=== PATIENT | male | born 1960 | race Caucasian/White ===

== ENCOUNTER 2017-06-04 11:07 | Emergency (ER) | payer MEDICARE, SELFPAY ==
[2017-06-04 11:08] VITALS: BP 139/86; PULSE 62; RESP 18; TEMP 36.6; O2SAT 98; BMI 37.2
--- NOTE | 2017-06-04 11:26 | RAD_ITS ---
STUDY: X-RAY - SACRUM/COCCYX REASON FOR EXAM: Male, 56 years old. Fall with back pain TECHNIQUE: 3 view(s) of the sacrum and coccyx were obtained. COMPARISON: None. FINDINGS: Normal bilateral sacroiliac joints. Normal visualized sacral ala and fused sacral bodies. Normal sacrococcygeal junction with a normal angulation. Normal coccygeal segments. The presacral soft tissue structures are unremarkable. RAD/Sacrum-Coccyx min 2 Views IMPRESSION: Normal x-rays of the sacrum and coccyx. Electronically Signed: Esvin Barton DO at 11:56 EDT Tel , Service support ,
--- NOTE | 2017-06-04 12:27 | ED.DCSUM_ITS ---
- ER Visit Summary Date of Service: 06/04/17 Chief Complaint: Fall History of Present Illness: The patient is a [address] Vega. Reports that he fell onto his buttocks 1 week ago. He continues to have sharp, throbbing pain over his tailbone. States pain is 10 out of 10 at worst and 6 out of 10 currently. Is worsened by sitting relieved by tramadol. Denies any radiation to his legs. No numbness or weakness in his legs. No loss of conscious or other injuries. Physical Examination: Vitals: Stable. Afebrile. Neck: No vertebral tenderness. Full ROM without difficulty. Cleared by NEXUS criteria. Back: No vertebral tenderness. Mild tenderness palpation over the sacrum and the coccyx. General: A&O x 3. NAD. Cardiovascular exam: Regular rate and rhythm, no murmur, rub or gallop. Respiratory exam: Chest nontender. No crepitus. Clear to auscultation bilaterally. No wheezes or stridor. Abdominal exam: Soft, nontender, nondistended, normal bowel sounds. No pain in RUQ or LUQ specifically. No peritoneal signs. Extremity: Atraumatic. No pain with range of motion. Test Results: X-ray of the sacrum and coccyx is normal. Emergency Department Course and Treatment: Patient is resting comfortably. Treatment Plan: Patient be discharged and instructed to use a donut pillow. Continue his Ultram. Follow-up Dr. Vega in 1 week if not improving. Disposition: To home in improved and stable condition. Impression: 1. Coccygeal contusion. This note was generated with [employer] dictation software. It may contain incorrect words, spelling, and punctuation that were not noted in review of the chart prior to signing ED Disposition - Plan for ED Patient: Disposition: Home or Assisted Living Chief Complaint: Fall Instructions: ED Contusion Sacrum Coccyx Referrals: Chi Vega DO [Primary Care Provider] - 1 Week if not improving
== END 2017-06-04 12:48 | disposition home or self-care (01) ==
PROVIDERS: Emergency Provider Emergency Medicine; Family Provider Family Medicine; PCP Family Medicine
DX: S30.0XXA Contusion of lower back and pelvis, initial encounter (principal); W19.XXXA Unspecified fall, initial encounter; Y93.9 Activity, unspecified; Y92.9 Unspecified place or not applicable; J44.9 Chronic obstructive pulmonary disease, unspecified; I10 Essential (primary) hypertension; M79.7 Fibromyalgia; Z90.49 Acquired absence of other specified parts of digestive tract; Z87.891 Personal history of nicotine dependence; Z79.82 Long term (current) use of aspirin; Z79.899 Other long term (current) drug therapy
CPT/HCPCS: 72220; 99282

== ENCOUNTER → 2017-06-29 13:09 | Outpatient (CLI) | payer MEDICARE, SELFPAY ==
[2017-06-29 15:44] LABS: Absolute Lymphocyte Count 1.44 X10^3/ul (0.83-4.51); Absolute Neutrophil Count 3.3 X10^3/uL (2.0-7.7); Basophil# 0.01 X10^3/uL; Basophil% 0.2 % (0-1); Eosinophils% 3.7 % (0-5); Hematocrit 42.8 % (40-54); Hemoglobin 13.9 g/dl (13.0-16.5); Lymphocyte # 1.44 X10^3/ul (4.0); Lymphocyte % 26.9 % (19-41); Mean Corp Hgb Conc 32.5 g/gl (32-36); Mean Corpuscular Hgb 28.4 pg (27.0-32.0); Mean Corpuscular Volume 87.3 fL (80-94); Mean Platelet Vol. 12.7 fl (6.2-12.0); Monocyte# 0.39 X10^3/uL; Monocyte% 7.3 % (0-10); Neutrophil # 3.31 X10^3/uL (2.7-7.7); Neutrophil % 61.7 % (47-70); Platelet Count 209 K/mm3 (150-450); RBC Distribution Width SD 48.2 fl (35.1-43.9); White Blood Count 5.4 K/mm3 (4.4-11.0)
[2017-06-29 15:59] LABS: AST(SGOT) 15 U/L (15-37); Alanine Aminotransfer ALT/SGPT 27 U/L (16-61); Albumin, Serum 3.5 g/dL (3.2-5.0); Alkaline Phosphatase 107 U/L (45-117); Anion Gap 6 (5-15); BUN 8 mg/dL (7-18); BUN/Creat Ratio 8.3 RATIO (10-20); Calcium,Total 8.5 mg/dL (8.5-10.1); Chloride 110 mmol/L (98-107); Cholesterol 187 mg/dL (200); Creatinine, Serum 0.97 mg/dL (0.70-1.30); EST Glomerular Filtration Rate 85 mL/min (>60); Est Glom Filt Rate - Afr Amer 103 mL/min (>60); Globulin 3.4 g/dL (2.2-4.2); Glucose 84 mg/dL (74-106); High Density Lipoprotein 33 mg/dL; Potassium 4.4 mmol/L (3.5-5.1); Protein, Total 6.9 g/dL (6.4-8.2); Sodium Level 140 mmol/L (136-145); Triglycerides 102 mg/dL; Very Low Density Lipoprotein 20 mg/dL (5-40)
[2017-06-29 16:31] LABS: POSITIVE COUNT NO; POSITIVE DIFFERENTIAL NO; POSITIVE MORPHOLOGY NO
== END ==
PROVIDERS: Family Provider Family Medicine; PCP Family Medicine; Visit Provider Family Medicine
DX: I10 Essential (primary) hypertension (principal)
CPT/HCPCS: 36415; 80053; 80061; 85025

== ENCOUNTER → 2017-09-17 12:28 | Outpatient (CLI) | payer MEDICARE, SELFPAY ==
--- NOTE | 2017-09-17 13:30 | CT_ITS ---
STUDY: LOW DOSE CT LUNG CANCER SCREENING REASON FOR EXAM: Male, 56 years old. History of smoking, 2.5 packs per day, 45 years. Screening. RADIATION DOSAGE (If Supplied By Facility): CTDIvol = ( 3.04 ) mGy, DLP = ( 94.05 ) mGycm TECHNIQUE: No contrast was administered. Low dose technique was utilized. 1.25 mm axial source images with a slice interval of 1.25-mm were reconstructed in lung windows. Nodule measured using lung windows on PACS and/or independent workstation with automated measurement of minimum and maximum diameter. Nodule measurement reported as average diameter rounded to the nearest whole number. Growth is defined as an increase ins size of greater than 1.5 mm. COMPARISON: CT chest 06/08/2015, 05/31/2014, 05/17/2014. NODULES: Chest overview: No acute upper abdominal process is evident in limited evaluation. Body wall soft tissues and osseous structures exhibit no acute process. Only minimal thoracic spondylosis. No apparent mediastinal or hilar mass or lymphadenopathy. Normal esophagus. No cardiomegaly. There is epicardial lipomatosis. There are no visible coronary calcifications. Nondilated aorta and central pulmonary arteries. Lungs: In the apices, there are features of paraseptal emphysema, more prominent on the right, with a greater degree of peripheral bleb formation on the right. There are a few scattered small pulmonary nodules in both the right and the left lung. On the left, the largest pulmonary nodule is solid, oval, smoothly circumscribed, measuring 3.8 mm. On the right, the largest pulmonary nodule is solid, sharply circumscribed, oval, measuring approximately 4.9 mm. There are otherwise no suspicious pulmonary lesions. There are no endobronchial airway lesions. CT/Low Dose CT Lung Screening IMPRESSION: Based on the ACR lung RADS criteria, pulmonary nodules less than 6 mm, solid, without spiculation or other suspicious features. Category 2 (benign appearance, less than 1% chance of malignancy). Follow-up low dose screening chest CT is recommended in one year. Emphysema. IMPORTANT NOTES FOR USE: ACR Lung-RADS Version 1.0 Assessment Categories Release Date: July 11, 2013 Category: Coded 0-4 bases on nodule(s) with highest degree of suspicion. Negative screen is defined as categories 1 and 2; a positive screen is defined as categories 3 and 4. Category 3 and 4A nodules that are unchanged on interval CT should be coded as category 2, and individuals returned to screening in 12 months. Category 4X: Category 3 or 4 nodules with additional imaging findings that increase the suspicion of lung cancer, such as spiculation, GGN that doubles in size in 1 year, enlarged lymph notes, etc. Category Modifiers: S (significant finding unrelated to lung cancer) and C (prior history of treated lung cancer) may be added to the 0-4 Lung-RADS Electronically Signed: Talib Hernandez, at 15:12 EDT Tel , Service support ,
== END ==
PROVIDERS: Family Provider Family Medicine; PCP Family Medicine; Visit Provider Internal Medicine
DX: Z12.2 Encounter for screening for malignant neoplasm of respiratory organs (principal); Z87.891 Personal history of nicotine dependence
CPT/HCPCS: G0297

== ENCOUNTER 2017-10-11 16:46 | Emergency (ER) | payer MEDICARE, SELFPAY ==
[2017-10-11 16:48] VITALS: BP 123/93; PULSE 56; RESP 18; TEMP 36.2; O2SAT 99; BMI 34.9
--- NOTE | 2017-10-11 17:38 | ED.VISSUMM ---
- ER Visit Summary Date of Service: 10/11/17 Chief Complaint: Back pain History of Present Illness: The patient is a 57 M presenting with back pain radiating to both legs. He states this has been ongoing for the past 2-3 days. He has a history of chronic back pain. He does not recall anything that exacerbated his pain. He has no bowel or bladder incontinence. No numbness or weakness. He is able to ambulate with pain. He takes Lyrica at home for pain. Denies other complaints. Physical Examination: Vitals are stable. Patient is afebrile. Alert no acute distress. HEENT exam is unremarkable. Neck is supple. Lungs are clear and equal bilaterally. Heart is regular rate and rhythm. Abdomen is soft nontender nondistended. Back: Bilateral paraspinal lumbar muscle tenderness, no midline tenderness. Straight leg raise positive at 30? bilaterally. Extremities are unremarkable. Skin is warm and dry. No focal neurologic deficit. Normal strength and sensation Remainder of exam is unremarkable. Emergency Department Course and Treatment: Patient is given morphine, Zofran with improvement. Patient is given a prescription for Naprosyn and Flexeril. He is advised to follow-up with his primary care physician. Advised return to ED if worsening complaints. Disposition: Discharge home Impression: Acute on chronic back pain This note was generated with [employer] dictation software. It may contain incorrect words, spelling, and punctuation that were not noted in review of the chart prior to signing ED Disposition - Plan for ED Patient: Chief Complaint: Lower Extremity Injury Referrals: Chi Vega DO [Primary Care Provider] -
[2017-10-11] MEDS: Ondansetron 8 MG Tablet PO (18:00)
[2017-10-11] MEDS: morphine 10 MG/ML Syringe SC (18:00)
--- NOTE | 2017-10-11 18:21 | ED.DEP ---
ED Disposition - Plan for ED Patient: Chief Complaint: Lower Extremity Injury Instructions: ED Sprain Strain Lumbar Prescriptions: Naproxen [Naprosyn] 500 mg PO BID PRN #20 tablet Cyclobenzaprine [Flexeril] 10 mg PO TID PRN #20 tablet PRN Reason: Muscle Spasm Referrals: Chi Vega DO [Primary Care Provider] -
[2017-10-11 18:42] VITALS: BP 128/80; PULSE 57; RESP 16; O2SAT 97
== END 2017-10-11 18:45 | disposition home or self-care (01) ==
LOC: ED 18:36
PROVIDERS: Emergency Provider Emergency Medicine; Family Provider Family Medicine; PCP Family Medicine
DX: M54.9 Dorsalgia, unspecified (principal); G89.29 Other chronic pain
CPT/HCPCS: 96372; 99283

== ENCOUNTER 2017-10-13 12:31 | Emergency (ER) | payer MEDICARE, SELFPAY ==
[2017-10-13 12:32] VITALS: BP 149/90; PULSE 73; RESP 16; TEMP 36.2; O2SAT 98; BMI 34.9
--- NOTE | 2017-10-13 13:20 | ED.VISSUMM ---
- ER Visit Summary Date of Service: 10/13/17 Chief Complaint: [Back pain] History of Present Illness: The patient is a 57 M [ presents the emergency department complaint of back pain that started about a week ago. Patient states that he has a history of chronic back pain issues and he will have flareups 2 or 3 times per year. Patient denies any injury to his back. States the pains in his low back and kind of radiates to the front of the thighs at times. Pain is worse with certain movements especially with walking. Patient had a hard time sleeping at night secondary to pain. Patient denies urinary symptoms. He denies change in bowel or bladder function. Patient denies saddle anesthesia. Patient was seen in the emergency department 2 nights ago and had a shot of morphine and he states he felt better for about a day and a half but then the pain became worse last evening. Patient states this is the same pain he has been getting for years off and on.] Physical Examination: [HEENT-PERRLA, EOMI. Cranial nerves II through XII grossly intact. TMs clear. Mucous membranes moist. No adenopathy. Cardiovascular-regular rate and rhythm without murmur or ectopy Lungs-clear to auscultation, chest wall stable without crepitus or subcu emphysema Abdomen-normoactive bowel sounds, soft, nontender, no rebound or rigidity, no peritoneal signs. Back exam-patient has some diffuse tenderness over lumbar paraspinal musculature and lumbar spine. There is no erythema or warmth noted. There is no crepitus noted. Patient has negative straight leg raises. Deep tendon reflexes are plus 1 out of 4 bilaterally at the patella and Achilles. Patient has normal L5 extension bilaterally and normal sensation to light touch. Extremities-intact ?4, normal range of motion, normal pulses, atraumatic] Test Results: [None indicated] Emergency Department Course and Treatment: [Patient was medicated with morphine, Zofran, and Norflex] Treatment Plan: [I did perform an oars report on the patient and he always gets his Lyrica from the primary care physician as well as his tramadol. I will write patient a prescription for 12 Percocet tablets for severe pain and advised to follow-up with primary care physician within next 3-5 days.] Disposition: [Discharged home in stable condition.] patient advised to return if increasing pain, fever, weakness in extremities, loss of bowel or bladder function, or condition should worsen in any way. Impression: [Acute exacerbation of chronic back pain.] This note was generated with [employer] dictation software. It may contain incorrect words, spelling, and punctuation that were not noted in review of the chart prior to signing ED Disposition - Plan for ED Patient: Chief Complaint: Back Referrals: Chi Vega DO [Primary Care Provider] -
--- NOTE | 2017-10-13 13:24 | ED.DEP ---
ED Disposition - Plan for ED Patient: Chief Complaint: Back Instructions: ED Neck Back Pain General Prescriptions: Oxycodone HCl/Acetaminophen [Percocet 5/325] 1 tab PO Q6H PRN PRN 3 Days #12 tab PRN Reason: Pain Referrals: Chi Vega DO [Primary Care Provider] - 3-5 Days
[2017-10-13] MEDS: Morphine 4 MG/ML Syringe IM (13:36)
[2017-10-13] MEDS: Ondansetron 4 MG/2 ML Vial IM (13:36)
[2017-10-13] MEDS: Orphenadrine 60 MG/2 ML Ampul IM (13:36)
== END 2017-10-13 13:53 | disposition home or self-care (01) ==
LOC: ED 13:23
PROVIDERS: Emergency Provider Emergency Medicine; Family Provider Family Medicine; PCP Family Medicine
DX: M54.5 Low back pain (principal); G89.29 Other chronic pain; I10 Essential (primary) hypertension; M19.90 Unspecified osteoarthritis, unspecified site; M79.7 Fibromyalgia; Z90.49 Acquired absence of other specified parts of digestive tract; Z79.899 Other long term (current) drug therapy; Z87.891 Personal history of nicotine dependence
CPT/HCPCS: 96372; 99282; J2405

== ENCOUNTER → 2017-10-28 15:31 | Outpatient (CLI) | payer MEDICARE, SELFPAY | PROVIDERS: Family Provider Family Medicine; PCP Family Medicine; Visit Provider Family Medicine | DX: M51.36 Other intervertebral disc degeneration, lumbar region (principal); M54.5 Low back pain; G89.29 Other chronic pain; M47.22 Other spondylosis with radiculopathy, cervical region | CPT/HCPCS: 72148 ==

== ENCOUNTER 2018-01-31 11:03 | Emergency (ER) | payer MEDICARE, SELFPAY ==
[2018-01-31 11:05] VITALS: BP 142/84; PULSE 78; RESP 17; TEMP 36.3; O2SAT 97; BMI 35.6
--- NOTE | 2018-01-31 11:39 | ED.DCSUM_ITS ---
- ER Visit Summary Date of Service: 01/31/18 Chief Complaint: [] Left buttock fullness for a few days History of Present Illness: The patient is a 57 M [] last few days she has had a sense of fullness to the left buttock area he has had fullness there before leg abscess he presents for evaluation, he has no history of MRSA no history of systemic signs or symptoms his bowel bladder habits been normal no fevers no trauma, he is never had an I&D of the area whatever the process is usually resolves spontaneously Physical Examination: [] His blood pressure is 160/80 he is resting comforting the bed General, no distress resting comfortably HEENT is generally unremarkable The neck is supple no adenopathy Cardiovascular, regular rate and rhythm Lungs, clear bilateral Abdomen, soft nontender To the left buttock there is a 1 cm area of fullness that is indurated there is no fluctuance or crepitance there is no lymphangitic streaking the rest of the physical exam and skin exam are unremarkable Extremities, no clubbing cyanosis or edema Neurologic, awake alert answering questions appropriately moving all 4 extremities Test Results: [] Emergency Department Course and Treatment: [] explained he appears to have a pilonidal cyst could be early explained we could I&D the cyst he indicates the past has been treated with medications, he will be started on Bactrim Naprosyn he has a family physician he can follow-up with in addition he was given the referral to Dr. Azevedo on-call he will return for change in symptoms otherwise follow-up as an outpatient with his providers Treatment Plan: [] Disposition: [] Home stable Impression: [] Left buttock pilonidal cyst This note was generated with [employer] dictation software. It may contain incorrect words, spelling, and punctuation that were not noted in review of the chart prior to signing ED Disposition - Plan for ED Patient: Chief Complaint: Abscess Referrals: Chi Vega DO [Primary Care Provider] -
--- NOTE | 2018-01-31 11:39 | ED.DEP ---
ED Disposition - Plan for ED Patient: Chief Complaint: Abscess Instructions: ED Cyst Pilonidal Infec Abx Only Prescriptions: Naproxen [Naprosyn] 500 mg PO BID PRN #20 tab Smz/Tmp Ds [Bactrim Ds] 1 tab PO BID #14 tab Referrals: Chi Vega DO [Primary Care Provider] - Naresh Azevedo MD [STAFF PHYSICIAN] -
[2018-01-31 11:50] VITALS: BP 141/67; PULSE 71; RESP 16; O2SAT 96
== END 2018-01-31 11:51 | disposition home or self-care (01) ==
LOC: ED 11:25
PROVIDERS: Emergency Provider Emergency Medicine; Family Provider Family Medicine; PCP Family Medicine
DX: L05.91 Pilonidal cyst without abscess (principal)
CPT/HCPCS: 99282

== ENCOUNTER → 2018-02-09 10:46 | Outpatient (CLI) | payer MEDICARE, SELFPAY ==
[2018-02-09 10:36] VITALS: BMI 35.6
--- NOTE | 2018-02-09 10:48 | RAD_ITS ---
HISTORY: PBack PainRAD Spine COMPARISON: 04/17/2016 FINDINGS: Lumbar spine with lateral flexion-extension views for total 4 views. With comparison to previous, no significant change. Lumbar vertebra show normal height and alignment. No fracture or suspicious bony lesion. With flexion and extension, no abnormal motion or spondylolisthesis. L2-3 through L4-5 mild disc space narrowing. The posterior elements appear intact. The SI joints are preserved. Surgical clips within the gallbladder fossa. RAD/L/S Spine Min 4 Views IMPRESSION: 1. Stable findings. Mild degenerative changes. 2. No spondylolisthesis or instability. at 0440 Reported and signed by: Eddie Muñoz MD Electronically Signed: Eddie Muñoz, at 4:38 EST Tel , Service support ,
--- OUTSIDE RECORDS SUMMARY | 2018-03-24 02:30 | XMS RPT_ITS ---
:1960 Author Organization OHIP Support Name Relationship Address Phone D Unavailable Unavailable Unavailable MARITZA, DEV Unavailable [address] [place] [address] D Unavailable Unavailable Unavailable MARITZA, DEV Unavailable [address] [place] [address] D Unavailable Unavailable Unavailable MARITZA, DEV Unavailable [address] [place] [address] D Unavailable Unavailable Unavailable MARITZA, DEV Unavailable [address] [place] [address] D Unavailable Unavailable Unavailable MARITZA, DEV Unavailable [address] [place] [address] D Unavailable Unavailable Unavailable MARITZA, DEV Unavailable [address] [place] [address] ELDER SALASA Unavailable Unavailable + MARITZA, AMANDA Unavailable Unavailable + D Unavailable Unavailable Unavailable MARITZA, DEV Unavailable [address] [place] [address] D Unavailable Unavailable Unavailable MARITZA, DEV Unavailable [address] [place] [address] D Unavailable Unavailable Unavailable MARITZA, DEV Unavailable [address] [place] [address] D Unavailable Unavailable Unavailable MARITZA, DEV Unavailable [address] [place] [address] D Unavailable Unavailable Unavailable MARITZA, DEV Unavailable [address] [place] [address] D Unavailable Unavailable Unavailable MARITZA, DEV Unavailable [address] [place] [address] D Unavailable Unavailable Unavailable DEV SALAS Unavailable [address] [place] [address] Care Team Providers Name Role Phone Ervin Eisenberg Attending Unavailable Silvia, Chi Primary Care Unavailable Silvia, Chi Primary Care Unavailable Ervin Eisenberg Attending Unavailable Rene, Lian Attending Unavailable Rene, Lian Referring Unavailable Silvia, Chi Primary Care Unavailable Silvia, Chi Attending Unavailable Silvia, Chi Primary Care Unavailable Brian, Francis Attending Unavailable Brian, Francis Referring Unavailable Silvia, Chi Primary Care Unavailable Silvia, Chi Primary Care Unavailable Shayy Hollingsworth Attending Unavailable [place]via, Chi Primary Care Unavailable Arianne Galeas Attending Unavailable [place]via, Chi Attending Unavailable Silvia, Chi Referring Unavailable Silvia, Chi Primary Care Unavailable Silvia, Chi Primary Care Unavailable Mikie Casey Attending Unavailable Rene, Lian Attending Unavailable Silvia, Chi Referring Unavailable Rene, Lian Attending Unavailable Rene, Lian Referring Unavailable Silvia, Chi Primary Care Unavailable Rene, Lian Attending Unavailable Rene, Lian Referring Unavailable Silvia, Chi Primary Care Unavailable Silvia, Chi Attending Unavailable Silvia, Chi Referring Unavailable Silvia, Chi Primary Care Unavailable Javon, Dr. Levy Admitting Unavailable Javon, Dr. Levy Attending Unavailable Silvia, Dr. Chi De La Torre Referring Unavailable Palomino, Dr. Goldman Primary Care Unavailable PROBLEMS PROBLEMS DATE TYPE CONDITION / CODE ATTENDING STATUS SOURCE 02/09/2018 Unknown M54.5 - Low back Lian Rene Active [place] [facility] / Community M54.5(ICD-10) Hospital Repository 09/17/2017 Unknown Z12.2 - Encounter Francis Torres Active [place] for screening for Community malignant neoplasm Hospital of respiratory Repository organs / Z12.2(ICD-10) 06/29/2017 Unknown I10 - Essential SilviaChi ponce Active [place] (primary) Community hypertension / Hospital I10(ICD-10) Repository PROCEDURES PROCEDURES No Procedure Records FoundRESULTS RESULTS SPINE CERVICAL Observed: 02/26/2018 Status: F Source: [place] [facility]OUTINE) 12[facility] PM [facility] Imaging Services [address] [place] [address] Spine Cervical (Routine) MR#: [id number] Acct: [id number] Name: NAKUL CURTIS Rep #: [id number] : 1960 M 57 From: Josh Richter MD PCP: Chi Vega DO Status: REG CLI Study: Spine Cervical (Routine) Date of Exam: 02/26/18 Exam# [id number] Ordering Dr: Lian Rene MD STUDY: MRI CERVICAL SPINE WITHOUT CONTRAST REASON FOR EXAM: Male, 57 years old. Fibromyalgia TECHNIQUE: Standardized fat and water weighted pulse sequences were obtained in the sagittal and axial planes. COMPARISON: None FINDINGS: There is no tonsillar ectopia. There is a normal cervicomedullary junction. The cervical spinal cord is of normal morphology and signal intensity with no myelomalacia, contusion or myelopathy. There is loss of the normal lordotic curvature of the cervical spine. There are no acute fractures or dislocations. Significant disc space narrowing C5-C6 and C6-C7. C2-3: Normal endplates. Normal disc height, signal and morphology. Normal central canal and intervertebral neural foramina. C3-4: Normal endplates. Normal disc height, signal and morphology. Normal central canal and intervertebral neural foramina. C4-5: Normal endplates. Normal disc height, signal and morphology. Normal central canal and intervertebral neural foramina. C5-6: Disc space narrowing with a spondylotic bar abutting on the anterior surface of the cord. The intervertebral foramina are patent. C6-7: Disc space narrowing. An 8.4 x 4.0 mm right paracentral disc protrusion impinging on the right anterior funiculus of the cord. Uncinate spurs minimally narrowing the intervertebral foramina. C7-T1: Normal endplates. Normal disc height, signal and morphology. Normal central canal and intervertebral neural foramina. . 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 An 8.4 x 4.0 mm right paracentral disc protrusion at C6-C7. The protruding disc impinges on the right anterior funiculus of the cord at this level Electronically Signed: Josh Richter MD at 0:32 EST Tel , Service support , CC: Lian Rene MD; Chi Vega DO Block Saw Operator: Signed INITAL EVALUATION (1) Observed: 02/23/2018 Status: F Source: [facility] - PT 5:02 PM [facility] [place] [place] REPOSITORY [facility] Physical Therapy [facility]. [address] [place] [address] Fax REHABILITATION SERVICES INITIAL EVALUATION MR#: [id number] Acct: [id number] Name: NAKUL CURTIS Rep #: [id number] : 1960 57 From: Luke Ferrell PT, Cert. MDT, OCS Referring Dr.: Lian Rene MD Status: REG RCR Insurance: [facility] *IN NETWORK SELF PAY INSURANCE Patient's Visit Information NAKUL CURTIS is a 57 year old M referred to Physical Therapy by Lian Rene with a diagnosis of BACK PAIN. Date of Evaluation: 02/16/18 Physical Therapist: Luke Ferrell PT, - Visit Plan Frequency: 2x /Week Duration: 8 weeks Plan: AQUATIC PT LUMBAR ROM,DLS ,FLEXABLITY - Subjective Findings: This 57 y/o male presents to physical therapy with Back pain. Patient has had back pain my years along with weakness ,pain and parathesia. Symptoms located symmtrical lumbar. Patient has had MRI. Patient seen DR uttu PT. Patient symptoms walking,sitting,standing,lifting. Symptoms better with heat. Patient has parathesia/tingling in feet.Symptoms affect sleeping. Coughing/sneezing postive, Bowel/blader good. Patient has had injection in past. Patient pain affects QOL and function . - Pain Bilateral Back Pain Intensity (Out of 10): 7 Pain Intensity Range: 10 Bilateral Lower Extremity Pain Intensity (Out of 10): 7 Pain Intensity Range: 7, 10 - Objective POSTURE: mild foward posture. GAIT: mild foward posture with cane antalgic gait. NEURO: c/o parathesia/tingling in feet,reflexes L3-4,L4-5,L5-S1 1/3,light touch intact. MMT: quad/hams 4-/5,hip flexion 3+/5,ankle 4/5. LUMBAR ROM: flexion mod/severe loss,extension mod/severe loss,side glides mod loss. FLEXABLITY: hams mod loss,piriformis mod loss. SYMMTRICAL: align. PALAPTION: tender L-S - Special Tests L/S Slump test left side: Negative L/S Slump test right side: Negative L/S Left Straight Leg Raise: Negative L/S Right Straight Leg Raise: Negative - Goals Goal 1:: Independant with AQUATIC PT program Goal Time Frame: 6-8 Weeks Goal 2:: Indpendant with posture for ADL'S Goal Time Frame: 6-8 Weeks Goal 3:: Patient decrease lumbar pain by 50 % or greatweer to imrove function Goal Time Frame: 6-8 Weeks Goal 4:: Patient to improve lumbar ROM for function of recovery. Goal Time Frame: 6-8 Weeks Goal 5:: Patient to improve ADLS' and walking with less pain to improve function. Goal Time Frame: 6-8 Weeks Goal 6:: Patient improve KITA back score by 5 points Goal Time Frame: 6-8 Weeks - Rehabilitation Potential Physical Therapy Diagnosis: This patient has symmtrical lumbar pain with radicular symptoms with weakness ,poor lumbar ROM with pain,decrease strength,function impairs function and ADL'S Rehabilitation Potential: Good - Anticipated Interventions Patient/Client Instruction: Educate patient on: Condition, Plan of Care For the Purpose of:: To decrease pain, To increase ROM, To improve muscle performance and motor function, To improve ability to perform ADL's, To increase tolerance to activity/condition/position, To improve ability of physical actions for home/community/work/leisure, To improve health of tissue, To decrease soft tissue restriction, To increase flexibility/ROM, To improve ability to perform tasks related to life management Therapeutic Exercise to Include: Strength training, Postural training, Flexibilty training, In an aquatic setting, Dynamic Lumbar Stabilization For the Purpose of:: To decrease pain, To increase ROM, To improve muscle performance and motor function, To increase tolerance to activity/condition/position, To improve ability of physical actions for home/community/work/leisure, To improve health of tissue, To decrease soft tissue restriction, To increase flexibility/ROM, To reduce risk of recurrence, To improve ability to perform tasks related to life management Thank you for the opportunity to evaluate your patient. For Medicare and Medicare HMO plans, please review the plan of care and approve it. It will need to be FAXED BACK to us at [phone] for Medicare purposes. For Medicare only, by signing this I certify the plan of care. Please let me know if there are questions or concerns regarding this plan of care. Physician Signature: Date: <Electronically signed by Luke Ferrell PT, Cert. T, OCS> 02/23/18 1702 CC: Lian Rene MD; Chi Vega DO JLA Signed ORTHOPEDIC VISIT Observed: 02/20/2018 Status: F Source: [facility] REPORT 9:52 AM [facility] [place] [place] REPOSITORY [facility] Medicine [address] [place], [place] [id number] OFFICE VISIT Date of Service: 02/09/18 MR#: [id number] Acct: [id number] Name: CURTISNAKUL Deb Rep #: [id number] : 1960 Provider: Lian Rene MD Age/Sex: 57/M Location: [facility] [place] [place] Status: Signed Intake Vital Signs02/09/18 Body Mass Index (BMI) 35.6 Intake Visit Reasons: LOW BACK PAIN Is patient in pain?: Yes Pain scale (1-10): 6 Allergies codeine Allergy (Verified 01/31/18 11:04) Itching nuclear med contrast Allergy (Uncoded 01/31/18 11:04) Unknown Medications Albuterol Sulfate [Ventolin Hfa] 2 puff IH Q4H PRN PRN 06/06/16 [History Confirmed 10/11/17] Amlodipine [Norvasc] 5 mg PO DAILY 06/06/16 [History Confirmed 10/11/17] Omeprazole [Prilosec] 40 mg PO DAILY 06/06/16 [History Confirmed 10/11/17] Fluticasone/Vilanterol [Breo Ellipta Inhaler] 1 - 2 ea NASAL DAILY 06/04/17 [History Confirmed 10/11/17] Ipratropium Herlong 0.06% [ATROVENT NASAL SPRAY (g)] 1 - 2 spray NASAL PRN PRN 06/04/17 [History Confirmed 10/11/17] Pregabalin [Lyrica] 150 mg PO BID 06/04/17 [History Confirmed 10/11/17] Tamsulosin HCl [Flomax] 0.4 mg PO DAILY 06/04/17 [History Confirmed 10/11/17] Triamcinolone 0.1% Cream [Kenalog] 1 applic TOPICAL BID PRN 06/04/17 [History Confirmed 10/11/17] Umeclidinium Brm/Vilanterol Tr [Anoro Ellipta 62.5-25 Mcg INH] 1 puff IH DAILY 06/04/17 [History Confirmed 10/11/17] Amitriptyline HCl 25 mg PO QHS 10/11/17 [History Confirmed 10/11/17] Cyclobenzaprine [Flexeril] 10 mg PO TID PRN #20 tab 10/11/17 [Rx] Diclofenac Potassium 50 mg PO TID 10/11/17 [History Confirmed 10/11/17] Finasteride [Proscar] 5 mg PO DAILY 10/11/17 [History Confirmed 10/11/17] Meclizine HCl [Antivert] 25 mg PO DAILY 10/11/17 [History Confirmed 10/11/17] Naltrexone HCl 12.5 mg PO DAILY 10/11/17 [History Confirmed 10/11/17] Naproxen [Naprosyn] 500 mg PO BID PRN #20 tab 10/11/17 [Rx] Oxycodone HCl/Acetaminophen [Percocet 5/325] 1 tab PO Q6H PRN PRN 3 Days #12 tab 10/13/17 [Rx] Naproxen [Naprosyn] 500 mg PO BID PRN #20 tab 01/31/18 [Rx] Smz/Tmp Ds [Bactrim Ds] 1 tab PO BID #14 tab 01/31/18 [Rx] PFSH Surgical History h/o gallbladder removal (Acute) h/o hernia surgery (Acute) Social History Smoking Status: Current every day smoker HPI LOW BACK PAIN: Details: NAKUL CURTIS is a 57 year old RHD M here today referred by Dr Vega for low back pain. Patient notes that he has had back pain for many years with it worsening over the last year. He has tingling and numbness into his bilateral feet. Patient notes that he struggles to walk long distances. Patient uses a cane to ambulate for the past year. He complains of bilateral leg weakness for the past 3-4 years. He denies an inciting event. He denies difficulty with hand dexterity. Patient has increased pain with increased activities. It is improved with heat. Patient has completed physical therapy most recently a few years ago. He states aqua therapy helped. He states he has seen a neurologist int he past, who states that he did not have multiple sclerosis. He states that he has chronic pain. Patient has had epidural injections by Dr Alejandro in [place] but he is unsure of the level. He takes tramadol as needed and lyrica. He has fibromyalgia and takes lyrica. He has a history of dupetryn's contracture. He has GERD and HTN. He is unemployed. He denies nicotine use. He uses marijuana. ROS Const Reports system reviewed and no additional complaints, except as docu Eyes Reports system reviewed and no additional complaints, except as docu ENT Reports system reviewed and no additional complaints, except as docu Card Reports system reviewed and no additional complaints, except as docu Resp Reports system reviewed and no additional complaints, except as docu GI Reports system reviewed and no additional complaints, except as docu Reports system reviewed and no additional complaints, except as docu Musc Reports back pain, Reports numbness, Reports tingling, Reports muscle weakness Skin/Breast Reports system reviewed and no additional complaints, except as docu Neuro Yes system reviewed and no additional complaints, except as docu, Yes numbness, Yes tingling Psych Reports system reviewed and no additional complaints, except as docu Endo Reports system reviewed and no additional complaints, except as docu Ortho Exam Spine Neuro: Yes Clonus (none bilaterally), Braxton's (negative bilaterally), Babinski (equivocal bilaterally) and Straight Leg Raise (negative bilaterally) General: alert, oriented x3 Skin: Yes dysraphism (none) Capillary Refill <2sec: Yes Palpable Pulses: 1+ bilateral dp and pt pulses Gait: antalgic, other (able to heel and toe stand) Sensory Exam: no sensory deficits noted DTR's: Rt Triceps: 3+, Lt Triceps: 3+, Rt Biceps: 3+, Lt Biceps: 3+, Rt Brachioradialis: 3+, Lt Brachioradialis: 3+, Rt Patellar: 3+, Lt Patellar: 3+, Rt Ankle: 3+, Lt Ankle: 3+ Plantar Reflexes: Equivocal: bilateral Coordination: Romberg test normal SPINE TESTING CERVICAL THORACIC LUMBAR Musculoskeletal Cervical Spine: cervical muscular tenderness, pain with cervical ROM Thoracic/Lumbar Spine: straight leg raise negative bilaterally, pain with thoraco-lumbar ROM, paraspinal tenderness, thoraco-lumbar ROM limited (worse with lumbar extension than flexion), lumbar spinal tenderness Strength 0=absent - 5=normal Deltoid R (C5): 4, Deltoid L (C5): 4, R Bicep (C5-6): 4, L Bicep (C5-6): 4, R Wrist Extensor (C6): 4, L Wrist Extensor (C6): 4, R Tricep (C7): 4, L Tricep (C7): 4, R Finger Flexors (C8): 4, L Finger Flexors (C8): 4, R First Dorsal Interossei (C8): 4, L First Dorsal Interossei (C8): 4, R Hip Flexor (L1-3): 4, L Hip Flexor (L1-3): 4, R Quadriceps (L2-4): 4, L Quadriceps (L2-4): 4, R Anterior Tibialis (L4-5): 4, L Anterior Tibialis (L4- 5): 4, R EHL (L5): 4, L EHL (L5): 4, R Hamstrings (L5-S1): 4, L Hamstrings (L5-S1): 4, GS (S1): 4, L GS (S1): 4, R Peroneals (S1): 4, L Peroneals (S1): 4 Details: Assessment AND Plan Problems 1. Chronic bilateral low back pain without sciatica M54.5; G89.29 2. Paresthesia of foot, bilateral R20.2 3. Fibromyalgia M79.7 Plan Imaging: XR lumbar spine 02/09/2018 reveals diffuse spondylosis MRI lumbar spine 10/28/2017 reveals diffuse spondylosis wth right L4-5 foraminal stenosis I/R/P: 1. back pain 2. bilateral feet paresthesias 3. fibromyalgia Mr. Curtis presents with diffuse neck and back pain. He has complains of weakness. It is unclear if his global weakness is secondary to true weakness or pain inhibited. He does have hyperreflexia. Recommend an MRI cervical spine to rule out spinal cord compression. Recommend dedicated spine physical therapy. Follow up after MRI or sooner if issues arise. Plan of care discussed. All questions answered. He is in understanding. Orders Orders: Coding Level of Care Code Off vis,new,level 4 Diagnoses Chronic bilateral low back pain without sciatica M54.5; G89.29 Back pain location: low back pain Chronicity: chronic Back pain laterality: bilateral Sciatica presence: without sciatica Paresthesia of foot, bilateral R20.2 Fibromyalgia M79.7 02/20/18 0952 <Electronically signed by Lian Rene MD> Date Lian Rene MD Cosigner Signature: Date (if applicable) CC: Chi Vega DO ABDOMEN LIMITED Observed: 02/20/2018 Status: F Source: [facility] 9:02 AM [facility] [place] [place] REPOSITORY [facility] Imaging Services [address] [place] [address] Abdomen Limited MR#: [id number] Acct: [id number] Name: NAKUL CURTIS Rep #: [id number] : 1960 M 57 From: Adryan Navarro MD PCP: Chi Vega DO Status: REG CLI Study: Abdomen Limited Date of Exam: 02/20/18 Exam# [id number] Ordering Dr: Chi Vega DO STUDY: ABDOMINAL ULTRASOUND - RIGHT UPPER QUADRANT REASON FOR VISIT: Male, 57 years old. Fatty liver disease TECHNIQUE: Ultrasound evaluation of the right upper quadrant was performed with real-time and static de la cruz-scale imaging. TECHNICAL QUALITY: Limited. COMPARISON: None. FINDINGS: Liver: The liver measures 17.5 cm. There is increased, coarsened echogenicity of the liver. The bile ducts are within normal limits. There is hepatic color flow. The direction of portal flow is hepatopetal. There is no demonstrated mass lesion. Gallbladder: The gallbladder is not visualized. Common Bile Duct (C.B.D.): The common bile duct measures 4.9 mm. Pancreas: There is normal echogenicity of the pancreas. There is no demonstrated pancreatic mass or cyst. Right Kidney: Normal size of the right kidney. The right kidney measures 11.3 cm. Normal renal cortex. The right cortex measures 1.3 cm. Simple cyst of the right kidney measures 1.7 cm. There is no right hydronephrosis. US/Abdomen Limited IMPRESSION: 1. No hepatic masses. 2. Increased echo pattern of the liver is compatible with history provided of fatty liver disease. Electronically Signed: Adryan Navarro MD at 20:30 EST , Service support , CC: Chi Vega DO Block Saw Operator: Signed L/S SPINE MIN 4 Observed: 02/09/2018 Status: F Source: [facility] VIEWS 10:48 AM [facility] [place] [place] REPOSITORY [facility] Imaging Services [facility] [place] [address] [place] [address] L/S Spine Min 4 Views MR#: [id number] Acct: [id number] Name: NAKUL CURTIS Rep #: [id number] : 1960 M 57 From: Eddie Muñoz MD PCP: Chi Vega DO Status: REG CLI Study: L/S Spine Min 4 Views Date of Exam: 02/09/18 Exam# [id number] Ordering Dr: Lian Rene MD HISTORY: PBack PainRAD Spine COMPARISON: 04/17/2016 FINDINGS: Lumbar spine with lateral flexion-extension views for total 4 views. With comparison to previous, no significant change. Lumbar vertebra show normal height and alignment. No fracture or suspicious bony lesion. With flexion and extension, no abnormal motion or spondylolisthesis. L2-3 through L4-5 mild disc space narrowing. The posterior elements appear intact. The SI joints are preserved. Surgical clips within the gallbladder fossa. RAD/L/S Spine Min 4 Views IMPRESSION: 1. Stable findings. Mild degenerative changes. 2. No spondylolisthesis or instability. at 0440 Reported and signed by: Eddie Muñoz MD Electronically Signed: Eddie Muñoz, at 4:38 EST Tel , Service support , CC: Lian Rene MD; Chi Vega DO Block Saw Operator: Signed EMERGENCY DEPARTMENT Observed: 01/31/2018 Status: F Source: [facility] SUMMARY 3:44 PM [facility] [place] [place] REPOSITORY [facility] Medical Records Department [address] [place] [address] Emergency Department Summary 01/31/18 1136 MR#: [id number] Acct: [id number] Name: NAKUL CURTIS Rep #: [id number] : 1960 57 From: Mikie Casey MD PCP: Chi Vega DO Status: DEP ER - ER Visit Summary Date of Service: 01/31/18 Chief Complaint: [] Left buttock fullness for a few days History of Present Illness: The patient is a 57 M [] last few days she has had a sense of fullness to the left buttock area he has had fullness there before leg abscess he presents for evaluation, he has no history of MRSA no history of systemic signs or symptoms his bowel bladder habits been normal no fevers no trauma, he is never had an I AND D of the area whatever the process is usually resolves spontaneously Physical Examination: [] His blood pressure is 160/80 he is resting comforting the bed General, no distress resting comfortably HEENT is generally unremarkable The neck is supple no adenopathy Cardiovascular, regular rate and rhythm Lungs, clear bilateral Abdomen, soft nontender To the left buttock there is a 1 cm area of fullness that is indurated there is no fluctuance or crepitance there is no lymphangitic streaking the rest of the physical exam and skin exam are unremarkable Extremities, no clubbing cyanosis or edema Neurologic, awake alert answering questions appropriately moving all 4 extremities Test Results: [] Emergency Department Course and Treatment: [] explained he appears to have a pilonidal cyst could be early explained we could I AND D the cyst he indicates the past has been treated with medications, he will be started on Bactrim Naprosyn he has a family physician he can follow-up with in addition he was given the referral to Dr. Azevedo on-call he will return for change in symptoms otherwise follow-up as an outpatient with his providers Treatment Plan: [] Disposition: [] Home stable Impression: [] Left buttock pilonidal cyst This note was generated with [employer] dictation software. It may contain incorrect words, spelling, and punctuation that were not noted in review of the chart prior to signing ED Disposition - Plan for ED Patient: Chief Complaint: Abscess Referrals: Chi Vega, [Primary Care Provider] - What to do if you have Problems For any increased pain, shortness of breath, bleeding, nausea or vomiting, chest pain, or any unexpected problems, contact your Primary Care Provider. Call [facility] ([phone]) or report to the closest Emergency Room. Call 911 if necessary. 01/31/18 154 <Electronically signed by Mikie Casey MD> Date Mikie Casey MD Cosigner Signature (If Indicated): Date CC: Chi Vega DO DISCHARGE INSTRUCTION Observed: 01/31/2018 Status: F Source: [place] 11:43 AM [facility] [place] [place] REPOSITORY [facility] Medical Records Department [address] [place] [address] Discharge Instruction 01/31/18 1139 MR#: [id number] Acct: [id number] Name: NAKUL CURTIS Rep #: [id number] : 1960 57 From: Mikie Casey MD PCP: Chi Vega DO Status: REG ER ED Disposition - Plan for ED Patient: Chief Complaint: Abscess Instructions: ED Cyst Pilonidal Infec Abx Only Prescriptions: Naproxen [Naprosyn] 500 mg PO BID PRN #20 tab Smz/Tmp Ds [Bactrim Ds] 1 tab PO BID #14 tab Referrals: Chi Vega DO [Primary Care Provider] - Naresh Azevedo MD [STAFF PHYSICIAN] - What to do if you have Problems For any increased pain, shortness of breath, bleeding, nausea or vomiting, chest pain, or any unexpected problems, contact your Primary Care Provider. Call [facility] ([phone]) or report to the closest Emergency Room. Call 911 if necessary. 01/31/18 1143 <Electronically signed by Mikie Casey MD> Date Mikie Casey MD Cosigner Signature (If Indicated): Date CC: Chi Vega DO FOLLOW UP (RHEUMATOLOGY) Observed: 01/06/2018 Status: UNK Source: [facility] 2:44 PM [facility] RE[facility] No report was sent SPINE LUMBAR Observed: 10/28/2017 Status: F Source: [facility] (ROUTINE) 3:44 PM [facility] Imaging Services [address] [place] [address] Spine Lumbar (Routine) MR#: [id number] Acct: [id number] Name: NAKUL CURTIS Rep #: [id number] : 1960 M 57 From: Tracy Valentin MD PCP: Chi Vega DO Status: REG CLI Study: Spine Lumbar (Routine) Date of Exam: 10/28/17 Exam# [id number] Ordering Dr: Chi Vega DO STUDY: MRI LUMBAR SPINE WITHOUT CONTRAST REASON FOR EXAM: Male, 57 years old. Low back pain. TECHNIQUE: Standardized fat and water weighted pulse sequences were obtained in the sagittal and axial planes. COMPARISON: None FINDINGS: T12-L1: Normal endplates. Normal disc height, hydration and morphology. Normal bilateral facet joints. Normal central canal and bilateral lateral recesses. Normal bilateral intervertebral neural foramina. Normal lumbar lordosis. There is no substantial scoliosis. Normal conus medullaris that terminates at the T12-L1 level. L1-2: Normal endplates. Normal disc height, hydration and morphology. Normal bilateral facet joints. Normal central canal and bilateral lateral recesses. Normal bilateral intervertebral neural foramina. L2-3: Normal endplates. Moderate disc space narrowing. There is a mild, noncompressive spondylotic bar. Normal bilateral facet joints. Normal central canal and bilateral lateral recesses. Mild marginal spurring without foraminal encroachment. L3-4: Normal endplates. Moderate disc space narrowing. There is a mild, noncompressive spondylotic bar. There is a small superimposed right paracentral disc protrusion. This appears noncompressive. Normal bilateral facet joints. Normal central canal and bilateral lateral recesses. Mild marginal spurring without foraminal encroachment L4-5: Normal endplates. Disc dehydration and moderate disc space narrowing. There is a mild, noncompressive spondylotic bar. Normal bilateral facet joints. Normal central canal and bilateral lateral recesses. There is moderate right foraminal stenosis due to spurring and mild facet hypertrophy. L5-S1: There is a transitional L5 vertebral body. Hypoplastic disc space. No disc protrusion, canal or foraminal stenosis. Normal visualized sacral ala. Normal visualized paraspinous soft tissue structures. MRI/Spine Lumbar (Routine) IMPRESSION: 1. Transitional L5 vertebral body. 2. L3-4 disc protrusion appears noncompressive. 3. L4-5 foraminal stenosis. 4. Mild degenerative changes, detailed above. Electronically Signed: Tracy Valentin MD at 23:39 EDT Tel , Service support , CC: Chi Vega DO Block Saw Operator: Signed DISCHARGE INSTRUCTION Observed: 10/13/2017 Status: F Source: [place] 1:28 PM [facility] [place] [place] REPOSITORY [facility] Medical Records Department [address] [place] [address] Discharge Instruction 10/13/17 1324 MR#: [id number] Acct: [id number] Name: NAKUL CURTIS Rep #: [id number] : 1960 57 From: Arianne Galeas DO PCP: Chi Vega DO Status: REG ER ED Disposition - Plan for ED Patient: Chief Complaint: Back Instructions: ED Neck Back Pain General Prescriptions: Oxycodone HCl/Acetaminophen [Percocet 5/325] 1 tab PO Q6H PRN PRN 3 Days #12 tab PRN Reason: Pain Referrals: Chi Vega DO [Primary Care Provider] - 3-5 Days What to do if you have Problems For any increased pain, shortness of breath, bleeding, nausea or vomiting, chest pain, or any unexpected problems, contact your Primary Care Provider. Call [facility] ([phone]) or report to the closest Emergency Room. Call 911 if necessary. 10/13/17 1328 <Electronically signed by Arianne Galeas DO> Date Arianne Galeas DO Cosigner Signature (If Indicated): Date CC: Chi Vega DO EMERGENCY DEPARTMENT Observed: 10/13/2017 Status: F Source: [place] SUMMARY 1:24 PM [facility] [place] [place] REPOSITORY [facility] Medical Records Department [address] [place] [address] Emergency Department Summary 10/13/17 1320 MR#: [id number] Acct: [id number] Name: NAKUL CURTIS Rep #: [id number] : 1960 57 From: Arianne Galeas DO PCP: Chi Vega DO Status: REG ER - ER Visit Summary Date of Service: 10/13/17 Chief Complaint: [Back pain] History of Present Illness: The patient is a 57 M [ presents the emergency department complaint of back pain that started about a week ago. Patient states that he has a history of chronic back pain issues and he will have flareups 2 or 3 times per year. Patient denies any injury to his back. States the pains in his low back and kind of radiates to the front of the thighs at times. Pain is worse with certain movements especially with walking. Patient had a hard time sleeping at night secondary to pain. Patient denies urinary symptoms. He denies change in bowel or bladder function. Patient denies saddle anesthesia. Patient was seen in the emergency department 2 nights ago and had a shot of morphine and he states he felt better for about a day and a half but then the pain became worse last evening. Patient states this is the same pain he has been getting for years off and on.] Physical Examination: [HEENT-PERRLA, EOMI. Cranial nerves II through XII grossly intact. TMs clear. Mucous membranes moist. No adenopathy. Cardiovascular-regular rate and rhythm without murmur or ectopy Lungs-clear to auscultation, chest wall stable without crepitus or subcu emphysema Abdomen-normoactive bowel sounds, soft, nontender, no rebound or rigidity, no peritoneal signs. Back exam-patient has some diffuse tenderness over lumbar paraspinal musculature and lumbar spine. There is no erythema or warmth noted. There is no crepitus noted. Patient has negative straight leg raises. Deep tendon reflexes are plus 1 out of 4 bilaterally at the patella and Achilles. Patient has normal L5 extension bilaterally and normal sensation to light touch. Extremities-intact 4, normal range of motion, normal pulses, atraumatic] Test Results: [None indicated] Emergency Department Course and Treatment: [Patient was medicated with morphine, Zofran, and Norflex] Treatment Plan: [I did perform an oars report on the patient and he always gets his Lyrica from the primary care physician as well as his tramadol. I will write patient a prescription for 12 Percocet tablets for severe pain and advised to follow-up with primary care physician within next 3-5 days.] Disposition: [Discharged home in stable condition.] patient advised to return if increasing pain, fever, weakness in extremities, loss of bowel or bladder function, or condition should worsen in any way. Impression: [Acute exacerbation of chronic back pain.] This note was generated with [employer] dictation software. It may contain incorrect words, spelling, and punctuation that were not noted in review of the chart prior to signing ED Disposition - Plan for ED Patient: Chief Complaint: Back Referrals: Chi Vega DO [Primary Care Provider] - What to do if you have Problems For any increased pain, shortness of breath, bleeding, nausea or vomiting, chest pain, or any unexpected problems, contact your Primary Care Provider. Call [facility] ([phone]) or report to the closest Emergency Room. Call 911 if necessary. 10/13/17 1324 <Electronically signed by Arianne Galeas DO> Date Arianne Galeas DO Cosigner Signature (If Indicated): Date CC: Chi Vega DO DISCHARGE INSTRUCTION Observed: 10/11/2017 Status: F Source: [place] 6:22 PM [facility] [place] [place] REPOSITORY [facility] Medical Records Department [address] [place] [address] Discharge Instruction 10/11/17 182 MR#: [id number] Acct: [id number] Name: NAKUL CURTIS Deb Rep #: [id number] : 1960 57 From: Shayy Hollingsworth MD PCP: Chi Vega DO Status: PRE ER ED Disposition - Plan for ED Patient: Chief Complaint: Lower Extremity Injury Instructions: ED Sprain Strain Lumbar Prescriptions: Naproxen [Naprosyn] 500 mg PO BID PRN #20 tablet Cyclobenzaprine [Flexeril] 10 mg PO TID PRN #20 tablet PRN Reason: Muscle Spasm Referrals: Chi Vega DO [Primary Care Provider] - What to do if you have Problems For any increased pain, shortness of breath, bleeding, nausea or vomiting, chest pain, or any unexpected problems, contact your Primary Care Provider. Call [facility] ([phone]) or report to the closest Emergency Room. Call 911 if necessary. 10/11/171821 <Electronically signed by Shayy Hollingsworth MD> Date Shayy Hollingsworth MD Cosigner Signature (If Indicated): Date CC: Chi Vega DO EMERGENCY DEPARTMENT Observed: 10/11/2017 Status: F Source: [place] SUMMARY 6:21 PM [facility] [place] [place] REPOSITORY [facility] Medical Records Department [address] [place] [address] Emergency Department Summary 10/11/17 1738 MR#: [id number] Acct: [id number] Name: MITZINAKUL Deb Rep #: [id number] : 1960 57 From: Shayy Hollingsworth MD PCP: Chi Vega DO Status: PRE ER - ER Visit Summary Date of Service: 10/11/17 Chief Complaint: Back pain History of Present Illness: The patient is a 57 M presenting with back pain radiating to both legs. He states this has been ongoing for the past 2-3 days. He has a history of chronic back pain. He does not recall anything that exacerbated his pain. He has no bowel or bladder incontinence. No numbness or weakness. He is able to ambulate with pain. He takes Lyrica at home for pain. Denies other complaints. Physical Examination: Vitals are stable. Patient is afebrile. Alert no acute distress. HEENT exam is unremarkable. Neck is supple. Lungs are clear and equal bilaterally. Heart is regular rate and rhythm. Abdomen is soft nontender nondistended. Back: Bilateral paraspinal lumbar muscle tenderness, no midline tenderness. Straight leg raise positive at 30 bilaterally. Extremities are unremarkable. Skin is warm and dry. No focal neurologic deficit. Normal strength and sensation Remainder of exam is unremarkable. Emergency Department Course and Treatment: Patient is given morphine, Zofran with improvement. Patient is given a prescription for Naprosyn and Flexeril. He is advised to follow-up with his primary care physician. Advised return to ED if worsening complaints. Disposition: Discharge home Impression: Acute on chronic back pain This note was generated with [employer] dictation software. It may contain incorrect words, spelling, and punctuation that were not noted in review of the chart prior to signing ED Disposition - Plan for ED Patient: Chief Complaint: Lower Extremity Injury Referrals: Chi Vega, DO [Primary Care Provider] - What to do if you have Problems For any increased pain, shortness of breath, bleeding, nausea or vomiting, chest pain, or any unexpected problems, contact your Primary Care Provider. Call [facility] ([phone]) or report to the closest Emergency Room. Call 911 if necessary. 10/11/17 3161 <Electronically signed by Shayy Hollingsworth MD> Date Shayy Hollingsworth MD Cosigner Signature (If Indicated): Date CC: Chi Vega DO LOW DOSE CT LUNG Observed: 09/17/2017 Status: F Source: [facility] SCREENING 1:30 PM [facility] [place] [place] REPOSITORY [facility] Imaging Services [address] [place] [address] Lung Screening MR#: [id number] Acct: [id number] Name: NAKUL CURTIS Rep #: [id number] : 1960 M 56 From: Talib Hernandez MD PCP: Chi Vega DO Status: REG CLI Study: Low Dose CT Lung Screening Date of Exam: 09/17/17 Exam# [id number] Ordering Dr: Francis Torres MD STUDY: LOW DOSE CT LUNG CANCER SCREENING REASON FOR EXAM: Male, 56 years old. History of smoking, 2.5 packs per day, 45 years. Screening. RADIATION DOSAGE (If Supplied By Facility): CTDIvol = ( 3.04 ) mGy, DLP = ( 94.05 ) mGycm TECHNIQUE: No contrast was administered. Low dose technique was utilized. 1.25 mm axial source images with a slice interval of 1.25- mm were reconstructed in lung windows. Nodule measured using lung windows on PACS and/or independent workstation with automated measurement of minimum and maximum diameter. Nodule measurement reported as average diameter rounded to the nearest whole number. Growth is defined as an increase ins size of greater than 1.5 mm. COMPARISON: CT chest 06/08/2015, 05/31/2014, 05/17/2014. NODULES: Chest overview: No acute upper abdominal process is evident in limited evaluation. Body wall soft tissues and osseous structures exhibit no acute process. Only minimal thoracic spondylosis. No apparent mediastinal or hilar mass or lymphadenopathy. Normal esophagus. No cardiomegaly. There is epicardial lipomatosis. There are no visible coronary calcifications. Nondilated aorta and central pulmonary arteries. Lungs: In the apices, there are features of paraseptal emphysema, more prominent on the right, with a greater degree of peripheral bleb formation on the right. There are a few scattered small pulmonary nodules in both the right and the left lung. On the left, the largest pulmonary nodule is solid, oval, smoothly circumscribed, measuring 3.8 mm. On the right, the largest pulmonary nodule is solid, sharply circumscribed, oval, measuring approximately 4.9 mm. There are otherwise no suspicious pulmonary lesions. There are no endobronchial airway lesions. CT/Low Dose CT Lung Screening IMPRESSION: Based on the ACR lung RADS criteria, pulmonary nodules less than 6 mm, solid, without spiculation or other suspicious features. Category 2 (benign appearance, less than 1% chance of malignancy). Follow- up low dose screening chest CT is recommended in one year. Emphysema. IMPORTANT NOTES FOR USE: ACR Lung-RADS Version 1.0 Assessment Categories Release Date: July 11, 2013 Category: Coded 0-4 bases on nodule(s) with highest degree of suspicion. Negative screen is defined as categories 1 and 2; a positive screen is defined as categories 3 and 4. Category 3 and 4A nodules that are unchanged on interval CT should be coded as category 2, and individuals returned to screening in 12 months. Category 4X: Category 3 or 4 nodules with additional imaging findings that increase the suspicion of lung cancer, such as spiculation, GGN that doubles in size in 1 year, enlarged lymph notes, etc. Category Modifiers: S (significant finding unrelated to lung cancer) and C (prior history of treated lung cancer) may be added to the 0-4 Lung-RADS Electronically Signed: Talib Mary, at 15:12 EDT Tel , Service support , CC: Francis Torres MD; Chi Vega DO Block Saw Operator: Signed FOLLOW UP (RHEUMATOLOGY) Observed: 09/09/2017 Status: UNK Source: [place] 3:39 PM [facility] REPOSITORY No report was sent COMPREHENSIVE METABOLIC Collected: 06/29/2017 Status: F Source: [facility] [place] 1:11 PM [facility] [place] [place] REPOSITORY TYPE CODE TESTS RESULT OUT OF RANGE REFERENCE UNITS LAB L501.0100 74-106 mg/dL Normal GLU 84 Result Comment: Please note revised GLUCOSE reference range effective 2017. LAB L501.1000 7-18 mg/dL Normal BUN 8 LAB L501.1100 0.70-1.30 mg/dL Normal CREAT,SERUM 0.97 Result Comment: The validity of the calculated GFR AND GFRAA in patients over 70 years has not been determined. Clinical correlation is essential. LAB L501.1110 >60 mL/min Normal EST GFR 85 Result Comment: Non- GFR Calc LAB L501.1115 >60 mL/min Normal EST GFR - AA 103 Result Comment: GFR Calc LAB L501.1300 10-20 RATIO Low BUN/CRE 8.3 LAB L501.1500 6.4-8.2 g/dL Normal T PROT 6.9 LAB L501.1800 3.2-5.0 g/dL Normal ALB 3.5 LAB L501.1950 2.2-4.2 g/dL Normal GLOB 3.4 LAB L501.2000 0.9-2.4 RATIO Normal A/G 1.0 LAB L501.2200 8.5-10.1 mg/dL Normal CA 8.5 LAB L501.4100 15-37 U/L Normal AST 15 LAB L501.4305 45-117 U/L Normal ALK P 107 LAB L501.4405 16-61 U/L Normal ALT 27 LAB L501.4600 0.20-1.00 mg/dL Normal T BILI 0.50 LAB L501.5300 136-145 mmol/L Normal NA 140 LAB L501.5600 3.5-5.1 mmol/L Normal K 4.4 LAB L501.5900 98-107 mmol/L High CL 110 LAB L501.6100 21.0-32.0 mmol/L Normal CO2 24.0 LAB L501.6200 5-15 Normal GAP 6 Performed By: #### L500.4050, L500.4100 #### [facility] [facility] [place], [address] LIPID PROFILE Collected: 06/29/2017 Status: F Source: [place] 1:11 PM [facility] [place] [place] REPOSITORY TYPE CODE TESTS RESULT OUT OF RANGE REFERENCE UNITS LAB L501.4900 200 mg/dL Normal CHOL 187 Result Comment: <200 mg/dL Desirable 200-240 mg/dL Borderline >240 mg/dL High Risk LAB L501.5000 mg/dL Normal TRIG 102 Result Comment: The drugs N-Acetylcysteine and Metamizole may falsely depress this assay. Serum Triglycerides Reference Interval Normal <150 mg/dL Borderline high 150 - 199 mg/dL High 200 - 499 mg/dL Very High > or = 500 mg/dL LAB L501.6400 mg/dL Low HDL 33 Result Comment: The drugs N-Acetylcysteine and Metamizole may falsely depress this assay. Reference Range HDL <40 mg/dL Low HDL Cholesterol HDL >or= 60 mg/dL High HDL Cholesterol LAB L501.6500 0-130 mg/dL High LDL 134 LAB L501.6600 5-40 mg/dL Normal VLDL 20 Performed By: #### L500.4050, L500.4100 #### [facility] [place], [address] CBC W/DIFF, AUTOMATED Collected: 06/29/2017 Status: F Source: [place] 1:11 PM [facility] [place] [place] REPOSITORY TYPE CODE TESTS RESULT OUT OF RANGE REFERENCE UNITS LAB L100.1000 4.4-11.0 K/mm3 Normal WBC 5.4 LAB L100.1200 4.6-6.2 M/mm3 Normal RBC 4.90 LAB L100.1300 13.0-16.5 g/dl Normal HGB 13.9 LAB L100.1400 40-54 % Normal HCT 42.8 LAB L100.1500 80-94 fL Normal MCV 87.3 LAB L100.1600 27.0-32.0 pg Normal MCH 28.4 LAB L100.1700 32-36 g/gl Normal MCHC 32.5 LAB L100.1810 11.6-14.6 % High RDW CV 15.0 LAB L100.1820 35.1-43.9 fl High RDW SD 48.2 LAB L100.1900 150-450 K/mm3 Normal PLT 209 LAB L100.2000 6.2-12.0 fl High MPV 12.7 LAB L100.2100 47-70 % Normal NEUT% 61.7 LAB L100.2200 19-41 % Normal LY% 26.9 LAB L100.2300 0-10 % Normal MONO% 7.3 LAB L100.2400 0-5 % Normal EO% 3.7 LAB L100.2500 0-1 % Normal BASO% 0.2 LAB L100.2550 0.0-0.9 % Normal IM GRAN % 0.200 Result Comment: IG% - Immature Granulocytes (promyelocytes, myelocytes and metamyelocytes) > 1% indicates that a LEFT SHIFT is Present. LAB L100.2620 2.0-7.7 X10 3/uL Normal Absolute Neut 3.3 LAB L100.2720 0.83-4.51 X10 3/ul Normal Absolute Lymph 1.44 Performed By: #### L100.0100 #### [facility] [address] [place], [address] EMERGENCY DEPARTMENT Observed: 06/04/2017 Status: F Source: [place] SUMMARY 5:05 PM [facility] [place] [place] REPOSITORY [facility] Medical Records Department [address] [place] [address] Emergency Department Summary 06/04/17 1226 MR#: [id number] Acct: [id number] Name: NAKUL CURTIS Rep #: [id number] : 1960 56 From: Ervin Eisenberg MD PCP: Chi Vega DO Status: DEP ER - ER Visit Summary Date of Service: 06/04/17 Chief Complaint: Fall History of Present Illness: The patient is a [address] Vega. Reports that he fell onto his buttocks 1 week ago. He continues to have sharp, throbbing pain over his tailbone. States pain is 10 out of 10 at worst and 6 out of 10 currently. Is worsened by sitting relieved by tramadol. Denies any radiation to his legs. No numbness or weakness in his legs. No loss of conscious or other injuries. Physical Examination: Vitals: Stable. Afebrile. Neck: No vertebral tenderness. Full ROM without difficulty. Cleared by NEXUS criteria. Back: No vertebral tenderness. Mild tenderness palpation over the sacrum and the coccyx. General: A AND O x 3. NAD. Cardiovascular exam: Regular rate and rhythm, no murmur, rub or gallop. Respiratory exam: Chest nontender. No crepitus. Clear to auscultation bilaterally. No wheezes or stridor. Abdominal exam: Soft, nontender, nondistended, normal bowel sounds. No pain in RUQ or LUQ specifically. No peritoneal signs. Extremity: Atraumatic. No pain with range of motion. Test Results: X-ray of the sacrum and coccyx is normal. Emergency Department Course and Treatment: Patient is resting comfortably. Treatment Plan: Patient be discharged and instructed to use a donut pillow. Continue his Ultram. Follow-up Dr. Vega in 1 week if not improving. Disposition: To home in improved and stable condition. Impression: 1. Coccygeal contusion. This note was generated with [employer] dictation software. It may contain incorrect words, spelling, and punctuation that were not noted in review of the chart prior to signing ED Disposition - Plan for ED Patient: Disposition: Home or Assisted Living Chief Complaint: Fall Instructions: ED Contusion Sacrum Coccyx Referrals: Chi Vega DO [Primary Care Provider] - 1 Week if not improving What to do if you have Problems For any increased pain, shortness of breath, bleeding, nausea or vomiting, chest pain, or any unexpected problems, contact your Primary Care Provider. Call [facility] ([phone]) or report to the closest Emergency Room. Call 911 if necessary. 06/04/17 170 <Electronically signed by Ervin Eisenberg MD> Date Ervin Eisenberg MD Cosigner Signature (If Indicated): Date CC: Chi Vega DO SACRUM-COCCYX MIN 2 VIEWS Observed: 06/04/2017 Status: F Source: [place] 11:27 AM [facility] [place] [place] REPOSITORY [facility] Imaging Services [address] [place] [address] Sacrum-Coccyx min 2 Views MR#: [id number] Acct: [id number] Name: NAKUL CURTIS Rep #: [id number] : 1960 M 56 From: Esvin Barton DO PCP: Chi Vega DO Status: PRE ER Study: Sacrum-Coccyx min 2 Views Date of Exam: 06/04/17 Exam# [id number] Ordering Dr: Ervin Eisenberg MD STUDY: X-RAY - SACRUM/COCCYX REASON FOR EXAM: Male, 56 years old. Fall with back pain TECHNIQUE: 3 view(s) of the sacrum and coccyx were obtained. COMPARISON: None. FINDINGS: Normal bilateral sacroiliac joints. Normal visualized sacral ala and fused sacral bodies. Normal sacrococcygeal junction with a normal angulation. Normal coccygeal segments. The presacral soft tissue structures are unremarkable. RAD/Sacrum-Coccyx min 2 Views IMPRESSION: Normal x-rays of the sacrum and coccyx. Electronically Signed: Esvin Barton DO at 11:56 EDT Tel , Service support , CC: Chi Vega DO; Ervin Eisenberg MD Block Saw Operator: Signed EMERGENCY DEPARTMENT Observed: 03/12/2017 Status: F Source: [place] SUMMARY 1:26 AM [facility] [place] [place] REPOSITORY [facility] Medical Records Department [address] [place] [address] Emergency Department Summary 03/11/17 1859 MR#: [id number] Acct: [id number] Name: NAKUL CURTIS Rep #: [id number] : 1960 56 From: Ervin Eisenberg MD PCP: Chi Vega DO Status: DEP ER - ER Visit Summary Date of Service: 03/11/17 Chief Complaint: Fall History of Present Illness: The patient is a [address] Vega. He reports that today he slipped on the ice and fell. Reports that he has pain everywhere. States that the worst of this is at his tailbone what is 9 out of 10 severity. No blow to the head or loss of consciousness. Physical Examination: Vitals: Stable. Afebrile. Neck: No vertebral tenderness. Full ROM without difficulty. Cleared by NEXUS criteria. Back: Mild tenderness palpation that is diffuse over his entire back. No point tenderness. No soft tissue swelling, abrasion, or ecchymosis. General: A AND O x 3. NAD. Cardiovascular exam: Regular rate and rhythm, no murmur, rub or gallop. Respiratory exam: Chest nontender. No crepitus. Clear to auscultation bilaterally. No wheezes or stridor. Abdominal exam: Soft, nontender, nondistended, normal bowel sounds. No pain in RUQ or LUQ specifically. No peritoneal signs. Extremity: Atraumatic. No pain with range of motion. Emergency Department Course and Treatment: Had a aurora discussion with the patient that with a fall from standing position and no evidence of a broken bone that opiates are not warranted. He was given a dose of Tylenol and ibuprofen. Treatment Plan: He will be discharged with instructions to use Tylenol and ibuprofen in addition to his chronic Ultram. Follow-up with Dr. Vega in 1 week if not improving. Disposition: To home in improved and stable condition. Impression: 1. Fall. 2. Acute on chronic back pain. This note was generated with [employer] dictation software. It may contain incorrect words, spelling, and punctuation that were not noted in review of the chart prior to signing ED Disposition - Plan for ED Patient: Disposition: Home or Assisted Living Chief Complaint: Fall Instructions: ED Mechanical Fall Referrals: Chi Vega, [Primary Care Provider] - 1 Week if not improving What to do if you have Problems For any increased pain, shortness of breath, bleeding, nausea or vomiting, chest pain, or any unexpected problems, contact your Primary Care Provider. Call [facility] ([phone]) or report to the closest Emergency Room. Call 911 if necessary. 03/12/17 0126 <Electronically signed by Ervin Eisenberg MD> Date Ervin Eisenberg MD Cosigner Signature (If Indicated): Date CC: Chi Vega DO ALLERGIES ALLERGIES DATE TYPE / CODE NAME / CODE REACTION SEVERITY SOURCE 01/31/2018 Drug codeine/Y51330 Itching Unknown [place] Allergy/[id number](S 1550(RXNORM) [facility] NOMED CT) Hospital Repository 01/31/2018 Miscellaneous nuclear med Unknown Unknown [place] Allergy/351831863(S contrast [facility] NOMED CT) Hospital Repository ENCOUNTERS ENCOUNTERS ADMIT/DISCHARGE ACCOUNT ADMITTING ENCOUNTER LOCATION SOURCE NUMBER CLASS 03/02/[id number] [facility] ing:PT Repository 02/26/[id number] [facility] ing:MRI Repository 02/20/[id number] [facility] ing:US Repository 02/09/2018 [id number] [facility] ing:HPRAD Repository 02/09/2018/02/10/20 [id number] Ambulatory BMSBuilding:B [place] [facility] Repository 01/31/2018/02/01/20 [id number] Emergency [address] ing:ED Repository 01/06/[id number] Javon [address] Repository 10/28/[id number] [facility] ing:MRI Repository 10/13/2017/10/14/19 [id number] Emergency [address] Hospital ing:ED Repository 10/11/2017/10/12/19 [id number] Emergency [address] Hospital ing:ED Repository 09/17/2017 [id number] Ambulatory [facility] Hospital ing:CT Repository 06/29/2017 [id number] Ambulatory [facility] Hospital ing:BFHLAB Repository 06/04/2017/06/05/19 [id number] Emergency [address] Hospital ing:ED Repository 03/11/2017/03/11/20 [id number] Emergency [address] Hospital ing:ED Repository PAYERS PAYERS ENCOUNTER GUARANTOR PAYER SUBSCRIBER SOURCE 03/02/2018 NAKUL D Primary NAKUL D [place] [id number] FOREST Insurance:[facility] SMITHDOB: [place] [address] [id number] [address]Dxu: Number: Repository [id number] (HP) Date:1391-40-03WN [address] [address]PD: 03/02/2018 Secondary NOT GIVENUNK [place] Insurance:SELF PAY [facility] Number: Effective Repository Date:2018-02-15 02/26/2018 NAKUL D Primary NAKUL D [place] [id number] FOREST Insurance:[facility] SMITHDOB: Community [address] [facility] [id number] [place] [address]Jtj: Number: Repository [id number] (HP) Date:4767-87-21BE [address] [address]KX: 02/26/2018 Secondary NOT GIVENUNK [place] Insurance:SELF PAY [facility] Number: Effective Repository Date:2018-02-18 02/20/2018 NAKUL D Primary NAKUL D [place] [id number] FOREST Insurance:[facility] MITZIDOB: Community [address] [facility] [id number] [place] [address]Qxn: Number: Repository [id number] (HP) Date:1233-82-79NH [address] [address]RJ: 02/20/2018 Secondary NOT GIVENUNK [place] Insurance:SELF PAY [facility] Number: Effective Repository Date:2018-02-17 02/09/2018 NAKUL D Primary NAKUL D [place] [id number] FOREST Insurance:[facility] SMITHDOB: Community [address] [facility] [id number] [place] [address]Dbs: Number: Repository [id number] (HP) Date:[id number] [address]ME: 02/09/2018 Secondary NOT GIVENUNK [place] Insurance:SELF PAY [facility] Number: Effective Repository Date:2018-02-09 02/09/2018 NAKUL D Primary NAKUL [id number] [facility] Insurance:[facility] SMITHDOB: Community [address] [facility] [id number] [address]Yka: Number: Repository [id number] (HP) Date:7003-10-41XY [address] [address]JZ: 02/09/2018 Secondary NOT GIVENUNK [place] Insurance:SELF PAY [facility] Number: Effective Repository Date:2018-02-09 01/31/2018 NAKUL D Primary NAKUL [id number] [facility] [address] [facility] [id number] [address]Eok: Number: Repository [id number] (HP) Date:7972-87-79ZW[address] [address]VH: 01/31/2018 Secondary NOT GIVENUNK [place] Insurance:SELF PAY [facility] Number: Effective Repository Date:2018-01-31 01/06/2018 NAKUL MITZIDOB: Primary NAKUL MITZIDOB: [place] [id number] Insurance:[place] [id number] [facility] Repository [place], [place] [id number]: Number: [id number]: [id number] (HP) Date:Plan Name:Health () 01/06/2018 Secondary NAKUL MITZIDOB: University Insurance:[place] [id number] [facility] Repository [facility] [id number]: Number: [id number] (HP) Date:Plan Name:Health 10/28/2017 NAKUL D Primary NAKUL D [place] [id number] [place] Insurance:[facility] MITZIDOB: [place] [address] [facility] [id number] [facility] Hospital [address]Swj: Number: Repository [id number] (HP) Date:6617-67-57NL [address] [address]VE: 10/28/2017 Secondary NOT GIVENUNK [place] Insurance:SELF PAY [facility] Number: Effective Repository Date:2017-10-21 10/13/2017 NAKUL D Primary NAKUL D [place] [id number] FOR[place] Insurance:[facility] MITZIDOB: [place] [address] [facility] [id number] General Hospital [address]Yxc: Number: Repository [id number] (HP) Date:2790-51-29GN [address] [address]JV: 10/13/2017 Secondary NOT GIVENUNK [place] Insurance:SELF PAY [facility] Number: Effective Repository Date:2017-10-13 10/11/2017 NAKUL D Primary NAKUL D [place] [id number] [place] Insurance:[facility] MITZIDOB: [place] [facility] [id number] [facility] [place] [address]Sro: Number: Repository [id number] (HP) Date:7391-50-77IA [address] [address]RP: 10/11/2017 Secondary NOT GIVENUNK [place] Insurance:SELF PAY [facility] Number: Effective Repository Date:2017-10-11 09/17/2017 Nakul D Primary NAKUL D [place] [id number] [place] Insurance:[facility] MITZIDOB: Community [address], [place] [facility] [id number] [place] [address]Ria: Number: Repository [id number] (HP) Date:2649-86-58VI [address] [address]FU: 09/17/2017 Secondary NOT GIVENUNK [place] Insurance:SELF PAY [facility] Number: Effective Repository Date:2017-08-31 06/29/2017 Nakul D Primary NAKUL D [place] [id number] [place] Insurance:[facility] SMITHDOB: Community [address] [facility] [id number] [place] [address]Ahs: Number: Repository [phone] [id number] (HP) Date:0236-17-30IV [address] [address]LD: 06/29/2017 Secondary NOT GIVENUNK [place] Insurance:SELF PAY [facility] Number: Effective Repository Date:2017-06-29 06/04/2017 Nakul D Primary NAKUL D [place] [id number] [place] Insurance:[facility] SMITHDOB: Community [address], [place] [facility] [id number] [place] [address]Mhr: Number: Repository [phone] [id number] (HP) Date:0667-09-69MP [address] [address]OC: 06/04/2017 Secondary NOT GIVENUNK [place] Insurance:SELF PAY [facility] Number: Effective Repository Date:2017-06-04 03/11/2017 Nakul D Primary NAKUL D [place] [id number] [place] Insurance:[facility] SMITHDOB: Community [address], [place] [facility] [id number] General Hospital [address]Wsw: Number: Repository [phone] [id number] (HP) Date:0787-36-34OZ [address] [address]UA: 03/11/2017 Secondary NOT GIVENUNK [place] Insurance:SELF PAY [facility] Number: Effective Repository Date:2017-03-11
== END ==
PROVIDERS: Family Provider Family Medicine; PCP Family Medicine; Referring Provider Orthopaedic Surgery; Visit Provider Orthopaedic Surgery
DX: M54.5 Low back pain (principal)
CPT/HCPCS: 72110

== ENCOUNTER → 2018-02-20 08:50 | Outpatient (CLI) | payer MEDICARE, SELFPAY ==
[2018-02-09 10:36] VITALS: BMI 35.6
--- NOTE | 2018-02-20 09:02 | US_ITS ---
STUDY: ABDOMINAL ULTRASOUND - RIGHT UPPER QUADRANT REASON FOR VISIT: Male, 57 years old. Fatty liver disease TECHNIQUE: Ultrasound evaluation of the right upper quadrant was performed with real-time and static de la cruz-scale imaging. TECHNICAL QUALITY: Limited. COMPARISON: None. FINDINGS: Liver: The liver measures 17.5 cm. There is increased, coarsened echogenicity of the liver. The bile ducts are within normal limits. There is hepatic color flow. The direction of portal flow is hepatopetal. There is no demonstrated mass lesion. Gallbladder: The gallbladder is not visualized. Common Bile Duct (C.B.D.): The common bile duct measures 4.9 mm. Pancreas: There is normal echogenicity of the pancreas. There is no demonstrated pancreatic mass or cyst. Right Kidney: Normal size of the right kidney. The right kidney measures 11.3 cm. Normal renal cortex. The right cortex measures 1.3 cm. Simple cyst of the right kidney measures 1.7 cm. There is no right hydronephrosis. US/Abdomen Limited IMPRESSION: 1. No hepatic masses. 2. Increased echo pattern of the liver is compatible with history provided of fatty liver disease. Electronically Signed: Adryan Navarro MD at 20:30 EST , Service support ,
== END ==
PROVIDERS: Family Provider Family Medicine; PCP Family Medicine; Referring Provider Family Medicine; Visit Provider Family Medicine
DX: K75.81 Nonalcoholic steatohepatitis (NASH) (principal)
CPT/HCPCS: 76705

== ENCOUNTER → 2018-02-26 12:26 | Outpatient (CLI) | payer MEDICARE, SELFPAY ==
[2018-02-09 10:36] VITALS: BMI 35.6
--- NOTE | 2018-02-26 12:29 | MRI_ITS ---
STUDY: MRI CERVICAL SPINE WITHOUT CONTRAST REASON FOR EXAM: Male, 57 years old. Fibromyalgia TECHNIQUE: Standardized fat and water weighted pulse sequences were obtained in the sagittal and axial planes. COMPARISON: None FINDINGS: There is no tonsillar ectopia. There is a normal cervicomedullary junction. The cervical spinal cord is of normal morphology and signal intensity with no myelomalacia, contusion or myelopathy. There is loss of the normal lordotic curvature of the cervical spine. There are no acute fractures or dislocations. Significant disc space narrowing C5-C6 and C6-C7. C2-3: Normal endplates. Normal disc height, signal and morphology. Normal central canal and intervertebral neural foramina. C3-4: Normal endplates. Normal disc height, signal and morphology. Normal central canal and intervertebral neural foramina. C4-5: Normal endplates. Normal disc height, signal and morphology. Normal central canal and intervertebral neural foramina. C5-6: Disc space narrowing with a spondylotic bar abutting on the anterior surface of the cord. The intervertebral foramina are patent. C6-7: Disc space narrowing. An 8.4 x 4.0 mm right paracentral disc protrusion impinging on the right anterior funiculus of the cord. Uncinate spurs minimally narrowing the intervertebral foramina. C7-T1: Normal endplates. Normal disc height, signal and morphology. Normal central canal and intervertebral neural foramina. . 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 An 8.4 x 4.0 mm right paracentral disc protrusion at C6-C7. The protruding disc impinges on the right anterior funiculus of the cord at this level Electronically Signed: Josh Richter MD at 0:32 EST Tel , Service support ,
--- OUTSIDE RECORDS SUMMARY | 2018-04-14 07:04 | XMS RPT_ITS ---
:1960 Author Organization OHIP Support Name Relationship Address Phone D Unavailable Unavailable Unavailable MARITZA, DEV Unavailable [address] [place] [address] D Unavailable Unavailable Unavailable MARITZA, DEV Unavailable [address] [place] [address] D Unavailable Unavailable Unavailable MARITZA, DEV Unavailable [address] [place] [address] D Unavailable Unavailable Unavailable MARITZA, DEV Unavailable [address] [place] [address] D Unavailable Unavailable Unavailable MARITZA, DEV Unavailable [address] [place] [address] D Unavailable Unavailable Unavailable MARITZA, DEV Unavailable [address] [place] [address] D Unavailable Unavailable Unavailable MARITZA, DEV Unavailable [address] [place] [address] D Unavailable Unavailable Unavailable MARITZA, DEV Unavailable [address] [place] [address] MARITZA, AMANDA Unavailable Unavailable + MARITZA, AMANDA Unavailable Unavailable + D Unavailable Unavailable Unavailable MARITZA, DEV Unavailable [address] [place] [address] D Unavailable Unavailable Unavailable MARITZA, DEV Unavailable [address] [place] [address] D Unavailable Unavailable Unavailable MARITZA, DEV Unavailable [address] [place] [address] D Unavailable Unavailable Unavailable MARITZA, DEV Unavailable [address] [place] [address] D Unavailable Unavailable Unavailable MARITZA DEV Unavailable [address] [place] [address] D Unavailable Unavailable Unavailable MARITZA, DEV Unavailable [address] [place] [address] Care Team Providers Name Role Phone Lian Rene Attending Unavailable ReneHennaLian Referring Unavailable [place], Chi Primary Care Unavailable Silvia, Chi Primary Care Unavailable Naresh Hensley Attending Unavailable Naresh Azevedo Attending Unavailable [place], Chi Referring Unavailable [place]via, Chi Primary Care Unavailable Ervin Eisenberg Attending Unavailable SilviaChi Attending Unavailable [place], Chi Primary Care Unavailable BrianFrancis Attending Unavailable Brian, Francis Referring Unavailable [place], Chi Primary Care Unavailable [place]via, Chi Primary Care Unavailable Shayy Hollingsworth Attending Unavailable [place], Chi Primary Care Unavailable Arianne Galeas Attending Unavailable SilviaChi Attending Unavailable [place], Chi Referring Unavailable Silvia, Chi Primary Care Unavailable [place], Chi Primary Care Unavailable Mikie Casey Attending Unavailable Rene, Lian Attending Unavailable [place], Chi Referring Unavailable ReneLian Attending Unavailable Rene, Lian Referring Unavailable [place], Chi Primary Care Unavailable Rene, Lian Attending Unavailable Rene, Lian Referring Unavailable [place], Chi Primary Care Unavailable SilviaChi ponce Attending Unavailable [place], Chi Referring Unavailable [place], Chi Primary Care Unavailable Dr. Cam Alejandro Admitting Unavailable Dr. Cam Alejandro Attending Unavailable Dr. Chi Vega Referring Unavailable Dr. Susi Palomino Primary Care Unavailable PROBLEMS PROBLEMS DATE TYPE CONDITION / CODE ATTENDING STATUS SOURCE 04/01/2018 Unknown M54.9 - Dorsalgia, Lian Rene Active [place] unspecified / Community M54.9(ICD-10) Hospital Repository 02/09/2018 Unknown M54.5 - Low back Henna ReneLian Active [place] pain / Community M54.5(ICD-10) Hospital Repository 09/17/2017 Unknown Z12.2 - Encounter RbianFrancis carpio Active [place] for screening for Community malignant neoplasm [facility] of respiratory Repository organs / Z12.2(ICD-10) 06/29/2017 Unknown I10 - Essential Chi Vega Active [place] (primary) [facility] hypertension / Hospital I10(ICD-10) Repository PROCEDURES PROCEDURES No Procedure Records FoundRESULTS RESULTS EMERGENCY DEPARTMENT Observed: 03/30/2018 Status: F Source: [place] SUMMARY 4:09 PM [facility] HOSPITAL REPOSITORY [facility] Medical Records Department [address] [place] [address] Emergency Department Summary 03/30/18 1250 MR#: [id number] Acct: [id number] Name: NAKUL CURTIS Rep #: [id number] : 1960 57 From: Naresh Hensley MD PCP: Chi Vega DO Status: DEP ER - ER Visit Summary Date of Service: 03/30/18 Chief Complaint: Back pain History of Present Illness: The patient is a 57 M who has chronic back pain. He presents with increasing bilateral lower back pain and also pain in his left upper quadrant abdomen. The pain in his abdomen is new. He says it feels like a spasm and can point to where it hurts. No other GI symptoms. No symptoms. No new neurologic symptoms. No trauma or inciting factors. Worse with movement. He is taking tramadol at home with minimal relief. His symptoms were also worse after physical therapy earlier today. Denies chest pain or shortness of breath. Physical Examination: Afebrile and vital signs unremarkable. Alert and oriented. No acute distress. Heart regular. Lungs clear. Left upper quadrant tender to palpation in abdomen is slightly distended. No guarding or rebound. Back shows paraspinal tenderness bilaterally. Straight leg raise negative. Strength and sensation normal. Good pulses. Test Results: Patient declined any testing, see below. Emergency Department Course and Treatment: Patient thought this was myofascial pain, possibly muscle spasm. This is the most likely cause, but I advised that I cannot rule out heart disease, lung disease, vascular disease, GI, or disease without testing. Patient declined any testing. He would like to try medication first. He was treated with subcutaneous Dilaudid and IM Norflex. His symptoms improved greatly. He received additional p.o. pain medication before discharge. I advised that I cannot prescribe controlled substances for him. He can follow-up with his doctor to change his pain regimen. He received a course of Flexeril. Return for any new or worsening issues. Patient understands that other causes of left upper quadrant pain have not been ruled out. Treatment Plan: As above Disposition: Discharge Impression: 1. Left upper quadrant pain 2. Bilateral lumbar back pain This note was generated with [employer] dictation software. It may contain incorrect words, [...] problems, contact your Primary Care Provider. Call [facility] ([phone]) or report to the closest Emergency Room. Call 911 if necessary. 03/30/18 1609 <Electronically signed by Narseh Hensley MD> Date Naresh Hensley MD Cosigner Signature (If Indicated): Date CC: Chi Vega DO DISCHARGE INSTRUCTION Observed: 03/30/2018 Status: F Source: [place] 4:09 PM [facility] REPOSITORY [facility] Medical Records Department [address] [place] [address] Discharge Instruction 03/30/18 1253 MR#: [id number] Acct: [id number] Name: NAKUL CURTIS Rep #: [id number] : 1960 57 From: Naresh Hensley MD PCP: Chi Vega DO Status: DEP ER ED Disposition - Plan for ED Patient: Chief Complaint: Back Instructions: ED Spasm Back No Trauma Prescriptions: Cyclobenzaprine [Flexeril] 10 mg PO TID PRN #20 tab PRN Reason: Muscle Spasm Referrals: Chi Vega DO [Primary Care Provider] - What to do if you have Problems For any increased pain, shortness of breath, bleeding, nausea or vomiting, chest pain, or any unexpected problems, contact your Primary Care Provider. Call [facility] ([phone]) or report to the closest Emergency Room. Call 911 if necessary. 03/30/18 1609 <Electronically signed by Naresh Hensley MD> Date Naresh Hensley MD Cosigner Signature (If Indicated): Date CC: Chi Veag DO RE-EVALUATION - PT (1) Observed: 03/19/2018 Status: F Source: [place] 4:26 PM [facility] REPOSITORY [facility] Physical Therapy [facility] [address] [place] [address] [address] [place] [address] / REEVALUATION / MEDICARE RECERTIFICATION PHYSICAL THERAPY MR#: [id number] Acct: [id number] Name: NAKUL CURTIS Rep #: [id number] : 1960 57 From: Luke Ferrell PT, Cert. MDT, OCS Referring Dr.: Lian Rene MD Status: REG RCR Insurance: [facility] *IN NETWORK SELF PAY INSURANCE Lian Rene MD, It has been my pleasure to treat NAKUL CURTIS over the last 9 visits for BACK PAIN. Please see the progress note below for an update on the physical therapy plan of care! Subjective: Doing some better.. Patient reports while doing ex's in pool feeling good. But pain get worse with walking. Location of pain lumbar and legs Objective/Function: POSTURE: MILD FOWARD POSTURE TRUNK. GAIT:AMBULATED WITH CANE ANTALGIC GAIT SLOW CONSUELO. MMT: QUADS/HAMS 4-/5,HIP FLEXION 4-/5,ANKLE 4/5. LUMBAR ROM: FLEXION MOD LOSS,EXTENSION MOD/SEVERE LOSS SIDE GLIDES MOD LOSS. FLEXABLITY:HAMS MOD TIGHT Plan Plan: Cont with POC interventions with Aquatic PT for lumbar ,ROM ,DLS,LE FLEXABILITY/STRENGTH Goals Goal 1:: Independant with AQUATIC PT program Goal Time Frame: 6-8 Weeks Goal Progress: Progressing Goal 2:: Indpendant with posture for ADL'S Goal Time Frame: 6-8 Weeks Goal Progress: Progressing Goal 3:: Patient decrease lumbar pain by 50 % or greatweer to imrove function Goal Time Frame: 6-8 Weeks Goal Progress: Progressing Goal 4:: Patient to improve lumbar ROM for function of recovery. Goal Time Frame: 6-8 Weeks Goal Progress: Progressing Goal 5:: Patient to improve ADLS' and walking with less pain to improve function. Goal Time Frame: 6-8 Weeks Goal Progress: Progressing Goal 6:: Patient improve KITA back score by 5 points Goal Time Frame: 6-8 Weeks Goal Progress: Progressing Anticipated Interventions Patient/Client Instruction: Educate patient on: [...] to perform tasks related to life management Please do not hesitate to contact me at [phone] by phone or if you have questions or concerns regarding this new plan of care! Sincerely, Luke Ferrell, PT, Cert MDT, OCS <Electronically signed by Luke Ferrell PT, Cert. SUZI, OCS> 03/19/18 2032 CC: Lian Rene MD; Chi Vega DO JLA Signed For Medicare only, by signing this I certify the plan of care. Physicians Signature Date SPINE CERVICAL Observed: 02/26/2018 Status: F Source: [place] (ROUTINE) 12:29 PM [facility] REPOSITORY [facility] Imaging Services [address] [place] [address] Spine Cervical (Routine) MR#: [id number] Acct: [id number] Name: NAKUL CURTIS Rep #: [id number] : 1960 M 57 From: Josh Richter MD PCP: Chi Vega DO Status: REG CLI Study: Spine Cervical (Routine) Date of Exam: 02/26/18 Exam# [id number] Ordering Dr: Lian Rene MD STUDY: MRI [...] CC: Lian Rene MD; Chi Vega DO Plant Floor Automation Manager: Signed INITAL EVALUATION (1) Observed: 02/23/2018 Status: F Source: [place] - PT 5:02 PM [facility] REPOSITORY [facility] Physical Therapy [facility] [address] [place] [address]. [address] [place] [address] Fax REHABILITATION SERVICES INITIAL EVALUATION MR#: [id number] Acct: [id number] Name: NAKUL CURTIS Rep #: [id number] : 1960 57 From: Luke Ferrell PT, Cert. MDT, OCS Referring Dr.: Lian Rene MD Status: REG RCR Insurance: [facility] *IN NETWORK SELF PAY INSURANCE Patient's [...] Patient has had MRI. Patient seen DR recommended PT. Patient symptoms walking,sitting,standing,lifting. Symptoms better with [...] to be FAXED BACK to us at [phone] for Medicare purposes. For Medicare only, by signing this I certify the plan of care. Please let me know if there are questions or concerns regarding this plan of care. Physician Signature: Date: <Electronically signed by Luke Ferrell PT, Cert. SUZI, OCS> 02/23/18 6599 CC: Lian Rene MD; Chi Vega DO CYNTHIA Signed ORTHOPEDIC VISIT Observed: 02/20/2018 Status: F Source: [place] REPORT 9:52 AM [facility] REPOSITORY [facility] Medicine [address] [place] [address] OFFICE VISIT Date of Service: 02/09/18 MR#: [id number] Acct: [id number] Name: NAKUL CURTIS Rep #: [id number] : 1960 Provider: Lian Rene MD Age/Sex: 57/M Location: [facility] Status: Signed Intake Vital Signs02/09/18 Body Mass [...] NASAL DAILY 06/04/17 [History Confirmed 10/11/17] Ipratropium [place] 0.06% [ATROVENT NASAL SPRAY (g)] 1 - [...] had epidural injections by Dr Alejandro in [place] but he is unsure of the level. [...] ABDOMEN LIMITED Observed: 02/20/2018 Status: F Source: [place] 9:02 AM [facility] Imaging Services [address] [place] [address] Abdomen Limited MR#: [id number] Acct: [id number] Name: NAKUL CURTIS Rep #: [id number] : 1960 M 57 From: Adryan Navarro MD PCP: Chi Vega DO Status: REG CLI Study: Abdomen Limited Date of Exam: 02/20/18 Exam# [id number] Ordering Dr: Chi Vega DO STUDY: ABDOMINAL [...] Service support , CC: Chi Vega DO Plant Floor Automation Manager: Signed L/S SPINE MIN 4 Observed: 02/09/2018 Status: F Source: [place] VIEWS 10:48 AM [facility] HOSPITAL REPOSITORY [facility] Imaging Services [address] [place] [address] L/S Spine Min 4 Views MR#: [id number] Acct: [id number] Name: NAKUL CURTIS Rep #: [id number] : 1960 M 57 From: Eddie Muñoz MD PCP: Chi Vega DO Status: REG CLI Study: L/S Spine Min 4 Views Date of Exam: 02/09/18 Exam# [id number] Ordering Dr: Lian Rene MD HISTORY: PBack [...] CC: Lian Rene MD; Chi Vega DO Plant Floor Automation Manager: Signed EMERGENCY DEPARTMENT Observed: 01/31/2018 Status: F Source: [place] SUMMARY 3:44 PM [facility] HOSPITAL REPOSITORY [facility] Medical Records Department [address] [place] [address] Emergency Department Summary 01/31/18 1136 MR#: [id number] Acct: [id number] Name: NAKUL CURTIS Rep #: [id number] : 1960 57 From: Mikie Casey MD [...] pilonidal cyst This note was generated with [employer] dictation software. It may contain incorrect words, spelling, and punctuation that were not noted in review of the chart prior to signing ED Disposition - Plan for ED Patient: Chief Complaint: Abscess Referrals: Chi Vega DO [Primary Care Provider] - What to do if you have Problems For any increased pain, shortness of breath, bleeding, nausea or vomiting, chest pain, or any unexpected problems, contact your Primary Care Provider. Call [facility] ([phone]) or report to the closest Emergency Room. Call 911 if necessary. 01/31/18 0285 <Electronically signed by Mikie Casey MD> Date Mikie Casey MD Cosigner Signature (If Indicated): Date CC: Chi Vega DO DISCHARGE INSTRUCTION Observed: 01/31/2018 Status: F Source: [place] 11:43 AM [facility] REPOSITORY [facility] Medical Records Department [address] [place] [address] Discharge Instruction 01/31/18 1139 MR#: [id number] Acct: [id number] Name: NAKUL CURTIS Rep #: [id number] : 1960 57 From: Mikie Casey MD [...] your Primary Care Provider. Call [facility] ([phone]) or report to the closest Emergency Room. Call 911 if necessary. 01/31/18 1143 <Electronically signed by Mikie Casey MD> Date Mikie Casey MD Cosigner Signature (If Indicated): Date _ CC: Chi Vega DO FOLLOW UP (RHEUMATOLOGY) Observed: 01/06/2018 Status: UNK Source: [place] 2:44 PM HOSPITALS REPOSITORY No report was sent SPINE LUMBAR Observed: 10/28/2017 Status: F Source: [place] (ROUTINE) 3:44 PM [facility] HOSPITAL REPOSITORY [facility] Imaging Services [address] [place] [address] Spine Lumbar (Routine) MR#: [id number] Acct: [id number] Name: NAKUL CURTIS Rep #: [id number] : 1960 M 57 From: Tracy Valentin MD PCP: Chi Vega DO Status: REG CLI Study: Spine Lumbar (Routine) Date of Exam: 10/28/17 Exam# [id number] Ordering Dr: Chi Vega DO STUDY: MRI [...] Service support , CC: Chi Vega DO Plant Floor Automation Manager: Signed DISCHARGE INSTRUCTION Observed: 10/13/2017 Status: F Source: [place] 1:28 PM [facility] REPOSITORY [facility] Medical Records Department [address] [place] [address] Discharge Instruction 10/13/17 1324 MR#: [id number] Acct: [id number] Name: CURTISNAKUL Deb Rep #: [id number] : 1960 57 From: Arianne Galeas DO [...] problems, contact your Primary Care Provider. Call [employer] [facility] ([phone]) or report to the closest Emergency Room. Call 911 if necessary. 10/13/17 1328 <Electronically signed by Arianne Galeas DO> Date Arianne Galeas DO Cosigner Signature (If Indicated): Date CC: Chi Vega DO EMERGENCY DEPARTMENT Observed: 10/13/2017 Status: F Source: [place] SUMMARY 1:24 PM [facility] REPOSITORY [facility] Medical Records Department [address] [place] [address] Emergency Department Summary 10/13/17 1320 MR#: [id number] Acct: [id number] Name: NAKUL CURTIS Rep #: [id number] : 1960 57 From: Arianne Galeas DO [...] back pain.] This note was generated with [employer] dictation software. It may contain incorrect words, spelling, and punctuation that were not noted in review of the chart prior to signing ED Disposition - Plan for ED Patient: Chief Complaint: Back Referrals: Chi Vega, [Primary Care Provider] - What to do if you have Problems For any increased pain, shortness of breath, bleeding, nausea or vomiting, chest pain, or any unexpected problems, contact your Primary Care Provider. Call [facility] ([phone]) or report to the closest Emergency Room. Call 911 if necessary. 10/13/17 1324 <Electronically signed by Arianne Galeas DO> Date Arianne Galeas DO Cosigner Signature (If Indicated): Date CC: Chi Vega DO DISCHARGE INSTRUCTION Observed: 10/11/2017 Status: F Source: [place] 6:22 PM [facility] REPOSITORY [facility] Medical Records Department [address] [place] [address] Discharge Instruction 10/11/17 1821 MR#: [id number] Acct: [id number] Name: NAKUL CURTIS Rep #: [id number] : 1960 57 From: Shayy oHllingsworth MD PCP: Chi Vega DO Status: PRE [...] your Primary Care Provider. Call [facility] ([phone]) or report to the closest Emergency Room. Call 911 if necessary. 10/11/171821 <Electronically signed by Shayy Hollingsworth MD> Date Shayy Hollingsworth MD Cosigner Signature (If Indicated): Date CC: Chi Vega DO EMERGENCY DEPARTMENT Observed: 10/11/2017 Status: F Source: [place] SUMMARY 6:21 PM [facility] REPOSITORY [facility] Medical Records Department [address] [place] [address] Emergency Department Summary 10/11/17 1738 MR#: [id number] Acct: [id number] Name: NAKUL CURTIS Rep #: [id number] : 1960 57 From: Shayy Hollingsworth MD [...] back pain This note was generated with [employer] dictation software. It may contain incorrect words, spelling, and punctuation that were not noted in review of the chart prior to signing ED Disposition - Plan for ED Patient: Chief Complaint: Lower Extremity Injury Referrals: Chi Vega DO [Primary Care Provider] - What to do if you have Problems For any increased pain, shortness of breath, bleeding, nausea or vomiting, chest pain, or any unexpected problems, contact your Primary Care Provider. Call [employer] [facility] ([phone]) or report to the closest Emergency Room. Call 911 if necessary. 10/11/17 2068 <Electronically signed by Shayy Hollingsworth MD> Date Shayy Francisigntracie Signature (If Indicated): Date CC: Chi Vega DO LOW DOSE CT LUNG Observed: 09/17/2017 Status: F Source: [place] SCREENING 1:30 PM [facility] REPOSITORY [facility] Imaging Services [address] [place] [address] Lung Screening MR#: [id number] Acct: [id number] Name: NAKUL CURTIS Rep #: [id number] : 1960 M 56 From: Talib Hernandez MD PCP: Chi Vega DO Status: REG CLI Study: Low Dose CT Lung Screening Date of Exam: 09/17/17 Exam# [id number] Ordering Dr: Francis Torres MD STUDY: LOW [...] to the 0-4 Lung-RADS Electronically Signed: Talib Hernandez, at 15:12 EDT Tel , Service support , CC: Francis Torres MD; Chi Vega DO Plant Floor Automation Manager: Signed FOLLOW UP (RHEUMATOLOGY) Observed: 09/09/2017 Status: UNK Source: [facility] 3:39 PM HOSPITALS REPOSITORY No report was sent COMPREHENSIVE METABOLIC Collected: 06/29/2017 Status: F Source: [place] 1:11 PM [facility] HOSPITAL REPOSITORY TYPE CODE TESTS RESULT OUT OF [...] 6 Performed By: #### L500.4050, L500.4100 #### [facility] [address] [place], [address] LIPID PROFILE Collected: 06/29/2017 Status: F Source: [place] 1:11 PM [facility] REPOSITORY TYPE CODE TESTS RESULT OUT OF [...] 20 Performed By: #### L500.4050, L500.4100 #### [facility] [address] [place], [address] CBC W/DIFF, AUTOMATED Collected: 06/29/2017 Status: F Source: [place] 1:11 PM [facility] REPOSITORY TYPE CODE TESTS RESULT OUT OF [...] Lymph 1.44 Performed By: #### L100.0100 #### [facility] [address] [facility] [place], [address] EMERGENCY DEPARTMENT Observed: 06/04/2017 Status: F Source: [place] SUMMARY 5:05 PM [facility] REPOSITORY [facility] Medical Records Department [address] [place] [address] Emergency Department Summary 06/04/17 1226 MR#: [id number] Acct: [id number] Name: NAKUL CURTIS Rep #: [id number] : 1960 56 From: Ervin Eisenberg MD [...] Coccygeal contusion. This note was generated with [employer] dictation software. It may contain incorrect words, spelling, and punctuation that were not noted in review of the chart prior to signing ED Disposition - Plan for ED Patient: Disposition: Home or Assisted Living Chief Complaint: Fall Instructions: ED Contusion Sacrum Coccyx Referrals: Chi Vega, [Primary Care Provider] - 1 Week if not improving What to do if you have Problems For any increased pain, shortness of breath, bleeding, nausea or vomiting, chest pain, or any unexpected problems, contact your Primary Care Provider. Call [facility] ([phone]) or report to the closest Emergency Room. Call 911 if necessary. 06/04/17 1705 <Electronically signed by Ervin Eisenberg MD> Date Ervin Eisenberg MD Cosigner Signature (If Indicated): Date CC: Chi Vega DO SACRUM-COCCYX MIN 2 VIEWS Observed: 06/04/2017 Status: F Source: [place] 11:27 AM [facility] REPOSITORY [facility] Imaging Services [address] [place] [address] Sacrum-Coccyx min 2 Views MR#: [id number] Acct: [id number] Name: NAKUL CURTIS Rep #: [id number] : 1960 M 56 From: Esvin Barton DO PCP: Chi Vega DO Status: PRE ER Study: Sacrum-Coccyx min 2 Views Date of Exam: 06/04/17 Exam# [id number] Ordering Dr: Ervin Eisenberg MD STUDY: X-RAY [...] CC: Chi Vega DO; Ervin Eisenberg MD Plant Floor Automation Manager: Signed ALLERGIES ALLERGIES DATE TYPE / CODE NAME / CODE REACTION SEVERITY SOURCE 04/01/2018 Drug codeine/Z10470 Itching Unknown [place] Allergy/450901886(S 1550(RXNORM) [facility] NOMED CT) Hospital Repository 04/01/2018 Miscellaneous nuclear med Unknown Unknown [place] Allergy/[id number](S contrast [facility] NOMED CT) Hospital Repository ENCOUNTERS ENCOUNTERS ADMIT/DISCHARGE ACCOUNT ADMITTING ENCOUNTER LOCATION SOURCE NUMBER CLASS 04/01/2018/04/01/19 [id number] Ambulatory BMSBuilding:B [place] [facility] MS.W[facility] Repository 04/01/2018 [id number] [place] [facility] ing:PT Repository 03/30/2018/03/30/19 [id number] Emergency [place] [facility] ing:ED Repository 02/26/2018 [id number] [facility] 02/20/2018 [id number] [facility] Rep[facility] 02/09/2018 [id number] [facility] Repository 02/09/2018/02/10/20 [id number] Ambulatory BMSBuilding:B [place] [facility] Repository 01/31/2018/02/01/20 [id number] Emergency [place] 18 [facility] ing:ED Repository 01/06/[id number] Javon [address] Repository 10/28/2017 [id number] [facility] Repository 10/13/2017/10/14/19 [id number] Emergency [place] 18 [facility] ing:ED Repository 10/11/2017/10/12/19 [id number] Emergency [place] 18 [facility] ing:ED Repository 09/17/2017 [id number] Ambulatory [facility] ing:CT Repository 06/29/2017 [id number] Ambulatory [facility] ing:BFHLAB Repository 06/04/2017/06/05/19 [id number] Emergency [place] 18 [facility] ing:ED Repository PAYERS PAYERS ENCOUNTER GUARANTOR PAYER SUBSCRIBER SOURCE 04/01/2018 NAKUL D Primary NAKUL D [place] [id number] [facility] Insurance:[facility] SMITHDOB: Community [place] [address], [place]IN [facility] [id number] [address]Gai: Number: Repository [id number] (HP) Date:[id number] [address]SR: 04/01/2018 Secondary NOT GIVENUNK [place] Insurance:SELF PAY [facility] Number: Effective Repository Date:2018-03-30 04/01/2018 NAKUL D Primary NAKUL D [place] [id number] FOREST Insurance:[facility] SMITHDOB: Community [address] [address], [place]IN [facility] [id number] [facility] [place] [address]Psv: Number: Repository [id number] (HP) Date:7271-81-74ND [address] [address]NM: 04/01/2018 Secondary NOT GIVENUNK [place] Insurance:SELF PAY [facility] Number: Effective Repository Date:2018-02-15 03/30/2018 NAKUL D Primary NAKUL D [place] [id number] FOREST Insurance:[facility] MITZIDOB: Community [address], *IN [facility] [id number] Hospital [place] [address]Zay: Number: Repository [id number] (HP) Date:3110-01-32TA [address] [address]TM: 03/30/2018 Secondary NOT GIVENUNK [place] Insurance:SELF PAY [facility] Number: Effective Repository Date:2018-03-30 02/26/2018 NAKUL D Primary NAKUL D [place] [id number] FOREST Insurance:[facility] MITZIDOB: Community [address] [address], *IN [facility] [id number] Hospital [place] [address]Rrx: Number: Repository [id number] (HP) Date:5545-47-34PM [address] [address]OA: 02/26/2018 Secondary NOT GIVENUNK [place] Insurance:SELF PAY [facility] Number: Effective Repository Date:2018-02-18 02/20/2018 NAKUL D Primary NAKUL D [place] [id number] FOREST Insurance:[facility] SMITHDOB: Community [address] [address], *IN [facility] [id number] [place] [address]Tts: Number: Repository [id number] (HP) Date:6541-13-93DZ [address] [address]RZ: 02/20/2018 Secondary NOT GIVENUNK [place] Insurance:SELF PAY [facility] Number: Effective Repository Date:2018-02-17 02/09/2018 NAKUL D Primary NAKUL Deb [id number] FOREST Insurance:[facility] SMITHDOB: Community [address] [address], *IN [facility] [id number] [place] [address]Kpj: Number: Repository [id number] (HP) Date:4126-92-71KF [address] [address]AM: 02/09/2018 Secondary NOT GIVENUNK [place] Insurance:SELF PAY [facility] Number: Effective Repository Date:2018-02-09 02/09/2018 NAKUL D Primary NAKUL D [place] [id number] FOREST [facility] [address], *IN [facility] [id number] [place] [address]Bww: Number: Repository [id number] (HP) Date:3025-01-54MM [address] [address]RY: 02/09/2018 Secondary NOT GIVENUNK [place] Insurance:SELF PAY [facility] Number: Effective Repository Date:2018-02-09 01/31/2018 NAKUL D Primary NAKUL D [place] [id number] FOREST [facility] [address], *IN [facility] [id number] [place] [address]Usv: Number: Repository [id number] (HP) Date:5686-96-06ZR [address] [address]TC: 01/31/2018 Secondary NOT GIVENUNK [place] Insurance:SELF PAY [facility] Number: Effective Repository Date:2018-01-31 01/06/2018 NAKUL IRISB: Primary NAKUL SIMMONSB: [place] [id number] Insurance:[place] [id number] [place] [address] [facility] FOREST Repository [place], [place] [id number]: Number: [id number]: [id number] (HP) Date:Plan Name:Health () 01/06/2018 Secondary NAKUL MITZIDOB: [place] Insurance:[place] [id number] Hospit[facility] Repository [facility] [id number]: Number: [id number] (HP) Date:Plan Name:Health 10/28/2017 NAKUL D Primary NAKUL D [place] [id number] FOREST Insurance:[facility] [address], *IN [facility] [id number] [facility] [address]Fos: Number: Repository [id number] (HP) Date:7184-65-10QP [address] [address]JC: 10/28/2017 Secondary NOT GIVENUNK [place] Insurance:SELF PAY [facility] Number: Effective Repository Date:2017-10-21 10/13/2017 NAKUL D Primary NAKUL D [place] [id number] FOREST Insurance:[facility] [address], *[place] [address]07-22[facility] [address]Jup: Number: Repository [id number] (HP) Date:4710-46-21ES [address] [address]QY: 10/13/2017 Secondary NOT GIVENUNK [place] Insurance:SELF PAY [facility] Number: Effective Repository Date:2017-10-13 10/11/2017 NAKUL D Primary NAKUL D [place] [id number] [place] Insurance:[facility] SMITHDOB: Community [address], *[place] [address]07-22[facility] [address]Cfv: Number: Repository [id number] (HP) Date:6450-96-62JE [address] [address]VZ: 10/11/2017 Secondary NOT GIVENUNK [place] Insurance:SELF PAY [facility] Number: Effective Repository Date:2017-10-11 09/17/2017 Nakul D Primary NAKUL D [place] [id number] [place] Insurance:[facility] SMITHDOB: Community [address], *IN [facility] [id number] [place] [address]Ycp: Number: Repository [id number] (HP) Date:2298-65-41VF [address] [address]VD: 09/17/2017 Secondary NOT GIVENUNK [place] Insurance:SELF PAY [facility] Number: Effective Repository Date:2017-08-31 06/29/2017 Nakul D Primary NAKUL D [place] [id number] [place] Insurance:[facility] SMITHDOB: Community [address], *IN [facility] [id number] McKin[facility] Care Services [address]Wwh: Number: Repository [phone] [id number] (HP) Date:1503-33-05AX [address] [address]IG: 06/29/2017 Secondary NOT GIVENUNK [place] Insurance:SELF PAY [facility] Number: Effective Repository Date:2017-06-29 06/04/2017 Nakul D Primary NAKUL D [place] [id number] [place] Insurance:[facility] SMITHDOB: Community [address], *IN [facility] [id number] [facility] [address]Bbk: Number: Repository [phone] [id number] (HP) Date:3181-26-55IX [address] [address]XF: 06/04/2017 Secondary NOT GIVENUNK [place] Insurance:SELF PAY [facility] Number: Effective Repository Date:2017-06-04
== END ==
PROVIDERS: Family Provider Family Medicine; PCP Family Medicine; Referring Provider Orthopaedic Surgery; Visit Provider Orthopaedic Surgery
DX: M48.02 Spinal stenosis, cervical region (principal)
CPT/HCPCS: 72141

== ENCOUNTER 2018-03-30 10:32 | Emergency (ER) | payer MEDICARE, SELFPAY ==
[2018-02-09 10:36] VITALS: BMI 35.6
[2018-03-30 10:33] VITALS: BP 145/83; PULSE 62; RESP 20; TEMP 36.6; O2SAT 98; BMI 36.3
[2018-03-30] MEDS: Orphenadrine 60 MG/2 ML Ampul IM (11:16)
[2018-03-30] MEDS: HYDROmorphone 1 MG/ML Syringe SC (11:16)
--- NOTE | 2018-03-30 11:56 | ED.RN ---
PT REPORTS IMPROVEMENT OF PAIN, 6/10.
--- NOTE | 2018-03-30 12:53 | ED.DCSUM_ITS ---
- ER Visit Summary Date of Service: 03/30/18 Chief Complaint: Back pain History of Present Illness: The patient is a 57 M who has chronic back pain. He presents with increasing bilateral lower back pain and also pain in his left upper quadrant abdomen. The pain in his abdomen is new. He says it feels like a spasm and can point to where it hurts. No other GI symptoms. No symptoms. No new neurologic symptoms. No trauma or inciting factors. Worse with movement. He is taking tramadol at home with minimal relief. His symptoms were also worse after physical therapy earlier today. Denies chest pain or shortness of breath. Physical Examination: Afebrile and vital signs unremarkable. Alert and oriented. No acute distress. Heart regular. Lungs clear. Left upper quadrant tender to palpation in abdomen is slightly distended. No guarding or rebound. Back shows paraspinal tenderness bilaterally. Straight leg raise negative. Strength and sensation normal. Good pulses. Test Results: Patient declined any testing, see below. Emergency Department Course and Treatment: Patient thought this was myofascial pain, possibly muscle spasm. This is the most likely cause, but I advised that I cannot rule out heart disease, lung disease, vascular disease, GI, or disease without testing. Patient declined any testing. He would like to try medication first. He was treated with subcutaneous Dilaudid and IM Norflex. His symptoms improved greatly. He received additional p.o. pain medication before discharge. I advised that I cannot prescribe controlled substances for him. He can follow-up with his doctor to change his pain regimen. He received a course of Flexeril. Return for any new or worsening issues. Patient understands that other causes of left upper quadrant pain have not been ruled out. Treatment Plan: As above Disposition: Discharge Impression: 1. Left upper quadrant pain 2. Bilateral lumbar back pain This note was generated with [employer] dictation software. It may contain incorrect words, spelling, and punctuation that were not noted in review of the chart prior to signing ED Disposition - Plan for ED Patient: Chief Complaint: Back Referrals: Chi Vega DO [Primary Care Provider] -
--- NOTE | 2018-03-30 12:53 | ED.DEP ---
ED Disposition - Plan for ED Patient: Chief Complaint: Back Instructions: ED Spasm Back No Trauma Prescriptions: Cyclobenzaprine [Flexeril] 10 mg PO TID PRN #20 tab PRN Reason: Muscle Spasm Referrals: Chi Vega DO [Primary Care Provider] -
[2018-03-30] MEDS: HYDROcodone Bitartrate/Apap 5/325 Tablet PO (13:16)
[2018-03-30 13:17] VITALS: BP 127/88; PULSE 64; RESP 17; O2SAT 96
== END 2018-03-30 13:18 | disposition home or self-care (01) ==
PROVIDERS: Emergency Provider Emergency Medicine; Family Provider Family Medicine; PCP Family Medicine
DX: R10.12 Left upper quadrant pain (principal); M54.5 Low back pain; G89.29 Other chronic pain; R19.7 Diarrhea, unspecified; R20.2 Paresthesia of skin; J44.9 Chronic obstructive pulmonary disease, unspecified; K21.9 Gastro-esophageal reflux disease without esophagitis; I10 Essential (primary) hypertension; N40.0 Benign prostatic hyperplasia without lower urinary tract symptoms; Z90.49 Acquired absence of other specified parts of digestive tract; Z79.899 Other long term (current) drug therapy; Z72.0 Tobacco use
CPT/HCPCS: 96372; 97113; 99284

== ENCOUNTER 2018-04-15 09:30 | Outpatient (RCR) | payer MEDICARE, SELFPAY ==
[2018-02-09 10:36] VITALS: BMI 35.6
--- NOTE | 2018-02-16 14:28 | HP.PTEVAL_ITS ---
Patient's Visit Information NAKUL CARTAGENA is a 57 year old M referred to Physical Therapy by Lian Rene with a diagnosis of BACK PAIN. Date of Evaluation: 02/16/18 Physical Therapist: Luke Ferrell PT, - Visit Plan Frequency: 2x /Week Duration: 8 weeks Plan: AQUATIC PT LUMBAR ROM,DLS ,FLEXABLITY - Subjective Findings: This 57 y/o male presents to physical therapy with Back pain. Patient has had back pain my years along with weakness ,pain and parathesia. Symptoms located symmtrical lumbar. Patient has had MRI. Patient seen DR tutu PT. Patient symptoms walking,sitting,standing,lifting. Symptoms better with heat. Patient has parathesia/tingling in feet.Symptoms affect sleeping. Coughing/sneezing postive, Bowel/blader good. Patient has had injection in past. Patient pain affects QOL and function . - Pain Bilateral Back Pain Intensity (Out of 10): 7 Pain Intensity Range: 10 Bilateral Lower Extremity Pain Intensity (Out of 10): 7 Pain Intensity Range: 7, 10 - Objective POSTURE: mild foward posture. GAIT: mild foward posture with cane antalgic gait. NEURO: c/o parathesia/tingling in feet,reflexes L3-4,L4-5,L5-S1 1/3,light touch intact. MMT: quad/hams 4-/5,hip flexion 3+/5,ankle 4/5. LUMBAR ROM: flexion mod/severe loss,extension mod/severe loss,side glides mod loss. FLEXABLITY: hams mod loss,piriformis mod loss. SYMMTRICAL: align. PALAPTION: tender L-S - Special Tests L/S Slump test left side: Negative L/S Slump test right side: Negative L/S Left Straight Leg Raise: Negative L/S Right Straight Leg Raise: Negative - Goals Goal 1:: Independant with AQUATIC PT program Goal Time Frame: 6-8 Weeks Goal 2:: Indpendant with posture for ADL'S Goal Time Frame: 6-8 Weeks Goal 3:: Patient decrease lumbar pain by 50 % or greatweer to imrove function Goal Time Frame: 6-8 Weeks Goal 4:: Patient to improve lumbar ROM for function of recovery. Goal Time Frame: 6-8 Weeks Goal 5:: Patient to improve ADLS' and walking with less pain to improve function. Goal Time Frame: 6-8 Weeks Goal 6:: Patient improve KITA back score by 5 points Goal Time Frame: 6-8 Weeks - Rehabilitation Potential Physical Therapy Diagnosis: This patient has symmtrical lumbar pain with rad icular symptoms with weakness ,poor lumbar ROM with pain,decrease strength,function impairs function and ADL'S Rehabilitation Potential: Good - Anticipated Interventions Patient/Client Instruction: Educate patient on: Condition, Plan of Care For the Purpose of:: To decrease pain, To increase ROM, To improve muscle performance and motor function, To improve ability to perform ADL's, To increase tolerance to activity/condition/position, To improve ability of physical actions for home/community/work/leisure, To improve health of tissue, To decrease soft tissue restriction, To increase flexibility/ROM, To improve ability to perform tasks related to life management Therapeutic Exercise to Include: Strength training, Postural training, Flexibilty training, In an aquatic setting, Dynamic Lumbar Stabilization For the Purpose of:: To decrease pain, To increase ROM, To improve muscle performance and motor function, To increase tolerance to activity/condition/position, To improve ability of physical actions for home/community/work/leisure, To improve health of tissue, To decrease soft tissue restriction, To increase flexibility/ROM, To reduce risk of recurrence, To improve ability to perform tasks related to life management Thank you for the opportunity to evaluate your patient. For Medicare and Medicare HMO plans, please review the plan of care and approve it. It will need to be FAXED BACK to us at [phone] for Medicare purposes. For Medicare only, by signing this I certify the plan of care. Please let me know if there are questions or concerns regarding this plan of care. Physician Sig nature: Date:
--- NOTE | 2018-03-19 14:01 | HP.PTREVAL ---
Lian Rene MD, It has been my pleasure to treat NAKUL CARTAGENA over the last 9 visits for BACK PAIN. Please see the progress note below for an update on the physical therapy plan of care! Subjective: Doing some better.. Patient reports while doing ex's in pool feeling good. But pain get worse with walking. Location of pain lumbar and legs Objective/Function: POSTURE: MILD FOWARD POSTURE TRUNK. GAIT:AMBULATED WITH CANE ANTALGIC GAIT SLOW CONSUELO. MMT: QUADS/HAMS 4-/5,HIP FLEXION 4-/5,ANKLE 4/5. LUMBAR ROM: FLEXION MOD LOSS,EXTENSION MOD/SEVERE LOSS SIDE GLIDES MOD LOSS. FLEXABLITY:HAMS MOD TIGHT Plan Plan: Cont with POC interventions with Aquatic PT for lumbar ,ROM ,DLS,LE FLEXABILITY/STRENGTH Goals Goal 1:: Independant with AQUATIC PT program Goal Time Frame: 6-8 Weeks Goal Progress: Progressing Goal 2:: Indpendant with posture for ADL'S Goal Time Frame: 6-8 Weeks Goal Progress: Progressing Goal 3:: Patient decrease lumbar pain by 50 % or greatweer to imrove function Goal Time Frame: 6-8 Weeks Goal Progress: Progressing Goal 4:: Patient to improve lumbar ROM for function of recovery. Goal Time Frame: 6-8 Weeks Goal Progress: Progressing Goal 5:: Patient to improve ADLS' and walking with less pain to improve function. Goal Time Frame: 6-8 Weeks Goal Progress: Progressing Goal 6:: Patient improve KITA back score by 5 points Goal Time Frame: 6-8 Weeks Goal Progress: Progressing Anticipated Interventions Patient/Client Instruction: Educate patient on: Condition, Plan of Care For the Purpose of:: To decrease pain, To increase ROM, To improve muscle performance and motor function, To improve ability to perform ADL's, To increase tolerance to activity/condition/position, To improve ability of physical actions for home/community/work/leisure, To improve health of tissue, To decrease soft tissue restriction, To increase flexibility/ROM, To improve ability to perform tasks related to life management Therapeutic Exercise to Include: Strength training, Postural training, Flexibilty training, In an aquatic setting, Dynamic Lumbar Stabilization For the Purpose of:: To decrease pain, To increase ROM, To improve muscle performance and motor function, To increase tolerance to activity/condition/position, To improve ability of physical actions for home/community/work/leisure, To improve health of tissue, To decrease soft tissue restriction, To increase flexibility/ROM, To reduce risk of recurrence, To improve ability to perform tasks related to life management Please do not hesitate to contact me at [phone] by phone or if you have questions or concerns regarding this new plan of care! Sincerely, Luke Ferrell, PT, Cert MDT, OCS
--- NOTE | 2018-04-15 10:01 | HP.PTDCSUM ---
HP - PT D/C Summary It has been my pleasure to treat NAKUL CARTAGENA under orders from Lian Rene MD, for the diagnosis of BACK PAIN for a total of 15 visit(s). Discharge Date: 04/15/18 Please see the following information for a summary of their discharge status. - Subjective Subjective: Feeling better overall ..less pain ,getting stronger. Improving ADLS' - Pain Bilateral Back Pain Intensity (Out of 10): 2 Bilateral Lower Extremity Pain Intensity (Out of 10): 2 - Overall Improvement % Improvement: 25 - Objective Objective/Function: POSTURE: mild foward posture. GAIT: ambulates with cane mild foward posture reciprocal pattern. MMT: 4-/5 grossly. LUMBAR ROM: flexion mod loss pain,extension md/severe loss ,side glides mod loss. FLEXABLITY: hams mod tight - Goals Goal 1:: Independant with AQUATIC PT program Goal Progress: Goal Met Goal 2:: Indpendant with posture for ADL'S Goal Progress: Goal Met Goal 3:: Patient decrease lumbar pain by 50 % or greater to imrove function Goal Progress: Goal Met Goal 4:: Patient to improve lumbar ROM for function of recovery. Goal Progress: Progressing Goal 5:: Patient to improve ADLS' and walking with less pain to improve function. Goal Progress: Progressing Goal 6:: Patient improve KITA back score by 5 points Goal Progress: Progressing - Plan Plan: D/C - D/C Information If there are questions or concerns regarding this patient's physical therapy, please feel free to call me at [phone]. Thank you for the referral of this patient. Sincerely, Luke Ferrell, PT, Cert MDT, OCS
== END 2018-04-15 14:45 | disposition home or self-care (01) ==
LOC: PT 09:30
PROVIDERS: Family Provider Family Medicine; PCP Family Medicine; Referring Provider Orthopaedic Surgery; Visit Provider Orthopaedic Surgery
DX: M54.9 Dorsalgia, unspecified (principal)
CPT/HCPCS: 97113; 97162; 97530

== ENCOUNTER 2018-04-22 18:13 | Emergency (ER) | payer MEDICARE, SELFPAY ==
[2018-04-09 09:52] VITALS: BMI 36.3
[2018-04-22 18:13] VITALS: BP 140/68; PULSE 68; RESP 16; TEMP 36.5; O2SAT 96; BMI 34.9
--- NOTE | 2018-04-22 20:29 | CT_ITS ---
STUDY: CT BRAIN WITHOUT CONTRAST REASON FOR EXAM: Male, 57 years old. Near loss of consciousness and nausea after falling and hitting his head. RADIATION DOSAGE (If Supplied By Facility): CTDIvol = ( 44.99 ) mGy, DLP = ( 779.24 ) mGycm TECHNIQUE: Transaxial CT imaging of the brain was performed without administration of intravenous contrast material. Individualized dose optimization techniques were used for this CT. COMPARISON: Prior head CT exam of September 14, 2013 FINDINGS: Normal soft tissue structures. Normal calvarium. Normal size ventricles and extra-axial spaces for the patient's age. There are areas of decreased attenuation within the white matter tracts of the supratentorial brain, consistent with microvascular disease changes. Normal basal ganglia and thalami. Normal brainstem. Normal cerebellum. There is no intracranial hemorrhage. There are no findings of an acute ischemic infarction. Mucosal thickening and occlusion of the inferior recess of the left frontal sinus. Mucosal thickening in multiple bilateral ethmoid sinuses, right greater than left. Mild to moderate areas of mucosal thickening in the sphenoid sinuses. Moderate mucosal thickening of the left maxillary sinus. Probable retention cyst at the base of the left maxillary sinus. CT/Brain/Head without Contrast IMPRESSION: No acute intracranial findings. Negative for hemorrhage, hematoma or other evidence of intracranial injury. Mild involutional changes stable from prior exam. Incidental sinus findings as stated above. Electronically Signed: Diamond Cowan MD at 21:31 EST , Service support ,
--- NOTE | 2018-04-22 20:29 | CT_ITS ---
STUDY: CT CERVICAL SPINE WITHOUT CONTRAST REASON FOR EXAM: Male, 57 years old. Near loss of consciousness and nausea after falling and hitting his head. RADIATION DOSAGE (If Supplied By Facility): CTDIvol = ( 29.84 ) mGy, DLP = ( 721.14 ) mGycm TECHNIQUE: High resolution transaxial imaging was performed without contrast material. Sagittal and coronal images were reconstructed. Individualized dose optimization techniques were used for this CT. COMPARISON: None FINDINGS: Normal craniovertebral junction. Normal C1, C2 and odontoid alignment. Degenerative arthrosis of the atlantoaxial articulation. Negative for odontoid fracture. Reversal of usual cervical lordosis with otherwise normal alignment. Normal vertebral bodies and posterior osseous elements. C2-3: Mild degenerative disc and joint changes without central stenosis. Uncovertebral arthrosis with mild bilateral foraminal narrowing. C3-4: Mild degenerative disc narrowing. Moderate uncovertebral arthrosis. Facet arthrosis on the left. Negative for central stenosis. Severe foraminal narrowing on the left. Moderate foraminal narrowing on the right. C4-5: Mild disc narrowing. Uncovertebral arthrosis. Bilateral facet arthrosis. Negative for central stenosis. Bilateral mild foraminal narrowing. C5-6: Advanced disc narrowing with anterior spondylitic endplate changes and uncovertebral arthrosis. Posterior disc osteophyte without central stenosis. Bilateral mild to moderate foraminal narrowing. C6-7: Degenerative disc narrowing uncovertebral arthrosis. Posterior disc osteophyte with mild spinal stenosis and bilateral mild foraminal narrowing. C7-T1: Degenerative disc narrowing uncovertebral arthrosis and mild facet arthrosis. Negative for central stenosis. Bilateral mild foraminal narrowing. Emphysematous upper lobe changes. Atherosclerotic vascular calcifications. Mild bilateral carotid calcifications. CT/Spine Cervical without Contras IMPRESSION: Reversal of the usual cervical lordosis with otherwise normal alignment. Negative for acute fracture of the cervical spine. Degenerative disc and joint changes as stated above. Electronically Signed: Diamond Cowan MD at 21:27 EST , Service support ,
--- NOTE | 2018-04-22 20:31 | ED.DCSUM_ITS ---
- ER Visit Summary Date of Service: 04/22/18 Chief Complaint: Head injury History of Present Illness: The patient is a 57 M presenting after head injury. Patient states that an Internet router fell off the wall and hit him in the head. This occurred a few hours prior to arrival. He complains of persistent headache. He has had nausea with no vomiting. He had no loss of consciousness. He is not on anticoagulants. He denies other injuries. Physical Examination: Vitals are stable. Patient is afebrile. Alert no acute distress. HEENT exam is unremarkable. Neck is mild diffuse tenderness with no step-off Lungs are clear and equal bilaterally. Heart is regular rate and rhythm. Abdomen is soft nontender nondistended. Extremities are unremarkable. Skin is warm and dry. No focal neurologic deficit. Remainder of exam is unremarkable. Emergency Department Course and Treatment: CT head and neck show no acute process. On reevaluation, patient is resting comfortably. He is advised head injury instructions. Advised to follow-up with his primary care physician. Advised return to ED if worsening complaints. Disposition: Discharge home Impression: Closed head injury This note was generated with [employer] dictation software. It may contain incorrect words, spelling, and punctuation that were not noted in review of the chart prior to signing ED Disposition - Plan for ED Patient: Instructions: ED Concussion Referrals: Chi Vega DO [Primary Care Provider] -
--- NOTE | 2018-04-22 23:05 | ED.DEP ---
ED Disposition - Plan for ED Patient: Instructions: ED Concussion Referrals: Chi Vega DO [Primary Care Provider] -
[2018-04-22 23:15] VITALS: RESP 16
== END 2018-04-22 23:16 | disposition home or self-care (01) ==
LOC: ED 21:14
PROVIDERS: Emergency Provider Emergency Medicine; Family Provider Family Medicine; PCP Family Medicine
DX: S09.90XA Unspecified injury of head, initial encounter (principal); R11.0 Nausea; M54.2 Cervicalgia; W22.8XXA Striking against or struck by other objects, initial encounter; Y93.9 Activity, unspecified; Y92.9 Unspecified place or not applicable; I10 Essential (primary) hypertension; Z79.899 Other long term (current) drug therapy
CPT/HCPCS: 70450; 72125; 99282

== ENCOUNTER → 2018-06-08 08:59 | Outpatient (CLI) | payer MEDICARE, SELFPAY ==
[2018-02-09 10:36] VITALS: BMI 35.6
[2018-06-08 10:20] LABS: Absolute Lymphocyte Count 1.54 X10^3/ul (0.83-4.51); Absolute Neutrophil Count 4.5 X10^3/uL (2.0-7.7); Basophil# 0.01 X10^3/uL; Basophil% 0.1 % (0-1); Eosinophil# 0.21 X10^3/uL; Eosinophils% 3.1 % (0-5); Hematocrit 45.1 % (40-54); Hemoglobin 14.4 g/dl (13.0-16.5); Lymphocyte # 1.54 X10^3/ul (4.0); Lymphocyte % 22.7 % (19-41); Mean Corp Hgb Conc 31.9 g/gl (32-36); Mean Corpuscular Hgb 28.4 pg (27.0-32.0); Mean Platelet Vol. 12.6 fl (6.2-12.0); Monocyte# 0.56 X10^3/uL; Monocyte% 8.2 % (0-10); Neutrophil # 4.45 X10^3/uL (2.7-7.7); Neutrophil % 65.6 % (47-70); Platelet Count 211 K/mm3 (150-450); RBC Distribution Width CV 15.6 % (11.6-14.6); RBC Distribution Width SD 50.4 fl (35.1-43.9); Red Blood Count 5.07 M/mm3 (4.6-6.2); White Blood Count 6.8 K/mm3 (4.4-11.0)
[2018-06-08 10:23] LABS: POSITIVE COUNT NO; POSITIVE DIFFERENTIAL NO; POSITIVE MORPHOLOGY NO
[2018-06-08 10:47] LABS: ALB/GLOB Ratio 0.9 RATIO (0.9-2.4); AST(SGOT) 19 U/L (15-37); Alanine Aminotransfer ALT/SGPT 30 U/L (16-61); Albumin, Serum 3.5 g/dL (3.2-5.0); Alkaline Phosphatase 105 U/L (45-117); Anion Gap 7 (5-15); BUN 10 mg/dL (7-18); BUN/Creat Ratio 9.1 RATIO (10-20); Calcium,Total 8.4 mg/dL (8.5-10.1); Chloride 109 mmol/L (98-107); Cholesterol 164 mg/dL (200); EST Glomerular Filtration Rate 73 mL/min (>60); Est Glom Filt Rate - Afr Amer 88 mL/min (>60); Globulin 3.9 g/dL (2.2-4.2); Glucose 99 mg/dL (74-106); High Density Lipoprotein 31 mg/dL; PSA,Total - Annual Screen 0.53 ng/mL (0.00-4.00); Potassium 4.2 mmol/L (3.5-5.1); Protein, Total 7.4 g/dL (6.4-8.2); Sodium Level 141 mmol/L (136-145); Triglycerides 100 mg/dL; Very Low Density Lipoprotein 20 mg/dL (5-40)
== END ==
PROVIDERS: Family Provider Family Medicine; PCP Family Medicine; Referring Provider Family Medicine; Visit Provider Family Medicine
DX: K75.81 Nonalcoholic steatohepatitis (NASH) (principal); I10 Essential (primary) hypertension; Z12.5 Encounter for screening for malignant neoplasm of prostate
CPT/HCPCS: 36415; 80053; 80061; 84153; 85025; G0103

== ENCOUNTER 2018-09-06 15:27 | Emergency (ER) | payer MEDICARE, SELFPAY ==
[2018-09-06 15:29] VITALS: BP 131/77; PULSE 70; RESP 20; TEMP 35.9; O2SAT 95; BMI 38.0
--- NOTE | 2018-09-06 16:16 | ED.VISSUMM ---
- ER Visit Summary Date of Service: 09/06/18 Chief Complaint: Low back pain, leg pain History of Present Illness: The patient is a 57 M with history of chronic low back pain presents to the emergency department for an exacerbation. He states his symptoms got worse over the past 3 days. He does not recall any trauma. He disturbs a burning pain from his low back into both buttocks. He had no problems urinating. He denies any difficulty controlling his bowels. He denies any weakness. He states that he is on gabapentin, and will follow with his primary care but cannot get in today. He was remotely in pain management but has not been in some time. He is never had surgery on his back. He denies abdominal pain. Physical Examination: Afebrile, vitals unremarkable. Well-appearing patient has a normal neurologic examination. no acute distress. Head is normocephalic, atraumatic. Pupil's equal round reactive, extraocular muscles intact. Neck supple. Heart regular rate and rhythm. Lungs clear, chest nontender. Abdomen soft, nontender, nondistended. No pulsatile mass. Patient has paraspinal tenderness in the lumbar area, but no bony tenderness. Straight leg raise is negative bilaterally. 2+ symmetric lower extremity pulses. 2+ reflexes. No clonus. No weakness of dorsiflexion, plantar flexion, or extensor hallucis longus bilaterally. Test Results: [] Emergency Department Course and Treatment: His reflexes are 2+. His pulses are 2+. His abdomen is benign. I do feel that The patient is safe for outpatient therapy. Did review his automated report. This is unremarkable. I will give him a short course of tramadol as he has had this with improvement. He will also be given antispasmodics. He will be discharged home. Treatment Plan: [] Disposition: Discharge Impression: 1. Lumbar strain with radiculopathy This note was generated with [employer] dictation software. It may contain incorrect words, spelling, and punctuation that were not noted in review of the chart prior to signing ED Disposition - Plan for ED Patient: Instructions: BACK PAIN w/ SCIATICA Prescriptions: cycloBENZAPRine HCl [Flexeril] 10 mg PO TID PRN #20 tab PRN Reason: Muscle Spasm Prescription Printed traMADol [Ultram] 50 mg PO Q4H PRN PRN 3 Days #10 tab PRN Reason: Pain Prescription Printed Referrals: Chi Vega DO [Primary Care Provider] -
[2018-09-06] MEDS: Ketorolac 60 MG/2 ML Vial IM (16:49)
[2018-09-06] MEDS: HYDROmorphone 0.5 MG/0.5 ML SYRINGE IM (16:50)
[2018-09-06 17:11] VITALS: BP 128/85; PULSE 60; RESP 16; O2SAT 95
== END 2018-09-06 17:16 | disposition home or self-care (01) ==
LOC: ED 16:27
PROVIDERS: Emergency Provider Emergency Medicine; Family Provider Family Medicine; PCP Family Medicine
DX: S39.012A Strain of muscle, fascia and tendon of lower back, initial encounter (principal); M54.16 Radiculopathy, lumbar region; X58.XXXA Exposure to other specified factors, initial encounter; Y93.9 Activity, unspecified; Y92.9 Unspecified place or not applicable; Z72.0 Tobacco use
CPT/HCPCS: 96372; 99282

== ENCOUNTER 2018-11-03 16:18 | Emergency (ER) | payer MEDICARE, SELFPAY ==
[2018-11-03 16:20] VITALS: BP 146/85; PULSE 66; RESP 17; TEMP 36.3; O2SAT 97; BMI 38.5
--- NOTE | 2018-11-03 16:47 | ED.VISSUMM ---
- ER Visit Summary Date of Service: 11/03/18 Chief Complaint: Acute on chronic low back pain History of Present Illness: The patient is a 58 M history of osteoarthritis, degenerative disc disease and fibromyalgia. Is never had back surgery. He states the last 4 days he had lower back pain. No radiation. No fever. No trauma. On no blood thinners. No bowel or bladder incontinence. No weakness or numbness. Worse with movement. He has had similar pain like this before. He denies any fever. Physical Examination: White male. Plan back discomfort. Vital signs stable afebrile. HEENT exam without dentition. Moist his membranes. Neck nontender. Lungs clear to auscultation. Heart regular rhythm. Abdomen soft and nontender. Normal bowel sounds no peritoneal signs. Remedies moves all 4. Neurovascular intact. 5 out of 5 oil heater installer strength. Dorsi plantarflexion intact. No cauda equina. No saddle anesthesia. Normal medial and lateral thigh sensation. Normal lower leg sensation. Negative straight leg raise bilaterally. Back exam he has reproducible tenderness over his lumbar spine and paralumbar soft tissues. Test Results: None Emergency Department Course and Treatment: Patient has tramadol at home. Given 2 Vicodin here and discharged home with his ride. Treatment Plan: Motrin and tramadol for his pain. He already has a tramadol at home. Hot shower warm bath. Follow-up if not improving return if any leg weakness, numbness or incontinence. Disposition: Discharge Impression: Acute on chronic low back pain history of arthritis and DJD This note was generated with [employer] dictation software. It may contain incorrect words, spelling, and punctuation that were not noted in review of the chart prior to signing ED Disposition - Plan for ED Patient: Referrals: Chi Vega DO [Primary Care Provider] -
--- NOTE | 2018-11-03 16:50 | ED.DEP ---
ED Disposition - Plan for ED Patient: Disposition: Home or Assisted Living Instructions: BACK PAIN (Acute or Chronic) Referrals: Chi Vega DO [Primary Care Provider] - 1 Week if not improving Additional Instructions: Motrin for pain and inflammation. Your home prescription of tramadol for pain. Ice and heat to your back. Follow-up if not improving return if you develop any bowel or bladder incontinence, leg weakness or fever.
[2018-11-03] MEDS: HYDROcodone Bitartrate/Apap 5/325 Tablet PO (16:51)
== END 2018-11-03 17:28 | disposition home or self-care (01) ==
PROVIDERS: Emergency Provider Emergency Medicine; Family Provider Family Medicine; PCP Family Medicine
DX: M54.5 Low back pain (principal); G89.29 Other chronic pain; M79.7 Fibromyalgia; M19.90 Unspecified osteoarthritis, unspecified site; Z79.899 Other long term (current) drug therapy; Z87.891 Personal history of nicotine dependence
CPT/HCPCS: 99283

== ENCOUNTER 2018-12-07 10:47 | Emergency (ER) | payer MEDICARE, SELFPAY ==
[2018-12-07 10:48] VITALS: BP 155/86; PULSE 60; RESP 18; TEMP 36.6; O2SAT 98; BMI 38.0
--- NOTE | 2018-12-07 10:57 | EKG12_ITS ---
Test Reason : COUGH Blood Pressure : / mmHG Vent. Rate : 057 BPM Atrial Rate : 057 BPM P-R Int : 182 ms QRS Dur : 080 ms QT Int : 432 ms P-R-T Axes : 052 027 051 degrees QTc Int : 420 ms Sinus bradycardia with marked sinus arrhythmia Low voltage QRS Borderline ECG Confirmed by BRIDGETT LEDBETTER ([id number]), associate entertainment editor ASHWINI KOHLER ([id number]) on 12/14/2018 1:27:45 PM Referred By: GENEVA Confirmed By:BRIDGETT LEDBETTER
[2018-12-07 11:09] VITALS: PULSE 66; RESP 20
[2018-12-07] MEDS: Ipratropium/Albuterol Sulfate 3 ML AMPUL.NEB INHALATION (11:09)
[2018-12-07] MEDS: Albuterol 2.5 MG/3 ML VIAL.NEB. INHALATION (11:09)
[2018-12-07 11:29] LABS: Absolute Lymphocyte Count 1.49 X10^3/uL (0.83-4.51); Absolute Neutrophil Count 4.3 X10^3/uL (2.0-7.7); Basophil# 0.02 X10^3/uL; Basophil% 0.3 % (0-1); Eosinophil# 0.22 X10^3/uL; Eosinophils% 3.3 % (0-5); Hemoglobin 13.7 g/dL (13.0-16.5); Lymphocyte # 1.49 X10^3/ul (4.0); Lymphocyte % 22.4 % (19-41); Mean Corp Hgb Conc 31.9 g/dL (32-36); Mean Corpuscular Hgb 27.7 pg (27.0-32.0); Mean Corpuscular Volume 86.9 fL (80-94); Mean Platelet Vol. 11.8 fl (6.2-12.0); Monocyte# 0.56 X10^3/uL; Monocyte% 8.4 % (0-10); NRBC Flagged by Analyzer 0 % (0-5); Neutrophil # 4.34 X10^3/uL (2.7-7.7); Neutrophil % 65.3 % (47-70); Platelet Count 187 K/mm3 (150-450); RBC Distribution Width CV 15.3 % (11.6-14.6); RBC Distribution Width SD 48.3 fl (35.1-43.9); Red Blood Count 4.95 M/mm3 (4.6-6.2); White Blood Count 6.7 K/mm3 (4.4-11.0)
--- NOTE | 2018-12-07 11:30 | RAD_ITS ---
STUDY: X-RAY CHEST REASON FOR EXAM: Male, 58 years old. Dizziness and cough. History of chronic interstitial lung disease. TECHNIQUE: PA and lateral views of the chest. COMPARISON: Comparison is made with prior study dated April 13, 2016. FINDINGS: EKG electrodes are seen. Stable mild degree of increased markings at the lung bases suggestive of scarring. There is no demonstrated pleural abnormality. Normal size heart. Normal mediastinum and brock. Normal visualized pulmonary arteries. Normal visualized aortic arch and descending thoracic aorta. There are diffuse degenerative changes of the visualized thoracic spine. Normal visualized ribs, clavicles, and shoulders. There is no demonstrated abnormality of the visualized soft tissue structures of the upper abdomen. RAD/Chest PA and Lateral IMPRESSION: Stable examination. No acute abnormality is seen. Electronically Signed: Kun Ramirez, at 11:49 EDT , Service support ,
[2018-12-07] MEDS: predniSONE 20 MG Tablet 60 MG PO (11:42)
[2018-12-07] MEDS: 0.9% Normal Saline 1,000 ML 1000 ML IV (11:44)
[2018-12-07 11:45] LABS: ALB/GLOB Ratio 0.9 RATIO (0.9-2.4); AST(SGOT) 14 U/L (15-37); Alanine Aminotransfer ALT/SGPT 26 U/L (16-61); Albumin, Serum 3.3 g/dL (3.2-5.0); Alkaline Phosphatase 97 U/L (45-117); Anion Gap 9 (5-15); BUN 11 mg/dL (7-18); BUN/Creat Ratio 10.3 RATIO (10-20); Calcium,Total 8.5 mg/dL (8.5-10.1); Chloride 108 mmol/L (98-107); Creatinine, Serum 1.07 mg/dL (0.70-1.30); EST Glomerular Filtration Rate 75 mL/min (>60); Est Glom Filt Rate - Afr Amer 91 mL/min (>60); Estimated Creatinine Clearance 71.92 ml/min; Globulin 3.6 g/dL (2.2-4.2); Glucose 108 mg/dL (74-106); Potassium 4.2 mmol/L (3.5-5.1); Protein, Total 6.9 g/dL (6.4-8.2); Sodium Level 142 mmol/L (136-145)
--- NOTE | 2018-12-07 12:01 | ED.DCSUM_ITS ---
History of Present Illness Chief Complaint: Cough Informant: Patient Onset: Days Context: Gradual Onset Timing: Intermittent Current Severity: Moderate Maximum Severity: Moderate Narrative: The patient presents to the emergency department with cough and dizziness. Patient has a history of COPD but is not on home oxygen. He states that he recently had to use bug bombs to get rid of bedbugs in his house. He states he was exposed to the chemicals and then for the past 3 days, has had worsening cough. He states today, he is felt mildly lightheaded. He denies any chest pain. He denies any change in speech, trouble swallowing, or change in gait. Just felt like he could not catch his breath today. Prior similar symptoms: No Recent Illness/Hospitalization: No Past Medical History - Allergies and Home Meds Allergies/Adverse Reactions: Allergies codeine Allergy (Verified 12/07/18 10:51) Itching nuclear med contrast Allergy (Uncoded 12/07/18 10:51) Unknown bp decreased Primary Care Physician: Chi Vega DO [Primary Care Provider] - Prior records reviewed: Yes Past Medical History: - Surgical History: herniorrhaphy Smoking Status: Former smoker - Family History Maternal Family History: Reports: No pertinent history Paternal Family History: Reports: No pertinent history Review of Systems General: Denies: Chills, Fever, Sweats Eyes: Denies: Visual changes - bilaterally, Diplopia ENT: Denies: Rhinorrhea, Sore throat Cardiovascular: Denies: Chest pain, Palpitations Respiratory: Reports: Dyspnea, Cough. Denies: Dyspnea on exertion Gastrointestinal: Denies: Abdominal pain, Nausea, Vomiting, Diarrhea, Melena, Hematochezia Genitourinary: Denies: Dysuria, Hematuria, Frequency Musculoskeletal: Denies: Back pain, Extremity Pain Skin: Denies: Rash, Wounds Neurological: Denies: Headache, Weakness, Numbness Psych: Denies: Depression Endocrine: Denies: Polyuria Physical Exam Vital Signs/Narrative: Vital Signs Temp Pulse Resp BP Pulse Ox 12/07/18 11:09 66 20 H 12/07/18 10:48 97.9 F 60 18 155/86 H 98 Inital Vital Signs reviewed: Yes General: Well nourished, Well developed, No Acute Distress Head: Normocephalic, Atraumatic Eyes: Perrl, EOMI ENT: Moist mucous membranes, No rhinorrhea Neck: Supple, Nontender Cardiovascular: Regular rate, Regular rhythm, No murmurs Respiratory: No distress, Chest nontender, Wheezing Abdomen: Soft, Nontender, Nondistended, Normal bowel sounds Back: Nontender, Normal Inspection Extremities: Nontender, No edema Skin: Normal color, No rash Neurological: Alert, Oriented x3, Cranial nerves II-XII grossly intact, Normal Strength, Normal Sensation Psychological: Normal affect, Normal Mood Diagnostic/Tx/Re-eval Chest X-Ray - ED: 2 View, Read by ED Physician, Normal, Heart, Lungs, Mediastinum Clinical Impression(s) from Imaging Studies Chest X-Ray 12/07/18 11:30 IMPRESSION: Stable examination. No acute abnormality is seen. Electronically Signed: Kun Ashley, at 11:49 EDT , Service support , Abnormal Lab Results 12/07/18 12/07/18 11:13 11:13 WBC 6.7 RBC 4.95 Hgb 13.7 Hct 43.0 MCV 86.9 MCH 27.7 MCHC 31.9 L RDW Std Deviation 48.3 H RDW Coeff of Jose 15.3 H Plt Count 187 MPV 11.8 Immature Gran % (Auto) 0.300 Neut % (Auto) 65.3 Lymph % (Auto) 22.4 [place] % (Auto) 8.4 Eos % (Auto) 3.3 Baso % (Auto) 0.3 Absolute Neuts (auto) 4.3 Absolute Lymphs (auto) 1.49 Nucleated RBC % 0 Sodium 142 Potassium 4.2 Chloride 108 H Carbon Dioxide 25.0 Anion Gap 9 BUN 11 Creatinine 1.07 Estim Creat Clear Calc 71.92 Est GFR (MDRD) Af Amer 91 Est GFR (MDRD) Non-Af 75 BUN/Creatinine Ratio 10.3 Glucose 108 H Calcium 8.5 Total Bilirubin 0.40 AST 14 L ALT 26 Alkaline Phosphatase 97 Total Protein 6.9 Albumin 3.3 Globulin 3.6 Albumin/Globulin Ratio 0.9 - Rhythm Strip Rhythm Strip: Sinus Rhythm Rate: 55 Ectopy: None - EKG Initial EKG Interpretation: No Acute Injury Pattern, Sinus Bradycardia Prior: Unchanged - Medical Decision Making My suspicion is that this is likely chemical mediated bronchitis. The patient did have some wheezing. He was given nebulized breathing treatments and steroids. His x-ray was unremarkable. Labs were unremarkable. On reevaluation, he is feeling improved. At this point, I do feel that he is safe for outpatient therapy. I am going to keep him on prednisone. I do not see clear indication for antibiotics. He is comfortable with this plan of care. Impression 1. Chemical induced bronchitis ED Disposition - Plan for ED Patient: Disposition: Home or Assisted Living Instructions: BRONCHITIS, No Antibiotic (Adult) Prescriptions: Prednisone [Deltasone] 60 mg PO DAILY #15 tab Prescription Printed Referrals: Chi Vega DO [Primary Care Provider] -
[2018-12-07 12:14] VITALS: BP 119/78; PULSE 68; RESP 16; O2SAT 95
== END 2018-12-07 12:15 | disposition home or self-care (01) ==
LOC: ED 11:02
PROVIDERS: Emergency Provider Emergency Medicine; Family Provider Family Medicine; PCP Family Medicine
DX: T59.891A Toxic effect of other specified gases, fumes and vapors, accidental (unintentional), initial encounter (principal); J68.0 Bronchitis and pneumonitis due to chemicals, gases, fumes and vapors; Y92.9 Unspecified place or not applicable; J44.9 Chronic obstructive pulmonary disease, unspecified; Z87.891 Personal history of nicotine dependence
CPT/HCPCS: 71046; 80053; 85025; 93005; 94640; 99285; J7030; A4216

== ENCOUNTER 2018-12-24 14:38 | Emergency (ER) | payer MEDICARE, SELFPAY ==
[2018-12-24 14:39] VITALS: BP 142/74; PULSE 67; RESP 17; TEMP 36.6; O2SAT 96; BMI 38.2
--- NOTE | 2018-12-24 15:04 | EKG12_ITS ---
Test Reason : SOB/CHEST DISCOMFORT Blood Pressure : / mmHG Vent. Rate : 067 BPM Atrial Rate : 067 BPM P-R Int : 174 ms QRS Dur : 082 ms QT Int : 420 ms P-R-T Axes : 052 032 047 degrees QTc Int : 443 ms Normal sinus rhythm Normal ECG Confirmed by AKIKO MILLS, HU ([id number]), staff editor ASHWINI KOHLER ([id number]) on 12/29/2018 9:44:23 A M Referred By: BETI/CHING Confirmed By:PRASANTH WHARTON MD
--- NOTE | 2018-12-24 15:10 | ED.DCSUM_ITS ---
History of Present Illness Chief Complaint: Chest Pain Informant: Patient Onset: Weeks - 3 Context: Gradual Onset Timing: Continuous Narrative: Patient is a 58-year-old male with history of COPD, obstructive sleep apnea, hypertension and fibromyalgia presenting with worsening shortness of breath. Patient states is been persistent for the past 3 weeks. He was seen in the ER about 3 weeks ago after he had shortness of breath associated with breathing in fumes from a bug bomb. At that time patient had a normal chest x-ray and was diagnosed with a chemical bronchitis. He was started on prednisone taper. Patient states he is taking the medication but continues feel very short of breath. He notes he is no longer wheezing or having any mucus in his lungs. He has an intermittent cough that is intermittently productive of clear sputum. Symptoms seem to be worse with exertion. He denies any fever or chills. He notes no associated chest tightness. He denies any swelling of his extremities. He denies any recent travel or history of pulmonary embolism/DVT. Patient denies any other complaints at this time. He states he came in because the symptoms had been persisting for so long but they had not changed today. Past Medical History - Allergies and Home Meds Allergies/Adverse Reactions: Allergies codeine Allergy (Verified 12/24/18 14:41) Itching nuclear med contrast Allergy (Uncoded 12/24/18 14:41) Unknown bp decreased Primary Care Physician: Chi Vega DO [Primary Care Provider] - Past Medical History: - - Hypertension, fibromyalgia, COPD Surgical History: herniorrhaphy Smoking Status: Former smoker - Family History Maternal Family History: Reports: No pertinent history Paternal Family History: Reports: No pertinent history Review of Systems All systems negative except as indicated Cardiovascular: Reports: - - Chest tightness Respiratory: Reports: Dyspnea, Dyspnea on exertion Physical Exam Vital Signs/Narrative: Vital Signs Temp Pulse Resp BP Pulse Ox 12/24/18 14:39 97.9 F 67 17 142/74 H 96 Inital Vital Signs reviewed: Yes General: Well nourished, Well developed, Obese, No Acute Distress Head: Normocephalic, Atraumatic Eyes: Perrl, EOMI ENT: Moist mucous membranes, No rhinorrhea Neck: Supple, Nontender Cardiovascular: Regular rate, Regular rhythm, No murmurs, - - 2+ bilateral DP pulses Respiratory: No distress, Chest nontender, - - Coarse and distant breath sounds bilaterally, no crackles appreciated. Negative for: Rhonchi, Wheezing Abdomen: Soft, Nontender, Nondistended, Normal bowel sounds Back: Nontender, Normal Inspection Extremities: Nontender, No edema. Negative for: Edema Skin: Normal color, No rash Neurological: Alert, Oriented x3, Cranial nerves II-XII grossly intact, Normal Strength, Normal Sensation Psychological: Normal affect, Normal Mood Diagnostic/Tx/Re-eval Chest X-Ray - ED: 2 View, Read by ED Physician, Read by Radiologist, No Acute Disease Clinical Impression(s) from Imaging Studies Chest X-Ray 12/24/18 15:30 IMPRESSION: No acute pathology. Electronically Signed: Noam Stein, at 15:44 EDT Tel , Service support , Laboratory Data 12/24/18 12/24/18 12/24/18 15:25 15:25 15:25 WBC 7.0 RBC 4.99 Hgb 14.1 Hct 44.0 MCV 88.2 MCH 28.3 MCHC 32.0 RDW Std Deviation 50.4 H RDW Coeff of Jose 15.6 H Plt Count 200 MPV 11.1 Immature Gran % (Auto) 0.400 Neut % (Auto) 71.0 H Lymph % (Auto) 19.6 [place] % (Auto) 6.2 Eos % (Auto) 2.4 Baso % (Auto) 0.4 Absolute Neuts (auto) 5.0 Absolute Lymphs (auto) 1.37 Nucleated RBC % 0 D-Dimer Quant (PE/DVT) 0.50 H Sodium 139 Potassium 3.7 Chloride 107 Carbon Dioxide 25.0 Anion Gap 7 BUN 11 Creatinine 1.22 Estim Creat Clear Calc 63.07 Est GFR (MDRD) Af Amer 78 Est GFR (MDRD) Non-Af 65 BUN/Creatinine Ratio 9.0 L Glucose 107 H Calcium 9.0 Troponin I < 0.015 - Rhythm Strip Rhythm Strip: Sinus Rhythm Rate: 67 Ectopy: None - EKG Initial EKG Interpretation: Sinus Rhythm, - - Sinus rate, 67 bpm [place] interval 174 QRS 82 QT/QTc 420/[address] segments Nonspecific T wave inversion in V1 - Medical Decision Making She is evaluated for 3 weeks of shortness of breath and chest tightness. He appears nontoxic and in no acute distress. He has mildly diminished breath sounds with this consistent with COPD. He does not have any significant wheezing. He is given a DuoNeb in the ER with no significant change. Patient's only risk factor for PE is age. D-dimer is negative per age-adjusted d-dimer (0.5). Troponin and EKG are unremarkable. Patient does not have a leukocytosis or any other acute abnormalities on lab work or chest x-ray. She does ambulate in the emergency room his O2 saturation does not go below 97% on room air. I suspect this is likely progression of his COPD. Patient will be placed back on prednisone burst and started on a Z-Andrei. He is encouraged to follow-up with his primary care provider on Thursday or Thursday. I do not suspect ACS as a cause of his chest discomfort as this is been going on for 2 to 3 weeks. Patient is counseled on signs and symptoms requiring return to the emergency room. Patient verbalizes agreement and understand this plan. Patient discharged home in stable and improved condition. ED Disposition - Plan for ED Patient: Disposition: Home or Assisted Living Diagnosis: Shortness of breath, COPD exacerbation, Chest tightness Instructions: CHEST PAIN, NonCardiac, Copd Flare Prescriptions: Prednisone [Deltasone] 40 mg PO DAILY #8 tab Prescription Printed Azithromycin [Zithromax Z-Andrei] 250 mg PO UD #1 box Prescription Printed Referrals: Chi Vega DO [Primary Care Provider] - Additional Instructions: Please make sure he follow-up with your primary care doctor on Thursday or Thursday. Return if you have any worsening symptoms. Avoid breathing any fumes or things that can aggravate your lungs.
[2018-12-24 15:15] VITALS: BP 119/72; PULSE 65; RESP 18; TEMP 36.7; O2SAT 96
[2018-12-24] MEDS: Ipratropium/Albuterol Sulfate 3 ML AMPUL.NEB INHALATION (15:18)
[2018-12-24 15:19] VITALS: PULSE 62; RESP 15; O2SAT 97
--- NOTE | 2018-12-24 15:30 | RAD_ITS ---
EXAM DESCRIPTION: PA and lateral CHEST CLINICAL HISTORY: 58 years Male, chest pressure and increased shortness of breath COMPARISON: Prior chest obtained on 12/07/2018 FINDINGS: The thorax is intact. The heart and mediastinum appear to be within normal limits. The lungs appear to be well areated without evidence of pneumonic consolidation or pleural effusion. Some vascular and interstitial crowding is noted in both lung bases from poor inspiratory effort RAD/Chest PA and Lateral IMPRESSION: No acute pathology. Electronically Signed: Noam Sarita, at 15:44 EDT Tel , Service support ,
[2018-12-24 15:37] LABS: Absolute Lymphocyte Count 1.37 X10^3/uL (0.83-4.51); Basophil# 0.03 X10^3/uL; Basophil% 0.4 % (0-1); Eosinophil# 0.17 X10^3/uL; Eosinophils% 2.4 % (0-5); Hemoglobin 14.1 g/dL (13.0-16.5); Lymphocyte # 1.37 X10^3/ul (4.0); Lymphocyte % 19.6 % (19-41); Mean Corpuscular Hgb 28.3 pg (27.0-32.0); Mean Corpuscular Volume 88.2 fL (80-94); Mean Platelet Vol. 11.1 fl (6.2-12.0); Monocyte# 0.43 X10^3/uL; Monocyte% 6.2 % (0-10); NRBC Flagged by Analyzer 0 % (0-5); Neutrophil # 4.95 X10^3/uL (2.7-7.7); Platelet Count 200 K/mm3 (150-450); RBC Distribution Width CV 15.6 % (11.6-14.6); RBC Distribution Width SD 50.4 fl (35.1-43.9); Red Blood Count 4.99 M/mm3 (4.6-6.2)
[2018-12-24 16:00] LABS: Anion Gap 7 (5-15); BUN 11 mg/dL (7-18); Chloride 107 mmol/L (98-107); Creatinine, Serum 1.22 mg/dL (0.70-1.30); EST Glomerular Filtration Rate 65 mL/min (>60); Est Glom Filt Rate - Afr Amer 78 mL/min (>60); Estimated Creatinine Clearance 63.07 ml/min; Glucose 107 mg/dL (74-106); Potassium 3.7 mmol/L (3.5-5.1); Sodium Level 139 mmol/L (136-145)
[2018-12-24 16:05] VITALS: BP 115/72; PULSE 64; RESP 14; O2SAT 97
[2018-12-24 17:08] VITALS: BP 123/80; PULSE 68; RESP 14; O2SAT 97
[2018-12-24 17:47] VITALS: BP 118/70; PULSE 62; RESP 14; O2SAT 95
[2018-12-24] MEDS: predniSONE 20 MG Tablet 60 MG PO (17:54)
== END 2018-12-24 17:56 | disposition home or self-care (01) ==
PROVIDERS: Emergency Provider Emergency Medicine; Family Provider Family Medicine; PCP Family Medicine
DX: J44.1 Chronic obstructive pulmonary disease with (acute) exacerbation (principal); R06.02 Shortness of breath; R07.89 Other chest pain; E66.9 Obesity, unspecified; I10 Essential (primary) hypertension; M79.7 Fibromyalgia; G47.33 Obstructive sleep apnea (adult) (pediatric); Z79.899 Other long term (current) drug therapy; Z87.891 Personal history of nicotine dependence
CPT/HCPCS: 71046; 80048; 84484; 85025; 85379; 93005; 94640; 99285; A4216

== ENCOUNTER → 2019-03-11 08:53 | Outpatient (CLI) | payer MEDICARE, SELFPAY ==
--- NOTE | 2019-03-11 08:57 | US_ITS ---
STUDY: ABDOMINAL ULTRASOUND - RIGHT UPPER QUADRANT REASON FOR VISIT: Male, 58 years old BO -- HX OF CHOLECYSTECTOMY 2014 TECHNIQUE: Ultrasound evaluation of the right upper quadrant was performed with real-time and static de la cruz-scale imaging. TECHNICAL QUALITY: Limited. Examination limited by bowel gas. COMPARISON: 02/20/2018. FINDINGS: Liver: The liver measures 18.3 cm. There is increased echogenicity consistent with fatty infiltration. The bile ducts are within normal limits. There is hepatic color flow. The direction of portal flow is hepatopetal. There is no demonstrated mass lesion. Gallbladder: The patient is status post cholecystectomy. Common Bile Duct (C.B.D.): The common bile duct measures 5.0 mm. Pancreas: There is nonvisualization of the pancreas. Right Kidney: Normal size of the right kidney. The right kidney measures 12.2 x 5.8 x 4.4 cm. Normal renal cortex. The right cortex measures 1.5 cm. There is no demonstrated renal mass or cyst. There is no right hydronephrosis. US/Liver IMPRESSION: Status post cholecystectomy with no biliary distention. Diffuse fatty liver. Suboptimally seen pancreas, remainder of the right upper quadrant ultrasound unremarkable. Electronically Signed: Kelsi Camejo MD at 3:54 EST , Service support ,
== END ==
PROVIDERS: Family Provider Family Medicine; PCP Family Medicine; Referring Provider Family Medicine; Visit Provider Family Medicine
DX: K75.81 Nonalcoholic steatohepatitis (NASH) (principal)
CPT/HCPCS: 76705

== ENCOUNTER → 2019-05-11 10:01 | Outpatient (CLI) | payer MEDICARE, MEDICAID, SELFPAY ==
--- NOTE | 2019-05-11 15:05 | NEURO ---
NCS and/or EMG Patient Report Ordering Doctor: Obinna Alejandro DATE OF SERVICE: 05/11/19 Reese Curtis is a 58-year-old male presents for electrodiagnostic testing of the left upper limb. He reports numbness and tingling as well as pain in the left arm. Electrodiagnostic findings: Left median motor nerve demonstrates borderline prolonged distal latency with normal amplitude and reduced conduction velocity. Prolonged left median sensory latency at the wrist and palm. Left ulnar motor nerve demonstrates normal distal latency and amplitude with an approximately 20% drop in conduction across the elbow. Prolonged left median F wave. On needle EMG, all muscles tested in the left upper limb showed no evidence of denervation with normal motor unit action potentials. Electrodiagnostic impression: This is an abnormal study in the left upper limb. 1. Electrodiagnostic findings demonstrate left-sided median mononeuropathy. This is consistent with mild left carpal tunnel syndrome 2. Electrodiagnostic findings demonstrate left-sided ulnar neuropathy, consistent with a mild left cubital tunnel syndrome. 3. No electrodiagnostic evidence is noted for cervical radiculopathy. If there are any further questions please not hesitate to contact me.
== END ==
PROVIDERS: Family Provider Family Medicine; PCP Family Medicine
DX: M79.7 Fibromyalgia (principal); M79.602 Pain in left arm
CPT/HCPCS: 95886; 95909

== ENCOUNTER 2019-06-04 12:26 | Emergency (ER) | payer MEDICARE, MEDICAID, SELFPAY ==
[2019-06-04 12:27] VITALS: BP 139/75; PULSE 67; RESP 20; TEMP 36.2; O2SAT 95; BMI 42.5
--- NOTE | 2019-06-04 12:42 | ED.DEP ---
ED Disposition - Plan for ED Patient: Instructions: BACK AND NECK PAIN, General Prescriptions: Naproxen [Naprosyn] 500 mg PO BID PRN #20 tablet Referrals: Chi Vega DO [Primary Care Provider] -
--- NOTE | 2019-06-04 12:47 | ED.VISSUMM ---
- ER Visit Summary Date of Service: 06/04/19 Chief Complaint: Back pain History of Present Illness: The patient is a 58 M presenting with back pain. Patient has a history of chronic back pain and takes hydrocodone. He states that on Thursday he was feeling improved and he mopped his floors and probably overdid it. He states the next day he began having worsening right lower back pain radiating to his right leg. He denies bowel or bladder incontinence. Denies numbness or weakness. He states this is his typical chronic back pain. He states the hydrocodone is not helping as much as it did previously. Denies fever. Denies other complaints. Physical Examination: Vitals are stable. Patient is afebrile. Alert no acute distress. HEENT exam is unremarkable. Neck is supple. Lungs are clear and equal bilaterally. Heart is regular rate and rhythm. Abdomen is soft nontender nondistended. No guarding or rebound Back: Right paraspinal lumbar muscle tenderness, no midline tenderness. Straight leg raise positive at 30 degrees on the right. Extremities are unremarkable. Skin is warm and dry. No focal neurologic deficit. Normal strength and sensation Remainder of exam is unremarkable. Emergency Department Course and Treatment: Patient was given morphine, Zofran IM x1. He was given a prescription for Naprosyn. Advised to follow-up with his primary care physician. Advised return to ED for worsening complaints. Disposition: Discharged home Impression: Acute on chronic back pain This note was generated with [employer] dictation software. It may contain incorrect words, spelling, and punctuation that were not noted in review of the chart prior to signing ED Disposition - Plan for ED Patient: Instructions: BACK AND NECK PAIN, General Prescriptions: Naproxen [Naprosyn] 500 mg PO BID PRN #20 tab Transmission Status: Received by [id number] Referrals: Chi Vega DO [Primary Care Provider] -
[2019-06-04] MEDS: morphine 8 MG/ML Syringe IM (12:56)
[2019-06-04] MEDS: Ondansetron 4 MG/2 ML Vial IM (12:57)
[2019-06-04 13:13] VITALS: BP 144/95; PULSE 63; RESP 16; O2SAT 95
== END 2019-06-04 13:14 | disposition home or self-care (01) ==
LOC: ED 12:45
PROVIDERS: Emergency Provider Emergency Medicine; PCP Family Medicine
DX: M54.5 Low back pain (principal); G89.29 Other chronic pain
CPT/HCPCS: 96372; 99282; J2405

== ENCOUNTER 2019-08-11 17:09 | Emergency (ER) | payer MEDICARE, MEDICAID, SELFPAY ==
[2019-08-11 17:11] VITALS: BP 151/102; PULSE 76; RESP 16; TEMP 36.5; O2SAT 95; BMI 38.5
--- NOTE | 2019-08-11 17:23 | CT_ITS ---
STUDY: CT BRAIN WITHOUT CONTRAST REASON FOR EXAM: Male, 58 years old. HEADACHE SINCE THIS AM, LT FRONTAL RADIATION DOSAGE (If Supplied By Facility): CTDIvol = ( 44.99 ) mGy, DLP = ( 796.11 ) mGycm TECHNIQUE: Transaxial CT imaging of the brain was performed without administration of intravenous contrast material. Individualized dose optimization techniques were used for this CT. COMPARISON: April 22, 2018 FINDINGS: Normal soft tissue structures. Normal calvarium. Normal size ventricles and extra-axial spaces for the patient''s age. There are areas of decreased attenuation within the white matter tracts of the supratentorial brain, consistent with microvascular disease changes. Normal basal ganglia and thalami. Normal brainstem. Normal cerebellum. There is no intracranial hemorrhage. There are no findings of an acute ischemic infarction. There is partial opacification of the paranasal sinuses CT/Brain/Head without Contrast IMPRESSION: No acute intracranial process. Small vessel ischemia. Pansinusitis. Electronically Signed: Angela Larson MD at 18:20 EDT Tel , Service support ,
[2019-08-11] MEDS: DiphenhydrAMINE 50 MG/ML Syringe 25 MG IV (17:36)
[2019-08-11] MEDS: Ketorolac 30 MG/ML Syringe 15 MG IV (17:37)
[2019-08-11] MEDS: proCHLORPERazine 10 MG/2 ML Vial IV (17:38)
--- NOTE | 2019-08-11 18:36 | ED.DCSUM_ITS ---
- ER Visit Summary Date of Service: 08/11/19 Chief Complaint: Headache History of Present Illness: The patient is a 58 M with a headache that started when he woke up this morning. He slept well. He was using his CPAP as prescribed. Nothing seemed to bring this on. The pain is located in his left frontal region. Worse with light. He never had this before. Denies vision changes, jaw claudication, any other eye or sinus symptoms. Denies visual cuts, facial droop, weakness, numbness. Denies any trauma, fever, or blood thinners. Physical Examination: Afebrile and vital signs unremarkable. Inspection is normal. HEENT exam is normal. Neck is nontender with good range of motion. Cranial nerves grossly intact. Normal strength and sensation. Normal cerebellar testing. Test Results: CT brain showed nothing acute. He has chronic changes and sinusit is. Emergency Department Course and Treatment: Patient was treated with Compazine, Benadryl, Toradol. On reevaluation, his symptoms had resolved. His CT was reassuring. He was educated about temporal arteritis. He will follow-up for further evaluation if the pain persists as he could lose his vision. He was also evaluated for sinus infection. He is not having significant sinus symptoms, so we will not be treating with antibiotics at this time. He will continue using his home allergy medications. Follow-up with primary care. Treatment Plan: As above Disposition: Discharge Impression: Headache This note was generated with [employer] dictation software. It may contain incorrect words, spelling, and punctuation that were not noted in review of the chart prior to signing ED Disposition - Plan for ED Patient: Referrals: Chi Vega DO [Primary Care Provider] -
--- NOTE | 2019-08-11 18:38 | ED.DEP ---
ED Disposition - Plan for ED Patient: Instructions: ED Headache Unspecified Referrals: Chi Vega DO [Primary Care Provider] -
[2019-08-11 19:12] VITALS: RESP 18
== END 2019-08-11 19:13 | disposition home or self-care (01) ==
LOC: ED 18:10
PROVIDERS: Emergency Provider Emergency Medicine; PCP Family Medicine
DX: R51 Headache (principal); J32.4 Chronic pansinusitis; J44.9 Chronic obstructive pulmonary disease, unspecified; E11.9 Type 2 diabetes mellitus without complications; I10 Essential (primary) hypertension; M79.7 Fibromyalgia; G47.33 Obstructive sleep apnea (adult) (pediatric); Z79.899 Other long term (current) drug therapy
CPT/HCPCS: 70450; 96374; 96375; 99283; J7030; A4216

== ENCOUNTER → 2019-08-30 11:03 | Outpatient (CLI) | payer MEDICARE, MEDICAID, SELFPAY ==
[2019-08-11 17:11] VITALS: BMI 38.5
[2019-08-30 12:16] LABS: Absolute Lymphocyte Count 1.31 X10^3/uL (0.83-4.51); Absolute Neutrophil Count 3.9 X10^3/uL (2.0-7.7); Basophil# 0.01 X10^3/uL; Basophil% 0.2 % (0-1); Eosinophil# 0.21 X10^3/uL; Eosinophils% 3.5 % (0-5); Hemoglobin 14.8 g/dL (13.0-16.5); Lymphocyte # 1.31 X10^3/ul (4.0); Lymphocyte % 21.6 % (19-41); Mean Corp Hgb Conc 32.2 g/dL (32-36); Mean Corpuscular Hgb 28.8 pg (27.0-32.0); Mean Corpuscular Volume 89.7 fL (80-94); Mean Platelet Vol. 12.2 fl (6.2-12.0); Monocyte# 0.58 X10^3/uL; Monocyte% 9.6 % (0-10); NRBC Flagged by Analyzer 0 % (0-5); Neutrophil # 3.92 X10^3/uL (2.7-7.7); Neutrophil % 64.6 % (47-70); Platelet Count 217 K/mm3 (150-450); RBC Distribution Width SD 52.6 fl (35.1-43.9); Red Blood Count 5.13 M/mm3 (4.6-6.2); White Blood Count 6.1 K/mm3 (4.4-11.0)
[2019-08-30 12:20] LABS: Erythrocyte Sedimentation Rate 11 mm/hr (0-20)
[2019-08-30 12:41] LABS: Hemoglobin A1c 6.2 % (3.8-5.6)
[2019-08-30 13:07] LABS: ALB/GLOB Ratio 0.9 RATIO (0.9-2.4); AST(SGOT) 16 U/L (15-37); Alanine Aminotransfer ALT/SGPT 33 U/L (16-61); Albumin, Serum 3.6 g/dL (3.2-5.0); Alkaline Phosphatase 102 U/L (45-117); Anion Gap 6 (5-15); BUN 9 mg/dL (7-18); Chloride 108 mmol/L (98-107); Cholesterol 180 mg/dL (200); EST Glomerular Filtration Rate 81 mL/min (>60); Est Glom Filt Rate - Afr Amer 98 mL/min (>60); Globulin 3.8 g/dL (2.2-4.2); Glucose 109 mg/dL (74-106); High Density Lipoprotein 31 mg/dL; Potassium 4.3 mmol/L (3.5-5.1); Protein, Total 7.4 g/dL (6.4-8.2); Sodium Level 140 mmol/L (136-145); Triglycerides 129 mg/dL; Very Low Density Lipoprotein 26 mg/dL (5-40)
== END ==
PROVIDERS: PCP Family Medicine; Visit Provider Family Medicine
DX: Z00.00 Encounter for general adult medical examination without abnormal findings (principal); R73.01 Impaired fasting glucose; R51 Headache; E78.6 Lipoprotein deficiency; I10 Essential (primary) hypertension; Z12.5 Encounter for screening for malignant neoplasm of prostate
CPT/HCPCS: 36415; 80053; 80061; 83036; 84153; 85025; 85652; G0103

== ENCOUNTER 2019-09-16 15:07 | Emergency (ER) | payer MEDICARE, MEDICAID, SELFPAY ==
[2019-09-16 15:10] VITALS: BP 159/119; PULSE 71; RESP 16; TEMP 36.3; O2SAT 96; BMI 39.3
--- NOTE | 2019-09-16 15:28 | ED.DCSUM_ITS ---
History of Present Illness Chief Complaint: Lower Extremity Injury Detail of Chief Complaint: Left flank pain Informant: Patient Onset: Days Context: Gradual Onset Timing: Waxes and wanes Current Severity: Moderate Maximum Severity: Moderate Narrative: Patient presents with pain to left inferior flank/left posterior hip region for the past 3 or 4 days. He denies any specific injury. He states he was mowing the yard and using a weed eater but does not remember doing anything out of the ordinary. Pain is worse with movement. Pain will occasionally radiate down his leg. He has PRN Beulah at home to use as needed but has not gotten relief with this. He states his urine is slightly dark. No dysuria. No fever or chills. - Past Medical History (1) BPH (benign prostatic hyperplasia) Status: Chronic (2) COLD (chronic obstructive lung disease) Status: Chronic (3) Depression Status: Chronic (4) GERD (gastroesophageal reflux disease) Status: Chronic (5) Hypertension Status: Chronic Past Medical History - Allergies and Home Meds Allergies/Adverse Reactions: Allergies codeine Allergy (Verified 09/16/19 15:12) Itching nuclear med contrast Allergy (Uncoded 09/16/19 15:12) Unknown bp decreased Primary Care Physician: Chi Vega DO [Primary Care Provider] - Prior records reviewed: Yes Surgical History: herniorrhaphy Smoking Status: Former smoker - Family History Maternal Family History: Reports: No pertinent history Paternal Family History: Reports: No pertinent history Review of Systems General: Denies: Chills, Fever Eyes: Denies: Visual changes - bilaterally ENT: Denies: Bilateral ear pain Cardiovascular: Denies: Chest pain Respiratory: Denies: Dyspnea, Cough Gastrointestinal: Denies: Abdominal pain, Nausea, Vomiting, Diarrhea Genitourinary: Denies: Dysuria, Frequency Musculoskeletal: Reports: Back pain Skin: Denies: Rash Hematologic: Denies: Easy bruising, Easy bleeding Allergy: Denies: Uticaria Physical Exam Vital Signs/Narrative: Vital Signs Temp Pulse Resp BP Pulse Ox 09/16/19 15:10 97.3 F L 71 16 159/119 H 96 Inital Vital Signs reviewed: Yes General: Well nourished, Well developed Head: Normocephalic ENT: Moist mucous membranes Neck: Supple Cardiovascular: Regular rate, Regular rhythm Respiratory: No distress, CTA bilaterally Abdomen: Soft, Nontender Back: - - No midline tenderness. Reproducible tenderness in the left lateral lumbar paraspinal muscles. This is slightly inferior to the CVA region. Skin: Normal color Neurological: Alert, Oriented x3 Psychological: Normal affect Diagnostic/Tx/Re-eval Laboratory Results 09/16/19 15:55 Urine Color Yellow Urine Clarity Clear Urine pH 5.0 Ur Specific [place] 1.020 Urine Protein Negative Urine Glucose (UA) Normal Urine Ketones Negative Urine Occult Blood 10 H Urine Nitrite Negative Urine Bilirubin Negative Urine Urobilinogen 1 H Ur Leukocyte Esterase Negative - Medical Decision Making Patient was given Beulah, prednisone, Flexeril here. Repeat evaluation he is feeling improved. Urinalysis is unremarkable. Patient does have Beulah at home that he can use for pain. He will be given prescriptions for Flexeril and a short burst of steroid. He is given return instructions. ED Disposition - Plan for ED Patient: Disposition: Home or Assisted Living Diagnosis: Lumbar back sprain Instructions: ED LUMBAR SPRAIN/STRAIN Prescriptions: Prednisone [Deltasone] 40 mg PO DAILY #10 tab Transmission Status: Pending to [id number] cycloBENZAPRine HCl [Flexeril] 10 mg PO TID PRN #20 tab PRN Reason: Muscle Spasm Transmission Status: Pending to [id number] Referrals: Chi Vega DO [Primary Care Provider] - 1 Week if not improving
[2019-09-16] MEDS: HYDROcodone Bitartrate/Apap 5/325 Tablet PO (15:43)
[2019-09-16] MEDS: cycloBENZAPRine HCl 10 MG Tablet PO (15:44)
[2019-09-16] MEDS: predniSONE 20 MG Tablet 60 MG PO (15:44)
[2019-09-16 16:02] LABS: Bacteria 0 SEEN /hpf (None Seen); Squamous Epithelial Cells - UA 0 SEEN /hpf (0-5)
[2019-09-16 16:10] LABS: Color, Urine Yellow (Yellow); Glucose, Dipstick Normal (Normal); Ketone-Dipstick Negative (Negative); Leukocyte Esterase-Dipstick Negative /ul (Negative); Nitrite-Dipstick Negative (Negative); Occult Blood-Urine 10 /ul (Negative); Protein-Dipstick Negative (Negative); Urine Bilirubin Dipstick Negative (Negative); Urine Clarity Clear (Clear); Urine Urobilinogen 1 mg/dl (Normal)
[2019-09-16 16:19] LABS: Renal Epithelial Cells 0-5 SEEN /hpf (0-5)
[2019-09-16 16:20] LABS: White Blood Cells 0-5 SEEN /hpf (0-5)
[2019-09-16 16:24] LABS: Mucous, Urine RARE /hpf (<or=2+); Red Blood Cells-Urine 0 SEEN /hpf (0-5)
[2019-09-16 16:38] VITALS: RESP 18
== END 2019-09-16 16:40 | disposition home or self-care (01) ==
PROVIDERS: Emergency Provider Emergency Medicine; PCP Family Medicine
DX: S33.5XXA Sprain of ligaments of lumbar spine, initial encounter (principal); X58.XXXA Exposure to other specified factors, initial encounter; Y93.H9 Activity, other involving exterior property and land maintenance, building and construction; Y92.9 Unspecified place or not applicable; Y99.9 Unspecified external cause status; J44.9 Chronic obstructive pulmonary disease, unspecified; I10 Essential (primary) hypertension; N40.0 Benign prostatic hyperplasia without lower urinary tract symptoms; K21.9 Gastro-esophageal reflux disease without esophagitis; F32.9 Major depressive disorder, single episode, unspecified; Z79.899 Other long term (current) drug therapy; Z87.891 Personal history of nicotine dependence
CPT/HCPCS: 81001; 99283

== ENCOUNTER → 2019-12-20 16:09 | Outpatient (CLI) | payer MEDICARE, MEDICAID, SELFPAY ==
[2019-12-20 15:42] VITALS: BMI 39.3
--- NOTE | 2019-12-20 16:10 | EKG12_ITS ---
Test Reason : Blood Pressure : / mmHG Vent. Rate : 055 BPM Atrial Rate : 055 BPM P-R Int : 170 ms QRS Dur : 080 ms QT Int : 444 ms P-R-T Axes : 062 017 057 degrees QTc Int : 424 ms Sinus bradycardia with sinus arrhythmia Low voltage QRS Borderline ECG Confirmed by JULIA MILLS, LAISHA ([id number]), assistant film editor ASHWINI KOHLER ([id number]) on 12/21/2019 10:13:34 AM Referred By: Seng Mcneal Confirmed By:LAISHA DUMONT MD
== END ==
PROVIDERS: PCP Family Medicine; Referring Provider Psychiatry & Neurology Neurology; Visit Provider Psychiatry & Neurology Neurology
DX: I49.9 Cardiac arrhythmia, unspecified (principal); I10 Essential (primary) hypertension; I67.9 Cerebrovascular disease, unspecified
CPT/HCPCS: 93005; C9803

== ENCOUNTER → 2020-01-26 09:19 | Outpatient (CLI) | payer MEDICARE, MEDICAID, SELFPAY ==
[2019-12-20 15:42] VITALS: BMI 39.3
[2020-01-26 10:14] LABS: Hematocrit 46.3 % (40-54); Hemoglobin 14.4 g/dL (13.0-16.5); Mean Corp Hgb Conc 31.1 g/dL (32-36); Mean Corpuscular Hgb 28.3 pg (27.0-32.0); Mean Corpuscular Volume 91.1 fL (80-94); Mean Platelet Vol. 11.9 fl (6.2-12.0); Platelet Count 175 K/mm3 (150-450); RBC Distribution Width CV 14.6 % (11.6-14.6); RBC Distribution Width SD 49.5 fl (35.1-43.9); Red Blood Count 5.08 M/mm3 (4.6-6.2); White Blood Count 5.4 K/mm3 (4.4-11.0)
[2020-01-26 10:24] LABS: Ammonia < 10.0 umol/L (11-32)
[2020-01-26 10:55] LABS: Valproic Acid (Depakene) Level < 3 ug/mL (50-100)
[2020-01-26 10:57] LABS: Rheumatoid Factor < 10.0 IU/mL (<15); Uric Acid 5.5 mg/dL (3.5-7.2)
[2020-01-26 11:05] LABS: ALB/GLOB Ratio 0.8 RATIO (0.9-2.4); AST(SGOT) 11 U/L (15-37); Alanine Aminotransfer ALT/SGPT 28 U/L (16-61); Albumin, Serum 3.4 g/dL (3.2-5.0); Alkaline Phosphatase 106 U/L (45-117); Anion Gap 5 (5-15); BUN 12 mg/dL (7-18); Calcium,Total 8.5 mg/dL (8.5-10.1); Chloride 107 mmol/L (98-107); Creatinine, Serum 1.09 mg/dL (0.70-1.30); EST Glomerular Filtration Rate 73 mL/min (>60); Est Glom Filt Rate - Afr Amer 89 mL/min (>60); Glucose 104 mg/dL (74-106); Potassium 4.1 mmol/L (3.5-5.1); Protein, Total 7.4 g/dL (6.4-8.2); Sodium Level 137 mmol/L (136-145)
[2020-01-27 14:08] LABS: Anti-Centromere B Ab <0.2 AI (0.0-0.9); Anti-Chromatin <0.2 AI (0.0-0.9); Anti-Jo <0.2 AI (0.0-0.9); Anti-Scleroderma-70 AB <0.2 AI (0.0-0.9); RNP Ab <0.2 AI (0.0-0.9); SJOGREN'S Anti-SS-A test < 0.2 AI (0.0-0.9); SJOGREN'S Anti-SS-B test < 0.2 AI (0.0-0.9); Smith Ab <0.2 AI (0.0-0.9)
[2020-01-27 15:57] LABS: Anti-dsDNA Ab 2 IU/mL (0-9)
[2020-01-30 04:34] LABS: CCP IgG Antibodies 5 units (0-19)
== END ==
PROVIDERS: Nurse Practitioner Family; Psychiatry & Neurology Neurology; PCP Family Medicine; Referring Provider Internal Medicine Rheumatology; Visit Provider Internal Medicine Rheumatology
DX: M19.90 Unspecified osteoarthritis, unspecified site (principal); M54.5 Low back pain; K75.81 Nonalcoholic steatohepatitis (NASH); G43.909 Migraine, unspecified, not intractable, without status migrainosus
CPT/HCPCS: 36415; 80053; 80164; 82140; 84550; 85027; 86140; 86200; 86225; 86235; 86431

== ENCOUNTER 2020-05-02 14:37 | Emergency (ER) | payer MEDICARE, MEDICAID, SELFPAY ==
[2020-05-02 14:38] VITALS: BP 151/100; PULSE 67; PULSE 69; RESP 16; TEMP 36.1; O2SAT 97; BMI 39.6
--- NOTE | 2020-05-02 14:55 | ED.VIS.GEN ---
History of Present Illness Chief Complaint: Back Informant: Patient Narrative: 59-year-old male presenting with back pain. He states is in his lower back and goes across his back. He states he had problems with his back in the past. Patient states he was shoveling snow and states it was very heavy and he thinks he strained something. He denies any direct trauma. No loss of bladder or bowel control. No saddle paresthesia. Patient eating and drinking normally. Is making normal urine and stool. - Past Medical History (1) DDD (degenerative disc disease) Status: Chronic (2) BO (nonalcoholic steatohepatitis) Status: Chronic (3) KRISSY (obstructive sleep apnea) Status: Chronic (4) Primary fibromyalgia syndrome Status: Chronic (5) BPH (benign prostatic hyperplasia) Status: Chronic (6) COLD (chronic obstructive lung disease) Status: Chronic Past Medical History - Allergies and Home Meds Allergies/Adverse Reactions: Allergies divalproex sodium Allergy (Severe, Verified 02/14/20 14:57) hives codeine Allergy (Verified 02/14/20 14:57) Itching nuclear stress test contrast Adverse Reaction (Uncoded 02/14/20 14:57) Other BP drop; (thallium or technetium contrast?) Primary Care Physician: Chi Vega DO [Primary Care Provider] - Prior records reviewed: Yes Past Medical History: - - Reviewed in problem list Surgical History: herniorrhaphy Lives: Spouse/ Significant Other Smoking Status: Former smoker Alcohol: None Drugs: None - Family History Maternal Family History: Family History (Last Reviewed 12/20/19 @ 15:41 by Florencia Higgins) Mother Hypertension Father Hypertension CVA (cerebral vascular accident) Sister Diabetes Family History: Reports: No pertinent history Paternal Family History: Family History (Last Reviewed 12/20/19 @ 15:41 by Florencia Higgins) Mother Hypertension Father Hypertension CVA (cerebral vascular accident) Sister Diabetes Family History: Reports: No pertinent history Review of Systems General: Denies: Chills, Fever, Sweats Eyes: Denies: Visual changes - bilaterally, Diplopia ENT: Denies: Rhinorrhea, Sore throat Cardiovascular: Denies: Chest pain, Palpitations Respiratory: Denies: Dyspnea, Cough, Dyspnea on exertion Gastrointestinal: Denies: Abdominal pain, Nausea, Vomiting, Diarrhea, Melena, Hematochezia Genitourinary: Denies: Dysuria, Hematuria, Frequency Musculoskeletal: Reports: Back pain. Denies: Neck pain Skin: Denies: Rash, Wounds Neurological: Denies: Headache, Weakness, Numbness Psych: Denies: Depression, Anxiety Physical Exam Vital Signs/Narrative: Vital Signs Temp Pulse Resp BP Pulse Ox 05/02/20 14:38 97 F L 67 16 151/100 H 97 General: Obese, No Acute Distress Head: Normocephalic, Atraumatic Eyes: Perrl, EOMI ENT: Moist mucous membranes, No rhinorrhea Cardiovascular: Regular rate, Regular rhythm Back: - - Tenderness to palpation bilateral paraspinal musculature approximately level of L5. No midline deformity or step-off. Extremities: - - 5/5 lower extremity strength.. Negative for: Edema, Calf Tenderness Neurological: Alert, Oriented x3 Psychological: Normal affect, Normal Mood Diagnostic/Tx/Re-eval Clinical Impression(s) from Imaging Studies Lumbar Spine X-Ray 05/02/20 15:30 IMPRESSION: Degenerative changes of the spine, as detailed above. Electronically Signed: Kun Ramirez MD at 15:47 EST , Service support , - Medical Decision Making 5-year-old male presenting with back pain after shoveling his driveway. He had no traumatic injury. Patient states that this does happen to him from time to time and he knows he has degenerative disc disease. Patient was given Norflex and Toradol IM with good relief of his pain. X-rays of the lumbar spine as interpreted by myself show degenerative changes without any acute fractures or subluxation. Patient was given a prescription for Flexeril for home. He is counseled not to take this with any other pain medication except for anti-inflammatories. Patient acknowledges understanding of this. Patient discharged in stable condition. Impression: 1. Lumbar strain ED Disposition - Plan for ED Patient: Instructions: ED Back Spasm, No Trauma, ED Degenerative Disk Disease Prescriptions: Cyclobenzaprine HCl 10 mg PO Q8H PRN PRN 7 Days #21 tab PRN Reason: Pain Prescription Printed Referrals: Chi Vega DO [Primary Care Provider] -
[2020-05-02] MEDS: Ketorolac 15 MG/ML Vial IM (15:10)
[2020-05-02] MEDS: Lidocaine 5% Patch 1 PATCH TOPICAL (15:10)
[2020-05-02] MEDS: Orphenadrine 60 MG/2 ML Ampul IM (15:10)
--- NOTE | 2020-05-02 15:30 | RAD_ITS ---
STUDY: X-RAY - LUMBAR SPINE REASON FOR EXAM: Male, 59 years old. BACK PAIN AFTER SHOVELING SNOW TECHNIQUE: 3 view(s) of the lumbar spine were obtained. COMPARISON: Comparison is made with prior study dated 02/09/2018. FINDINGS: Normal lumbar lordosis. There is no substantial scoliosis. There is a normal alignment of the vertebrae. There is multilevel endplate spondylosis of the lumbar vertebrae. There is multi-level degenerative disc disease with multi-level disc space narrowing. The soft tissue structures are unremarkable. RAD/Lumbar Spine 2 or 3 Views IMPRESSION: Degenerative changes of the spine, as detailed above. Electronically Signed: Kun Ramirez MD at 15:47 EST , Service support ,
[2020-05-02 16:41] VITALS: BP 124/86; PULSE 63; RESP 16
--- NOTE | 2020-05-02 16:42 | ED.RN ---
DISCHARGE INSTRUCTIONS GIVEN TO AND REVIEWED WITH PATIENT, PATIENT DENIES QUESTIONS OR CONCERNS AND VOICES UNDERSTANDING OF DISCHARGE INSTRUCTIONS. PT AMBULATES OUT OF ROOM WITHOUT DIFFICULTY.
== END 2020-05-02 16:42 | disposition home or self-care (01) ==
LOC: ED 15:05
PROVIDERS: Emergency Provider Student in an Organized Health Care Education/Training Program; PCP Family Medicine
DX: S39.012A Strain of muscle, fascia and tendon of lower back, initial encounter (principal); X50.0XXA Overexertion from strenuous movement or load, initial encounter; Y93.H1 Activity, digging, shoveling and raking; Y92.9 Unspecified place or not applicable; Y99.9 Unspecified external cause status; J44.9 Chronic obstructive pulmonary disease, unspecified; K75.81 Nonalcoholic steatohepatitis (NASH); M79.7 Fibromyalgia; N40.0 Benign prostatic hyperplasia without lower urinary tract symptoms; G47.33 Obstructive sleep apnea (adult) (pediatric); E66.9 Obesity, unspecified; Z79.899 Other long term (current) drug therapy; Z87.891 Personal history of nicotine dependence
CPT/HCPCS: 72100; 96372; 99283

== ENCOUNTER → 2020-06-04 09:24 | Outpatient (CLI) | payer MEDICARE, MEDICAID, SELFPAY ==
--- NOTE | 2020-06-04 09:28 | US_ITS ---
STUDY: ABDOMINAL ULTRASOUND - RIGHT UPPER QUADRANT REASON FOR VISIT: Male, 59 years old RECHECK BO TECHNIQUE: Ultrasound evaluation of the right upper quadrant was performed with real-time and static de la cruz-scale imaging. TECHNICAL QUALITY: Limited. Examination limited due to obesity. COMPARISON: Comparison is made with prior study dated 03/11/2019. FINDINGS: Liver: The liver is slightly enlarged and measures 18.6 cm. There is increased echogenicity consistent with fatty infiltration. The bile ducts are within normal limits. There is hepatic color flow. The direction of portal flow is hepatopetal. There is no demonstrated mass lesion. Gallbladder: The patient is status post cholecystectomy. Common Bile Duct (C.B.D.): The common bile duct measures 4.6 mm. Pancreas: Normal size of the head, body and tail of the pancreas. There is normal echogenicity of the pancreas. There is no demonstrated pancreatic mass or cyst. Right Kidney: Normal size of the right kidney. The right kidney measures 11.3 cm x 5.8 cm x 4.4 cm. Normal renal cortex. The right cortex measures 1.4 cm. There is no demonstrated renal mass or cyst. There is no right hydronephrosis. US/Liver IMPRESSION: Mild hepatomegaly and fatty infiltration of the liver. Stable examination. Electronically Signed: Kun Ramirez MD at 12:00 EDT , Service support ,
[2020-06-04 11:24] LABS: Absolute Lymphocyte Count 1.34 X10^3/uL (0.83-4.51); Absolute Neutrophil Count 3.8 X10^3/uL (2.0-7.7); Basophil# 0.02 X10^3/uL; Basophil% 0.3 % (0-1); Eosinophil# 0.18 X10^3/uL; Eosinophils% 3.1 % (0-5); Hematocrit 45.5 % (40-54); Hemoglobin 14.7 g/dL (13.0-16.5); Lymphocyte # 1.34 X10^3/ul (4.0); Mean Corp Hgb Conc 32.3 g/dL (32-36); Mean Corpuscular Hgb 28.8 pg (27.0-32.0); Mean Corpuscular Volume 89.2 fL (80-94); Mean Platelet Vol. 12.3 fl (6.2-12.0); Monocyte# 0.48 X10^3/uL; Monocyte% 8.2 % (0-10); NRBC Flagged by Analyzer 0 % (0-5); Neutrophil # 3.78 X10^3/uL (2.7-7.7); Neutrophil % 65.1 % (47-70); Platelet Count 205 K/mm3 (150-450); RBC Distribution Width CV 15.2 % (11.6-14.6); RBC Distribution Width SD 49.1 fl (35.1-43.9); White Blood Count 5.8 K/mm3 (4.4-11.0)
[2020-06-04 11:40] LABS: Hemoglobin A1c 6.3 % (3.8-5.6)
[2020-06-04 11:45] LABS: Microalbumin,Random Urine 15.2 mg/L (NO RANGE EST.); Microalbumin:Creatinine Ratio 7.1 mg/g CRE (<30 mg/g CRE)
[2020-06-04 12:03] LABS: ALB/GLOB Ratio 0.9 RATIO (0.9-2.4); AST(SGOT) 22 U/L (15-37); Alanine Aminotransfer ALT/SGPT 31 U/L (16-61); Albumin, Serum 3.5 g/dL (3.2-5.0); Alkaline Phosphatase 116 U/L (45-117); Anion Gap 3 (5-15); BUN 11 mg/dL (7-18); BUN/Creat Ratio 11.7 RATIO (10-20); Calcium,Total 8.6 mg/dL (8.5-10.1); Chloride 107 mmol/L (98-107); Cholesterol 185 mg/dL (200); Creatinine, Serum 0.94 mg/dL (0.70-1.30); EST Glomerular Filtration Rate 87 mL/min (>60); Est Glom Filt Rate - Afr Amer 105 mL/min (>60); Globulin 4.1 g/dL (2.2-4.2); Glucose 104 mg/dL (74-106); High Density Lipoprotein 29 mg/dL; Potassium 4.3 mmol/L (3.5-5.1); Protein, Total 7.6 g/dL (6.4-8.2); Sodium Level 138 mmol/L (136-145); Triglycerides 119 mg/dL; Very Low Density Lipoprotein 24 mg/dL (5-40)
== END ==
PROVIDERS: PCP Family Medicine; Referring Provider Family Medicine; Visit Provider Family Medicine
DX: E11.9 Type 2 diabetes mellitus without complications (principal); K75.81 Nonalcoholic steatohepatitis (NASH); I10 Essential (primary) hypertension; Z12.5 Encounter for screening for malignant neoplasm of prostate
CPT/HCPCS: 36415; 76705; 80053; 80061; 82043; 82570; 83036; 85025

== ENCOUNTER 2020-08-07 17:31 | Emergency (ER) | payer MEDICARE, MEDICAID, SELFPAY ==
[2020-07-17 13:32] VITALS: BMI 39.6
[2020-08-07 17:32] VITALS: BP 142/86; PULSE 79; RESP 18; TEMP 36.4; O2SAT 96; BMI 34.9
--- NOTE | 2020-08-07 17:48 | ED.VIS.BACK ---
HPI History of Present Illness Chief Complaint: Back Informant: patient Narrative Narrative: 59-year-old male with fibromyalgia, chronic back pain, and history of herniated disc states that today he was out doing yard work. His back began to hurt and he had some but he help him out with the work. He states he has taken 3 doses of hydrocodone with no relief. He notes some radiation down the right leg from the buttock into the right calf. He denies any bowel or bladder dysfunction. No fevers. He states that he has had similar symptoms in the past and a Medrol Dosepak helped him. [facility] Medical History Atypical chest pain BPH (benign prostatic hyperplasia) Cervical radiculopathy Cervical spondylosis Chronic vertigo COLD (chronic obstructive lung disease) Cubital tunnel syndrome on left DDD (degenerative disc disease) Depression Emphysema with chronic bronchitis GERD (gastroesophageal reflux disease) History of herniated intervertebral disc Hypertension Left carpal tunnel syndrome BO (nonalcoholic steatohepatitis) KRISSY (obstructive sleep apnea) Post-cholecystectomy syndrome Primary fibromyalgia syndrome Pulmonary nodules Home Medications albuterol sulfate 2 puff IH Q4H PRN PRN 06/06/16 [History Last Taken Unknown] amlodipine 5 mg PO DAILY 06/06/16 [History Last Taken Unknown] omeprazole 40 mg PO DAILY 06/06/16 [History Last Taken Unknown] fluticasone furoate-vilanterol 1 - 2 ea NASAL DAILY 06/04/17 [History Last Taken Unknown] ipratropium bromide 1 - 2 spray NASAL PRN PRN 06/04/17 [History Last Taken Unknown] pregabalin 150 mg PO BID 06/04/17 [History Last Taken Unknown] umeclidinium-vilanterol 1 puff IH DAILY 06/04/17 [History Last Taken Unknown] mirabegron 1 tab PO DAILY 12/07/18 [History Last Taken Unknown] hydrocodone-acetaminophen 1 ea PO TID PRN PRN 06/04/19 [History Last Taken Unknown] cetirizine 10 mg tablet 10 mg PO DAILY #30 tab 11/24/19 [Rx Last Taken Unknown] left wrist splint #1 ea 12/20/19 [Rx Last Taken Unknown] triamcinolone acetonide 0.1 % lotion TOPICAL 02/14/20 [History Last Taken Unknown] amitriptyline 25 mg tablet 50 mg PO QHS #60 tab 07/17/20 [Rx Last Taken Unknown] ubrogepant 50 mg tablet 50 mg PO DAILY PRN #15 tab 07/17/20 [Rx Last Taken Unknown] diazepam 5 mg PO Q8 PRN #15 tab 08/07/20 [Rx Last Taken Unknown] methylprednisolone 4 mg PO UD #1 box 08/07/20 [Rx Last Taken Unknown] Allergy/AdvReac Type Severity Reaction Status Date / Time divalproex sodium Allergy Severe hives Verified 08/07/20 17:34 codeine Allergy Itching Verified 08/07/20 17:34 nuclear stress test contrast AdvReac Other Uncoded 08/07/20 17:34 Family History Mother Hypertension Father Hypertension CVA (cerebral vascular accident) Sister Diabetes Surgical History h/o gallbladder removal h/o hernia surgery H/O left wrist surgery History of cataract surgery Social History Smoking Status: Unknown if ever smoked Tobacco: How many years used: 40 alcohol intake: current alcohol intake frequency: a few times a month ROS ROS ED Constitutional Constitutional ED: Denies chills or weight loss Eyes Eyes: Denies change in vision or diplopia ENT ENT ED: Denies ear pain, rhinorrhea or sore throat Cardiovascular Cardiovascular: Denies chest pain, orthopnea, palpitations or racing heartbeat Respiratory/Chest Respiratory/Chest: Denies cough, dyspnea or orthopnea Gastrointestinal Gastrointestinal: Denies abdominal pain, diarrhea, nausea or vomiting Genitourinary Genitourinary ED: Denies dysuria, hematuria or urinary frequency Musculoskeletal Musculoskeletal: Reports back pain; Denies arthralgias or myalgias Integumentary Denies abscess or rash Neurologic Neurologic: Denies headache(s) or weakness Psychiatric Psychiatric: Denies anxiety, depression, suicidal ideation or suicidal thoughts Endocrine Endocrinology: Denies polydipsia, polyphagia or polyuria Allergic/Immunologic Allergic/Immunologic ED: Denies mouth swelling, tongue swelling or urticaria EXAM Physical Exam Const Vital Signs: 08/07/20 17:32 Temperature 97.6 F L Temperature Source Temporal Pulse Rate 79 Respiratory Rate 18 Blood Pressure 142/86 H Blood Pressure Mean 104 Pulse Ox 96 Oxygen Delivery Method Room Air Positive well nourished, well developed and obese General Appearance ED: well developed Nutritional Appearance: obese HEENT Reports normocephalic, head/scalp atraumatic and moist mucous membranes Eyes PERRL and EOMs intact bilaterally Neck no lymphadenopathy, supple and no JVD Resp normal respiratory effort and clear to auscultation bilaterally Cardio regular rate, regular rhythm and no murmurs GI normal to inspection, nondistended, normoactive bowel sounds and non-tender Palpation: soft Back/Spine no CVA tenderness and normal ROM Back/Spine Narrative: Patient has tenderness to palpation of the lumbar paraspinal musculature. He has tenderness in the right buttock. Extremity normal to inspection General Extremety ED: Negative for edema General Extremity: Negative for edema Neuro oriented x3 and CN's II-XII intact bilaterally Neuro Narrative: Normal patellar and ankle reflexes. Sensorium / Orientation: alert Motor Exam: strength 5/5 throughout Psych mental status grossly normal Mood & Affect: Negative for depressed or tearful Skin no rashes or lesions noted and no wounds MDM MDM MDM Narrative Medical decision making narrative: I believe this is a lot of muscular spasm but with the radicular component to degree of sciatica. He has gotten relief with Medrol Dosepak and the past and I will write that for him in addition to some Valium. He has hydrocodone at home. Here in the emergency department he received a dose of morphine and Valium. Discharge Plan Triage Chief Complaint: Back ED Provider: Naresh Sheth Dx/Rx/DC Orders Clinical Impression: Acute lumbar myofascial strain, Acute back pain with sciatica Instructions: ED Back Sprain/Strain, ED Sciatica Prescriptions: New diazepam [diazepam] 5 MG tablet 5 mg PO Q8 PRN (Reason: Muscle Spasm) Qty: 15 RF: 0 methylprednisolone [methylprednisolone] 4 MG tablets,dose pack 4 mg PO UD Qty: 1 RF: 0 No Action cetirizine 10 mg tablet 10 mg PO DAILY Qty: 30 RF: 1 (DME) left wrist splint Qty: 1 RF: 0 triamcinolone acetonide 0.1 % lotion TOPICAL RF: 0 amitriptyline 25 mg tablet 50 mg PO QHS Qty: 60 RF: 3 Ubrelvy 50 mg tablet 50 mg PO DAILY PRN (Reason: headache) Qty: 15 RF: 2 amlodipine 5 MG tablet 5 mg PO DAILY RF: 0 omeprazole 40 MG capsule 40 mg PO DAILY RF: 0 albuterol sulfate 18 GM HFA aerosol inhaler 2 puff IH Q4H PRN PRN (Reason: Sob &/Or Wheezing) RF: 0 ipratropium bromide 1 SPRAY spray,non-aerosol 1 - 2 spray NASAL PRN PRN (Reason: Sinus Congestion) RF: 0 pregabalin 150 MG capsule 150 mg PO BID RF: 0 fluticasone furoate-vilanterol 1 EACH blister with device 1 - 2 ea NASAL DAILY RF: 0 umeclidinium-vilanterol 1 EACH blister with device 1 puff IH DAILY RF: 0 mirabegron 25 MG tablet extended release 24 hr 1 tab PO DAILY RF: 0 hydrocodone-acetaminophen 1 EACH tablet 1 ea PO TID PRN PRN (Reason: Pain Score 4-10/10) RF: 0 Primary Care Provider: Chi Vega Referrals: Chi Vega DO [Primary Care Provider] - 1 Week if not improving Disposition Disposition: Home, self care
[2020-08-07] MEDS: diazePAM 5 MG Tablet PO (17:50)
[2020-08-07] MEDS: morphine 10 MG/ML Syringe IM (17:51)
[2020-08-07 18:12] VITALS: PULSE 76; RESP 18; O2SAT 97
== END 2020-08-07 18:32 | disposition home or self-care (01) ==
LOC: ED 18:01
PROVIDERS: Emergency Provider Emergency Medicine; PCP Family Medicine
DX: S39.012A Strain of muscle, fascia and tendon of lower back, initial encounter (principal); M54.30 Sciatica, unspecified side; X58.XXXA Exposure to other specified factors, initial encounter; Y93.H2 Activity, gardening and landscaping; Y92.9 Unspecified place or not applicable; Y99.9 Unspecified external cause status; M79.7 Fibromyalgia; M47.22 Other spondylosis with radiculopathy, cervical region; G89.29 Other chronic pain; K75.81 Nonalcoholic steatohepatitis (NASH); J43.9 Emphysema, unspecified; I10 Essential (primary) hypertension; N40.0 Benign prostatic hyperplasia without lower urinary tract symptoms; G47.33 Obstructive sleep apnea (adult) (pediatric); K21.9 Gastro-esophageal reflux disease without esophagitis; F32.9 Major depressive disorder, single episode, unspecified; E66.9 Obesity, unspecified; Z79.51 Long term (current) use of inhaled steroids; Z79.52 Long term (current) use of systemic steroids; Z79.899 Other long term (current) drug therapy
CPT/HCPCS: 96372; 99282

== ENCOUNTER 2020-11-02 09:03 | Emergency (ER) | payer MEDICARE, MEDICAID, SELFPAY ==
[2020-11-02 09:04] VITALS: BP 143/119; PULSE 65; RESP 20; TEMP 36.6; O2SAT 98; BMI 40.4
[2020-11-02 09:14] VITALS: BP 143/119; PULSE 65; RESP 15; TEMP 36.6; O2SAT 98
--- NOTE | 2020-11-02 09:28 | EX.ED.VIS.UR ---
HPI HPI - URI History of Present Illness Chief Complaint: Ear Problem Detail of Chief Complaint: Left ear discomfort after using a Q-tip a week ago. Informant: patient Onset/Context/Timing Onset: Weeks Current Severity: Mild Maximum Severity: Mild Worsened by: Not Worsened By Swallowing, Eating Solids and Drinking Liquids Associated Symptoms Associated Symptoms: Negative for Nasal Congestion, Headache, Sinus Pressure, Myalgias, Nausea and Vomiting Narrative Narrative: 60-year-old male who complains of left ear discomfort for about a week after using a Q-tip. He denies any fever or drainage. He does use hearing aids and denies any change in his hearing. Denies sore throat or cough. Prior similar symptoms: No Recent Illness/Hospitalization: No ROS ROS ED ROS Narrative Denies recent illness or hospitalization. Review of Systems ROS Unobtainable: Denies due to encephalopathy Constitutional Constitutional ED: Denies chills or fever(s) Eyes Eyes: Denies change in vision ENT ENT ED: Denies ear pain, rhinorrhea or sore throat Cardiovascular Cardiovascular: Denies chest pain Respiratory/Chest Respiratory/Chest: Denies cough or dyspnea Gastrointestinal Gastrointestinal: Denies abdominal pain, diarrhea, nausea or vomiting Genitourinary Genitourinary ED: Denies dysuria Musculoskeletal Musculoskeletal: Denies myalgias Integumentary Denies rash Neurologic Neurologic: Denies headache(s) Psychiatric Psychiatric: Denies depression Endocrine Endocrinology: Denies polyuria Hematologic/Lymphatic Hematologic/Lymphatic: Denies easy bruising Allergic/Immunologic Allergic/Immunologic ED: Denies urticaria PFSH PFSH Medical History Atypical chest pain BPH (benign prostatic hyperplasia) Cervical radiculopathy Cervical spondylosis Chronic vertigo COLD (chronic obstructive lung disease) Cubital tunnel syndrome on left DDD (degenerative disc disease) Depression Emphysema with chronic bronchitis GERD (gastroesophageal reflux disease) History of herniated intervertebral disc Hypertension Left carpal tunnel syndrome BO (nonalcoholic steatohepatitis) RKISSY (obstructive sleep apnea) Post-cholecystectomy syndrome Primary fibromyalgia syndrome Pulmonary nodules Home Medications albuterol sulfate 2 puff IH Q4H PRN PRN 06/06/16 [History Last Taken Unknown] amlodipine 5 mg PO DAILY 06/06/16 [History Last Taken Unknown] omeprazole 40 mg PO DAILY 06/06/16 [History Last Taken Unknown] fluticasone furoate-vilanterol 1 - 2 ea NASAL DAILY 06/04/17 [History Last Taken Unknown] ipratropium bromide 1 - 2 spray NASAL PRN PRN 06/04/17 [History Last Taken Unknown] pregabalin 150 mg PO BID 06/04/17 [History Last Taken Unknown] umeclidinium-vilanterol 1 puff IH DAILY 06/04/17 [History Last Taken Unknown] mirabegron 1 tab PO DAILY 12/07/18 [History Last Taken Unknown] hydrocodone-acetaminophen 1 ea PO TID PRN PRN 06/04/19 [History Last Taken Unknown] cetirizine 10 mg tablet 10 mg PO DAILY #30 tab 11/24/19 [Rx Last Taken Unknown] left wrist splint #1 ea 12/20/19 [Rx Last Taken Unknown] ubrogepant 50 mg tablet 50 mg PO DAILY PRN #15 tab 07/17/20 [Rx Last Taken Unknown] diazepam 5 mg PO Q8 PRN #15 tab 08/07/20 [Rx Last Taken Unknown] nortriptyline 25 mg capsule 50 mg PO QHS #60 cap 10/18/20 [Rx Last Taken Unknown] Allergy/AdvReac Type Severity Reaction Status Date / Time divalproex sodium Allergy Severe hives Verified 11/02/20 09:06 codeine Allergy Itching Verified 11/02/20 09:06 nuclear stress test contrast AdvReac Other Uncoded 11/02/20 09:06 Family History Mother Hypertension Father Hypertension CVA (cerebral vascular accident) Sister Diabetes Surgical History h/o gallbladder removal h/o hernia surgery H/O left wrist surgery History of cataract surgery Social History Smoking Status: Former smoker Tobacco: How many years used: 40 alcohol intake: current alcohol intake frequency: a few times a month EXAM Physical Exam Narrative Exam Narrative: Well-appearing male vital signs stable afebrile initial blood pressure elevated 143/119. H EENT exam is without dentition. Posterior pharynx unremarkable status post tonsillectomy. Right ear canal and TM normal. Left ear externally unremarkable. No lymphadenopathy. No swelling or redness. The left ear canal proximal and at about the 6 o'clock position there is mild irritation of the canal. Its not swollen. There is no otitis media nor externa. TMs intact. No wax. This appears to be secondary to irritation from the Q-tip. Neck nontender no lymphadenopathy. Lungs are clear. Heart regular rhythm. Otherwise exam unremarkable. Const Vital Signs: 11/02/20 09:04 11/02/20 09:14 Temperature 97.8 F 97.8 F Temperature Source Temporal Temporal Pulse Rate 65 65 Respiratory Rate 20 H 15 Blood Pressure 143/119 H 143/119 H Blood Pressure Mean 127 127 Pulse Ox 98 98 Oxygen Delivery Method Room Air Room Air HEENT Reports TM's clear and moist mucous membranes normocephalic and atraumatic Face and Sinus: Negative for sinus tenderness or facial tenderness External Ear: external ears normal; Negative for no preauricular adenopathy or preauricular adenopathy External Auditory Canal: EAC's abnormal Tympanic Membrane ED: Yes TM's clear and TM's normal bilaterally Tympanic Membrane: TM's normal bilaterally Throat: posterior oropharynx normal Eyes PERRL and EOMs intact bilaterally Eyes Narrative: Left ear canal approximately about 6:00 on the inferior aspect there is irritation. Neck no lymphadenopathy, supple, no meningeal signs and no JVD General: Negative for anterior neck swelling or lymphadenopathy Resp normal respiratory effort and clear to auscultation bilaterally Auscultation: Negative for rales, rhonchi or wheezes Cardio S1 normal heart sound, S2 normal heart sound and no murmurs Rate: regular rate Rhythm: regular rhythm GI non-tender, non-distended and no masses Inspection: Negative for abdominal distention Auscultation: normoactive bowel sounds Palpation: soft; Negative for tender or guarding Back/Spine no CVA tenderness Extremity normal to inspection General Extremety ED: Negative for tenderness Neuro oriented x3 Sensorium / Orientation: alert, oriented to person, oriented to place, oriented to time and orientation impaired Psych mental status grossly normal Mood & Affect: Negative for depressed or tearful Skin Lesions: no lesions Rashes: no rashes MDM MDM MDM Narrative Medical decision making narrative: Patient has mild irritation to the proximal and inferior aspect of the left canal. TM normal. No wax. We will have him use antibiotic ointment on that area to help it heal. No need for antibiotic therapy. Discharge Plan Triage Chief Complaint: Ear Problem ED Provider: Stevie Bolivar Dx/Rx/DC Orders Clinical Impression: Skin irritation Instructions: ED Earache Without Infection (Adult) Prescriptions: No Action cetirizine 10 mg tablet 10 mg PO DAILY Qty: 30 RF: 1 (DME) left wrist splint Qty: 1 RF: 0 Ubrelvy 50 mg tablet 50 mg PO DAILY PRN (Reason: headache) Qty: 15 RF: 2 nortriptyline 25 mg capsule 50 mg PO QHS Qty: 60 RF: 3 amlodipine 5 MG tablet 5 mg PO DAILY RF: 0 omeprazole 40 MG capsule 40 mg PO DAILY RF: 0 albuterol sulfate 18 GM HFA aerosol inhaler 2 puff IH Q4H PRN PRN (Reason: Sob &/Or Wheezing) RF: 0 ipratropium bromide 1 SPRAY spray,non-aerosol 1 - 2 spray NASAL PRN PRN (Reason: Sinus Congestion) RF: 0 pregabalin 150 MG capsule 150 mg PO BID RF: 0 fluticasone furoate-vilanterol 1 EACH blister with device 1 - 2 ea NASAL DAILY RF: 0 umeclidinium-vilanterol 1 EACH blister with device 1 puff IH DAILY RF: 0 mirabegron 25 MG tablet extended release 24 hr 1 tab PO DAILY RF: 0 hydrocodone-acetaminophen 1 EACH tablet 1 ea PO TID PRN PRN (Reason: Pain Score 4-10/10) RF: 0 diazepam [diazepam] 5 MG tablet 5 mg PO Q8 PRN (Reason: Muscle Spasm) Qty: 15 RF: 0 Primary Care Provider: Chi Vega Referrals: Chi Vega, DO [Primary Care Provider] - 1 Week if not improving Activity Restrictions/Additional Instructions: You have irritation of the left ear canal at about 6:[address]. [address] a small amount of antibiotic ointment on this area once or twice a day until it heals up. Be careful with your hearing aids and may irritate the area. No Q-tips until this is completely resolved. Follow-up if not improving. Disposition Disposition: Home, Self Care
== END 2020-11-02 09:49 | disposition home or self-care (01) ==
PROVIDERS: Emergency Provider Emergency Medicine; PCP Family Medicine
DX: H93.8X2 Other specified disorders of left ear (principal); J43.9 Emphysema, unspecified; J42 Unspecified chronic bronchitis; K75.81 Nonalcoholic steatohepatitis (NASH); I10 Essential (primary) hypertension; G47.33 Obstructive sleep apnea (adult) (pediatric); M79.7 Fibromyalgia; N40.0 Benign prostatic hyperplasia without lower urinary tract symptoms; K21.9 Gastro-esophageal reflux disease without esophagitis; F32.9 Major depressive disorder, single episode, unspecified; Z79.899 Other long term (current) drug therapy; Z87.891 Personal history of nicotine dependence
CPT/HCPCS: 99282

== ENCOUNTER 2020-11-12 14:38 | Emergency (ER) | payer MEDICARE, MEDICAID, SELFPAY ==
[2020-11-12] VITALS (9 sets, daily range): BP systolic 142–162; BP diastolic 82–101; PULSE 60–74; RESP 12–19; TEMP 37.1; O2SAT 93–98; BMI 43.5
--- NOTE | 2020-11-12 14:57 | EKG12_ITS ---
Test Reason : Blood Pressure : / mmHG Vent. Rate : 069 BPM Atrial Rate : 069 BPM P-R Int : 174 ms QRS Dur : 080 ms QT Int : 410 ms P-R-T Axes : 035 026 059 degrees QTc Int : 439 ms Normal sinus rhythm with sinus arrhythmia Low voltage QRS Borderline ECG Confirmed by JULIA MILLS, LAISHA ([id number]), business editor ASHWINI KOHLER ([id number]) on 11/14/2020 9:51:09 AM Referred By: Confirmed By:LAISHA DUMONT MD
--- NOTE | 2020-11-12 15:00 | RAD_ITS ---
STUDY: X-RAY CHEST REASON FOR EXAM: Male, 60 years old. chest pain TECHNIQUE: Single AP portable view of the chest. COMPARISON: 12/24/2018 FINDINGS: The lungs are clear and expanded. There is no demonstrated pleural abnormality. Normal size heart. Normal mediastinum and brock. Normal visualized pulmonary arteries. Normal visualized aortic arch and descending thoracic aorta. Normal visualized thoracic spine. Normal visualized ribs, clavicles, and shoulders. There is no demonstrated abnormality of the visualized soft tissue structures of the upper abdomen. RAD/Chest 1 View (Portable) IMPRESSION: Normal x-ray examination of the chest. Electronically Signed: Talib Garcia MD at 15:40 EDT Tel , Service support ,
[2020-11-12 15:14] LABS: Absolute Lymphocyte Count 1.79 X10^3/uL (0.83-4.51); Absolute Neutrophil Count 4.6 X10^3/uL (2.0-7.7); Basophil# 0.03 X10^3/uL; Basophil% 0.4 % (0-1); Eosinophil# 0.19 X10^3/uL; Eosinophils% 2.6 % (0-5); Lymphocyte # 1.79 X10^3/ul (0.83-4.51); Lymphocyte % 24.9 % (19-41); Mean Corp Hgb Conc 31.9 g/dL (32-36); Mean Corpuscular Hgb 28.4 pg (27.0-32.0); Mean Corpuscular Volume 88.8 fL (80-94); Mean Platelet Vol. 11.4 fl (6.2-12.0); Monocyte# 0.52 X10^3/uL; Monocyte% 7.2 % (0-10); NRBC Flagged by Analyzer 0 % (0-5); Neutrophil # 4.64 X10^3/uL (2.7-7.7); Neutrophil % 64.8 % (47-70); Platelet Count 231 K/mm3 (150-450); RBC Distribution Width CV 15.4 % (11.6-14.6); RBC Distribution Width SD 50.3 fl (35.1-43.9); Red Blood Count 5.29 M/mm3 (4.6-6.2); White Blood Count 7.2 K/mm3 (4.4-11.0)
--- NOTE | 2020-11-12 15:26 | EDS_ITS ---
HPI History of Present Illness Chief Complaint: Chest Pain Narrative Narrative: 60-year-old male presenting with intermittent chest pain for the last 2 days. He states that the longest this is lasted is 30 minutes and this was last evening. He states he was able to fall back asleep after this. He states that it does feel heavy and radiates into the left arm at times. Patient states he has no known cardiac disease. He has no history of DVT/PE. Patient does state that his daughter is at home and lives with him and has COVID-19. She has been isolated into her bedroom. He has not been closer than 6 feet from her. He states that he does not have chills, body aches, fevers, change in taste or smell. He does admit to some shortness of breath over the last 2 days. He states this is exertional. He states this is somewhat of a chronic issue but worse over the last 2 days. He states he quit smoking many years ago but does have COPD. He does not have chest pain with exertion. [facility] Medical History Atypical chest pain BPH (benign prostatic hyperplasia) Cervical radiculopathy Cervical spondylosis Chronic vertigo COLD (chronic obstructive lung disease) Cubital tunnel syndrome on left DDD (degenerative disc disease) Depression Emphysema with chronic bronchitis GERD (gastroesophageal reflux disease) History of herniated intervertebral disc Hypertension Left carpal tunnel syndrome BO (nonalcoholic steatohepatitis) KRISSY (obstructive sleep apnea) Post-cholecystectomy syndrome Primary fibromyalgia syndrome Pulmonary nodules Home Medications albuterol sulfate 2 puff IH Q4H PRN PRN 06/06/16 [History Last Taken Unknown] amlodipine 5 mg PO DAILY 06/06/16 [History Last Taken Unknown] omeprazole 40 mg PO DAILY 06/06/16 [History Last Taken Unknown] fluticasone furoate-vilanterol 1 - 2 ea NASAL DAILY 06/04/17 [History Last Taken Unknown] ipratropium bromide 1 - 2 spray NASAL PRN PRN 06/04/17 [History Last Taken Unknown] pregabalin 150 mg PO BID 06/04/17 [History Last Taken Unknown] umeclidinium-vilanterol 1 puff IH DAILY 06/04/17 [History Last Taken Unknown] mirabegron 1 tab PO DAILY 12/07/18 [History Last Taken Unknown] hydrocodone-acetaminophen 1 ea PO TID PRN PRN 06/04/19 [History Last Taken Unknown] cetirizine 10 mg tablet 10 mg PO DAILY #30 tab 11/24/19 [Rx Last Taken Unknown] left wrist splint #1 ea 12/20/19 [Rx Last Taken Unknown] ubrogepant 50 mg tablet 50 mg PO DAILY PRN #15 tab 07/17/20 [Rx Last Taken Unknown] diazepam 5 mg PO Q8 PRN #15 tab 08/07/20 [Rx Last Taken Unknown] venlafaxine 37.5 mg capsule,extended release 24 hr 37.5 mg PO DAILY 7 Days #7 cap 11/06/20 [Rx Last Taken Unknown] venlafaxine 75 mg capsule,extended release 24 hr 75 mg PO DAILY #30 cap 11/06/20 [Rx Last Taken Unknown] Allergy/AdvReac Type Severity Reaction Status Date / Time divalproex sodium Allergy Severe hives Verified 11/12/20 14:43 codeine Allergy Itching Verified 11/12/20 14:43 nuclear stress test contrast AdvReac Other Uncoded 11/12/20 14:43 Family History Mother Hypertension Father Hypertension CVA (cerebral vascular accident) Sister Diabetes Surgical History h/o gallbladder removal h/o hernia surgery H/O left wrist surgery History of cataract surgery Social History Smoking Status: Former smoker Tobacco: How many years used: 40 alcohol intake: current alcohol intake frequency: a few times a month ROS ROS ED Constitutional Constitutional ED: Denies chills or fever(s) Eyes Eyes: Denies blurry vision or diplopia ENT ENT ED: Denies rhinorrhea or sore throat Cardiovascular Cardiovascular: Reports chest pain; Denies palpitations or racing heartbeat Respiratory/Chest Respiratory/Chest: Reports cough, dyspnea and dyspnea on exertion Gastrointestinal Gastrointestinal: Denies abdominal pain, diarrhea, nausea or vomiting Genitourinary Genitourinary ED: Denies dysuria or hematuria Musculoskeletal Musculoskeletal: Denies arthralgias or myalgias Integumentary Denies Abrasions or rash Neurologic Neurologic: Denies headache(s) or paresthesias EXAM Physical Exam Const Vital Signs: 11/12/20 14:39 11/12/20 14:53 11/12/20 14:56 Temperature 98.7 F Temperature Source Temporal Pulse Rate 74 70 Respiratory Rate 16 16 Respiratory Effort Normal Non-Labored Respiratory Pattern Normal Blood Pressure 162/93 H 160/84 H Blood Pressure Mean 116 109 Pulse Ox 98 97 Oxygen Delivery Method Room Air Room Air 11/12/20 14:57 11/12/20 15:38 11/12/20 15:56 Temperature Temperature Source Pulse Rate 64 60 Respiratory Rate 19 H Respiratory Effort Respiratory Pattern Blood Pressure 153/93 H 142/82 H Blood Pressure Mean 113 Pulse Ox 94 Oxygen Delivery Method Room Air Room Air 11/12/20 16:00 11/12/20 16:28 11/12/20 18:00 Temperature Temperature Source Pulse Rate 61 63 66 Respiratory Rate 17 12 Respiratory Effort Respiratory Pattern Blood Pressure 148/93 H 153/93 H 159/92 H Blood Pressure Mean 111 114 Pulse Ox 93 96 Oxygen Delivery Method Room Air Room Air 11/12/20 19:26 Temperature Temperature Source Pulse Rate 64 Respiratory Rate 14 Respiratory Effort Respiratory Pattern Blood Pressure 151/101 H Blood Pressure Mean 117 Pulse Ox 96 Oxygen Delivery Method Room Air Positive obese General Appearance ED: NAD Nutritional Appearance: obese HEENT Reports moist mucous membranes normocephalic Eyes PERRL and EOMs intact bilaterally General Eye ED: Negative for pale conjunctiva or scleral icterus Chest Wall inspection of chest normal and palpation of chest normal Resp normal respiratory effort and clear to auscultation bilaterally Cardio regular rate and regular rhythm Extremity normal to inspection General Extremety ED: Negative for edema or tenderness General Extremity: Negative for edema Neuro oriented x3, CN's II-XII intact bilaterally and no sensory deficits noted Sensorium / Orientation: awake and alert Motor Exam: strength 5/5 throughout Psych mental status grossly normal Skin no rashes or lesions noted Heart Score History: Slightly/Non-Suspicious ECG: Normal Age: >45 - <65 years Risk Factors: >/= 3 Risk Factors or History of CAD Troponin: </= Normal Limit Score: 3 MDM MDM MDM Narrative Medical decision making narrative: 60-year-old male presenting with chest pain is not on and off for the last few days. He states it feels like pressure. He denies any other associated symptoms. EKG on my interpretation shows a sinus rhythm at 69 bpm without sign of ischemic changes. Chest x-ray on my interpretation shows no acute cardiopulmonary process. Lab work today is within normal limits. Patient had 2 high-sensitivity troponins that are both 7. I have a low suspicion for PE given the patient's normal heart rate, respiratory rate, O2 sats. Patient counseled on findings I feel he is safe to be discharged home at this time. He is recommended to him that he follow-up with his PCP for further testing. He is amenable to this plan. Patient discharged home in stable condition. Impression: 1. Chest pain Lab Data Attestation: I reviewed the patient's lab results. Labs: Laboratory Results - last 24 hr 11/12/20 11/12/20 11/12/20 14:56 14:56 17:00 WBC 7.2 RBC 5.29 Hgb 15.0 Hct 47.0 MCV 88.8 MCH 28.4 MCHC 31.9 L RDW Std Deviation 50.3 H RDW Coeff of Jose 15.4 H Plt Count 231 MPV 11.4 Immature Gran % (Auto) 0.100 Neut % (Auto) 64.8 Lymph % (Auto) 24.9 Dent % (Auto) 7.2 Eos % (Auto) 2.6 Baso % (Auto) 0.4 Absolute Neuts (auto) 4.6 Absolute Lymphs (auto) 1.79 Nucleated RBC % 0 Sodium 138 Potassium 3.9 Chloride 105 Carbon Dioxide 28.0 Anion Gap 5 BUN 8 Creatinine 1.05 Estim Creat Clear Calc 71.48 Est GFR (MDRD) Af Amer 92 Est GFR (MDRD) Non-Af 76 BUN/Creatinine Ratio 7.6 L Glucose 136 H Calcium 8.9 Troponin I High Sens 7 7 Radiography Diagnostic Testing: Radiology Impression Chest X-Ray 11/12/20 15:00 IMPRESSION: Normal x-ray examination of the chest. Electronically Signed: Talib Garcia MD at 15:40 EDT Tel , Service support , Discharge Plan Triage Chief Complaint: Chest Pain ED Provider: Juan King Dx/Rx/DC Orders Instructions: ED Chest Pain, Uncertain Cause Prescriptions: No Action cetirizine 10 mg tablet 10 mg PO DAILY Qty: 30 RF: 1 (DME) left wrist splint Qty: 1 RF: 0 Ubrelvy 50 mg tablet 50 mg PO DAILY PRN (Reason: headache) Qty: 15 RF: 2 amlodipine 5 MG tablet 5 mg PO DAILY RF: 0 omeprazole 40 MG capsule 40 mg PO DAILY RF: 0 albuterol sulfate 18 GM HFA aerosol inhaler 2 puff IH Q4H PRN PRN (Reason: Sob &/Or Wheezing) RF: 0 ipratropium bromide 1 SPRAY spray,non-aerosol 1 - 2 spray NASAL PRN PRN (Reason: Sinus Congestion) RF: 0 pregabalin 150 MG capsule 150 mg PO BID RF: 0 fluticasone furoate-vilanterol 1 EACH blister with device 1 - 2 ea NASAL DAILY RF: 0 umeclidinium-vilanterol 1 EACH blister with device 1 puff IH DAILY RF: 0 mirabegron 25 MG tablet extended release 24 hr 1 tab PO DAILY RF: 0 hydrocodone-acetaminophen 1 EACH tablet 1 ea PO TID PRN PRN (Reason: Pain Score 4-10/10) RF: 0 diazepam [diazepam] 5 MG tablet 5 mg PO Q8 PRN (Reason: Muscle Spasm) Qty: 15 RF: 0 venlafaxine 37.5 mg capsule,extended release 24hr 37.5 mg PO DAILY 7 Days Qty: 7 RF: 0 venlafaxine 75 mg capsule,extended release 24hr 75 mg PO DAILY Qty: 30 RF: 2 Primary Care Provider: Chi Vega Referrals: Chi Vega DO [Primary Care Provider] - Disposition Disposition: Home, Self Care Discharge Date/Time: 11/12/20 19:49
[2020-11-12 15:31] LABS: Anion Gap 5 (5-15); BUN 8 mg/dL (7-18); BUN/Creat Ratio 7.6 RATIO (10-20); Calcium,Total 8.9 mg/dL (8.5-10.1); Chloride 105 mmol/L (98-107); Creatinine, Serum 1.05 mg/dL (0.70-1.30); EST Glomerular Filtration Rate 76 mL/min (>60); Est Glom Filt Rate - Afr Amer 92 mL/min (>60); Estimated Creatinine Clearance 71.48 ml/min; Glucose 136 mg/dL (74-106); Potassium 3.9 mmol/L (3.5-5.1); Sodium Level 138 mmol/L (136-145); Troponin-I HS 7 pg/mL (3.0-78.0)
[2020-11-12] MEDS: Nitroglycerin SL (ED/IMG/CATH) 0.4 MG TABLET SL ×2 (15:56→16:28)
[2020-11-12 17:35] LABS: Troponin-I HS 7 pg/mL (3.0-78.0)
== END 2020-11-12 19:49 | disposition home or self-care (01) ==
PROVIDERS: Emergency Provider Student in an Organized Health Care Education/Training Program; PCP Family Medicine
DX: R07.9 Chest pain, unspecified (principal); E66.9 Obesity, unspecified; I25.10 Atherosclerotic heart disease of native coronary artery without angina pectoris; J44.9 Chronic obstructive pulmonary disease, unspecified; K21.9 Gastro-esophageal reflux disease without esophagitis; I10 Essential (primary) hypertension; Z87.891 Personal history of nicotine dependence; Z79.899 Other long term (current) drug therapy
CPT/HCPCS: 71045; 80048; 84484; 85025; 87426; 93005; 99285; A4216

== ENCOUNTER 2020-12-13 15:50 | Emergency (ER) | payer MEDICARE, MEDICAID, SELFPAY ==
[2020-12-13 15:50] VITALS: BP 138/73; PULSE 70; RESP 14; TEMP 37; O2SAT 96; BMI 42.1
--- NOTE | 2020-12-13 16:34 | EDS_ITS ---
HPI History of Present Illness Chief Complaint: General Illness Informant: patient Narrative Narrative: 60-year-old male presenting to the emergency department stating that he has the flu. Patient states he has had diarrhea for the past couple days but wonders if it is related to his greasy food diet and being without her gallbladder. He states that he has a headache today and increased of myalgias off of his baseline from his fibromyalgia. He denies any significant sore throat cough shortness of breath or runny nose. No reported fevers but does endorse chills. Patient states that he did not receive a Covid vaccination because it has not been well studied. He did recently receive an influenza vaccine. [facility] Medical History Atypical chest pain BPH (benign prostatic hyperplasia) Cervical radiculopathy Cervical spondylosis Chronic vertigo COLD (chronic obstructive lung disease) Cubital tunnel syndrome on left DDD (degenerative disc disease) Depression Emphysema with chronic bronchitis Fibromyalgia GERD (gastroesophageal reflux disease) History of herniated intervertebral disc Hypertension Left carpal tunnel syndrome BO (nonalcoholic steatohepatitis) KRISSY (obstructive sleep apnea) Post-cholecystectomy syndrome Primary fibromyalgia syndrome Pulmonary nodules Home Medications albuterol sulfate 2 puff IH Q4H PRN PRN 06/06/16 [History Last Taken Unknown] amlodipine 5 mg PO DAILY 06/06/16 [History Last Taken Unknown] omeprazole 40 mg PO DAILY 06/06/16 [History Last Taken Unknown] fluticasone furoate-vilanterol 1 - 2 ea NASAL DAILY 06/04/17 [History Last Taken Unknown] ipratropium bromide 1 - 2 spray NASAL PRN PRN 06/04/17 [History Last Taken Unknown] pregabalin 150 mg PO BID 06/04/17 [History Last Taken Unknown] umeclidinium-vilanterol 1 puff IH DAILY 06/04/17 [History Last Taken Unknown] mirabegron 1 tab PO DAILY 12/07/18 [History Last Taken Unknown] hydrocodone-acetaminophen 1 ea PO TID PRN PRN 06/04/19 [History Last Taken Unknown] cetirizine 10 mg tablet 10 mg PO DAILY #30 tab 11/24/19 [Rx Last Taken Unknown] left wrist splint #1 ea 12/20/19 [Rx Last Taken Unknown] ubrogepant 50 mg tablet 50 mg PO DAILY PRN #15 tab 07/17/20 [Rx Last Taken Unknown] diazepam 5 mg PO Q8 PRN #15 tab 08/07/20 [Rx Last Taken Unknown] venlafaxine 75 mg capsule,extended release 24 hr 75 mg PO DAILY #30 cap 11/06/20 [Rx Last Taken Unknown] Allergy/AdvReac Type Severity Reaction Status Date / Time divalproex sodium Allergy Severe hives Verified 12/13/20 15:53 codeine Allergy Itching Verified 12/13/20 15:53 nuclear stress test contrast AdvReac Other Uncoded 12/13/20 15:53 Family History Mother Hypertension Father Hypertension CVA (cerebral vascular accident) Sister Diabetes Surgical History h/o gallbladder removal h/o hernia surgery H/O left wrist surgery History of cataract surgery Social History Smoking Status: Former smoker Tobacco: How many years used: 40 alcohol intake: current alcohol intake frequency: a few times a month ROS ROS ED Constitutional Constitutional ED: Reports chills; Denies weight loss Eyes Eyes: Denies change in vision or diplopia ENT ENT ED: Denies ear pain, rhinorrhea or sore throat Cardiovascular Cardiovascular: Denies chest pain, orthopnea, palpitations or racing heartbeat Respiratory/Chest Respiratory/Chest: Denies cough, dyspnea or orthopnea Gastrointestinal Gastrointestinal: Reports diarrhea; Denies abdominal pain, nausea or vomiting Genitourinary Genitourinary ED: Denies dysuria, hematuria or urinary frequency Musculoskeletal Musculoskeletal: Reports myalgias; Denies arthralgias Integumentary Denies abscess or rash Neurologic Neurologic: Reports headache(s); Denies weakness Psychiatric Psychiatric: Denies anxiety, depression, suicidal ideation or suicidal thoughts Endocrine Endocrinology: Denies polydipsia, polyphagia or polyuria Allergic/Immunologic Allergic/Immunologic ED: Denies mouth swelling, tongue swelling or urticaria EXAM Physical Exam Const Vital Signs: 12/13/20 15:50 12/13/20 16:30 Temperature 98.6 F Temperature Source Temporal Pulse Rate 70 Respiratory Rate 14 Respiratory Effort Normal Non-Labored Respiratory Pattern Normal Blood Pressure 138/73 H Blood Pressure Mean 94 Pulse Ox 96 Oxygen Delivery Method Room Air Positive well nourished, well developed and obese General Appearance ED: well developed Nutritional Appearance: obese HEENT Reports normocephalic, head/scalp atraumatic and moist mucous membranes Eyes PERRL and EOMs intact bilaterally Neck no lymphadenopathy, supple and no JVD Resp normal respiratory effort and clear to auscultation bilaterally Cardio regular rate, regular rhythm and no murmurs GI normal to inspection, nondistended, normoactive bowel sounds and non-tender Palpation: soft Back/Spine no CVA tenderness and normal ROM Extremity normal to inspection General Extremety ED: Negative for edema General Extremity: Negative for edema Neuro oriented x3 and CN's II-XII intact bilaterally Sensorium / Orientation: alert Motor Exam: strength 5/5 throughout Psych mental status grossly normal Mood & Affect: Negative for depressed or tearful Skin no rashes or lesions noted and no wounds MDM MDM MDM Narrative Medical decision making narrative: Patient received a dose of Toradol for headache and myalgias. CBC was obtained which showed a mild leukopenia. His Covid test is positive. Patient does not appear to be having any significant respiratory symptoms. Patient states that the Toradol significantly helped him feel better and his headache has resolved. Patient at this point will be discharged home continued supportive care return if worsening or concerns Lab Data Labs: Laboratory Results - last 24 hr 12/13/20 16:45 WBC 4.0 L RBC 4.66 Hgb 13.5 Hct 41.5 MCV 89.1 MCH 29.0 MCHC 32.5 RDW Std Deviation 49.8 H RDW Coeff of Jose 15.2 H Plt Count 171 MPV 11.3 Immature Gran % (Auto) 0.500 Neut % (Auto) 65.6 Lymph % (Auto) 16.2 L [place] % (Auto) 14.5 H Eos % (Auto) 3.0 Baso % (Auto) 0.2 Absolute Neuts (auto) 2.6 Absolute Lymphs (auto) 0.65 L Nucleated RBC % 0 Discharge Plan Triage Chief Complaint: General Illness ED Provider: Naresh Sheth Dx/Rx/DC Orders Clinical Impression: COVID-19 Prescriptions: No Action cetirizine 10 mg tablet 10 mg PO DAILY Qty: 30 RF: 1 (DME) left wrist splint Qty: 1 RF: 0 Ubrelvy 50 mg tablet 50 mg PO DAILY PRN (Reason: headache) Qty: 15 RF: 2 amlodipine 5 MG tablet 5 mg PO DAILY RF: 0 omeprazole 40 MG capsule 40 mg PO DAILY RF: 0 albuterol sulfate 18 GM HFA aerosol inhaler 2 puff IH Q4H PRN PRN (Reason: Sob &/Or Wheezing) RF: 0 ipratropium bromide 1 SPRAY spray,non-aerosol 1 - 2 spray NASAL PRN PRN (Reason: Sinus Congestion) RF: 0 pregabalin 150 MG capsule 150 mg PO BID RF: 0 fluticasone furoate-vilanterol 1 EACH blister with device 1 - 2 ea NASAL DAILY RF: 0 umeclidinium-vilanterol 1 EACH blister with device 1 puff IH DAILY RF: 0 mirabegron 25 MG tablet extended release 24 hr 1 tab PO DAILY RF: 0 hydrocodone-acetaminophen 1 EACH tablet 1 ea PO TID PRN PRN (Reason: Pain Score 4-10/10) RF: 0 diazepam [diazepam] 5 MG tablet 5 mg PO Q8 PRN (Reason: Muscle Spasm) Qty: 15 RF: 0 venlafaxine 75 mg capsule,extended release 24hr 75 mg PO DAILY Qty: 30 RF: 2 Primary Care Provider: Chi Vega Referrals: Chi Vega DO [Primary Care Provider] - As Needed Activity Restrictions/Additional Instructions: Please monitor your breathing closely. If you are worsening please return to the emergency department or contact your primary care doctor Disposition Disposition: Home, Self Care
[2020-12-13] MEDS: Ketorolac 30 MG/ML Syringe IV (16:44)
[2020-12-13 16:52] LABS: Absolute Lymphocyte Count 0.65 X10^3/uL (0.83-4.51); Absolute Neutrophil Count 2.6 X10^3/uL (2.0-7.7); Basophil# 0.01 X10^3/uL; Basophil% 0.2 % (0-1); Eosinophil# 0.12 X10^3/uL; Hematocrit 41.5 % (40-54); Hemoglobin 13.5 g/dL (13.0-16.5); Lymphocyte # 0.65 X10^3/ul (0.83-4.51); Lymphocyte % 16.2 % (19-41); Mean Corp Hgb Conc 32.5 g/dL (32-36); Mean Corpuscular Volume 89.1 fL (80-94); Mean Platelet Vol. 11.3 fl (6.2-12.0); Monocyte# 0.58 X10^3/uL; Monocyte% 14.5 % (0-10); NRBC Flagged by Analyzer 0 % (0-5); Neutrophil # 2.63 X10^3/uL (2.7-7.7); Neutrophil % 65.6 % (47-70); Platelet Count 171 K/mm3 (150-450); RBC Distribution Width CV 15.2 % (11.6-14.6); RBC Distribution Width SD 49.8 fl (35.1-43.9); Red Blood Count 4.66 M/mm3 (4.6-6.2)
[2020-12-13 17:27] VITALS: BP 131/65; PULSE 71; RESP 18; O2SAT 96
== END 2020-12-13 17:28 | disposition home or self-care (01) ==
PROVIDERS: Emergency Provider Emergency Medicine; PCP Family Medicine
DX: U07.1 COVID-19 (principal); K75.81 Nonalcoholic steatohepatitis (NASH); J44.9 Chronic obstructive pulmonary disease, unspecified; I10 Essential (primary) hypertension; M79.7 Fibromyalgia; K21.9 Gastro-esophageal reflux disease without esophagitis; N40.0 Benign prostatic hyperplasia without lower urinary tract symptoms; F32.9 Major depressive disorder, single episode, unspecified; G47.33 Obstructive sleep apnea (adult) (pediatric); E66.9 Obesity, unspecified; Z79.899 Other long term (current) drug therapy; Z87.891 Personal history of nicotine dependence
CPT/HCPCS: 85025; 87426; 87804; 96374; 99283; A4216

== ENCOUNTER 2020-12-15 11:49 | Emergency (ER) | payer MEDICARE, MEDICAID, SELFPAY ==
[2020-12-15 11:49] VITALS: BP 158/92; PULSE 52; RESP 14; TEMP 36.2; O2SAT 97; BMI 49.8
--- NOTE | 2020-12-15 12:13 | EX.ED.DYSGE1 ---
HPI History of Present Illness Chief Complaint: Other, Pain/Inj Detail of Chief Complaint: Myalgias related to Covid and fibromyalgia Informant: patient Narrative Narrative: Patient presents to the emergency department complaint of diffuse body aches and headache x3 to 4 days. Patient states that he was diagnosed with Covid 2 days ago. Patient's been taking Tylenol and hydrocodone without much pain relief at home. He denies difficulty breathing. Patient is not vaccinated against COVID-19. Patient denies any chest pain. Patient has a mild cough is nonproductive. Patient states that he thinks his fibromyalgia is flared up related to the Covid. [facility] Medical History Atypical chest pain BPH (benign prostatic hyperplasia) Cervical radiculopathy Cervical spondylosis Chronic vertigo COLD (chronic obstructive lung disease) Cubital tunnel syndrome on left DDD (degenerative disc disease) Depression Emphysema with chronic bronchitis Fibromyalgia GERD (gastroesophageal reflux disease) History of herniated intervertebral disc Hypertension Left carpal tunnel syndrome BO (nonalcoholic steatohepatitis) KRISSY (obstructive sleep apnea) Post-cholecystectomy syndrome Primary fibromyalgia syndrome Pulmonary nodules Home Medications albuterol sulfate 2 puff IH Q4H PRN PRN 06/06/16 [History Last Taken Unknown] amlodipine 5 mg PO DAILY 06/06/16 [History Last Taken Unknown] omeprazole 40 mg PO DAILY 06/06/16 [History Last Taken Unknown] fluticasone furoate-vilanterol 1 - 2 ea NASAL DAILY 06/04/17 [History Last Taken Unknown] ipratropium bromide 1 - 2 spray NASAL PRN PRN 06/04/17 [History Last Taken Unknown] pregabalin 150 mg PO BID 06/04/17 [History Last Taken Unknown] umeclidinium-vilanterol 1 puff IH DAILY 06/04/17 [History Last Taken Unknown] mirabegron 1 tab PO DAILY 12/07/18 [History Last Taken Unknown] hydrocodone-acetaminophen 1 ea PO TID PRN PRN 06/04/19 [History Last Taken Unknown] cetirizine 10 mg tablet 10 mg PO DAILY #30 tab 11/24/19 [Rx Last Taken Unknown] left wrist splint #1 ea 12/20/19 [Rx Last Taken Unknown] ubrogepant 50 mg tablet 50 mg PO DAILY PRN #15 tab 07/17/20 [Rx Last Taken Unknown] diazepam 5 mg PO Q8 PRN #15 tab 08/07/20 [Rx Last Taken Unknown] venlafaxine 75 mg capsule,extended release 24 hr 75 mg PO DAILY #30 cap 11/06/20 [Rx Last Taken Unknown] oxycodone-acetaminophen 1 tab PO Q6H PRN PRN 3 Days #12 tablet 12/15/20 [Rx Last Taken Unknown] Allergy/AdvReac Type Severity Reaction Status Date / Time divalproex sodium Allergy Severe hives Verified 12/15/20 11:53 codeine Allergy Itching Verified 12/15/20 11:53 nuclear stress test contrast AdvReac Other Uncoded 12/15/20 11:53 Family History Mother Hypertension Father Hypertension CVA (cerebral vascular accident) Sister Diabetes Surgical History h/o gallbladder removal h/o hernia surgery H/O left wrist surgery History of cataract surgery Social History Smoking Status: Former smoker Tobacco: How many years used: 40 alcohol intake: current alcohol intake frequency: a few times a month ROS ROS ED Constitutional Constitutional ED: Reports systems reviewed and no addt'l complaints, except as documented; Denies body ache(s), change in weight or chills Eyes Eyes: Denies acute decrease in peripheral vision, change in vision, double vision or loss of vision ENT ENT ED: Reports none; Denies ear pain, lip swelling, loss taste/smell, neck pain, otalgia or sore throat Cardiovascular Cardiovascular: Reports none; Denies abdominal pain, chest pain with activity, leg edema, lightheadedness, palpitations, rapid heart rate or syncope Respiratory/Chest Respiratory/Chest: Reports none; Denies change in mental status, dry cough, dyspnea, hemoptysis, shortness of breath at rest or shortness of breath with exertion Gastrointestinal Gastrointestinal: Reports none; Denies abdominal pain, change in stool character, diarrhea, hematemesis, hematochezia, melena, rectal bleeding or vomiting Genitourinary Genitourinary ED: Reports none; Denies abdominal discomfort, anuria, dysuria, genital pain or polyuria Musculoskeletal Musculoskeletal: Reports none and myalgias; Denies arthralgias, back pain, difficulty walking, extremity pain or muscle weakness Integumentary Reports none; Denies abscess or rash Neurologic Neurologic: Reports none and headache(s); Denies abnormal gait, confusion, focal weakness, frequent falls, loss of vision, numbness, paresthesias, radicular pain, vertigo or weakness Psychiatric Psychiatric: Reports systems reviewed and no addt'l complaints, except as documented and none; Denies behavioral changes, confusion, difficulty concentrating, hallucinations, suicidal ideation, tactile hallucinations or visual hallucinations Endocrine Endocrinology: Denies none, cold intolerance, excessive sweating, fatigue or heat intolerance Hematologic/Lymphatic Hematologic/Lymphatic: Reports none; Denies anemia, easy bleeding or easy bruising Allergic/Immunologic Allergic/Immunologic ED: Denies as per HPI, none, lip swelling, mouth swelling, throat swelling, tongue swelling or hives EXAM Physical Exam Const Vital Signs: 12/15/20 11:49 Temperature 97.1 F L Temperature Source Temporal Pulse Rate 52 L Respiratory Rate 14 Blood Pressure 158/92 H Blood Pressure Mean 114 Pulse Ox 97 Oxygen Delivery Method Room Air Positive well nourished and well developed General Appearance ED: well developed and NAD HEENT Reports TM's clear and moist mucous membranes normocephalic and atraumatic; Negative for trauma or tenderness Tympanic Membrane ED: Yes TM's clear Eyes PERRL and EOMs intact bilaterally General Eye ED: Negative for pale conjunctiva or scleral icterus Neck no lymphadenopathy, supple and no JVD General: Negative for tenderness Chest Wall inspection of chest normal and palpation of chest normal Chest: Negative for tenderness Resp normal respiratory effort and clear to auscultation bilaterally Effort and Inspection: Negative for respiratory distress or pain with movement Auscultation: Negative for rhonchi, wheezes or diminished lung sounds Cardio regular rate, regular rhythm, S1 normal heart sound, S2 normal heart sound and no murmurs Peripheral Pulses: pulses 2+ throughout GI normal to inspection, nondistended, normoactive bowel sounds, soft to palpation, non-tender, non-distended and no masses Back/Spine no CVA tenderness and no thoracic nor lumbar tenderness Extremity normal to inspection General Extremety ED: Negative for edema General Extremity: Negative for edema Neuro oriented x3, CN's II-XII intact bilaterally, no sensory deficits noted and gait normal Sensorium / Orientation: awake, alert, oriented to person, oriented to place and oriented to time Motor Exam: strength 5/5 throughout and strength abnormal Psych mental status grossly normal Skin no rashes or lesions noted and no wounds MDM MDM MDM Narrative Medical decision making narrative: Patient was medicated with Dilaudid 1 mg IM as well as Toradol 30 mg IM and Zofran 4 mg IM. Patient will be given a prescription for oxycodone for severe pain for few days. Patient will use ibuprofen as needed for body aches otherwise. Patient advised to follow-up with his primary care physician in 5 to 7 days. Patient advised to return if increasing shortness of breath or condition should worsen anyway. At this point he has no respiratory symptoms. Patient would be interested in finding out about antibody infusion treatment. Discharge Plan Triage Chief Complaint: Other, Pain/Inj ED Provider: Arianne Galeas Dx/Rx/DC Orders Clinical Impression: Myalgia, COVID-19 Instructions: ED Myalgias, Caring for Someone Who Has COVID-19 Prescriptions: New oxycodone-acetaminophen [oxycodone-acetaminophen] 1 TABLET tablet 1 tab PO Q6H PRN PRN (Reason: Pain) 3 Days Qty: 12 RF: 0 No Action cetirizine 10 mg tablet 10 mg PO DAILY Qty: 30 RF: 1 (DME) left wrist splint Qty: 1 RF: 0 Ubrelvy 50 mg tablet 50 mg PO DAILY PRN (Reason: headache) Qty: 15 RF: 2 amlodipine 5 MG tablet 5 mg PO DAILY RF: 0 omeprazole 40 MG capsule 40 mg PO DAILY RF: 0 albuterol sulfate 18 GM HFA aerosol inhaler 2 puff IH Q4H PRN PRN (Reason: Sob &/Or Wheezing) RF: 0 ipratropium bromide 1 SPRAY spray,non-aerosol 1 - 2 spray NASAL PRN PRN (Reason: Sinus Congestion) RF: 0 pregabalin 150 MG capsule 150 mg PO BID RF: 0 fluticasone furoate-vilanterol 1 EACH blister with device 1 - 2 ea NASAL DAILY RF: 0 umeclidinium-vilanterol 1 EACH blister with device 1 puff IH DAILY RF: 0 mirabegron 25 MG tablet extended release 24 hr 1 tab PO DAILY RF: 0 hydrocodone-acetaminophen 1 EACH tablet 1 ea PO TID PRN PRN (Reason: Pain Score 4-10/10) RF: 0 diazepam [diazepam] 5 MG tablet 5 mg PO Q8 PRN (Reason: Muscle Spasm) Qty: 15 RF: 0 venlafaxine 75 mg capsule,extended release 24hr 75 mg PO DAILY Qty: 30 RF: 2 Other Ambulatory Orders: COVID Outpatient Monoclonal Antibody Referral (Routine) Timeframe: 1 Day Facility: [facility] - Location: [facility] Ordered By: Dr. Arianne Galeas Primary Care Provider: Chi Vega Referrals: Chi Vega DO [Primary Care Provider] - Disposition Disposition: Home, Self Care
[2020-12-15] MEDS: Ondansetron 4 MG/2 ML Vial IM (12:22)
[2020-12-15] MEDS: Ketorolac 30 MG/ML Syringe IM (12:24)
[2020-12-15] MEDS: HYDROmorphone 1 MG/ML Syringe IM (12:25)
[2020-12-15 13:33] VITALS: PULSE 55; RESP 18; O2SAT 95
== END 2020-12-15 13:33 | disposition home or self-care (01) ==
PROVIDERS: Emergency Provider Emergency Medicine; PCP Family Medicine
DX: U07.1 COVID-19 (principal); M79.7 Fibromyalgia; R07.89 Other chest pain; K75.81 Nonalcoholic steatohepatitis (NASH); J44.9 Chronic obstructive pulmonary disease, unspecified; I10 Essential (primary) hypertension; G47.33 Obstructive sleep apnea (adult) (pediatric); N40.0 Benign prostatic hyperplasia without lower urinary tract symptoms; K21.9 Gastro-esophageal reflux disease without esophagitis; F32.9 Major depressive disorder, single episode, unspecified; Z87.891 Personal history of nicotine dependence
CPT/HCPCS: 96372; 99282; J2405

== ENCOUNTER 2020-12-20 14:37 | Inpatient (IN) | payer MEDICARE, MEDICAID, SELFPAY ==
[2020-12-20] VITALS (24 sets, daily range): BP systolic 105–143; BP diastolic 70–92; PULSE 64–87; RESP 12–32; TEMP 36.2–36.8; O2SAT 56–95; BMI 38.4; BMI 38.7
--- NOTE | 2020-12-20 14:49 | RAD_ITS ---
STUDY: X-RAY CHEST REASON FOR EXAM: Male, 60 years old. hypoxia covid 19 TECHNIQUE: AP COMPARISON: 11/12/2020 FINDINGS: EKG leads project over the chest. Multifocal infiltrates with features commonly reported with COVID pneumonia. There is no demonstrated pleural abnormality. There is mild cardiac enlargement. Normal mediastinum and brock. Normal visualized pulmonary arteries. There is atherosclerotic calcification of the aortic arch with tortuosity. No acute bony process. There is no demonstrated abnormality of the visualized soft tissue structures of the upper abdomen. RAD/Chest 1 View (Portable) IMPRESSION: Multifocal infiltrates with features commonly reported with COVID pneumonia. Electronically Signed: Adryan Navarro MD ([place]) at 15:42 EDT , Service support ,
--- NOTE | 2020-12-20 14:50 | EKG12_ITS ---
Test Reason : SOB Blood Pressure : / mmHG Vent. Rate : 089 BPM Atrial Rate : 089 BPM P-R Int : 164 ms QRS Dur : 082 ms QT Int : 368 ms P-R-T Axes : 047 010 059 degrees QTc Int : 447 ms Sinus rhythm with Premature atrial complexes Low voltage QRS Borderline ECG Confirmed by AKIKO MILLS, HU ([id number]), map editor ASHWINI KOHLER ([id number]) on 12/24/2020 12:16:58 PM Referred By: SARITHA Confirmed By:PRASANTH WHARTON MD
--- NOTE | 2020-12-20 14:51 | ED.VIS.DYS ---
HPI History of Present Illness Chief Complaint: Shortness of Breath Informant: patient Narrative Narrative: Patient was diagnosed with COVID-19 on 13 December. He returns today stating he is not doing very well. Pulse ox noted to be 56% in triage. He notes shortness of breath with any exertion. He notes diarrhea. He denies fevers. He states he has not had anything to eat in about 8 days. He has been drinking fluids. [facility] Medical History Atypical chest pain BPH (benign prostatic hyperplasia) Cervical radiculopathy Cervical spondylosis Chronic vertigo COLD (chronic obstructive lung disease) Cubital tunnel syndrome on left DDD (degenerative disc disease) Depression Emphysema with chronic bronchitis Fibromyalgia GERD (gastroesophageal reflux disease) History of herniated intervertebral disc Hypertension Left carpal tunnel syndrome BO (nonalcoholic steatohepatitis) KRISSY (obstructive sleep apnea) Post-cholecystectomy syndrome Primary fibromyalgia syndrome Pulmonary nodules Home Medications albuterol sulfate 2 puff IH Q4H PRN PRN 06/06/16 [History Last Taken Unknown] amlodipine 5 mg PO DAILY 06/06/16 [History Last Taken Unknown] omeprazole 40 mg PO DAILY 06/06/16 [History Last Taken Unknown] fluticasone furoate-vilanterol 1 - 2 ea NASAL DAILY 06/04/17 [History Last Taken Unknown] ipratropium bromide 1 - 2 spray NASAL PRN PRN 06/04/17 [History Last Taken Unknown] pregabalin 150 mg PO BID 06/04/17 [History Last Taken Unknown] umeclidinium-vilanterol 1 puff IH DAILY 06/04/17 [History Last Taken Unknown] mirabegron 1 tab PO DAILY 12/07/18 [History Last Taken Unknown] hydrocodone-acetaminophen 1 ea PO TID PRN PRN 06/04/19 [History Last Taken Unknown] cetirizine 10 mg tablet 10 mg PO DAILY #30 tab 11/24/19 [Rx Last Taken Unknown] left wrist splint #1 ea 12/20/19 [Rx Last Taken Unknown] ubrogepant 50 mg tablet 50 mg PO DAILY PRN #15 tab 07/17/20 [Rx Last Taken Unknown] diazepam 5 mg PO Q8 PRN #15 tab 08/07/20 [Rx Last Taken Unknown] venlafaxine 75 mg capsule,extended release 24 hr 75 mg PO DAILY #30 cap 11/06/20 [Rx Last Taken Unknown] oxycodone-acetaminophen 1 tab PO Q6H PRN PRN 3 Days #12 tablet 12/15/20 [Rx Last Taken Unknown] Allergy/AdvReac Type Severity Reaction Status Date / Time divalproex sodium Allergy Severe hives Verified 12/20/20 14:40 codeine Allergy Itching Verified 12/20/20 14:40 nuclear stress test contrast AdvReac Other Uncoded 12/20/20 14:40 Family History Mother Hypertension Father Hypertension CVA (cerebral vascular accident) Sister Diabetes Surgical History h/o gallbladder removal h/o hernia surgery H/O left wrist surgery History of cataract surgery Social History Smoking Status: Former smoker Tobacco: How many years used: 40 alcohol intake: current alcohol intake frequency: a few times a month ROS ROS ED Constitutional Constitutional ED: Denies chills or weight loss Eyes Eyes: Denies change in vision or diplopia ENT ENT ED: Denies ear pain, rhinorrhea or sore throat Cardiovascular Cardiovascular: Denies chest pain, orthopnea, palpitations or racing heartbeat Respiratory/Chest Respiratory/Chest: Reports cough, dyspnea and dyspnea on exertion; Denies orthopnea Gastrointestinal Gastrointestinal: Reports diarrhea and nausea; Denies abdominal pain or vomiting Genitourinary Genitourinary ED: Denies dysuria, hematuria or urinary frequency Musculoskeletal Musculoskeletal: Reports myalgias; Denies arthralgias Integumentary Denies abscess or rash Neurologic Neurologic: Denies headache(s) or weakness Psychiatric Psychiatric: Denies anxiety, depression, suicidal ideation or suicidal thoughts Endocrine Endocrinology: Denies polydipsia, polyphagia or polyuria Allergic/Immunologic Allergic/Immunologic ED: Denies mouth swelling, tongue swelling or urticaria EXAM Physical Exam Const Vital Signs: 12/20/20 14:38 12/20/20 15:05 12/20/20 15:08 Temperature 98 F 98 F Temperature Source Temporal Temporal Pulse Rate 86 64 64 Respiratory Rate 32 H 25 H 25 H Respiratory Effort Respiratory Depth Respiratory Pattern Blood Pressure 105/80 105/80 Blood Pressure Mean 88 88 Pulse Ox 56 93 93 Oxygen Delivery Method Room Air Bi-pap Fraction of Inspired Oxygen (FIO2) 100 12/20/20 15:10 12/20/20 15:12 12/20/20 15:15 Temperature Temperature Source Pulse Rate Respiratory Rate Respiratory Effort Short of Breath Respiratory Depth Deep Respiratory Pattern Hyperpnea Blood Pressure Blood Pressure Mean Pulse Ox 93 93 Oxygen Delivery Method Bi-pap Bi-pap Fraction of Inspired Oxygen (FIO2) 90 12/20/20 16:00 12/20/20 16:05 Temperature 98 F Temperature Source Temporal Pulse Rate 83 Respiratory Rate 18 Respiratory Effort Respiratory Depth Respiratory Pattern Blood Pressure 136/79 H Blood Pressure Mean 98 Pulse Ox 91 93 Oxygen Delivery Method Bi-pap Fraction of Inspired Oxygen (FIO2) 85 Positive well nourished, well developed and obese General Appearance ED: well developed Nutritional Appearance: obese HEENT Reports normocephalic, head/scalp atraumatic and moist mucous membranes Eyes PERRL and EOMs intact bilaterally Neck no lymphadenopathy, supple and no JVD Resp clear to auscultation bilaterally Resp Narrative: Patient is tachypneic Cardio regular rate, regular rhythm and no murmurs GI normal to inspection, nondistended, normoactive bowel sounds and non-tender Palpation: soft Back/Spine no CVA tenderness and normal ROM Extremity normal to inspection General Extremety ED: Negative for edema General Extremity: Negative for edema Neuro oriented x3 and CN's II-XII intact bilaterally Sensorium / Orientation: alert Motor Exam: strength 5/5 throughout Psych mental status grossly normal Mood & Affect: Negative for depressed or tearful Skin no rashes or lesions noted and no wounds MDM MDM MDM Narrative Medical decision making narrative: Patient previously tested positive for COVID-19. White count 5.5 with a platelet count of 107. Coags negative. Creatinine 1.56 slightly elevated off its baseline. His troponin 32. D-dimer is elevated. Lactic acid is 2.4. Fibrinogen is 508. My interpretation of the chest x-ray is multifocal pneumonia consistent with COVID-19 diagnosis CTA of the chest is negative for pulmonary embolism. Patient was placed initially on nonrebreather mask but transitioned to BiPAP with the help of respiratory therapy. Patient received morphine and Zofran for pain. Decadron will be ordered. I will speak with the hospitalist regarding admission. Lab Data Attestation: I reviewed the patient's lab results. Labs: Laboratory Results - last 24 hr 12/20/20 12/20/20 12/20/20 14:45 14:45 14:45 WBC 5.5 RBC 5.25 Hgb 15.1 Hct 45.7 MCV 87.0 MCH 28.8 MCHC 33.0 RDW Std Deviation 49.6 H RDW Coeff of Jose 15.5 H Plt Count 107 L MPV 12.6 H Immature Gran % (Auto) 0.500 Neut % (Auto) 77.2 H Lymph % (Auto) 16.5 L [place] % (Auto) 5.6 Eos % (Auto) 0.0 Baso % (Auto) 0.2 Absolute Neuts (auto) 4.3 Absolute Lymphs (auto) 0.91 Nucleated RBC % 0 PT 13.6 INR 1.1 APTT 35.4 Fibrinogen D-Dimer Quant (PE/DVT) Sodium 131 L Potassium 4.1 Chloride 98 Carbon Dioxide 24.0 Anion Gap 9 BUN 22 H Creatinine 1.56 H Estim Creat Clear Calc 49.73 Est GFR (MDRD) Af Amer 58 L Est GFR (MDRD) Non-Af 48 L BUN/Creatinine Ratio 14.1 Glucose 135 H Calcium 8.2 L Total Bilirubin 0.60 AST 87 H ALT 38 Alkaline Phosphatase 89 Troponin I High Sens 32 Total Protein 7.7 Albumin 3.0 L Globulin 4.7 H Albumin/Globulin Ratio 0.6 L 12/20/20 15:38 WBC RBC Hgb Hct MCV MCH MCHC RDW Std Deviation RDW Coeff of Jose Plt Count MPV Immature Gran % (Auto) Neut % (Auto) Lymph % (Auto) Tensas % (Auto) Eos % (Auto) Baso % (Auto) Absolute Neuts (auto) Absolute Lymphs (auto) Nucleated RBC % PT INR APTT Fibrinogen 508 H D-Dimer Quant (PE/DVT) 1.62 H* Sodium Potassium Chloride Carbon Dioxide Anion Gap BUN Creatinine Estim Creat Clear Calc Est GFR (MDRD) Af Amer Est GFR (MDRD) Non-Af BUN/Creatinine Ratio Glucose Calcium Total Bilirubin AST ALT Alkaline Phosphatase Troponin I High Sens Total Protein Albumin Globulin Albumin/Globulin Ratio Radiography Diagnostic Testing: Clinical Impression(s) from Imaging Studies Chest X-Ray 12/20/20 14:49 IMPRESSION: Multifocal infiltrates with features commonly reported with COVID pneumonia. Electronically Signed: Adryan Navarro MD ([place]) at 15:42 EDT , Service support , Chest CTA 12/20/20 15:32 IMPRESSION: 1. No central or segmental pulmonary embolism. 2. Multifocal infiltrates with features commonly reported with COVID pneumonia. 3. Centrilobular and paraseptal emphysema particularly the upper lung zones. Electronically Signed: Adryan Navarro MD ([place]) at 16:15 EDT , Service support , EKG Initial EKG: Attestation: I personally reviewed and interpreted this EKG as follows: Comments: Sinus rhythm with a ventricular rate of 89 bpm. Low voltage noted. There are PAC noted Critical Care Time Critical Care Time: Yes Critical care time (excluding procedures): 30-74 minutes (32 min), Including time spent:, Discussing w/Patient &/or Family/Mathematics Improvement Teacher, Discussing w/Consultants, Arranging Admission or Transfer and Performing Direct Patient Care at Bedside Discharge Plan Dx/Rx/DC Orders Clinical Impression: COVID-19, Acute hypoxemic respiratory failure, Thrombocytopenia associated with COVID-19 Disposition Disposition: [facility]
[2020-12-20] MEDS: Morphine 4 MG/ML Syringe IV (15:09)
[2020-12-20] MEDS: Ondansetron 4 MG/2 ML Vial IV (15:09)
[2020-12-20 15:12] LABS: Absolute Lymphocyte Count 0.91 X10^3/uL (0.83-4.51); Absolute Neutrophil Count 4.3 X10^3/uL (2.0-7.7); Basophil# 0.01 X10^3/uL; Basophil% 0.2 % (0-1); Hematocrit 45.7 % (40-54); Hemoglobin 15.1 g/dL (13.0-16.5); Lymphocyte # 0.91 X10^3/ul (0.83-4.51); Lymphocyte % 16.5 % (19-41); Mean Corpuscular Hgb 28.8 pg (27.0-32.0); Mean Platelet Vol. 12.6 fl (6.2-12.0); Monocyte# 0.31 X10^3/uL; Monocyte% 5.6 % (0-10); NRBC Flagged by Analyzer 0 % (0-5); Neutrophil # 4.25 X10^3/uL (2.7-7.7); Neutrophil % 77.2 % (47-70); Platelet Count 107 K/mm3 (150-450); RBC Distribution Width CV 15.5 % (11.6-14.6); RBC Distribution Width SD 49.6 fl (35.1-43.9); Red Blood Count 5.25 M/mm3 (4.6-6.2); White Blood Count 5.5 K/mm3 (4.4-11.0)
[2020-12-20 15:21] LABS: Partial Thromboplast Time 35.4 Seconds (24.1-36.2)
[2020-12-20 15:27] LABS: ALB/GLOB Ratio 0.6 RATIO (0.9-2.4); AST(SGOT) 87 U/L (15-37); Alanine Aminotransfer ALT/SGPT 38 U/L (16-61); Alkaline Phosphatase 89 U/L (45-117); Anion Gap 9 (5-15); BUN 22 mg/dL (7-18); BUN/Creat Ratio 14.1 RATIO (10-20); Calcium,Total 8.2 mg/dL (8.5-10.1); Chloride 98 mmol/L (98-107); Creatinine, Serum 1.56 mg/dL (0.70-1.30); EST Glomerular Filtration Rate 48 mL/min (>60); Est Glom Filt Rate - Afr Amer 58 mL/min (>60); Estimated Creatinine Clearance 49.73 ml/min; Globulin 4.7 g/dL (2.2-4.2); Glucose 135 mg/dL (74-106); Potassium 4.1 mmol/L (3.5-5.1); Protein, Total 7.7 g/dL (6.4-8.2); Sodium Level 131 mmol/L (136-145); Troponin-I HS 32 pg/mL (3.0-78.0)
--- NOTE | 2020-12-20 15:32 | CT_ITS ---
EXAM: CT ANGIOGRAPHY CHEST WITHOUT AND WITH INTRAVENOUS CONTRAST CLINICAL INDICATION: covid 19 pulmonary embolism TECHNIQUE: Helically acquired angiography images were obtained of the chest without and with intravenous contrast. This CT exam was performed using one or more of the following dose reduction techniques: automated exposure control, adjustment of the mA and/or kV according to patient size, and/or use of iterative reconstruction technique. This report was created using [employer] report generation technology. MIP reconstructed images were created and reviewed. CONTRAST: IV 100mL [id number] COMPARISON: CT 09/17/2017. FINDINGS: PULMONARY ARTERIES: Unremarkable. Normal in caliber. No evidence of pulmonary embolism. AORTA: Unremarkable. Normal in caliber. No evidence of dissection. GREAT VESSELS OF AORTIC ARCH: Unremarkable. Normal in caliber. No evidence of dissection. LUNGS AND PLEURAL SPACES: Multilobar groundglass opacities without dense airspace consolidation. Centrilobular and paraseptal emphysema particularly the upper lung zones. No mass. No pleural effusion or thickening. HEART: Unremarkable. Heart size is normal. No pericardial effusion. No signs of right heart strain, ratio of right ventricle to left ventricle measures less than 1. MEDIASTINUM: Unremarkable. No mediastinal or hilar adenopathy. Esophagus is unremarkable. No hiatal hernia. THYROID: Unremarkable. No thyroid lesions. BONES/JOINTS: No destructive bony process. LIVER: Hepatic steatosis. GALLBLADDER AND BILE DUCTS: Cholecystectomy. CT/CTA Chest W/WO Contrast IMPRESSION: 1. No central or segmental pulmonary embolism. 2. Multifocal infiltrates with features commonly reported with COVID pneumonia. 3. Centrilobular and paraseptal emphysema particularly the upper lung zones. Electronically Signed: Adryan Navarro MD ([place]) at 16:15 EDT , Service support ,
[2020-12-20 15:36] LABS: International Normalized Ratio 1.1; Prothrombin Time (Protime)PT. 13.6 SECONDS (11.7-14.9)
[2020-12-20 16:00] LABS: Fibrinogen 508 mg/dl (203-444)
[2020-12-20 16:14] LABS: D-Dimer Quantitative (DVT/PE) 1.62 FEU/ug/m (0.27-0.49)
--- NOTE | 2020-12-20 16:19 | HP.PCM.HOS_ITS ---
HPI - General General Date of Admission: 12/20/20 Date of Service: 12/20/20 Chief Complaint: COVID, worsening dyspnea. HPI Narrative The patient is a 60 y/o M w/ PMHx: Obesity, COPD, BPH, Depression and Anxiety, Fibromyalgia, GERD, HTN, HLD, BO, DDD w/ chronic back pain, KRISSY, seen initially 12/13/2020 with fatigue, malaise, diarrhea, headache, body aches at that time with Covid diagnosis and return to the ED again 12/15/2020 with worse tania headache and onset mild nonproductive cough but no noted hypoxia at that time who re-presents to the [facility] ED on 12/20/20 with history of onset dyspnea, worsening, worse with any activity, ongoing diarrhea and decreased significant oral intake but notes appropriate fluid intake. Patient is not vaccinated against COVID but following discussions once he is appropriate for it he is amenable to vaccination. Work-up in the ED included T 98, heart rate 64, BP 105/80, respiratory rate 32, initially noted to be 56% on room air eventually transitioned to BiPAP, initially 93% with on 100% FiO2 with now transition to 85% FiO2 maintaining 93%, CBC with WBC 5.5, hemoglobin 15.1, platelet 107 without marked shift, coags with fibrinogen 508, D-dimer 1.62, CMP with sodium 131, BUN/creatinine 22/1.56, glucose 135, lactic acid 2.4, AST/ALT 87/38, LDH pending upon evaluation, CRP pending upon evaluation, procalcitonin pending upon evaluation, high-sensitivity cardiac troponin 32, chest x-ray with multifocal infiltrates consistent with Covid pneumonia, follow-up CTPA with no central or segmental pulmonary embolism with multifocal infiltrates consistent with Covid pneumonia as well as centrilobular and paraseptal emphysema particularly in the upper lung zones. In the ED patient answered morphine 4 mg IV x1, decadron 6 mg po as well as Zofran 4 mg IV x1. [facility] Medical History Atypical chest pain BPH (benign prostatic hyperplasia) Cervical radiculopathy Cervical spondylosis Chronic vertigo COLD (chronic obstructive lung disease) Cubital tunnel syndrome on left DDD (degenerative disc disease) Depression Emphysema with chronic bronchitis Fibromyalgia GERD (gastroesophageal reflux disease) History of herniated intervertebral disc Hypertension Left carpal tunnel syndrome BO (nonalcoholic steatohepatitis) KRISSY (obstructive sleep apnea) Post-cholecystectomy syndrome Primary fibromyalgia syndrome Pulmonary nodules Home Medications albuterol sulfate 2 puff IH Q4H PRN PRN 06/06/16 [History Last Taken 12/20/20] amlodipine 5 mg PO DAILY 06/06/16 [History Last Taken 12/20/20] omeprazole 40 mg PO DAILY 06/06/16 [History Last Taken 12/20/20] fluticasone furoate-vilanterol 1 - 2 ea NASAL DAILY 06/04/17 [History Last Taken 12/20/20] ipratropium bromide 1 - 2 spray NASAL PRN PRN 06/04/17 [History Last Taken Unknown] umeclidinium-vilanterol 1 puff IH DAILY 06/04/17 [History Last Taken 12/20/20] mirabegron 1 tab PO DAILY 12/07/18 [History Last Taken 12/20/20] hydrocodone-acetaminophen 1 ea PO TID PRN PRN 06/04/19 [History Last Taken 2 Days Ago ~12/18/20] cetirizine 10 mg tablet 10 mg PO DAILY #30 tab 11/24/19 [Rx Last Taken 12/20/20] ubrogepant 50 mg tablet 50 mg PO DAILY PRN #15 tab 07/17/20 [Rx Last Taken Unknown] venlafaxine 75 mg capsule,extended release 24 hr 75 mg PO DAILY #30 cap 11/06/20 [Rx Last Taken 12/20/20] pregabalin 200 mg PO BID 12/20/20 [History Last Taken 12/20/20] topiramate 50 mg PO QHS 12/20/20 [History Last Taken 12/19/20] Allergy/AdvReac Type Severity Reaction Status Date / Time divalproex sodium Allergy Severe hives Verified 12/20/20 14:40 codeine Allergy Itching Verified 12/20/20 14:40 nuclear stress test contrast AdvReac Other Uncoded 12/20/20 14:40 Family History Mother Hypertension Father Hypertension CVA (cerebral vascular accident) Sister Diabetes Surgical History h/o gallbladder removal h/o hernia surgery H/O left wrist surgery History of cataract surgery Social History (Updated 12/20/20 @ 18:[address] Elva Lozano MD) household members: spouse Smoking Status: Former smoker Tobacco: How many years used: 40 how long ago did patient quit smoking: Quit > 8 years prior, rolled cigarettes. alcohol intake: current alcohol intake frequency: a few times a month substance use type: does not use ROS ROS Narrative Admission Review of Systems: CONSTITUTIONAL: No weight loss, fever, chills, + weakness or fatigue. HEENT: + Headache, thrush. Eyes: No visual loss, blurred vision, double vision or yellow sclerae. Ears, Nose, Throat: No hearing loss, sneezing, congestion, runny nose or sore throat. SKIN: No rash or itching, lesions, wounds. CARDIOVASCULAR: No chest pain, chest pressure or chest discomfort, palpitations, edema, orthopnea, syncopal events. RESPIRATORY: + shortness of breath, cough, No sputum, wheezing, hemoptysis. GASTROINTESTINAL: + anorexia, nausea without vomiting, diarrhea, No abdominal pain, melena, BRBPR. GENITOURINARY: No dysuria, frequency, urgency or retention. NEUROLOGICAL: No headache, dizziness, syncope, paralysis, ataxia, numbness or tingling in the extremities, focal weakness, change in bowel or bladder control, seizure. MUSCULOSKELETAL: + muscle, back pain, joint pain or stiffness. HEMATOLOGIC: + anemia, bleeding or bruising. LYMPHATICS: No enlarged nodes. No history of splenectomy. PSYCHIATRIC: + history of depression or anxiety. ENDOCRINOLOGIC: No reports of sweating, cold or heat intolerance. No polyuria or polydipsia. ALLERGIES: + history of asthma, hives, eczema or rhinitis. Vital Signs Vital Signs Vital Signs: 12/20/20 14:38 12/20/20 15:05 12/20/20 15:08 Temperature 98 F 98 F Temperature Source Temporal Temporal Pulse Rate 86 64 64 Respiratory Rate 32 H 25 H 25 H Respiratory Effort Respiratory Depth Respiratory Pattern Blood Pressure 105/80 105/80 Blood Pressure Mean 88 88 Pulse Ox 56 93 93 Oxygen Delivery Method Room Air Bi-pap Fraction of Inspired Oxygen (FIO2) 100 12/20/20 15:10 12/20/20 15:12 12/20/20 15:15 Temperature Temperature Source Pulse Rate Respiratory Rate Respiratory Effort Short of Breath Respiratory Depth Deep Respiratory Pattern Hyperpnea Blood Pressure Blood Pressure Mean Pulse Ox 93 93 Oxygen Delivery Method Bi-pap Bi-pap Fraction of Inspired Oxygen (FIO2) 90 12/20/20 16:00 12/20/20 16:05 Temperature 98 F Temperature Source Temporal Pulse Rate 83 Respiratory Rate 18 Respiratory Effort Respiratory Depth Respiratory Pattern Blood Pressure 136/79 H Blood Pressure Mean 98 Pulse Ox 91 93 Oxygen Delivery Method Bi-pap Fraction of Inspired Oxygen (FIO2) 85 Weight Weight: 260 lb Body Mass Index (BMI) 38.4 Physical Exam Narrative Physical Examination: General: Awake, alert, oriented x 3 and cooperative, seated upright in the ED bed, BiPAP in place, increased respiratory rate, ill-appearing, evidence of respiratory distress. Skin: Normal color, normal turgor, no icterus, no cyanosis. HEENT: AT/NC, EOMI, PERRLA, dry MM, oral thrush evident, BiPAP in place, no carotid bruits however sounds with BiPAP make evaluation difficult, difficult to assess JVD also secondary to thickened neck. Lungs: Diffusely diminished, greater bases, increased respiratory rate, evidence of compromise with BiPAP in place, no rales, ronchi or wheezing. Heart: Regular rate and rhythm; no gallop, rub audible. Abdomen: Soft, obese, NTTP, ND, distant mildly hyperactive BS, no obvious evidence of HSM; however, habitus makes examination difficult. Extremities: No cyanosis, clubbing, or edema. Neurological: Patient awake, alert, oriented as noted, cognitive function intact; pupils equally reactive to light and accommodation, cranial nerves II- XII grossly normal, moving all 4 extremities, no focal deficits, strength severely global decrease secondary to acute presentation. Psychiatric: Affect appears fatigued, ill-appearing, evidence of respiratory compromise, no acute evidence of depressive or anxiety feelings. Results Lab / Micro Data Result Diagrams: 12/20/20 14:45 12/20/20 14:45 Labs: Laboratory Results - last 24 hr 12/20/20 14:45: WBC 5.5, RBC 5.25, Hgb 15.1, Hct 45.7, MCV 87.0, MCH 28.8, MCHC 33.0, RDW Std Deviation 49.6 H, RDW Coeff of Jose 15.5 H, Plt Count 107 L, MPV 12.6 H, Immature Gran % (Auto) 0.500, Neut % (Auto) 77.2 H, Lymph % (Auto) 16.5 L, [place] % (Auto) 5.6, Eos % (Auto) 0.0, Baso % (Auto) 0.2, Absolute Neuts (auto) 4.3, Absolute Lymphs (auto) 0.91, Nucleated RBC % 0 12/20/20 14:45: PT 13.6, INR 1.1, APTT 35.4 12/20/20 14:45: Sodium 131 L, Potassium 4.1, Chloride 98, Carbon Dioxide 24.0, Anion Gap 9, BUN 22 H, Creatinine 1.56 H, Estim Creat Clear Calc 49.73, Est GFR (MDRD) Af Amer 58 L, Est GFR (MDRD) Non-Af 48 L, BUN/Creatinine Ratio 14.1, Glucose 135 H, Calcium 8.2 L, Total Bilirubin 0.60, AST 87 H, ALT 38, Alkaline Phosphatase 89, Troponin I High Sens 32, Total Protein 7.7, Albumin 3.0 L, Globulin 4.7 H, Albumin/Globulin Ratio 0.6 L 12/20/20 15:38: Fibrinogen 508 H, D-Dimer Quant (PE/DVT) 1.62 H* Radiology Impression Chest X-Ray 12/20/20 14:49 IMPRESSION: Multifocal infiltrates with features commonly reported with COVID pneumonia. Electronically Signed: Adryan Navarro MD ([place]) at 15:42 EDT , Service support , Chest CTA 12/20/20 15:32 IMPRESSION: 1. No central or segmental pulmonary embolism. 2. Multifocal infiltrates with features commonly reported with COVID pneumonia. 3. Centrilobular and paraseptal emphysema particularly the upper lung zones. Electronically Signed: Adryan Navarro MD ([place]) at 16:15 EDT , Service support , Assessment & Plan Assessment/Plan (1) Acute hypoxemic respiratory failure: (2) COVID-19: PLAN: The patient is a 60 y/o M w/ PMHx: Obesity, COPD, BPH, Depression and Anxiety, Fibromyalgia, GERD, HTN, HLD, BO, DDD w/ chronic back pain, KRISSY, seen initially 12/13/2020 with fatigue, malaise, diarrhea, headache, body aches at that time with Covid diagnosis and return to the ED again 12/15/2020 with worsening headache and onset mild nonproductive cough but no noted hypoxia at that time who re-presents to the [facility] ED on 12/20/20 with history of onset dyspnea, worsening, worse with any activity, ongoing diarrhea and decreased significant oral intake but notes appropriate fluid intake. 1. Acute Hypoxic Respiratory Failure secondary to Acute Bilateral Pneumonia secondary to Acute Viral Syndrome, COVID-19 with Lactic Acidosis secondary to Hypoxemia: We will admit to the ICU, maintain on BiPAP, consult electronics lead, will maintain on oxygen with wean as tolerated to room air, PRN albuterol, HOB, IS parameters w/ pending sputum cultures, respiratory viral panel and urine antigens, will obtain Ferritin and BNP as all other markers already obtained in the ED, continue supportive care including q 2 hour turning including prone given no prone bed availability and judicious hydration, closely monitor for worsening status for ARDS and multiorgan failure, will consult Infectious disease for consideration for bosutinib, will initiate and continue IV decadron x 10 doses, given presentation will also initiate IV remdesivir but defer to discretion of Infectious disease as only noted mild renal insufficiency, may need to hold if worsens further. 2. Acute renal insufficiency: Secondary to presentation as noted. Admission BUN/Cr 22/1.5, prior baseline creatinine noted to be 0.9-1.1. Will judiciously hydrate given acute presentation, hold nephrotoxic medications and repeat chemistry in AM. 3. Acute thrombocytopenia: Admission platelets 107, secondary to #1, repeat CBC in AM. 4. Oral thrush: We will initiate oral nystatin swish and swallow. 5. Chronic COPD with allergic rhinitis: We will hold home inhalers and tra nsition to ATC duonebs, PRN albuterol, HOB, IS parameters, continue patient home cetirizine and fluticasone home regimen. 6. Chronic migraines: We will continue patient home topiramate regimen. 7. KRISSY: Patient currently on BiPAP, will continue but once appropriate transition to nightly. 8. Anxiety and depression: We will continue patient home venlafaxine regimen. 9. Hypertension: Continue home regimen including amlodipine with hold parameters as needed, PRN hydralazine. 10. Obesity: Weight loss and lifestyle changes encouraged. 11. GERD: We will continue patient home PPI. 12. DVT prophylaxis: SCDs, Lovenox. 13. 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 Given acute hypoxic respiratory failure presentation with Covid pneumonia, discussed CODE status at length including difference between FULL code, DNR-CCA and DNR-CC status. Following discussions about the differences in these status, requested Full Code status but noted preference that he would not want to be maintained on a ventilator long-term. Advanced Care Planning Face to Face Time: 16 minutes. Charges/Coding Visit Charges Inpatient E&M: 85975 Init Hosp L3 Procedures Hospitalists Procedures: 83706 Advncd Care Plan 30 Min
[2020-12-20 16:21] LABS: Lactic Acid 2.4 mmol/L (0.4-1.9)
[2020-12-20 16:24] LABS: LDH 643 U/L (87-241)
[2020-12-20 16:32] LABS: Procalcitonin 0.38 ng/mL (0.00-0.09)
[2020-12-20] MEDS: dexAMETHasone 4 MG Tablet 6 MG PO (16:48)
[2020-12-20 17:08] LABS: Ferritin 939 ng/mL (26-388)
[2020-12-20 17:12] LABS: BNP,B-Type NATRIURETIC PEPTIDE 30.1 pg/mL (0-100)
--- NOTE | 2020-12-20 18:11 | ED.RN ---
PER DR. HERNANDEZ, PT IS NOT TO BE GIVEN IV FLUID BOLUS. IV MAINTENANCE FLUIDS ARE ORDERED.
[2020-12-20 19:32] LABS: Reflex Lactate? Y
[2020-12-20] MEDS: Ipratropium/Albuterol Sulfate 3 ML AMPUL.NEB INHALATION (20:41)
[2020-12-20] MEDS: 0.9% Normal Saline 1,000 ML 100 ML IV (20:49)
[2020-12-20] MEDS: Enoxaparin 30 MG/0.3 ML Syringe SC (20:50)
[2020-12-20 23:27] LABS: Lactic Acid 1.4 mmol/L (0.4-1.9)
[2020-12-21] VITALS (42 sets, daily range): BP systolic 67–185; BP diastolic 52–120; PULSE 60–90; RESP 12–28; TEMP 35.5–37.2; O2SAT 87–99
[2020-12-21 03:07] LABS: Absolute Lymphocyte Count 0.67 X10^3/uL (0.83-4.51); Absolute Neutrophil Count 3.6 X10^3/uL (2.0-7.7); Basophil# 0.01 X10^3/uL; Basophil% 0.2 % (0-1); Hematocrit 43.5 % (40-54); Hemoglobin 14.2 g/dL (13.0-16.5); Lymphocyte # 0.67 X10^3/ul (0.83-4.51); Lymphocyte % 14.7 % (19-41); Mean Corp Hgb Conc 32.6 g/dL (32-36); Mean Corpuscular Hgb 28.7 pg (27.0-32.0); Mean Corpuscular Volume 88.1 fL (80-94); Mean Platelet Vol. 12.3 fl (6.2-12.0); Monocyte# 0.26 X10^3/uL; Monocyte% 5.7 % (0-10); NRBC Flagged by Analyzer 0 % (0-5); Neutrophil # 3.58 X10^3/uL (2.7-7.7); Neutrophil % 78.5 % (47-70); Platelet Count 104 K/mm3 (150-450); RBC Distribution Width CV 15.7 % (11.6-14.6); RBC Distribution Width SD 50.2 fl (35.1-43.9); Red Blood Count 4.94 M/mm3 (4.6-6.2); White Blood Count 4.6 K/mm3 (4.4-11.0)
[2020-12-21 03:26] LABS: ALB/GLOB Ratio 0.6 RATIO (0.9-2.4); AST(SGOT) 78 U/L (15-37); Alanine Aminotransfer ALT/SGPT 38 U/L (16-61); Albumin, Serum 2.6 g/dL (3.2-5.0); Alkaline Phosphatase 86 U/L (45-117); Anion Gap 8 (5-15); BUN 20 mg/dL (7-18); BUN/Creat Ratio 13.9 RATIO (10-20); Calcium,Total 8.1 mg/dL (8.5-10.1); Chloride 100 mmol/L (98-107); Creatinine, Serum 1.44 mg/dL (0.70-1.30); EST Glomerular Filtration Rate 53 mL/min (>60); Est Glom Filt Rate - Afr Amer 64 mL/min (>60); Estimated Creatinine Clearance 52.12 ml/min; Globulin 4.5 g/dL (2.2-4.2); Glucose 172 mg/dL (74-106); Potassium 4.3 mmol/L (3.5-5.1); Protein, Total 7.1 g/dL (6.4-8.2); Sodium Level 135 mmol/L (136-145)
--- NOTE | 2020-12-21 06:25 | CON.PCM.CC_ITS ---
Assessment & Plan Assessment/Plan (1) Acute hypoxemic respiratory failure: (2) COVID-19: PLAN: RECOMMENDATIONS: 1. Continue BiPAP therapy and wean FiO2 to maintain oxygen saturations at or above 90%. 2. Continue remdesivir to complete 5-day treatment course. Continue to monitor liver and renal function. 3. Continue baricitinib per ID recommendations. 4. Continue Decadron to complete 10 days of therapy. 5. Continue twice daily Lovenox. 6. IV diuretic therapy as needed to maintain euvolemic state. 7. Awake prone positioning was encouraged. IMPRESSIONS: 1. Acute hypoxemic respiratory failure secondary to COVID-19 pneumonia The patient initially tested positive for coronavirus on December 13 and has had progressive symptoms and worsening oxygenation. He is currently being maintained on BiPAP therapy with an FiO2 requirement of 100%. Oxygen saturations remain tenuous, despite the aforementioned. The patient has already been initiated on remdesivir, prophylactic Lovenox, Decadron and baricitinib. He remains on scheduled bronchodilators as well. Plan to continue to wean FiO2 to maintain oxygen saturations at or above 90%. IV Lasix can be utilized as needed to maintain euvolemic state. However, given that the patient has underlying renal insufficiency, will hold off on dosing Lasix today. The patient is at high risk for intubation in the next 24 hours, if there is no improvement in his oxygenation status. 2. Acute kidney injury Likely prerenal in etiology. Hold on any additional IV fluids for now. We'll continue to monitor urine output. No current indication for renal replacement therapy. We'll hold on providing diuretic therapy given the aforementioned. 3. Obesity/COPD/history of KRISSY/hypertension/thrombocytopenia/GERD Complicates care, management, recovery and prognosis. Continue home medications as indicated. Continue scheduled bronchodilators. TIME: 45 minutes of critical care time, independent of procedures, was spent addressing the patient's acute hypoxemic respiratory failure secondary to COVID-19 pneumonia, acute kidney injury, review of all data and collaboration with the care team. ([id number], [id number]) HPI Consult Data Date of Consult: 12/21/20 HPI Narrative Reason for Consultation: Acute hypoxemic respiratory failure secondary to COVID- 19 pneumonia HPI Narrative: The patient is a 60-year-old male, with a history as outlined below, who presented to the emergency department on December 20 with worsening dyspnea and hypoxemia. The patient was evaluated in the emergency department several times last week with constitutional symptoms concerning for COVID-19. The patient was tested and found to be positive on December 13. The patient is unvaccinated. On presentation to the emergency department, the patient was noted to be afebrile and hemodynamically stable. He was, nevertheless, notably tachypneic and hypoxemic. Laboratory evaluation revealed a normal white blood cell count. The patient was thrombocytopenic with a platelet count of 107,000. D-dimer was noted to be 1.62. Chemistry profile was notable for a sodium of 131, BUN of 22 and creatinine of 1.56. Lactate was elevated to 2.4. CRP was elevated to 30.6. Procalcitonin was noted to be 0.38. CTA chest showed no evidence for pulmonary embolism. Bilateral groundglass opacities were noted. The patient was subsequently placed on BiPAP therapy with a pressure setting of 14/8 centimeters of water and 100 percent FiO2. He was subsequently admitted to the medical intensive care unit for further management. The patient has been initiated on remdesivir, prophylactic Lovenox, Decadron and baricitinib. Over the course of the morning and early afternoon, the patient remained tachypneic with borderline oxygen saturations, despite being on 100% FiO2 via the BiPAP. I had a very aurora discussion with the patient and his family regarding his overall prognosis. They are in agreement to proceed with intubation, given his clinical instability. Intubation Indication: Respiratory Consent was obtained from: Patient The patient was placed in the appropriate sniffing position. Preoxygenated sedation via BiPAP was provided for a minimum of 3 minutes. The patient had continuous cardiac as well as pulse oximetry monitoring during the procedure. Procedure sedation was provided by the administration of 4 mg of Versed and 20 mg of etomidate. Direct laryngoscopy was then performed using a number 4 MAC blade, which revealed a grade 1 view. A 7.5 mm endotracheal tube was visualized advancing between the cords to the level of 24 cm at the lip. The stylette was then removed and discarded. Tube placement was confirmed by fogging in the tube along with equal and bilateral breath sounds. Colorimetric change was visualized on the CO2 meter. The cuff was then inflated and the tube secured using a commercially available device. A good pulse oximetry waveform was seen on the monitor throughout the procedure. A portable chest x-ray has been ordered to confirm appropriate placement. The patient tolerated the procedure well. COUNT INCLUDES THE [facility] Medical History Atypical chest pain BPH (benign prostatic hyperplasia) Cervical radiculopathy Cervical spondylosis Chronic vertigo COLD (chronic obstructive lung disease) Cubital tunnel syndrome on left DDD (degenerative disc disease) Depression Emphysema with chronic bronchitis Fibromyalgia GERD (gastroesophageal reflux disease) History of herniated intervertebral disc Hypertension Left carpal tunnel syndrome BO (nonalcoholic steatohepatitis) KRISSY (obstructive sleep apnea) Post-cholecystectomy syndrome Primary fibromyalgia syndrome Pulmonary nodules Home Medications albuterol sulfate 2 puff IH Q4H PRN PRN 06/06/16 [History Last Taken 12/20/20] amlodipine 5 mg PO DAILY 06/06/16 [History Last Taken 12/20/20] omeprazole 40 mg PO DAILY 06/06/16 [History Last Taken 12/20/20] fluticasone furoate-vilanterol 1 - 2 ea NASAL DAILY 06/04/17 [History Last Taken 12/20/20] ipratropium bromide 1 - 2 spray NASAL PRN PRN 06/04/17 [History Last Taken Unknown] umeclidinium-vilanterol 1 puff IH DAILY 06/04/17 [History Last Taken 12/20/20] mirabegron 1 tab PO DAILY 12/07/18 [History Last Taken 12/20/20] hydrocodone-acetaminophen 1 ea PO TID PRN PRN 06/04/19 [History Last Taken 2 Days Ago ~12/18/20] cetirizine 10 mg tablet 10 mg PO DAILY #30 tab 11/24/19 [Rx Last Taken 12/20/20] ubrogepant 50 mg tablet 50 mg PO DAILY PRN #15 tab 07/17/20 [Rx Last Taken Unknown] venlafaxine 75 mg capsule,extended release 24 hr 75 mg PO DAILY #30 cap 11/06/20 [Rx Last Taken 12/20/20] pregabalin 200 mg PO BID 12/20/20 [History Last Taken 12/20/20] topiramate 50 mg PO QHS 12/20/20 [History Last Taken 12/19/20] Allergy/AdvReac Type Severity Reaction Status Date / Time divalproex sodium Allergy Severe hives Verified 12/20/20 14:40 codeine Allergy Itching Verified 12/20/20 14:40 nuclear stress test contrast AdvReac Other Uncoded 12/20/20 14:40 Family History Mother Hypertension Father Hypertension CVA (cerebral vascular accident) Sister Diabetes Surgical History h/o gallbladder removal h/o hernia surgery H/O left wrist surgery History of cataract surgery Social History (Updated 12/20/20 @ 18:[address] Elva Lozano MD) household members: spouse Smoking Status: Former smoker Tobacco: How many years used: 40 how long ago did patient quit smoking: Quit > 8 years prior, rolled cigarettes. alcohol intake: current alcohol intake frequency: a few times a month substance use type: does not use ROS Constitutional Constitutional: Reports body ache(s), fatigue, malaise and weakness Eyes Eyes: Denies blurry vision or change in vision ENT HEENT: Reports headache(s); Denies dizziness or epistaxis Cardiovascular Cardiovascular: Reports dyspnea; Denies chest pain Respiratory/Chest Respiratory/Chest: Reports cough and dyspnea Gastrointestinal Gastrointestinal: Denies abdominal pain, diarrhea, nausea or vomiting Genitourinary Genitourinary: Denies difficulty urinating Musculoskeletal Musculoskeletal: Reports myalgias Integumentary Integumentary: Denies lesions, rash or skin ulcer Neurologic Neurologic: Denies abnormal gait or abnormal speech Psychiatric Psychiatric: Reports anxiety and depression Endocrine Endocrinology: Reports fatigue Hematologic/Lymphatic Hematologic/Lymphatic: Denies easy bleeding or easy bruising Physical Exam Const alert General Appearance: cooperative, ill appearing and on BiPAP Nutritional Appearance: obese HEENT normocephalic and head/scalp atraumatic Eyes PERRL, EOMs intact bilaterally and conjunctivae normal Neck supple General: trachea midline Chest inspection of chest normal Resp Effort and Inspection: tachypneic Auscultation: diminished lung sounds; Negative for rales, rhonchi or wheezes Cardio regular rate and regular rhythm GI normal to inspection, nondistended, normoactive bowel sounds Extremity no clubbing, cyanosis or edema Skin no rashes or lesions noted Neuro moves all extremities and no focal motor deficits Psych cooperative and affect normal Lab / Micro Data Result Diagrams: 12/21/20 03:00 12/21/20 03:00 Labs: Laboratory Results - last 24 hr 12/20/20 14:45: WBC 5.5, RBC 5.25, Hgb 15.1, Hct 45.7, MCV 87.0, MCH 28.8, MCHC 33.0, RDW Std Deviation 49.6 H, RDW Coeff of Jose 15.5 H, Plt Count 107 L, MPV 12.6 H, Immature Gran % (Auto) 0.500, Neut % (Auto) 77.2 H, Lymph % (Auto) 16.5 L, [place] % (Auto) 5.6, Eos % (Auto) 0.0, Baso % (Auto) 0.2, Absolute Neuts (auto) 4.3, Absolute Lymphs (auto) 0.91, Nucleated RBC % 0 12/20/20 14:45: PT 13.6, INR 1.1, APTT 35.4 12/20/20 14:45: Sodium 131 L, Potassium 4.1, Chloride 98, Carbon Dioxide 24.0, Anion Gap 9, BUN 22 H, Creatinine 1.56 H, Estim Creat Clear Calc 49.73, Est GFR (MDRD) Af Amer 58 L, Est GFR (MDRD) Non-Af 48 L, BUN/Creatinine Ratio 14.1, Glucose 135 H, Calcium 8.2 L, Total Bilirubin 0.60, AST 87 H, ALT 38, Alkaline Phosphatase 89, Troponin I High Sens 32, Total Protein 7.7, Albumin 3.0 L, Globulin 4.7 H, Albumin/Globulin Ratio 0.6 L 12/20/20 14:45: Lactate Dehydrogenase 643 H, C-React Prot Ext Range 30.60 H 12/20/20 14:45: Ferritin 939 H 12/20/20 14:45: B-Natriuretic Peptide 30.1 12/20/20 15:25: Lactic Acid 2.4 H* 12/20/20 15:38: Fibrinogen 508 H, D-Dimer Quant (PE/DVT) 1.62 H* 12/20/20 15:38: Procalcitonin 0.38 H 12/20/20 22:45: Lactic Acid 1.4 12/21/20 03:00: WBC 4.6, RBC 4.94, Hgb 14.2, Hct 43.5, MCV 88.1, MCH 28.7, MCHC 32.6, RDW Std Deviation 50.2 H, RDW Coeff of Jose 15.7 H, Plt Count 104 L, MPV 12.3 H, Immature Gran % (Auto) 0.900, Neut % (Auto) 78.5 H, Lymph % (Auto) 14.7 L, [place] % (Auto) 5.7, Eos % (Auto) 0.0, Baso % (Auto) 0.2, Absolute Neuts (auto) 3.6, Absolute Lymphs (auto) 0.67 L, Nucleated RBC % 0 12/21/20 03:00: Sodium 135 L, Potassium 4.3, Chloride 100, Carbon Dioxide 27.0, Anion Gap 8, BUN 20 H, Creatinine 1.44 H, Estim Creat Clear Calc 52.12, Est GFR (MDRD) Af Amer 64, Est GFR (MDRD) Non-Af 53 L, BUN/Creatinine Ratio 13.9, Glucose 172 H, Calcium 8.1 L, Total Bilirubin 0.60, AST 78 H, ALT 38, Alkaline Phosphatase 86, Total Protein 7.1, Albumin 2.6 L, Globulin 4.5 H, Albumin/Globulin Ratio 0.6 L Micro: Microbiology 12/20/20 17:29 Mucosa - Nose Respiratory Panel (PCR) - Final Radiology Impression Chest X-Ray 12/20/20 14:49 IMPRESSION: Multifocal infiltrates with features commonly reported with COVID pneumonia. Electronically Signed: Adryan Navarro MD ([place]) at 15:42 EDT , Service support , Chest CTA 12/20/20 15:32 IMPRESSION: 1. No central or segmental pulmonary embolism. 2. Multifocal infiltrates with features commonly reported with COVID pneumonia. 3. Centrilobular and paraseptal emphysema particularly the upper lung zones. Electronically Signed: Adryan Navarro MD ([place]) at 16:15 EDT , Service support , Charges/Coding Procedures Hospitalists Procedures: [id number] [facility] 1st Hr
[2020-12-21] MEDS: Ipratropium/Albuterol Sulfate 3 ML AMPUL.NEB INHALATION ×3 (07:15→15:40)
--- NOTE | 2020-12-21 07:20 | PN.HOSP_ITS ---
Subjective Subjective Patient is a 60-year-old gentleman unvaccinated against COVID-19 who tested positive for COVID-19 on 12/13/2020 presented to the emergency department with progressive shortness of breath. Patient was assessed to be in acute hypoxic respiratory failure placed on BiPAP admitted to the intensive care unit for further management Objective Data Objective Data Vital Signs: Vital Signs Temp Pulse Resp BP Pulse Ox 98.9 F 73 24 H 150/78 H 90 12/21/20 00:00 12/21/20 07:18 12/21/20 07:18 12/21/20 06:00 12/21/20 07:18 Oxygen Delivery Method Bi-pap Weight: 116 kg Body Mass Index (BMI) 38.7 Intake & Output: Intake and Output for Last 24 Hours 12/19/20 12/20/20 12/21/20 23:59 23:59 23:59 Intake Total 250 / 250 Output Total 350 / 350 250 / 250 Balance -100 / -100 -250 / -250 Lab / Micro Data Result Diagrams: 12/21/20 03:00 12/21/20 03:00 Labs: Laboratory Results - last 24 hr 12/20/20 14:45: WBC 5.5, RBC 5.25, Hgb 15.1, Hct 45.7, MCV 87.0, MCH 28.8, MCHC 33.0, RDW Std Deviation 49.6 H, RDW Coeff of Jose 15.5 H, Plt Count 107 L, MPV 12.6 H, Immature Gran % (Auto) 0.500, Neut % (Auto) 77.2 H, Lymph % (Auto) 16.5 L, [place] % (Auto) 5.6, Eos % (Auto) 0.0, Baso % (Auto) 0.2, Absolute Neuts (auto) 4.3, Absolute Lymphs (auto) 0.91, Nucleated RBC % 0 12/20/20 14:45: PT 13.6, INR 1.1, APTT 35.4 12/20/20 14:45: Sodium 131 L, Potassium 4.1, Chloride 98, Carbon Dioxide 24.0, Anion Gap 9, BUN 22 H, Creatinine 1.56 H, Estim Creat Clear Calc 49.73, Est GFR (MDRD) Af Amer 58 L, Est GFR (MDRD) Non-Af 48 L, BUN/Creatinine Ratio 14.1, Glucose 135 H, Calcium 8.2 L, Total Bilirubin 0.60, AST 87 H, ALT 38, Alkaline Phosphatase 89, Troponin I High Sens 32, Total Protein 7.7, Albumin 3.0 L, Globulin 4.7 H, Albumin/Globulin Ratio 0.6 L 12/20/20 14:45: Lactate Dehydrogenase 643 H, C-React Prot Ext Range 30.60 H 12/20/20 14:45: Ferritin 939 H 12/20/20 14:45: B-Natriuretic Peptide 30.1 12/20/20 15:25: Lactic Acid 2.4 H* 12/20/20 15:38: Fibrinogen 508 H, D-Dimer Quant (PE/DVT) 1.62 H* 12/20/20 15:38: Procalcitonin 0.38 H 12/20/20 22:45: Lactic Acid 1.4 12/21/20 03:00: WBC 4.6, RBC 4.94, Hgb 14.2, Hct 43.5, MCV 88.1, MCH 28.7, MCHC 32.6, RDW Std Deviation 50.2 H, RDW Coeff of Jose 15.7 H, Plt Count 104 L, MPV 12.3 H, Immature Gran % (Auto) 0.900, Neut % (Auto) 78.5 H, Lymph % (Auto) 14.7 L, [place] % (Auto) 5.7, Eos % (Auto) 0.0, Baso % (Auto) 0.2, Absolute Neuts (auto) 3.6, Absolute Lymphs (auto) 0.67 L, Nucleated RBC % 0 12/21/20 03:00: Sodium 135 L, Potassium 4.3, Chloride 100, Carbon Dioxide 27.0, Anion Gap 8, BUN 20 H, Creatinine 1.44 H, Estim Creat Clear Calc 52.12, Est GFR (MDRD) Af Amer 64, Est GFR (MDRD) Non-Af 53 L, BUN/Creatinine Ratio 13.9, Glucose 172 H, Calcium 8.1 L, Total Bilirubin 0.60, AST 78 H, ALT 38, Alkaline Phosphatase 86, Total Protein 7.1, Albumin 2.6 L, Globulin 4.5 H, Albumin/Globulin Ratio 0.6 L Micro: Microbiology 12/20/20 17:29 Mucosa - Nose Respiratory Panel (PCR) - Final Radiography Diagnostic Testing: Radiology Impression Chest X-Ray 12/20/20 14:49 IMPRESSION: Multifocal infiltrates with features commonly reported with COVID pneumonia. Electronically Signed: Adryan Navarro MD ([place]) at 15:42 EDT , Service support , Chest CTA 12/20/20 15:32 IMPRESSION: 1. No central or segmental pulmonary embolism. 2. Multifocal infiltrates with features commonly reported with COVID pneumonia. 3. Centrilobular and paraseptal emphysema particularly the upper lung zones. Electronically Signed: Adryan Navarro MD ([place]) at 16:15 EDT , Service support , Physical Exam Narrative GENERAL: On BiPAP HEENT: Atraumatic; EYES; Anicteric, Normal Conjunctiva NECK; supple, normal thyroid, RESPIRATORY: Diminished to auscultation CARDIOVASCULAR: Regular S1 S2, GI: soft, normoactive bowel sounds, : No Renal angle tenderness; EXTREMITIES: No edema, no clubbing, MUSCULOSKELETAL: no muscle waisting NEURO: Awake; no lateralizing signs. SKIN: No Rash PSYCH; Flat affect Assessment & Plan Assessment/Plan (1) Acute hypoxemic respiratory failure: (2) COVID-19: PLAN: Patient is a 60-year-old gentleman unvaccinated against COVID-19 who tested positive for COVID-19 on 12/13/2020 presented to the emergency department with progressive shortness of breath. Patient was assessed to be in acute hypox ic respiratory failure placed on BiPAP admitted to the intensive care unit for further management 1. Acute hypoxic respiratory failure ?Secondary to SARS-CoV-2 pneumonia patient has been admitted to the intensive care unit managed with noninvasive ventilation BiPAP. Patient was placed on remdesivir and Decadron. Consultation placed to both pulmonary and ID. Patient may be a candidate for aggressive treatment in view of rapidly deteriorating respiratory status as well as increasing markers of inflammation. Decision deferred to ID -Patient's condition was discussed with him his as well as his sister. Patient is okay if he has to be placed on the ventilator. Family also in agreement 2. Acute renal insufficiency ?Baseline creatinine was 1.05 as of 11/12/2020. Creatinine on admission was 1.56 on fluids with subsequent monitoring of electrolyte more so since patient is on remdesivir 3. Thrombocytopenia ?This may be related to patient SARS-CoV-2 infection. Platelet count on 12/13/2020 was 171, admission platelet was 107 and has dropped to 104 we will continue to monitor 4. COPD ?Patient currently on bronchodilator treatment in addition to systemic steroid 5. Morbid obesity with BMI of 38.9 ?Weight loss advised 6. Essential hypertension ?Patient is on amlodipine did continue 7. Oral candidiasis ?Patient was placed on nystatin swish and swallow 4 times a day 8. Depression with anxiety ?Patient is on venlafaxine did continue with home dose 9. Obstructive sleep apnea ?Patient is on BiPAP at night 10. GERD ?Patient is on PPI 11. Chronic migraine -patient apparently on topiramate did continue with home dose 12. DVT prophylaxis ?Lovenox Charges/Coding Visit Charges Inpatient E&M: 34274 Subs Hosp L3
[2020-12-21] MEDS: Enoxaparin 30 MG/0.3 ML Syringe SC ×2 (08:33→20:34)
[2020-12-21] MEDS: dexAMETHasone 4 MG/ML Vial 6 MG IV (08:35)
[2020-12-21] MEDS: amLODIPine 5 MG Tablet PO (08:37)
[2020-12-21] MEDS: Loratadine 10 MG Tablet PO (08:37)
[2020-12-21] MEDS: Mirabegron 25 MG TAB.ER.24H PO (08:37)
[2020-12-21] MEDS: Venlafaxine XR 75 MG Capsule PO (08:38)
[2020-12-21] MEDS: Pantoprazole Sodium 40 MG Tablet PO (08:38)
[2020-12-21] MEDS: Pregabalin 50 MG Capsule 200 MG PO (08:38)
[2020-12-21] MEDS: NYSTATIN 500,000 UNIT/5 ML UDC 500000 UNIT PO ×3 (08:39→20:34)
--- NOTE | 2020-12-21 11:56 | NURSING ---
Dr Porter here talking with & sister regarding intubation awaiting decision from family
[2020-12-21] MEDS: Midazolam 2 MG/2 ML Syringe 4 MG IV (12:55)
--- NOTE | 2020-12-21 12:56 | NURSING ---
1255 Dr. Porter present in pt room w/RT/RN to prep for intubation 1259 4mg versed IV push 1301 20mg etomidate IV push HR 84 BP 1303 100mg succs IV push, good color change 23cm lip #7.5 1304 SpO2 72 and climbing xray ordered
[2020-12-21] MEDS: Etomidate 20 MG/10 ML Vial IV (13:01)
--- NOTE | 2020-12-21 13:11 | RAD_ITS ---
STUDY: X-RAY CHEST REASON FOR EXAM: Male, 60 years old. tube placement TECHNIQUE: Frontal portable view of the chest COMPARISON: 20 December 2020 FINDINGS: Endotracheal tube is located 7 cm above the amy, at the intermediate clavicular level. Gastric tube descends below the lower edge of the film into the stomach. There are extensive bilateral pneumonia, worst in the right lower lung. There is no pneumothorax or cardiomegaly or pleural effusions. Detection of pulmonary edema is not possible. RAD/Chest 1 View (Portable) IMPRESSION: 1. Endotracheal tube 7 cm from the amy, consider advancement by 3 cm. 2. Severe bilateral pneumonia. Electronically Signed: Darryl Owusu MD at 13:43 EDT Tel , Service support ,
[2020-12-21] MEDS: Propofol 10MG/Ml 1,000 MG/100 ML Bottle 34.8 MG CONT INF ×2 (13:20→14:48)
[2020-12-21 13:46] LABS: Base Excess -2 mmol/L (-2 to +2); Bicarbonate 24.6 mmol/L (22-26); Blood Gas Specimen Type ART; FI02 100; Mode AC; PEEP 18; PO2 62 mmHG (75-100); RR 14; SO2 87 % (95-99); Total Carbon Dioxide 26 mmol/L; pCO2 53.8 mmHg (35-45); pH 7.27 (7.35-7.45)
[2020-12-21] MEDS: TITRATION PARAMETER CHANGE 1 EACH IV (14:18)
--- NOTE | 2020-12-21 14:21 | CASEMGMT ---
RN CM NOTE: Pt is intubated. Initial RN CM assessment deferred at this time. Jemal JEFFRIESN RN CM
--- NOTE | 2020-12-21 14:55 | NURSING ---
Debbie updated on status consent given for PICC line insertion Ann-Marie Muniz also verified consent
[2020-12-21 15:09] LABS: CPK Total, Creatine Kinase 818 U/L (39-308); Triglycerides 202 mg/dL
--- NOTE | 2020-12-21 15:57 | PCM.CONS.GEN ---
Assessment & Plan Assessment/Plan (1) COVID-19: PLAN: Sx started around 12/11. Unvaccinated. On dex, remdesivir, baricitinib. Now intubated. Isolate for [address] neg for PE. Will follow, thank you, d/w nursing (2) Acute hypoxemic respiratory failure: HPI Consult Data Date of Consult: 12/21/20 HPI Narrative HPI Narrative: NAKUL CARTAGENA, is a 60 M who presented 12/20 after sx initially started around 12/11. C/o diarrhea, headache, aches, chills when he came to ED 12/13. Came back 12/15 with worsened aches and cough. Came back 12/20 with sat 56% on RA. Admitted to icu on dex, remdesivir, and baricitinib. Intubated this afternoon. Unvaccinated. ROS unobtainable. [facility] Medical History Atypical chest pain BPH (benign prostatic hyperplasia) Cervical radiculopathy Cervical spondylosis Chronic vertigo COLD (chronic obstructive lung disease) Cubital tunnel syndrome on left DDD (degenerative disc disease) Depression Emphysema with chronic bronchitis Fibromyalgia GERD (gastroesophageal reflux disease) History of herniated intervertebral disc Hypertension Left carpal tunnel syndrome BO (nonalcoholic steatohepatitis) KRISSY (obstructive sleep apnea) Post-cholecystectomy syndrome Primary fibromyalgia syndrome Pulmonary nodules Home Medications albuterol sulfate 2 puff IH Q4H PRN PRN 06/06/16 [History Last Taken 12/20/20] amlodipine 5 mg PO DAILY 06/06/16 [History Last Taken 12/20/20] omeprazole 40 mg PO DAILY 06/06/16 [History Last Taken 12/20/20] fluticasone furoate-vilanterol 1 - 2 ea NASAL DAILY 06/04/17 [History Last Taken 12/20/20] ipratropium bromide 1 - 2 spray NASAL PRN PRN 06/04/17 [History Last Taken Unknown] umeclidinium-vilanterol 1 puff IH DAILY 06/04/17 [History Last Taken 12/20/20] mirabegron 1 tab PO DAILY 12/07/18 [History Last Taken 12/20/20] hydrocodone-acetaminophen 1 ea PO TID PRN PRN 03/21/20 [History Last Taken 2 Days Ago ~12/18/20] cetirizine 10 mg tablet 10 mg PO DAILY #30 tab 11/24/19 [Rx Last Taken 12/20/20] ubrogepant 50 mg tablet 50 mg PO DAILY PRN #15 tab 07/17/20 [Rx Last Taken Unknown] venlafaxine 75 mg capsule,extended release 24 hr 75 mg PO DAILY #30 cap 11/06/20 [Rx Last Taken 12/20/20] pregabalin 200 mg PO BID 12/20/20 [History Last Taken 12/20/20] topiramate 50 mg PO QHS 12/20/20 [History Last Taken 12/19/20] Allergy/AdvReac Type Severity Reaction Status Date / Time divalproex sodium Allergy Severe hives Verified 12/20/20 14:40 codeine Allergy Itching Verified 12/20/20 14:40 nuclear stress test contrast AdvReac Other Uncoded 12/20/20 14:40 Family History Mother Hypertension Father Hypertension CVA (cerebral vascular accident) Sister Diabetes Surgical History h/o gallbladder removal h/o hernia surgery H/O left wrist surgery History of cataract surgery Social History (Updated 12/20/20 @ 18:[address] Elva Lozano MD) household members: spouse Smoking Status: Former smoker Tobacco: How many years used: 40 how long ago did patient quit smoking: Quit > 8 years prior, rolled cigarettes. alcohol intake: current alcohol intake frequency: a few times a month substance use type: does not use Physical Exam Const Constitutional Narrative: intubated, sedated HEENT normocephalic and head/scalp atraumatic Eyes PERRL and EOMs intact bilaterally Neck supple and No nodes Resp Auscultation: diminished lung sounds Cardio regular rate and regular rhythm GI normal to inspection, nondistended, normoactive bowel sounds Extremity no clubbing, cyanosis or edema Skin no rashes or lesions noted Lab / Micro Data Result Diagrams: 12/21/20 03:00 12/21/20 03:00 Labs: Laboratory Results - last 24 hr 12/20/20 14:45: Lactate Dehydrogenase 643 H, C-React Prot Ext Range 30.60 H 12/20/20 14:45: Ferritin 939 H 12/20/20 14:45: B-Natriuretic Peptide 30.1 12/20/20 15:25: Lactic Acid 2.4 H* 12/20/20 15:38: Fibrinogen 508 H, D-Dimer Quant (PE/DVT) 1.62 H* 12/20/20 15:38: Procalcitonin 0.38 H 12/20/20 22:45: Lactic Acid 1.4 12/21/20 03:00: WBC 4.6, RBC 4.94, Hgb 14.2, Hct 43.5, MCV 88.1, MCH 28.7, MCHC 32.6, RDW Std Deviation 50.2 H, RDW Coeff of Jose 15.7 H, Plt Count 104 L, MPV 12.3 H, Immature Gran % (Auto) 0.900, Neut % (Auto) 78.5 H, Lymph % (Auto) 14.7 L, [place] % (Auto) 5.7, Eos % (Auto) 0.0, Baso % (Auto) 0.2, Absolute Neuts (auto) 3.6, Absolute Lymphs (auto) 0.67 L, Nucleated RBC % 0 12/21/20 03:00: Sodium 135 L, Potassium 4.3, Chloride 100, Carbon Dioxide 27.0, Anion Gap 8, BUN 20 H, Creatinine 1.44 H, Estim Creat Clear Calc 52.12, Est GFR (MDRD) Af Amer 64, Est GFR (MDRD) Non-Af 53 L, BUN/Creatinine Ratio 13.9, Glucose 172 H, Calcium 8.1 L, Total Bilirubin 0.60, AST 78 H, ALT 38, Alkaline Phosphatase 86, Total Protein 7.1, Albumin 2.6 L, Globulin 4.5 H, Albumin/Globulin Ratio 0.6 L 12/21/20 03:00: Total Creatine Kinase 818 H, Triglycerides 202 H Micro: Microbiology 12/21/20 13:13 Sputum, Induced/Lukens Gram Stain - Final 12/21/20 14:00 Urine, Clean Catch Legionella Antigen - Final 12/21/20 14:00 Urine, Clean Catch Streptococcus pneumoniae Antigen (M - Final 12/20/20 17:29 Mucosa - Nose Respiratory Panel (PCR) - Final ABG Data ABG results: ABG 12/21/20 13:40 Specimen Type ART pH 7.27 L Bicarbonate Actual 24.6 Total CO2 26 Base Excess -2 O2 Saturation 87 L O2 % 100 ABG pCO2 53.8 H ABG pO2 62 L Respiration Rate 14 Vent Mode AC POC PEEP 18 Radiology Impression Chest CTA 12/20/20 15:32 IMPRESSION: 1. No central or segmental pulmonary embolism. 2. Multifocal infiltrates with features commonly reported with COVID pneumonia. 3. Centrilobular and paraseptal emphysema particularly the upper lung zones. Electronically Signed: Adryan Navarro MD ([place]) at 16:15 EDT , Service support , Chest X-Ray 12/21/20 13:11 IMPRESSION: 1. Endotracheal tube 7 cm from the amy, consider advancement by 3 cm. 2. Severe bilateral pneumonia. Electronically Signed: Darryl Owusu MD at 13:43 EDT Tel , Service support ,
--- NOTE | 2020-12-21 16:06 | CASEMGMT ---
SW called , offered support. is worried pt will not make it, tearful on the phone. does have two children, one is with her(age 13), and one is with her mother(age 9). She states does not have a lot of support, but may go to visit her mother later. SW will continue to follow and remains available for support to . QUENTIN Rivera
[2020-12-21] MEDS: Propofol 10MG/Ml 1,000 MG/100 ML Bottle 27.8 MG CONT INF ×2 (18:07→21:45)
--- NOTE | 2020-12-21 19:41 | NURSING ---
Pt is on paralytic and sedation. RASS goal is -5, CPOT goal 0, TOF 1-2/4, BIS goal 40-60.
[2020-12-21] MEDS: Chlorhexidine 15 ML PO (20:27)
[2020-12-21 23:56] LABS: Bedside Glucose 190 mg/dL (70-110)
[2020-12-22] VITALS (34 sets, daily range): BP systolic 92–107; BP diastolic 38–74; PULSE 64–79; RESP 16; TEMP 35.9–36.3; O2SAT 90–95
[2020-12-22] MEDS: Propofol 10MG/Ml 1,000 MG/100 ML Bottle 27.8 MG CONT INF ×2 (01:15→03:15)
[2020-12-22 04:13] LABS: Absolute Lymphocyte Count 0.82 X10^3/uL (0.83-4.51); Absolute Neutrophil Count 8.3 X10^3/uL (2.0-7.7); Basophil# 0.02 X10^3/uL; Basophil% 0.2 % (0-1); Hematocrit 43.2 % (40-54); Hemoglobin 13.1 g/dL (13.0-16.5); Lymphocyte # 0.82 X10^3/ul (0.83-4.51); Lymphocyte % 8.2 % (19-41); Mean Corp Hgb Conc 30.3 g/dL (32-36); Mean Corpuscular Hgb 28.3 pg (27.0-32.0); Mean Corpuscular Volume 93.3 fL (80-94); Mean Platelet Vol. 12.6 fl (6.2-12.0); Monocyte# 0.77 X10^3/uL; Monocyte% 7.7 % (0-10); NRBC Flagged by Analyzer 0 % (0-5); Neutrophil # 8.28 X10^3/uL (2.7-7.7); Neutrophil % 82.9 % (47-70); Platelet Count 119 K/mm3 (150-450); RBC Distribution Width SD 55.7 fl (35.1-43.9); Red Blood Count 4.63 M/mm3 (4.6-6.2)
[2020-12-22 04:51] LABS: ALB/GLOB Ratio 0.6 RATIO (0.9-2.4); AST(SGOT) 68 U/L (15-37); Alanine Aminotransfer ALT/SGPT 44 U/L (16-61); Albumin, Serum 2.3 g/dL (3.2-5.0); Alkaline Phosphatase 80 U/L (45-117); Anion Gap 4 (5-15); BUN 33 mg/dL (7-18); BUN/Creat Ratio 15.1 RATIO (10-20); Calcium,Total 7.7 mg/dL (8.5-10.1); Chloride 102 mmol/L (98-107); Creatinine, Serum 2.18 mg/dL (0.70-1.30); EST Glomerular Filtration Rate 33 mL/min (>60); Est Glom Filt Rate - Afr Amer 40 mL/min (>60); Estimated Creatinine Clearance 34.43 ml/min; Globulin 4.1 g/dL (2.2-4.2); Glucose 176 mg/dL (74-106); Magnesium 2.6 mg/dL (1.6-2.6); Potassium 5.7 mmol/L (3.5-5.1); Protein, Total 6.4 g/dL (6.4-8.2); Sodium Level 136 mmol/L (136-145)
--- NOTE | 2020-12-22 05:30 | PCM.PN.INT ---
Assessment & Plan Assessment/Plan (1) Acute hypoxemic respiratory failure: (2) COVID-19: PLAN: RECOMMENDATIONS: 1. Continue assist control mode of mechanical ventilation and wean FiO2/PEEP for saturations greater than 90%. 2. Continue current sedation regimen along with cis atracurium. 3. Obtain repeat chest x-ray this morning and arterial blood gas. 4. Continue remdesivir, Decadron, prophylactic Lovenox and baricitinib. Monitor renal function closely. 5. Continue appropriate GI prophylaxis. 6. Medical management of hyperkalemia IMPRESSIONS: 1. Acute hypoxemic respiratory failure secondary to COVID-19 pneumonia The patient initially tested positive for coronavirus on December 13 and has had progressive symptoms and worsening oxygenation. Although initially being maintained on noninvasive positive pressure ventilatory support, the patient continued to decompensate from a respiratory perspective and was ultimately intubated on December 21. The patient is being maintained on remdesivir, Decadron, prophylactic Lovenox and baricitinib. CTA was negative for PE. The patient is unable to be diuresed due to underlying renal insufficiency. The patient will be continued on assist control mode of mechanical ventilation. FiO2 and PEEP will be weaned to maintain oxygen saturations at or above 90%. The patient will be continued on cis atracurium for at least 24 additional hours. 2. Acute kidney injury Likely prerenal in etiology. Continue to monitor urine output. No current indication for renal replacement therapy. If renal function continues to worsen, will obtain nephrology consultation. 3. Obesity/COPD/history of KRISSY/hypertension/thrombocytopenia/GERD Complicates care, management, recovery and prognosis. Continue scheduled bronchodilators. TIME: 35 minutes of critical care time, independent of procedures, was spent addressing the patient's acute hypoxemic respiratory failure secondary to COVID-19 pneumonia, acute kidney injury, review of all data and collaboration with the care team. ([id number]) Subjective Subjective The patient was seen and examined at the bedside this morning. Events from the last 24 hours have been reviewed. Due to progressive respiratory instability and clinical decompensation yesterday, the patient was ultimately intubated. He is currently being maintained on assist control mode of mechanical ventilation with an FiO2 requirement of 60% and PEEP of 16. The patient was transiently on Levophed yesterday due to hemodynamic instability. He is currently sedated on a combination of Precedex, propofol and fentanyl. The patient remains pharmacologically paralyzed on Nimbex. He is currently documented to be overall net +1.5 L for the hospital admission. Platelet count is low at 119,000. Potassium is high this morning at 5.7. Creatinine has increased to 2.18. The patient remains on remdesivir, Decadron and prophylactic Lovenox. The patient also remains on scheduled bronchodilators. Baricitinib has been continued per ID recommendations. Objective Data Objective Data The patient's most recent lab work, culture data and imaging studies have all been personally reviewed. Rapid coronavirus antigen testing was positive on December 13. Respiratory viral panel was negative. Strep and urine Legionella antigens were negative. Sputum and urine cultures are pending. Vital Signs: Vital Signs Temp Pulse Resp BP Pulse Ox 96.7 F L 64 16 99/73 90 12/22/20 00:00 12/22/20 04:00 12/22/20 04:00 12/22/20 04:00 12/22/20 04:00 Oxygen Delivery Method Mechanical Ventilator Weight: 117.1 kg Body Mass Index (BMI) 38.7 Intake & Output: Intake and Output for Last 24 Hours 12/20/20 12/21/20 12/22/20 23:59 23:59 23:59 Intake Total 250 / 250 2341.52 / 2403.67 346.45 / 346.45 Output Total 350 / 350 950 / 950 250 / 250 Balance -100 / -100 1391.52 / 1453.67 96.45 / 96.45 Lab / Micro Data Attestation: I reviewed the patient's lab results. Result Diagrams: 12/22/20 03:35 12/22/20 03:35 Labs: Laboratory Results - last 24 hr 12/21/20 03:00: Total Creatine Kinase 818 H, Triglycerides 202 H 12/21/20 23:25: POC Glucose 190 H 12/22/20 03:35: WBC 10.0, RBC 4.63, Hgb 13.1, Hct 43.2, MCV 93.3 D, MCH 28.3, MCHC 30.3 L D, RDW Std Deviation 55.7 H, RDW Coeff of Jose 16.0 H, Plt Count 119 L, MPV 12.6 H, Immature Gran % (Auto) 1.000 H, Neut % (Auto) 82.9 H, Lymph % (Auto) 8.2 L, [place] % (Auto) 7.7, Eos % (Auto) 0.0, Baso % (Auto) 0.2, Absolute Neuts (auto) 8.3 H, Absolute Lymphs (auto) 0.82 L, Nucleated RBC % 0 12/22/20 03:35: Sodium 136, Potassium 5.7 H, Chloride 102, Carbon Dioxide 30.0, Anion Gap 4 L, BUN 33 H, Creatinine 2.18 H, Estim Creat Clear Calc 34.43, Est GFR (MDRD) Af Amer 40 L, Est GFR (MDRD) Non-Af 33 L, BUN/Creatinine Ratio 15.1, Glucose 176 H, Calcium 7.7 L, Magnesium 2.6, Total Bilirubin 0.80, AST 68 H, ALT 44, Alkaline Phosphatase 80, Total Protein 6.4, Albumin 2.3 L, Globulin 4.1, Albumin/Globulin Ratio 0.6 L Micro: Microbiology 12/21/20 13:13 Sputum, Induced/Lukens Gram Stain - Final 12/21/20 14:00 Urine, Clean Catch Legionella Antigen - Final 12/21/20 14:00 Urine, Clean Catch Streptococcus pneumoniae Antigen (M - Final 12/20/20 17:29 Mucosa - Nose Respiratory Panel (PCR) - Final ABG Data ABG results: ABG 12/21/20 13:40 Specimen Type ART pH 7.27 L Bicarbonate Actual 24.6 Total CO2 26 Base Excess -2 O2 Saturation 87 L O2 % 100 ABG pCO2 53.8 H ABG pO2 62 L Respiration Rate 14 Vent Mode AC POC PEEP 18 Radiography Diagnostic Testing: Radiology Impression Chest X-Ray 12/21/20 13:11 IMPRESSION: 1. Endotracheal tube 7 cm from the amy, consider advancement by 3 cm. 2. Severe bilateral pneumonia. Electronically Signed: Darryl Owusu MD at 13:43 EDT Tel , Service support , Physical Exam Const no apparent distress General Appearance: ill appearing, intubated and patient mechanically ventilated Nutritional Appearance: morbidly obese HEENT normocephalic and head/scalp atraumatic Mouth: endotracheal tube in place and OG tube in place Eyes PERRL and conjunctivae normal Neck supple General: trachea midline Chest inspection of chest normal Resp Auscultation: diminished lung sounds; Negative for rales, rhonchi or wheezes Cardio regular rate and regular rhythm GI normal to inspection, nondistended, normoactive bowel sounds Extremity no clubbing, cyanosis or edema Skin no rashes or lesions noted Neuro Sensorium / Orientation: sedated on vent Charges/Coding Procedures Hospitalists Procedures: 47770 Critial Care 1st Hr
[2020-12-22] MEDS: TITRATION PARAMETER CHANGE 1 EACH IV (06:04)
[2020-12-22] MEDS: Propofol 10MG/Ml 1,000 MG/100 ML Bottle 28.1 MG CONT INF ×7 (06:19→22:30)
--- NOTE | 2020-12-22 06:20 | RAD_ITS ---
STUDY: X-RAY CHEST REASON FOR EXAM: Male, 60 years old. Respiratory Failure TECHNIQUE: Single AP portable view of the chest. COMPARISON: 12/21/2020 FINDINGS: Interval placement of right upper extremity PICC with tip the catheter overlying the superior vena cava. The tracheal tube and nasogastric tube both which are unchanged. No change in alveolar opacities in both lung bases consistent with bibasilar pneumonia. There is no demonstrated pleural abnormality. There is moderate cardiac enlargement. Normal mediastinum and brock. Normal visualized pulmonary arteries. Normal visualized aortic arch and descending thoracic aorta. Normal visualized thoracic spine. Normal visualized ribs, clavicles, and shoulders. There is no demonstrated abnormality of the visualized soft tissue structures of the upper abdomen. RAD/Chest 1 View (Portable) IMPRESSION: 1. Interval placement of right upper extremity PICC with tip the catheter overlying the superior vena cava. 2. Endotracheal tube and nasogastric tube both which are unchanged. 3. No change in bibasilar pneumonia Electronically Signed: Talib Garcia MD at 8:49 EDT Tel , Service support ,
[2020-12-22] MEDS: Ipratropium/Albuterol Sulfate 3 ML AMPUL.NEB INHALATION ×4 (06:40→18:54)
[2020-12-22 07:01] LABS: Allen Test Positive; Base Excess -3 mmol/L (-2 to +2); Bicarbonate 24.7 mmol/L (22-26); Blood Gas Specimen Type ART; FI02 60; Mode AC; O2 Delivery Device Adult Vent; PEEP 18; PO2 71 mmHG (75-100); RR 16; SITE R Radial; SO2 90 % (95-99); Total Carbon Dioxide 27 mmol/L; Vt 450; pCO2 58.2 mmHg (35-45); pH 7.24 (7.35-7.45)
--- NOTE | 2020-12-22 07:19 | PN.HOSP_ITS ---
Subjective Subjective Patient respiratory status deteriorated resulting in patient being intubated and placed on the vent. Diagnostic data reviewed this morning significant for potassium up to 5.7 and worsening of kidney function?creatinine 1.44 to 2.18 Objective Data Objective Data Vital Signs: Vital Signs Temp Pulse Resp BP Pulse Ox 96.7 F L 66 16 92/68 91 12/22/20 00:00 12/22/20 07:00 12/22/20 07:00 12/22/20 07:00 12/22/20 07:00 Oxygen Delivery Method Mechanical Ventilator Weight: 117.1 kg Body Mass Index (BMI) 38.7 Intake & Output: Intake and Output for Last 24 Hours 12/20/20 12/21/20 12/22/20 23:59 23:59 23:59 Intake Total 250 / 250 2341.52 / 2403.67 606.60 / 606.60 Output Total 350 / 350 950 / 950 250 / 250 Balance -100 / -100 1391.52 / 1453.67 356.60 / 356.60 Lab / Micro Data Result Diagrams: 12/22/20 03:35 12/22/20 03:35 Labs: Laboratory Results - last 24 hr 12/21/20 03:00: Total Creatine Kinase 818 H, Triglycerides 202 H 12/21/20 23:25: POC Glucose 190 H 12/22/20 03:35: WBC 10.0, RBC 4.63, Hgb 13.1, Hct 43.2, MCV 93.3 D, MCH 28.3, MCHC 30.3 L D, RDW Std Deviation 55.7 H, RDW Coeff of Jose 16.0 H, Plt Count 119 L, MPV 12.6 H, Immature Gran % (Auto) 1.000 H, Neut % (Auto) 82.9 H, Lymph % (Auto) 8.2 L, [place] % (Auto) 7.7, Eos % (Auto) 0.0, Baso % (Auto) 0.2, Absolute Neuts (auto) 8.3 H, Absolute Lymphs (auto) 0.82 L, Nucleated RBC % 0 12/22/20 03:35: Sodium 136, Potassium 5.7 H, Chloride 102, Carbon Dioxide 30.0, Anion Gap 4 L, BUN 33 H, Creatinine 2.18 H, Estim Creat Clear Calc 34.43, Est GFR (MDRD) Af Amer 40 L, Est GFR (MDRD) Non-Af 33 L, BUN/Creatinine Ratio 15.1, Glucose 176 H, Calcium 7.7 L, Magnesium 2.6, Total Bilirubin 0.80, AST 68 H, ALT 44, Alkaline Phosphatase 80, Total Protein 6.4, Albumin 2.3 L, Globulin 4.1, Albumin/Globulin Ratio 0.6 L Micro: Microbiology 12/21/20 13:13 Sputum, Induced/Lukens Gram Stain - Final 12/21/20 14:00 Urine, Clean Catch Legionella Antigen - Final 12/21/20 14:00 Urine, Clean Catch Streptococcus pneumoniae Antigen (M - Final 12/20/20 17:29 Mucosa - Nose Respiratory Panel (PCR) - Final ABG Data ABG results: ABG 12/21/20 12/22/20 13:40 06:54 Specimen Type ART ART Sample Site R Radial pH 7.27 L 7.24 L Bicarbonate Actual 24.6 24.7 Total CO2 26 27 Base Excess -2 -3 L O2 Saturation 87 L 90 L O2 % 100 60 ABG pCO2 53.8 H 58.2 H ABG pO2 62 L 71 L Elie Test Positive Respiration Rate 14 16 O2 Delivery Device Adult Vent Vent Mode AC AC Tidal Volume 450 POC PEEP 18 18 Radiography Diagnostic Testing: Radiology Impression Chest X-Ray 12/21/20 13:11 IMPRESSION: 1. Endotracheal tube 7 cm from the amy, consider advancement by 3 cm. 2. Severe bilateral pneumonia. Electronically Signed: Darryl Owusu MD at 13:43 EDT Tel , Service support , Physical Exam Narrative GENERAL: Sedated on the vent HEENT: Atraumatic; EYES; Anicteric, Normal Conjunctiva NECK; supple, normal thyroid, RESPIRATORY: Diminished to auscultation CARDIOVASCULAR: Regular S1 S2, GI: soft, normoactive bowel sounds, : No Renal angle tenderness; EXTREMITIES: No edema, no clubbing, MUSCULOSKELETAL: no muscle waisting NEURO: Sedated on the vent SKIN: No Rash Assessment & Plan Assessment/Plan (1) Acute hypoxemic respiratory failure: (2) COVID-19: PLAN: Patient is a 60-year-old gentleman unvaccinated against COVID-19 who tested positive for COVID-19 on 12/13/2020 presented to the emergency department with progressive shortness of breath. Patient was assessed to be in acute hypoxic respiratory failure placed on BiPAP admitted to the intensive care unit for further management 1. Acute hypoxic respiratory failure ?Secondary to SARS-CoV-2 pneumonia patient has been admitted to the intensive care unit managed with noninvasive ventilation BiPAP. Patient was placed on remdesivir and Decadron. Consultation placed to both pulmonary and ID. Patient may be a candidate for aggressive treatment in view of rapidly deteriorating respiratory status as well as increasing markers of inflammation. Decision deferred to ID -Patient's condition was discussed with him his as well as his sister. Patient is okay if he has to be placed on the ventilator. Family also in agreement -12/22/2020; respiratory status deteriorated resulting in patient being placed on the vent. Vent management deferred to pulmonary medicine 2. Acute kidney injury ?Baseline creatinine was 1.05 as of 11/12/2020. Creatinine on admission was 1.56 on fluids with subsequent monitoring of electrolyte more so since patient is on remdesivir -12/22/2020; creatinine up to 2.18 3. Hyperkalemia ?Secondary to TIFFANI treated with Kayexalate subsequent monitoring ordered 4. Thrombocytopenia ?This may be related to patient SARS-CoV-2 infection. Platelet count on 12/13/2020 was 171, admission platelet was 107 and has dropped to 104 we will continue to monitor 5. Morbid obesity with BMI of 38.9 ?Weight loss advised 6. Essential hypertension ?Patient is on amlodipine did continue 7. Oral candidiasis ?Patient was placed on nystatin swish and swallow 4 times a day 8. Depression with anxiety ?Patient is on venlafaxine did continue with home dose 9. Obstructive sleep apnea ?Patient is on BiPAP at night 10. GERD ?Patient is on PPI 11. Chronic migraine -patient apparently on topiramate did continue with home dose 12. COPD ?Patient currently on bronchodilator treatment in addition to systemic steroid 13. DVT prophylaxis ?Lovenox Charges/Coding Visit Charges Inpatient E&M: 50902 Subs Hosp L3
--- NOTE | 2020-12-22 07:25 | CPS ---
tidal volume increased to [address] nolan
[2020-12-22] MEDS: Chlorhexidine 15 ML PO ×2 (08:58→21:48)
[2020-12-22] MEDS: dexAMETHasone 4 MG/ML Vial 6 MG IV (08:59)
[2020-12-22] MEDS: Pantoprazole Sodium 40 MG Tablet PO (08:59)
[2020-12-22] MEDS: Mirabegron 25 MG TAB.ER.24H PO (08:59)
[2020-12-22] MEDS: Enoxaparin 30 MG/0.3 ML Syringe SC ×2 (09:01→21:48)
[2020-12-22] MEDS: Venlafaxine XR 75 MG Capsule PO (09:02)
[2020-12-22] MEDS: Sodium Polystyrene Sulfonate 15 GM/60 ML UDC 30 GM GT (09:02)
[2020-12-22] MEDS: NYSTATIN 500,000 UNIT/5 ML UDC 500000 UNIT PO ×3 (09:02→21:48)
[2020-12-22 12:10] LABS: Anion Gap 5 (5-15); BUN 41 mg/dL (7-18); Calcium,Total 7.6 mg/dL (8.5-10.1); Chloride 104 mmol/L (98-107); Creatinine, Serum 2.74 mg/dL (0.70-1.30); EST Glomerular Filtration Rate 25 mL/min (>60); Est Glom Filt Rate - Afr Amer 31 mL/min (>60); Estimated Creatinine Clearance 27.39 ml/min; Glucose 186 mg/dL (74-106); Potassium 5.6 mmol/L (3.5-5.1); Sodium Level 137 mmol/L (136-145)
[2020-12-22 12:29] LABS: M R Staph aureus DNA By PCR Negative (Negative); Probe Check PASS; Specimen Processing Control PASS
[2020-12-23] VITALS (38 sets, daily range): BP systolic 92–134; BP diastolic 64–93; PULSE 66–95; RESP 14–92; TEMP 36.1–36.9; O2SAT 16–99
[2020-12-23] MEDS: Propofol 10MG/Ml 1,000 MG/100 ML Bottle 28.1 MG CONT INF ×7 (02:02→20:00)
[2020-12-23] MEDS: Dexmedetomidine 1,000 mcg in 0.9% NS 240 mL 17.6 MCG CONT INF ×2 (03:30→18:19)
[2020-12-23 03:43] LABS: Absolute Lymphocyte Count 0.75 X10^3/uL (0.83-4.51); Absolute Neutrophil Count 6.9 X10^3/uL (2.0-7.7); Basophil# 0.03 X10^3/uL; Basophil% 0.3 % (0-1); Hematocrit 42.6 % (40-54); Hemoglobin 13.1 g/dL (13.0-16.5); Lymphocyte # 0.75 X10^3/ul (0.83-4.51); Lymphocyte % 8.7 % (19-41); Mean Corp Hgb Conc 30.8 g/dL (32-36); Mean Corpuscular Hgb 28.5 pg (27.0-32.0); Mean Corpuscular Volume 92.8 fL (80-94); Mean Platelet Vol. 12.2 fl (6.2-12.0); NRBC Flagged by Analyzer 0.3 % (0-5); Neutrophil # 6.94 X10^3/uL (2.7-7.7); Platelet Count 128 K/mm3 (150-450); RBC Distribution Width CV 16.2 % (11.6-14.6); RBC Distribution Width SD 55.5 fl (35.1-43.9); Red Blood Count 4.59 M/mm3 (4.6-6.2); White Blood Count 8.6 K/mm3 (4.4-11.0)
[2020-12-23 04:03] LABS: ALB/GLOB Ratio 0.5 RATIO (0.9-2.4); AST(SGOT) 43 U/L (15-37); Alanine Aminotransfer ALT/SGPT 40 U/L (16-61); Albumin, Serum 2.2 g/dL (3.2-5.0); Alkaline Phosphatase 84 U/L (45-117); Anion Gap 8 (5-15); BUN 53 mg/dL (7-18); BUN/Creat Ratio 14.8 RATIO (10-20); Calcium,Total 7.3 mg/dL (8.5-10.1); Chloride 104 mmol/L (98-107); Creatinine, Serum 3.57 mg/dL (0.70-1.30); EST Glomerular Filtration Rate 19 mL/min (>60); Est Glom Filt Rate - Afr Amer 23 mL/min (>60); Estimated Creatinine Clearance 21.02 ml/min; Globulin 4.2 g/dL (2.2-4.2); Glucose 201 mg/dL (74-106); Protein, Total 6.4 g/dL (6.4-8.2); Sodium Level 138 mmol/L (136-145)
--- NOTE | 2020-12-23 05:41 | PCM.PN.INT ---
Assessment & Plan Assessment/Plan (1) Acute hypoxemic respiratory failure: (2) COVID-19: PLAN: RECOMMENDATIONS: 1. Continue assist control mode of mechanical ventilation and wean FiO2/PEEP for saturations greater than 90%. 2. Start antimicrobials given sputum culture results. 3. Dose adjust baricitinib based upon renal function. 4. Obtain repeat arterial blood gas this morning. 5. Wean patient from cis atracurium over the course of the morning. 6. Continue current sedation regimen. Maintain RASS closer to -3. 7. Continue Decadron and prophylactic Lovenox. 8. Continue appropriate GI prophylaxis. 9. Obtain nephrology consultation, re: TIFFANI IMPRESSIONS: 1. Acute hypoxemic respiratory failure secondary to COVID-19 pneumonia The patient initially tested positive for coronavirus on December 13 and has had progressive symptoms and worsening oxygenation. Although initially being maintained on noninvasive positive pressure ventilatory support, the patient continued to decompensate from a respiratory perspective and was ultimately intubated on December 21. The patient is being maintained on remdesivir, Decadron, prophylactic Lovenox and baricitinib. CTA was negative for PE. The patient is unable to be diuresed due to underlying renal insufficiency. The patient will be continued on assist control mode of mechanical ventilation. FiO2 and PEEP will be weaned to maintain oxygen saturations at or above 90%. The patient's paralytic will be weaned off completely today. Antimicrobials will be started, given the patient's preliminary sputum cultures. 2. Acute kidney injury Likely prerenal in etiology. Continue to monitor urine output. Will obtain nephrology consultation given worsening renal insufficiency. 3. Obesity/COPD/history of KRISSY/hypertension/thrombocytopenia/GERD Complicates care, management, recovery and prognosis. Continue scheduled bronchodilators. TIME: 33 minutes of critical care time, independent of procedures, was spent addressing the patient's acute hypoxemic respiratory failure secondary to COVID-19 pneumonia, acute kidney injury, review of all data and collaboration with the care team. ([id number]) Subjective Subjective The patient was seen and examined at the bedside this morning. Events from the last 24 hours have been reviewed. The patient is currently being maintained on assist control mode of mechanical ventilation with an FiO2 requirement of 60% and PEEP of 18. He is currently vent day 3. He remains sedated on Precedex, propofol and fentanyl. The patient remains on a cis atracurium infusion. He is currently documented to be overall net +2.5 L for the hospital admission. Remdesivir had to be discontinued due to worsening renal insufficiency. Therefore, the patient remains on Decadron, prophylactic Lovenox and baricitinib. Creatinine has worsened this morning to 3.57 with a BUN of 53. Objective Data Objective Data The patient's most recent lab work, culture data and imaging studies have all been personally reviewed. Rapid coronavirus antigen testing was positive on December 13. Respiratory viral panel was negative. Strep and urine Legionella antigens were negative. Sputum Gram stain revealed an alphahemolytic organism and Haemophilus influenza. Vital Signs: Vital Signs Temp Pulse Resp BP Pulse Ox 97.4 F L 68 16 94/73 91 12/22/20 20:00 12/23/20 04:09 12/23/20 04:09 12/22/20 22:00 12/23/20 04:09 Oxygen Delivery Method Mechanical Ventilator Weight: 117.1 kg Body Mass Index (BMI) 38.7 Intake & Output: Intake and Output for Last 24 Hours 12/21/20 12/22/20 12/23/20 23:59 23:59 23:59 Intake Total 2341.52 / 2403.67 1882.76 / 1961.06 474.31 / 474.31 Output Total 950 / 950 875 / 875 Balance 1391.52 / 1453.67 1007.76 / 1086.06 474.31 / 474.31 Lab / Micro Data Attestation: I reviewed the patient's lab results. Result Diagrams: 12/23/20 03:10 12/23/20 03:10 Labs: Laboratory Results - last 24 hr 12/22/20 06:30: MRSA (PCR) Negative 12/22/20 11:50: Sodium 137, Potassium 5.6 H, Chloride 104, Carbon Dioxide 28.0, Anion Gap 5, BUN 41 H, Creatinine 2.74 H, Estim Creat Clear Calc 27.39, Est GFR (MDRD) Af Amer 31 L, Est GFR (MDRD) Non-Af 25 L, BUN/Creatinine Ratio 15.0, Glucose 186 H, Calcium 7.6 L 12/23/20 03:10: WBC 8.6, RBC 4.59 L, Hgb 13.1, Hct 42.6, MCV 92.8, MCH 28.5, MCHC 30.8 L, RDW Std Deviation 55.5 H, RDW Coeff of Jose 16.2 H, Plt Count 128 L, MPV 12.2 H, Immature Gran % (Auto) 3.000 H, Neut % (Auto) 81.0 H, Lymph % (Auto) 8.7 L, [place] % (Auto) 7.0, Eos % (Auto) 0.0, Baso % (Auto) 0.3, Absolute Neuts (auto) 6.9, Absolute Lymphs (auto) 0.75 L, Nucleated RBC % 0.3 12/23/20 03:10: Sodium 138, Potassium 5.0, Chloride 104, Carbon Dioxide 26.0, Anion Gap 8, BUN 53 H, Creatinine 3.57 H, Estim Creat Clear Calc 21.02, Est GFR (MDRD) Af Amer 23 L, Est GFR (MDRD) Non-Af 19 L, BUN/Creatinine Ratio 14.8, Glucose 201 H, Calcium 7.3 L, Total Bilirubin 0.70, AST 43 H, ALT 40, Alkaline Phosphatase 84, Total Protein 6.4, Albumin 2.2 L, Globulin 4.2, Albumin/Globulin Ratio 0.5 L Micro: Microbiology 12/20/20 15:25 Blood Culture (Wb) - Anticubital Left Blood Culture - Preliminary No growth in 48 hours. 12/21/20 13:13 Sputum, Induced/Lukens Gram Stain - Final 12/21/20 13:13 Sputum, Induced/Lukens Respiratory Culture - Preliminary Alpha hemolytic organism Haemophilus influenzae 12/21/20 14:00 Urine Catheter - Goldsmith Urine Culture - Preliminary Culture exhibits no growth. 12/21/20 14:00 Urine, Clean Catch Legionella Antigen - Final 12/21/20 14:00 Urine, Clean Catch Streptococcus pneumoniae Antigen (M - Final 12/20/20 17:29 Mucosa - Nose Respiratory Panel (PCR) - Final ABG Data ABG results: ABG 12/22/20 06:54 Specimen Type ART Sample Site R Radial pH 7.24 L Bicarbonate Actual 24.7 Total CO2 27 Base Excess -3 L O2 Saturation 90 L O2 % 60 ABG pCO2 58.2 H ABG pO2 71 L Elie Test Positive Respiration Rate 16 O2 Delivery Device Adult Vent Vent Mode AC Tidal Volume 450 POC PEEP 18 Radiography Diagnostic Testing: Radiology Impression Chest X-Ray 12/22/20 06:20 IMPRESSION: 1. Interval placement of right upper extremity PICC with tip the catheter overlying the superior vena cava. 2. Endotracheal tube and nasogastric tube both which are unchanged. 3. No change in bibasilar pneumonia Electronically Signed: Talib Garcia MD at 8:49 EDT Tel , Service support , Physical Exam Const no apparent distress General Appearance: ill appearing, intubated and patient mechanically ventilated Nutritional Appearance: morbidly obese HEENT normocephalic and head/scalp atraumatic Mouth: endotracheal tube in place and OG tube in place Eyes PERRL and conjunctivae normal Neck supple General: trachea midline Chest inspection of chest normal Resp Auscultation: diminished lung sounds; Negative for rales, rhonchi or wheezes Cardio regular rate and regular rhythm GI normal to inspection, nondistended, normoactive bowel sounds Extremity no clubbing, cyanosis or edema Skin no rashes or lesions noted Neuro Sensorium / Orientation: sedated on vent Charges/Coding Procedures Hospitalists Procedures: 81059 Critial Care 1st Hr
[2020-12-23] MEDS: Ipratropium/Albuterol Sulfate 3 ML AMPUL.NEB INHALATION ×4 (06:49→18:55)
[2020-12-23 07:25] LABS: Blood Gas Specimen Type VEN; O2 Delivery Device Adult Vent; PEEP 16; RR 16; SITE R Radial; VBG BASE EXCESS -2 mmol/L (-1.0-3.5); VBG Bicarbonate 25 mmol/L (22-26); VBG PO2 39 mmHg (25-40); VBG SO2 66 % (50-70); VBG TCO2 26 mmol/L (23-33); VBG pCO2 51.8 mmHg (41-51); VBG pH 7.29 (7.32-7.42)
--- NOTE | 2020-12-23 07:45 | PCM.PN.HOSP ---
Subjective Subjective Patient remains on the vent and easily desaturates once he is moved. Was on paralytic agents Nimbex which has since been weaned off. Kidney function continues to worsen with creatinine up to 3.57 BUN 53. Consult placed to nephrology Objective Data Objective Data Vital Signs: Vital Signs Temp Pulse Resp BP Pulse Ox 97.6 F L 66 16 104/71 92 12/23/20 06:00 12/23/20 06:49 12/23/20 06:49 12/23/20 06:00 12/23/20 06:00 Oxygen Delivery Method Mechanical Ventilator Weight: 116.9 kg Body Mass Index (BMI) 38.7 Intake & Output: Intake and Output for Last 24 Hours 12/21/20 12/22/20 12/23/20 23:59 23:59 23:59 Intake Total 2341.52 / 2403.67 1882.76 / 1961.06 606.24 / 606.24 Output Total 950 / 950 875 / 875 300 / 300 Balance 1391.52 / 1453.67 1007.76 / 1086.06 306.24 / 306.24 Lab / Micro Data Result Diagrams: 12/23/20 03:10 12/23/20 03:10 Labs: Laboratory Results - last 24 hr 12/22/20 06:30: MRSA (PCR) Negative 12/22/20 11:50: Sodium 137, Potassium 5.6 H, Chloride 104, Carbon Dioxide 28.0, Anion Gap 5, BUN 41 H, Creatinine 2.74 H, Estim Creat Clear Calc 27.39, Est GFR (MDRD) Af Amer 31 L, Est GFR (MDRD) Non-Af 25 L, BUN/Creatinine Ratio 15.0, Glucose 186 H, Calcium 7.6 L 12/23/20 03:10: WBC 8.6, RBC 4.59 L, Hgb 13.1, Hct 42.6, MCV 92.8, MCH 28.5, MCHC 30.8 L, RDW Std Deviation 55.5 H, RDW Coeff of Jose 16.2 H, Plt Count 128 L, MPV 12.2 H, Immature Gran % (Auto) 3.000 H, Neut % (Auto) 81.0 H, Lymph % (Auto) 8.7 L, [place] % (Auto) 7.0, Eos % (Auto) 0.0, Baso % (Auto) 0.3, Absolute Neuts (auto) 6.9, Absolute Lymphs (auto) 0.75 L, Nucleated RBC % 0.3 12/23/20 03:10: Sodium 138, Potassium 5.0, Chloride 104, Carbon Dioxide 26.0, Anion Gap 8, BUN 53 H, Creatinine 3.57 H, Estim Creat Clear Calc 21.02, Est GFR (MDRD) Af Amer 23 L, Est GFR (MDRD) Non-Af 19 L, BUN/Creatinine Ratio 14.8, Glucose 201 H, Calcium 7.3 L, Total Bilirubin 0.70, AST 43 H, ALT 40, Alkaline Phosphatase 84, Total Protein 6.4, Albumin 2.2 L, Globulin 4.2, Albumin/Globulin Ratio 0.5 L Micro: Microbiology 12/20/20 16:55 Blood Culture (Wb) - Anticubital Right Blood Culture - Preliminary No growth in 48 hours. 12/20/20 15:25 Blood Culture (Wb) - Anticubital Left Blood Culture - Preliminary No growth in 48 hours. 12/21/20 13:13 Sputum, Induced/Lukens Gram Stain - Final 12/21/20 13:13 Sputum, Induced/Lukens Respiratory Culture - Preliminary Alpha hemolytic organism Haemophilus influenzae 12/21/20 14:00 Urine Catheter - Goldsmith Urine Culture - Preliminary Culture exhibits no growth. 12/21/20 14:00 Urine, Clean Catch Legionella Antigen - Final 12/21/20 14:00 Urine, Clean Catch Streptococcus pneumoniae Antigen (M - Final 12/20/20 17:29 Mucosa - Nose Respiratory Panel (PCR) - Final ABG Data ABG results: ABG 12/23/20 07:18 Specimen Type BESSY Sample Site R Radial VBG pH 7.29 L VBG pO2 39 VBG HCO3 25 VBG Total CO2 26 VBG O2 Sat (Calc) 66 VBG Base Excess -2 L POC Mix VBG pCO2 Pt Tmp 51.8 H Respiration Rate 16 O2 Delivery Device Adult Vent POC PEEP 16 Radiography Diagnostic Testing: Radiology Impression Chest X-Ray 12/22/20 06:20 IMPRESSION: 1. Interval placement of right upper extremity PICC with tip the catheter overlying the superior vena cava. 2. Endotracheal tube and nasogastric tube both which are unchanged. 3. No change in bibasilar pneumonia Electronically Signed: Talib Garcia MD at 8:49 EDT Tel , Service support , Physical Exam Narrative GENERAL: Sedated on the vent HEENT: Atraumatic; EYES; Anicteric, Normal Conjunctiva NECK; supple, normal thyroid, RESPIRATORY: Diminished to auscultation CARDIOVASCULAR: Regular S1 S2, GI: soft, normoactive bowel sounds, : No Renal angle tenderness; EXTREMITIES: No edema, no clubbing, MUSCULOSKELETAL: no muscle waisting NEURO: Sedated on the vent SKIN: No Rash Assessment & Plan Assessment/Plan (1) Acute hypoxemic respiratory failure: (2) COVID-19: PLAN: Patient is a 60-year-old gentleman unvaccinated against COVID-19 who tested positive for COVID-19 on 12/13/2020 presented to the emergency department with progressive shortness of breath. Patient was assessed to be in acute hypoxic respiratory failure placed on BiPAP admitted to the intensive care unit for further management 1. Acute hypoxic respiratory failure ?Secondary to SARS-CoV-2 pneumonia patient has been admitted to the intensive care unit managed with noninvasive ventilation BiPAP. Patient was placed on remdesivir and Decadron. Consultation placed to both pulmonary and ID. Patient may be a candidate for aggressive treatment in view of rapidly deteriorating respiratory status as well as increasing markers of inflammation. Decision deferred to ID -Patient's condition was discussed with him his as well as his sister. Patient is okay if he has to be placed on the ventilator. Family also in agreement -12/22/2020; respiratory status deteriorated resulting in patient being placed on the vent. Vent management deferred to pulmonary medicine -12/23/2020. On the vent with easy desaturation with minimal movement 2. Acute kidney injury ?Baseline creatinine was 1.05 as of 11/12/2020. Creatinine on admission was 1.56 on fluids with subsequent monitoring of electrolyte more so since patient is on remdesivir -12/22/2020; creatinine up to 2.18; remdesivir discontinued - 12/23/2020; kidney function continues to worsen consult placed to nephrology 3. Hyperkalemia ?Secondary to TIFFANI treated with Kayexalate subsequent monitoring ordered 4. Thrombocytopenia ?This may be related to patient SARS-CoV-2 infection. Platelet count on 12/13/2020 was 171, admission platelet was 107 and has dropped to 104 we will continue to monitor 5. Morbid obesity with BMI of 38.9 ?Weight loss advised 6. Essential hypertension ?Patient is on amlodipine did continue 7. Oral candidiasis ?Patient was placed on nystatin swish and swallow 4 times a day 8. Depression with anxiety ?Patient is on venlafaxine did continue with home dose 9. Obstructive sleep apnea ?Patient is on BiPAP at night 10. GERD ?Patient is on PPI 11. Chronic migraine -patient apparently on topiramate did continue with home dose 12. COPD ?Patient currently on bronchodilator treatment in addition to systemic steroid 13. DVT prophylaxis ?Lovenox Charges/Coding Visit Charges Inpatient E&M: 91616 [facility] Hosp L3
--- NOTE | 2020-12-23 07:52 | RAD_ITS ---
STUDY: X-RAY CHEST REASON FOR EXAM: Male, 60 years old. SOB/desaturations TECHNIQUE: Frontal view COMPARISON: 12/22/2020 FINDINGS: Stable tubes as on previous study. Stable right PICC line. The lungs are expanded. Interstitial densities and patchy infiltrates with slight interval improvement. Normal size heart. Normal mediastinum and brock. Normal visualized pulmonary arteries. Normal visualized aortic arch and descending thoracic aorta. Degenerative changes of the thoracic spine. Normal visualized ribs, clavicles, and shoulders. There is no demonstrated abnormality of the visualized soft tissue structures of the upper abdomen. RAD/Chest 1 View (Portable) IMPRESSION: Interstitial densities and patchy infiltrates with slight interval improvement. Electronically Signed: Parveen Carrasco DO at 8:41 EDT Tel [phone], Service support ,
[2020-12-23] MEDS: Chlorhexidine 15 ML PO ×2 (11:10→23:28)
[2020-12-23] MEDS: Enoxaparin 30 MG/0.3 ML Syringe SC ×2 (11:55→23:14)
[2020-12-23] MEDS: Pantoprazole Sodium 40 MG Tablet PO (11:56)
[2020-12-23] MEDS: dexAMETHasone 4 MG/ML Vial 6 MG IV (11:57)
[2020-12-23] MEDS: Vital AF 1.2 Cal Liquid 1,000 ML 20 ML GT (12:04)
--- NOTE | 2020-12-23 16:19 | PCM.CONS.R ---
Assessment & Plan Assessment/Plan (1) TIFFANI (acute kidney injury): PLAN: Acute renal failure. Baseline creatinine is normal. Admitted with a creatinine of 1.5 and has been worsening since then. Last CTA on admission. Urine analysis looks fairly benign. Goldsmith indwelling. TIFFANI is likely ATN. He had some hyperkalemia yesterday that is better today. Urine output is not great. Might need renal replacement therapy if no improvement in 1 to 2 days. Hyperkalemia. Better today. Discussed with ICU attending HPI Consult Data Date of Consult: 12/23/20 HPI Narrative HPI Narrative: NAKUL CARTAGENA, is a 60 M who presents to the hospital about 3 days ago with Covid pneumonia, respiratory failure. Intubated. Nephrology consulted for acute renal failure. Baseline creatinine was normal prior to this admission. Admitted with a creatinine of 1.5 and has been worsening since then. Urine output is not great. Currently intubated, paralyzed, on high FiO2 and PEEP. [facility] Medical History Atypical chest pain BPH (benign prostatic hyperplasia) Cervical radiculopathy Cervical spondylosis Chronic vertigo COLD (chronic obstructive lung disease) Cubital tunnel syndrome on left DDD (degenerative disc disease) Depression Emphysema with chronic bronchitis Fibromyalgia GERD (gastroesophageal reflux disease) History of herniated intervertebral disc Hypertension Left carpal tunnel syndrome BO (nonalcoholic steatohepatitis) KRISSY (obstructive sleep apnea) Post-cholecystectomy syndrome Primary fibromyalgia syndrome Pulmonary nodules Home Medications albuterol sulfate 2 puff IH Q4H PRN PRN 06/06/16 [History Last Taken 12/20/20] amlodipine 5 mg PO DAILY 06/06/16 [History Last Taken 12/20/20] omeprazole 40 mg PO DAILY 06/06/16 [History Last Taken 12/20/20] fluticasone furoate-vilanterol 1 - 2 ea NASAL DAILY 06/04/17 [History Last Taken 12/20/20] ipratropium bromide 1 - 2 spray NASAL PRN PRN 06/04/17 [History Last Taken Unknown] umeclidinium-vilanterol 1 puff IH DAILY 06/04/17 [History Last Taken 12/20/20] mirabegron 1 tab PO DAILY 12/07/18 [History Last Taken 12/20/20] hydrocodone-acetaminophen 1 ea PO TID PRN PRN 06/04/19 [History Last Taken 2 Days Ago ~12/18/20] cetirizine 10 mg tablet 10 mg PO DAILY #30 tab 11/24/19 [Rx Last Taken 12/20/20] ubrogepant 50 mg tablet 50 mg PO DAILY PRN #15 tab 07/17/20 [Rx Last Taken Unknown] venlafaxine 75 mg capsule,extended release 24 hr 75 mg PO DAILY #30 cap 11/06/20 [Rx Last Taken 12/20/20] pregabalin 200 mg PO BID 12/20/20 [History Last Taken 12/20/20] topiramate 50 mg PO QHS 12/20/20 [History Last Taken 12/19/20] Allergy/AdvReac Type Severity Reaction Status Date / Time divalproex sodium Allergy Severe hives Verified 12/20/20 14:40 codeine Allergy Itching Verified 12/20/20 14:40 nuclear stress test contrast AdvReac Other Uncoded 12/20/20 14:40 Family History Mother Hypertension Father Hypertension CVA (cerebral vascular accident) Sister Diabetes Surgical History h/o gallbladder removal h/o hernia surgery H/O left wrist surgery History of cataract surgery Social History (Updated 12/20/20 @ 18:[address] Elva Lozano MD) household members: spouse Smoking Status: Former smoker Tobacco: How many years used: 40 how long ago did patient quit smoking: Quit > 8 years prior, rolled cigarettes. alcohol intake: current alcohol intake frequency: a few times a month substance use type: does not use ROS ROS Narrative Unable to be obtained Physical Exam Narrative Exam minimize due to Covid. Intubated, sedated, paralyzed. Goldsmith catheter indwelling. Lab / Micro Data Result Diagrams: 12/23/20 03:10 12/23/20 03:10 Labs: Laboratory Results - last 24 hr 12/23/20 03:10: WBC 8.6, RBC 4.59 L, Hgb 13.1, Hct 42.6, MCV 92.8, MCH 28.5, MCHC 30.8 L, RDW Std Deviation 55.5 H, RDW Coeff of Jose 16.2 H, Plt Count 128 L, MPV 12.2 H, Immature Gran % (Auto) 3.000 H, Neut % (Auto) 81.0 H, Lymph % (Auto) 8.7 L, [place] % (Auto) 7.0, Eos % (Auto) 0.0, Baso % (Auto) 0.3, Absolute Neuts (auto) 6.9, Absolute Lymphs (auto) 0.75 L, Nucleated RBC % 0.3 12/23/20 03:10: Sodium 138, Potassium 5.0, Chloride 104, Carbon Dioxide 26.0, Anion Gap 8, BUN 53 H, Creatinine 3.57 H, Estim Creat Clear Calc 21.02, Est GFR (MDRD) Af Amer 23 L, Est GFR (MDRD) Non-Af 19 L, BUN/Creatinine Ratio 14.8, Glucose 201 H, Calcium 7.3 L, Total Bilirubin 0.70, AST 43 H, ALT 40, Alkaline Phosphatase 84, Total Protein 6.4, Albumin 2.2 L, Globulin 4.2, Albumin/Globulin Ratio 0.5 L Micro: Microbiology 12/21/20 14:00 Urine Catheter - Goldsmith Urine Culture - Final Culture exhibits no growth. 12/21/20 13:13 Sputum, Induced/Lukens Gram Stain - Final 12/21/20 13:13 Sputum, Induced/Lukens Respiratory Culture - Preliminary Streptococcus pneumoniae Haemophilus influenzae 12/20/20 16:55 Blood Culture (Wb) - Anticubital Right Blood Culture - Preliminary No growth in 48 hours. 12/20/20 15:25 Blood Culture (Wb) - Anticubital Left Blood Culture - Preliminary No growth in 48 hours. ABG Data ABG results: ABG 12/23/20 07:18 Specimen Type BESSY Sample Site R Radial VBG pH 7.29 L VBG pO2 39 VBG HCO3 25 VBG Total CO2 26 VBG O2 Sat (Calc) 66 VBG Base Excess -2 L POC Mix VBG pCO2 Pt Tmp 51.8 H Respiration Rate 16 O2 Delivery Device Adult Vent POC PEEP 16 Radiology Impression Chest X-Ray 12/23/20 07:52 IMPRESSION: Interstitial densities and patchy infiltrates with slight interval improvement. Electronically Signed: Parveen Carrasco DO at 8:41 EDT Tel [phone], Service support ,
[2020-12-23] MEDS: Pregabalin 50 MG Capsule 200 MG PO (23:13)
[2020-12-23] MEDS: Topiramate 50 MG Tablet PO (23:13)
[2020-12-23] MEDS: NYSTATIN 500,000 UNIT/5 ML UDC 500000 UNIT PO (23:28)
[2020-12-24] VITALS (34 sets, daily range): BP systolic 94–125; BP diastolic 70–93; PULSE 81–148; RESP 14–23; TEMP 35.7–36.9; O2SAT 81–94
[2020-12-24] MEDS: Propofol 10MG/Ml 1,000 MG/100 ML Bottle 28.1 MG CONT INF ×7 (00:30→19:21)
[2020-12-24] MEDS: Vital AF 1.2 Cal Liquid 1,000 ML 35 ML GT (02:35)
[2020-12-24 04:08] LABS: Absolute Lymphocyte Count 0.76 X10^3/uL (0.83-4.51); Absolute Neutrophil Count 8.9 X10^3/uL (2.0-7.7); Basophil# 0.01 X10^3/uL; Basophil% 0.1 % (0-1); Hematocrit 38.2 % (40-54); Hemoglobin 12.2 g/dL (13.0-16.5); Lymphocyte # 0.76 X10^3/ul (0.83-4.51); Lymphocyte % 7.4 % (19-41); Mean Corp Hgb Conc 31.9 g/dL (32-36); Mean Corpuscular Hgb 28.7 pg (27.0-32.0); Mean Corpuscular Volume 89.9 fL (80-94); Mean Platelet Vol. 12.5 fl (6.2-12.0); Monocyte# 0.36 X10^3/uL; Monocyte% 3.5 % (0-10); NRBC Flagged by Analyzer 0.4 % (0-5); Neutrophil # 8.93 X10^3/uL (2.7-7.7); Neutrophil % 86.9 % (47-70); Platelet Count 167 K/mm3 (150-450); RBC Distribution Width CV 16.2 % (11.6-14.6); RBC Distribution Width SD 53.4 fl (35.1-43.9); Red Blood Count 4.25 M/mm3 (4.6-6.2); White Blood Count 10.3 K/mm3 (4.4-11.0)
[2020-12-24 04:26] LABS: ALB/GLOB Ratio 0.5 RATIO (0.9-2.4); AST(SGOT) 40 U/L (15-37); Alanine Aminotransfer ALT/SGPT 37 U/L (16-61); Alkaline Phosphatase 85 U/L (45-117); Anion Gap 12 (5-15); BUN 70 mg/dL (7-18); BUN/Creat Ratio 15.7 RATIO (10-20); Calcium,Total 7.2 mg/dL (8.5-10.1); Chloride 103 mmol/L (98-107); Creatinine, Serum 4.45 mg/dL (0.70-1.30); EST Glomerular Filtration Rate 14 mL/min (>60); Est Glom Filt Rate - Afr Amer 17 mL/min (>60); Estimated Creatinine Clearance 16.87 ml/min; Globulin 4.1 g/dL (2.2-4.2); Glucose 219 mg/dL (74-106); Potassium 4.1 mmol/L (3.5-5.1); Protein, Total 6.1 g/dL (6.4-8.2); Sodium Level 138 mmol/L (136-145)
[2020-12-24] MEDS: Ipratropium/Albuterol Sulfate 3 ML AMPUL.NEB INHALATION ×4 (07:30→19:15)
[2020-12-24] MEDS: Dexmedetomidine 1,000 mcg in 0.9% NS 240 mL 17.6 MCG CONT INF (08:52)
--- NOTE | 2020-12-24 09:55 | PN.HOSP_ITS ---
Subjective Subjective Intubated and sedated Objective Data Objective Data Vital Signs: Vital Signs Temp Pulse Resp BP Pulse Ox 97.3 F L 82 21 H 111/76 90 12/24/20 06:00 12/24/20 07:31 12/24/20 07:31 12/24/20 07:00 12/24/20 07:31 Oxygen Flow Rate (L/min) 90 Oxygen Delivery Method Mechanical Ventilator Weight: 258 lb 6.108 oz Body Mass Index (BMI) 38.7 Intake & Output: Intake and Output for Last 24 Hours 12/23/20 12/24/20 12/25/20 03:59 03:59 03:59 Intake Total 1849.88 / 1849.88 1860.70 / 2081.40 858.12 / 858.12 Output Total 625 / 625 1000 / 1000 250 / 250 Balance 1224.88 / 1224.88 860.70 / 1081.40 608.12 / 608.12 Lab / Micro Data Result Diagrams: 12/25/20 04:30 12/25/20 04:30 Labs: Laboratory Results - last 24 hr 12/24/20 03:35: WBC 10.3, RBC 4.25 L, Hgb 12.2 L, Hct 38.2 L, MCV 89.9, MCH 28.7, MCHC 31.9 L, RDW Std Deviation 53.4 H, RDW Coeff of Jose 16.2 H, Plt Count 167, MPV 12.5 H, Immature Gran % (Auto) 2.100 H, Neut % (Auto) 86.9 H, Lymph % (Auto) 7.4 L, [place] % (Auto) 3.5, Eos % (Auto) 0.0, Baso % (Auto) 0.1, Absolute Neuts (auto) 8.9 H, Absolute Lymphs (auto) 0.76 L, Nucleated RBC % 0.4 12/24/20 03:35: Sodium 138, Potassium 4.1, Chloride 103, Carbon Dioxide 23.0, Anion Gap 12, BUN 70 H, Creatinine 4.45 H, Estim Creat Clear Calc 16.87, Est GFR (MDRD) Af Amer 17 L, Est GFR (MDRD) Non-Af 14 L, BUN/Creatinine Ratio 15.7, Glucose 219 H, Calcium 7.2 L, Total Bilirubin 0.90, AST 40 H, ALT 37, Alkaline Phosphatase 85, Total Protein 6.1 L, Albumin 2.0 L, Globulin 4.1, Albumin/Globulin Ratio 0.5 L Micro: Microbiology 12/21/20 13:13 Sputum, Induced/Lukens Gram Stain - Final 12/21/20 13:13 Sputum, Induced/Lukens Respiratory Culture - Final Streptococcus pneumoniae Haemophilus influenzae 12/21/20 14:00 Urine Catheter - Goldsmith Urine Culture - Final Culture exhibits no growth. 12/20/20 16:55 Blood Culture (Wb) - Anticubital Right Blood Culture - Preliminary No growth in 48 hours. 12/20/20 15:25 Blood Culture (Wb) - Anticubital Left Blood Culture - Preliminary No growth in 48 hours. 12/21/20 14:00 Urine, Clean Catch Legionella Antigen - Final 12/21/20 14:00 Urine, Clean Catch Streptococcus pneumoniae Antigen (M - Final 12/20/20 17:29 Mucosa - Nose Respiratory Panel (PCR) - Final Physical Exam Const General Appearance: intubated and patient mechanically ventilated HEENT normocephalic and moist oral mucous membranes Eyes PERRL and conjunctivae normal Neck supple and no JVD Resp normal respiratory effort, no retractions and no use of accessory muscles Auscultation: diminished lung sounds; Negative for crackles, rales, rhonchi or wheezes Cardio regular rate, regular rhythm, S1 normal heart sound, S2 normal heart sound and no murmurs GI soft to palpation and non-distended; Negative for hepatosplenomegaly Extremity no clubbing, cyanosis or edema Skin no rashes or lesions noted Neuro Sensorium / Orientation: sedated on vent Psych Appearance: intubated Assessment & Plan Assessment/Plan (1) Acute hypoxemic respiratory failure: (2) COVID-19: PLAN: 1. Acute hypoxic respiratory failure and septic shock secondary to COVID-19 pneumonia/TIFFANI/thrombocytopenia/bacterial pneumonia with strep pneumonia and Haemophilus influenza -Intubated 12/21/2020 -Appreciate cognos report developer assistance -Continue with Decadron, baricitinib, he was given 2 doses of remdesivir and then his renal function deteriorated to the point where we could not use it -Appreciate ID assistance, continue with Zosyn and Rocephin, sputum culture with strep pneumonia and Haemophilus influenza -Thrombocytopenia resolved -Septic shock resolved, no longer on Levophed 2. HTN/HLD/morbid obesity -Was on Levophed but has been off for the last several days -Continue with hydralazine as needed, and will continue to hold his Norvasc -Once extubated and alert, will discuss weight loss strategies given his BMI of 39.3 3. GERD -Stable -Continue PPI 4. Chronic migraine -Stable -Continue with Topamax and Lyrica 5. Anxiety/depression -Stable -Continue with Effexor 6. COPD/KRISSY -Continue with steroids -Currently on inhalers at home and once extubated will resume BiPAP at night DVT: Lovenox Charges/Coding Visit Charges Inpatient E&M: 89461 Subs Hosp L2
--- NOTE | 2020-12-24 10:34 | PN.CC_ITS ---
Assessment & Plan Assessment/Plan (1) Acute hypoxemic respiratory failure: (2) COVID-19: PLAN: RECOMMENDATIONS: 1. Continue assist control mode of mechanical ventilation and wean FiO2/PEEP for saturations greater than 90%. 2. Continue antimicrobials, but narrow spectrum, given sputum culture results. 3. Dose adjust baricitinib based upon renal function. 4. Initiate vitamin C and zinc 5. Wean patient from cis atracurium over the course of the morning. 6. Continue current sedation regimen. Maintain RASS closer to -3. 7. Continue Decadron and prophylactic Lovenox. 8. Continue appropriate GI prophylaxis. 9. Defer to nephrology on possible placement of dialysis line IMPRESSIONS: 1. Acute hypoxemic respiratory failure secondary to ARDS secondary to COVID- 19, pneumococcus and H. influenzae pneumonias The patient initially tested positive for coronavirus on December 13 and has had progressive symptoms and worsening oxygenation. Although initially being maintained on noninvasive positive pressure ventilatory support, the patient continued to decompensate from a respiratory perspective and was ultimately intubated on December 21. The patient is being maintained on remdesivir, Decadron, prophylactic Lovenox and baricitinib. CTA was negative for PE. The patient is unable to be diuresed due to underlying renal insufficiency. The patient will be continued on assist control mode of mechanical ventilation. FiO2 and PEEP will be weaned to maintain oxygen saturations at or above 90%. Patient off of paralytic, but unfortunately also has superinfection with 2 separate bacteria. Appropriate antibiotics have been initiated. Very guarded prognosis moving forward. 2. Acute kidney injury Likely prerenal in etiology. Continue to monitor urine output. Await nephrology recommendations. Patient may need a central line for dialysis 3. Obesity/COPD/history of KRISSY/hypertension/thrombocytopenia/GERD Complicates care, management, recovery and prognosis. Continue scheduled bronchodilators. TIME: 35 minutes of critical care time, independent of procedures, was spent addressing the patient's acute hypoxemic respiratory failure secondary to COVID- 19 pneumonia, acute kidney injury, review of all data and collaboration with the care team. (6:45 AM to 7:45 AM) Subjective Subjective Patient did okay overnight. Patient is off paralytics, but overall is grossly unchanged compared to previous. Oxygenation remains marginal. Patient has had decreased urine output. Objective Data Objective Data Vital Signs: Vital Signs Temp Pulse Resp BP Pulse Ox 36.3 C L 82 21 H 111/76 90 12/24/20 06:00 12/24/20 07:31 12/24/20 07:31 12/24/20 07:00 12/24/20 07:31 Oxygen Flow Rate (L/min) 90 Oxygen Delivery Method Mechanical Ventilator Weight: 117.2 kg Body Mass Index (BMI) 38.7 Intake & Output: Intake and Output for Last 24 Hours 12/22/20 12/23/20 12/24/20 23:59 23:59 23:59 Intake Total 1882.76 / 1961.06 1809.86 / 1975.42 1186.73 / 1186.73 Output Total 875 / 875 1000 / 1000 250 / 250 Balance 1007.76 / 1086.06 809.86 / 975.42 936.73 / 936.73 Lab / Micro Data Result Diagrams: 12/24/20 03:35 12/24/20 03:35 Labs: Laboratory Results - last 24 hr 12/24/20 03:35: WBC 10.3, RBC 4.25 L, Hgb 12.2 L, Hct 38.2 L, MCV 89.9, MCH 28.7, MCHC 31.9 L, RDW Std Deviation 53.4 H, RDW Coeff of Jose 16.2 H, Plt Count 167, MPV 12.5 H, Immature Gran % (Auto) 2.100 H, Neut % (Auto) 86.9 H, Lymph % (Auto) 7.4 L, [place] % (Auto) 3.5, Eos % (Auto) 0.0, Baso % (Auto) 0.1, Absolute Neuts (auto) 8.9 H, Absolute Lymphs (auto) 0.76 L, Nucleated RBC % 0.4 12/24/20 03:35: Sodium 138, Potassium 4.1, Chloride 103, Carbon Dioxide 23.0, Anion Gap 12, BUN 70 H, Creatinine 4.45 H, Estim Creat Clear Calc 16.87, Est GFR (MDRD) Af Amer 17 L, Est GFR (MDRD) Non-Af 14 L, BUN/Creatinine Ratio 15.7, Glucose 219 H, Calcium 7.2 L, Total Bilirubin 0.90, AST 40 H, ALT 37, Alkaline Phosphatase 85, Total Protein 6.1 L, Albumin 2.0 L, Globulin 4.1, Albumin/Globulin Ratio 0.5 L Micro: Microbiology 12/21/20 13:13 Sputum, Induced/Lukens Gram Stain - Final 12/21/20 13:13 Sputum, Induced/Lukens Respiratory Culture - Final Streptococcus pneumoniae Haemophilus influenzae 12/21/20 14:00 Urine Catheter - Goldsmith Urine Culture - Final Culture exhibits no growth. 12/20/20 16:55 Blood Culture (Wb) - Anticubital Right Blood Culture - Preliminary No growth in 48 hours. 12/20/20 15:25 Blood Culture (Wb) - Anticubital Left Blood Culture - Preliminary No growth in 48 hours. 12/21/20 14:00 Urine, Clean Catch Legionella Antigen - Final 12/21/20 14:00 Urine, Clean Catch Streptococcus pneumoniae Antigen (M - Final 12/20/20 17:29 Mucosa - Nose Respiratory Panel (PCR) - Final Physical Exam Const no apparent distress Constitutional Narrative: RASS -3 General Appearance: ill appearing, intubated and patient mechanically ventilated Nutritional Appearance: morbidly obese HEENT normocephalic and head/scalp atraumatic Mouth: endotracheal tube in place and OG tube in place Eyes PERRL and conjunctivae normal Neck supple General: trachea midline Chest inspection of chest normal Chest: symmetrical chest wall rise; Negative for crepitus Resp Auscultation: diminished lung sounds; Negative for rales, rhonchi or wheezes Cardio regular rate and regular rhythm GI normal to inspection, nondistended, normoactive bowel sounds Extremity no clubbing, cyanosis or edema Skin no rashes or lesions noted Neuro Sensorium / Orientation: sedated on vent Charges/Coding Procedures Hospitalists Procedures: 50512 Critial Care 1st Hr
[2020-12-24] MEDS: Insulin Lispro 100 UNIT/ML INSULN.PEN SC ×2 (11:48→18:08)
[2020-12-24] MEDS: Ascorbic Acid 500 MG Tablet 1000 MG GT ×2 (11:49→18:07)
[2020-12-24] MEDS: Venlafaxine HCl 75 MG Tablet 37.5 MG GT ×2 (11:50→21:45)
[2020-12-24] MEDS: Pregabalin 50 MG Capsule 200 MG PO ×2 (11:50→21:45)
[2020-12-24] MEDS: NYSTATIN 500,000 UNIT/5 ML UDC 500000 UNIT PO ×4 (11:51→21:44)
[2020-12-24] MEDS: Enoxaparin 30 MG/0.3 ML Syringe SC ×2 (11:51→21:38)
[2020-12-24] MEDS: dexAMETHasone 4 MG/ML Vial 6 MG IV (11:51)
[2020-12-24] MEDS: Chlorhexidine 15 ML PO ×2 (11:55→21:37)
[2020-12-24 12:56] LABS: Bedside Glucose 176 mg/dL (70-110)
--- NOTE | 2020-12-24 13:25 | CASEMGMT ---
SOCIAL WORK SW following for support to family. Call to , Debbie. Debbie reports spoke with nursing this morning and was told they would call back. requesting to come in to see patient. denies any s/s of COVID-19 and states has been vaccinated. Spoke with ICU Director, Azalea. Patient's nurse, Gladis to be calling to set up time for visit. Patient's updated. Paramjit Sandhu, GAMBLING SUPERVISOR, PRIMARY CARE PHYSICIAN
--- NOTE | 2020-12-24 13:38 | PCM.PN.ID ---
Physical Exam Narrative On vent, pressors. No fever. Const Constitutional Narrative: ill appearing Resp Effort and Inspection: mechanically ventilated Auscultation: diminished lung sounds Cardio Rate: tachycardic GI normal to inspection, nondistended, normoactive bowel sounds Skin no rashes or lesions noted ID ID: Route of nutrition/ use of supplements: [] Nutritional Intake: [] IV Site: [] Goldsmith Catheter: [] Assessment & Plan Assessment/Plan (1) COVID-19: PLAN: Sx started around 12/11. Unvaccinated. On dex, ceftriaxone, baricitinib. Remdesivir stopped due to TIFFANI; will stop baricitinib today due to worsening GFR. Now intubated. Isolate for 20 days from 12/11. CT neg for PE. On pressors. Sputum with strep pneumo and h. flu. Will follow (2) Acute hypoxemic respiratory failure:
--- NOTE | 2020-12-24 13:55 | PN.RENAL_ITS ---
Subjective Subjective Patient was not directly examined due to active COVID-19 infection and to preserve PPE I reviewed related notes, lab and imaging studies remains intubated off pressors Objective Data Objective Data Vital Signs: Vital Signs Temp Pulse Resp BP Pulse Ox 96.4 F L 86 18 108/87 H 89 12/24/20 12:00 12/24/20 13:00 12/24/20 13:00 12/24/20 13:00 12/24/20 13:00 Oxygen Flow Rate (L/min) 90 Oxygen Delivery Method Mechanical Ventilator Weight: 117.2 kg Body Mass Index (BMI) 38.7 Intake & Output: Intake and Output for Last 24 Hours 12/22/20 12/23/20 12/24/20 23:59 23:59 23:59 Intake Total 1882.76 / 1961.06 1809.86 / 1975.42 2398.64 / 2398.64 Output Total 875 / 875 1000 / 1000 300 / 300 Balance 1007.76 / 1086.06 809.86 / 975.42 2098.64 / 2098.64 Lab / Micro Data Result Diagrams: 12/24/20 03:35 12/24/20 03:35 Labs: Laboratory Results - last 24 hr 12/24/20 03:35: WBC 10.3, RBC 4.25 L, Hgb 12.2 L, Hct 38.2 L, MCV 89.9, MCH 28.7, MCHC 31.9 L, RDW Std Deviation 53.4 H, RDW Coeff of Jose 16.2 H, Plt Count 167, MPV 12.5 H, Immature Gran % (Auto) 2.100 H, Neut % (Auto) 86.9 H, Lymph % (Auto) 7.4 L, [place] % (Auto) 3.5, Eos % (Auto) 0.0, Baso % (Auto) 0.1, Absolute Neuts (auto) 8.9 H, Absolute Lymphs (auto) 0.76 L, Nucleated RBC % 0.4 12/24/20 03:35: Sodium 138, Potassium 4.1, Chloride 103, Carbon Dioxide 23.0, Anion Gap 12, BUN 70 H, Creatinine 4.45 H, Estim Creat Clear Calc 16.87, Est GFR (MDRD) Af Amer 17 L, Est GFR (MDRD) Non-Af 14 L, BUN/Creatinine Ratio 15.7, Glucose 219 H, Calcium 7.2 L, Total Bilirubin 0.90, AST 40 H, ALT 37, Alkaline P hosphatase 85, Total Protein 6.1 L, Albumin 2.0 L, Globulin 4.1, Albumin/Globulin Ratio 0.5 L 12/24/20 11:46: POC Glucose 176 H Micro: Microbiology 12/21/20 13:13 Sputum, Induced/Lukens Gram Stain - Final 12/21/20 13:13 Sputum, Induced/Lukens Respiratory Culture - Final Streptococcus pneumoniae Haemophilus influenzae 12/21/20 14:00 Urine Catheter - Goldsmith Urine Culture - Final Culture exhibits no growth. 12/20/20 16:55 Blood Culture (Wb) - Anticubital Right Blood Culture - Preliminary No growth in 48 hours. 12/20/20 15:25 Blood Culture (Wb) - Anticubital Left Blood Culture - Prelimi nary No growth in 48 hours. 12/21/20 14:00 Urine, Clean Catch Legionella Antigen - Final 12/21/20 14:00 Urine, Clean Catch Streptococcus pneumoniae Antigen (M - Fin al 12/20/20 17:29 Mucosa - Nose Respiratory Panel (PCR) - Final Physical Exam Narrative seen from outside ICU room. Intubated, sedated, paralyzed. Goldsmith catheter indwelling. Assessment & Plan Assessment/Plan (1) TIFFANI (acute kidney injury): PLAN: Acute renal failure. Baseline creatinine is normal. Admitted with a creatinine of 1.5 and has been worsening since then. Last CTA on admission. Urine analysis looks fairly benign. Goldsmith indwelling. TIFFANI is likely ATN.Non oliguric. No need for INTERNIST MEDICAL DOCTOR MD Ok to diurese the patient if BP allows Keep MAP > 65 Check RFP in am Hyperkalemia. Better today. COVID-19 pneumonia and ARF on vent support. management as per ICU Discussed with ICU attending Dr. Emanuel
--- NOTE | 2020-12-24 15:10 | CHAPLAIN ---
Type of Pastoral Visit ___ Initial Visit ___ Follow-up Visit ___ On-call Visit ___ General Patient Visit ___ Spiritual Assessment ___ Family Conference ___ Bereavement ___ Rapid Response ___ Code Blue _x__ Other (describe below) Pastoral Care Referral From ___ Patient ___ Family ___ Nurse ___ Physician ___ Front Line Leader ___ Acct Exec _x__ Other (describe below) Sacrament/Intervention _x__ Active listening ___ Anointing ___ Taoist ___ Bereavement ___ Communion ___ Parris exploration ___ ___ Life review _x__ Prayer ___ Reconciliation ___ Sacrament of Sick _x__ Supportive presence ___ Wedding ___ Other (describe below) Pastoral Comments 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
[2020-12-24] MEDS: TITRATION PARAMETER CHANGE 1 EACH IV (17:15)
[2020-12-24 18:20] LABS: Bedside Glucose 256 mg/dL (70-110)
[2020-12-24] MEDS: 0.9% Saline Lock 10 ML Syringe IV (21:31)
[2020-12-24] MEDS: Topiramate 50 MG Tablet PO (21:45)
[2020-12-24] MEDS: Dexmedetomidine 1,000 mcg in 0.9% NS 240 mL 35.1 MCG CONT INF (22:21)
[2020-12-24 22:27] LABS: Magnesium 2.7 mg/dL (1.6-2.6); Phosphorus 5.5 mg/dL (2.5-4.9)
[2020-12-24] MEDS: Propofol 10MG/Ml 1,000 MG/100 ML Bottle 31.6 MG CONT INF (22:45)
[2020-12-24] MEDS: Metoprolol Tartrate 5 MG/5 ML Vial IV (22:54)
--- NOTE | 2020-12-24 23:57 | NURSING ---
RT notified off low oxygen saturations. FIO2 increased to 100%.
[2020-12-25] VITALS (35 sets, daily range): BP systolic 105–159; BP diastolic 82–99; PULSE 81–93; RESP 9–24; TEMP 35.9–36.4; O2SAT 89–97
[2020-12-25 00:20] LABS: Bedside Glucose 222 mg/dL (70-110)
[2020-12-25] MEDS: Insulin Lispro 100 UNIT/ML INSULN.PEN SC ×4 (00:40→16:36)
[2020-12-25] MEDS: Propofol 10MG/Ml 1,000 MG/100 ML Bottle 35.1 MG CONT INF ×2 (01:38→03:34)
[2020-12-25] MEDS: Dexmedetomidine 1,000 mcg in 0.9% NS 240 mL 43.9 MCG CONT INF (04:00)
[2020-12-25] MEDS: Vital AF 1.2 Cal Liquid 1,000 ML 70 ML GT ×2 (04:31→21:45)
[2020-12-25 04:46] LABS: Hematocrit 30.6 % (40-54); Hemoglobin 10.8 g/dL (13.0-16.5); Mean Corp Hgb Conc 35.3 g/dL (32-36); Mean Corpuscular Hgb 31.9 pg (27.0-32.0); Mean Corpuscular Volume 90.3 fL (80-94); Mean Platelet Vol. 12.3 fl (6.2-12.0); POSITIVE COUNT YES; POSITIVE DIFFERENTIAL YES; POSITIVE MORPHOLOGY YES; Platelet Count 151 K/mm3 (150-450); RBC Distribution Width CV 16.7 % (11.6-14.6); Red Blood Count 3.39 M/mm3 (4.6-6.2); White Blood Count 9.7 K/mm3 (4.4-11.0)
[2020-12-25 04:48] LABS: Differential Indicated MANUAL DIFF
[2020-12-25 05:22] LABS: Total Cells Counted 100 (MANUAL DIFF)
[2020-12-25 05:25] LABS: Neutrophil-Band 3 % (0-5); Neutrophil-Segmented 85 % (47-70)
[2020-12-25 05:26] LABS: Basophil 1 % (0-1); Lymphocyte 3 % (19-41); Metamyelocyte 1 % (0-1); Monocyte 3 % (0-10); Myelocyte 3 % (0-0); Platelet Estimate ADEQUATE (ADEQ); Promyelocyte 1 % (0-0)
[2020-12-25 05:27] LABS: Absolute Neutrophil Count 8.5 X10^3/uL (2.0-7.7); Neutrophil # 8.52 X10^3/uL (2.7-7.7); Red Cell Morphology NORM C+C NORMAL (NORM C&C)
[2020-12-25 05:28] LABS: Absolute Lymphocyte Count 0.29 X10^3/uL (0.83-4.51); Lymphocyte # 0.29 X10^3/ul (0.83-4.51)
[2020-12-25 05:30] LABS: ALB/GLOB Ratio 0.4 RATIO (0.9-2.4); AST(SGOT) 36 U/L (15-37); Alanine Aminotransfer ALT/SGPT 29 U/L (16-61); Albumin, Serum 1.6 g/dL (3.2-5.0); Alkaline Phosphatase 74 U/L (45-117); Anion Gap 14 (5-15); BUN 83 mg/dL (7-18); BUN/Creat Ratio 16.9 RATIO (10-20); Calcium,Total 6.3 mg/dL (8.5-10.1); Chloride 100 mmol/L (98-107); EST Glomerular Filtration Rate 13 mL/min (>60); Est Glom Filt Rate - Afr Amer 16 mL/min (>60); Estimated Creatinine Clearance 15.32 ml/min; Globulin 4.2 g/dL (2.2-4.2); Glucose 179 mg/dL (74-106); Potassium 4.4 mmol/L (3.5-5.1); Protein, Total 5.8 g/dL (6.4-8.2); Sodium Level 132 mmol/L (136-145)
[2020-12-25 06:11] LABS: Bedside Glucose 181 mg/dL (70-110)
[2020-12-25] MEDS: Propofol 10MG/Ml 1,000 MG/100 ML Bottle 35.7 MG CONT INF (06:25)
[2020-12-25] MEDS: TITRATION PARAMETER CHANGE 1 EACH IV (06:52)
[2020-12-25] MEDS: Ipratropium/Albuterol Sulfate 3 ML AMPUL.NEB INHALATION ×4 (07:04→19:25)
--- NOTE | 2020-12-25 07:24 | PN.CC_ITS ---
Assessment & Plan Assessment/Plan (1) Acute hypoxemic respiratory failure: (2) COVID-19: PLAN: RECOMMENDATIONS: 1. Continue assist control mode of mechanical ventilation and wean FiO2/PEEP for saturations greater than 90%. 2. Continue antimicrobials, but narrow spectrum, given sputum culture results. 3. Dose adjust baricitinib based upon renal function. 4. Potential transition to APRV later today 5. Maintain RASS from -2 to -3 6. Await nephrology decision on dialysis 7. Continue Decadron and prophylactic Lovenox. 8. Continue appropriate GI prophylaxis. IMPRESSIONS: 1. Acute hypoxemic respiratory failure secondary to ARDS secondary to COVID- 19, pneumococcus and H. influenzae pneumonias The patient initially tested positive for coronavirus on December 13 and has had progressive symptoms and worsening oxygenation. Although initially being maintained on noninvasive positive pressure ventilatory support, the patient continued to decompensate from a respiratory perspective and was ultimately intubated on December 21. The patient is being maintained on remdesivir, Decadron, prophylactic Lovenox and baricitinib. CTA was negative for PE. The patient is unable to be diuresed due to underlying renal ins ufficiency. The patient will be continued on assist control mode of mechanical ventilation. FiO2 and PEEP will be weaned to maintain oxygen saturations at or above 90%. However, patient is requiring high PEEP and FiO2 to maintain saturations. May need to transition to APRV later today. Patient off of paralytic, but unfortunately also has superinfection with 2 separate bacteria. Appropriate antibiotics have been initiated. Very guarded prognosis moving forward. 2. Acute kidney injury Likely prerenal in etiology. Continue to monitor urine output. Await nep hrology recommendations. Patient may need a temporary line for dialysis 3. Obesity/COPD/history of KRISSY/hypertension/thrombocytopenia/GERD Complicates care, management, recovery and prognosis. Continue scheduled bronchodilators. TIME: 34 minutes of critical care time, independent of procedures, was spent addressing the patient's acute hypoxemic respiratory failure secondary to COVID- 19 pneumonia, acute kidney injury, review of all data and collaboration with the care team. (5:45 AM to 6:45 AM) Subjective Subjective The patient did okay overnight. Patient has had intermittent episodes of SVT and breath stacking. Patient has been placed on more sedation with better response. Patient has not required any Levophed for blood pressure support and tube feed residuals have been acceptable. Objective Data Objective Data Vital Signs: Vital Signs Temp Pulse Resp BP Pulse Ox 36.2 C L 88 16 133/91 H 91 12/25/20 04:00 12/25/20 07:04 12/25/20 07:04 12/25/20 07:00 12/25/20 07:04 Oxygen Flow Rate (L/min) 90 Oxygen Delivery Method Mechanical Ventilator Weight: 119.1 kg Body Mass Index (BMI) 38.7 Intake & Output: Intake and Output for Last 24 Hours 12/23/20 12/24/20 12/25/20 23:59 23:59 23:59 Intake Total 1809.86 / 1975.42 4109.03 / 4667.54 1793.07 / 1793.07 Output Total 1000 / 1000 825 / 825 200 / 200 Balance 809.86 / 975.42 3284.03 / 3842.54 1593.07 / 1593.07 Lab / Micro Data Result Diagrams: 12/25/20 04:30 12/25/20 04:30 Labs: Laboratory Results - last 24 hr 12/24/20 11:46: POC Glucose 176 H 12/24/20 18:07: POC Glucose 256 H 12/24/20 21:28: Phosphorus 5.5 H, Magnesium 2.7 H 12/25/20 00:08: POC Glucose 222 H 12/25/20 04:30: WBC 9.7, RBC 3.39 L, Hgb 10.8 L, Hct 30.6 L, MCV 90.3, MCH 31.9, MCHC 35.3 D, RDW Std Deviation 55.0 H, RDW Coeff of Jose 16.7 H, Plt Count 151, MPV 12.3 H, Neut % (Auto) Not Reportable, Absolute Neuts (auto) 8.5 H, Absolute Lymphs (auto) 0.29 L, Total Counted 100, Neutrophils % (Manual) 85 H, Band Neutrophils % 3, Lymphocytes % (Manual) 3 L, Monocytes % (Manual) 3, Basophils % (Manual) 1, Metamyelocytes % 1, Myelocytes % 3 H, Promyelocytes % 1 H, Diff Path Review May foll, Platelet Estimate ADEQUATE, RBC Morphology NORM C+C 12/25/20 04:30: Sodium 132 L, Potassium 4.4, Chloride 100, Carbon Dioxide 18.0 L , Anion Gap 14, BUN 83 H, Creatinine 4.90 H, Estim Creat Clear Calc 15.32, Est GFR (MDRD) Af Amer 16 L, Est GFR (MDRD) Non-Af 13 L, BUN/Creatinine Ratio 16.9, Glucose 179 H, Calcium 6.3 L*, Total Bilirubin 0.80, AST 36, ALT 29, Alkaline Phosphatase 74, Total Protein 5.8 L, Albumin 1.6 L, Globulin 4.2, Albumin/Globu vincent Ratio 0.4 L 12/25/20 05:43: POC Glucose 181 H Micro: Microbiology 12/21/20 13:13 Sputum, Induced/Lukens Gram Stain - Final 12/21/20 13:13 Sputum, Induced/Lukens Respiratory Culture - Final Streptococcus pneumoniae Haemophilus influenzae 12/21/20 14:00 Urine Catheter - Goldsmith Urine Culture - Final Culture exhibits no growth. 12/20/20 16:55 Blood Culture (Wb) - Anticubital Right Blood Culture - Preliminary No growth in 48 hours. 12/20/20 15:25 Blood Culture (Wb) - Anticubital Left Blood Culture - Preliminary No growth in 48 hours. 12/21/20 14:00 Urine, Clean Catch Legionella Antigen - Final 12/21/20 14:00 Urine, Clean Catch Streptococcus pneumoniae Antigen (M - Final 12/20/20 17:29 Mucosa - Nose Respiratory Panel (PCR) - Final Physical Exam Const no apparent distress Constitutional Narrative: RASS -3 General Appearance: ill appearing, intubated and patient mechanically ventilated Nutritional Appearance: morbidly obese HEENT normocephalic and head/scalp atraumatic Mouth: endotracheal tube in place and OG tube in place Eyes PERRL and conjunctivae normal Neck supple General: trachea midline Chest inspection of chest normal Chest: symmetrical chest wall rise; Negative for crepitus Resp Auscultation: diminished lung sounds; Negative for rales, rhonchi or wheezes Cardio regular rate and regular rhythm GI normal to inspection, nondistended, normoactive bowel sounds Extremity no clubbing, cyanosis or edema Skin no rashes or lesions noted Neuro Sensorium / Orientation: sedated on vent Charges/Coding Procedures Hospitalists Procedures: 10022 Critial Care 1st Hr
--- NOTE | 2020-12-25 07:43 | PN.HOSP_ITS ---
Subjective Subjective Intubated and sedated no issues overnight Objective Data Objective Data Vital Signs: Vital Signs Temp Pulse Resp BP Pulse Ox 97.2 F L 88 16 133/91 H 91 12/25/20 04:00 12/25/20 07:04 12/25/20 07:04 12/25/20 07:00 12/25/20 07:04 Oxygen Flow Rate (L/min) 90 Oxygen Delivery Method Mechanical Ventilator Weight: 262 lb 9.129 oz Body Mass Index (BMI) 38.7 Intake & Output: Intake and Output for Last 24 Hours 12/24/20 12/25/20 12/26/20 03:59 03:59 03:59 Intake Total 1860.70 / 2081.40 4655.47 / 5184.58 918.02 / 918.02 Output Total 1000 / 1000 825 / 825 200 / 200 Balance 860.70 / 1081.40 3830.47 / 4359.58 718.02 / 718.02 Lab / Micro Data Result Diagrams: 12/25/20 04:30 12/25/20 04:30 Labs: Laboratory Results - last 24 hr 12/24/20 11:46: POC Glucose 176 H 12/24/20 18:07: POC Glucose 256 H 12/24/20 21:28: Phosphorus 5.5 H, Magnesium 2.7 H 12/25/20 00:08: POC Glucose 222 H 12/25/20 04:30: WBC 9.7, RBC 3.39 L, Hgb 10.8 L, Hct 30.6 L, MCV 90.3, MCH 31.9, MCHC 35.3 D, RDW Std Deviation 55.0 H, RDW Coeff of Jose 16.7 H, Plt Count 151, MPV 12.3 H, Neut % (Auto) Not Reportable, Absolute Neuts (auto) 8.5 H, Absolute Lymphs (auto) 0.29 L, Total Counted 100, Neutrophils % (Manual) 85 H, Band Neutrophils % 3, Lymphocytes % (Manual) 3 L, Monocytes % (Manual) 3, Basophils % (Manual) 1, Metamyelocytes % 1, Myelocytes % 3 H, Promyelocytes % 1 H, Diff Path Review May foll, Platelet Estimate ADEQUATE, RBC Morphology NORM C+C 12/25/20 04:30: Sodium 132 L, Potassium 4.4, Chloride 100, Carbon Dioxide 18.0 L , Anion Gap 14, BUN 83 H, Creatinine 4.90 H, Estim Creat Clear Calc 15.32, Est GFR (MDRD) Af Amer 16 L, Est GFR (MDRD) Non-Af 13 L, BUN/Creatinine Ratio 16.9, Glucose 179 H, Calcium 6.3 L*, Total Bilirubin 0.80, AST 36, ALT 29, Alkaline Phosphatase 74, Total Protein 5.8 L, Albumin 1.6 L, Globulin 4.2, Albumin/Globulin Ratio 0.4 L 12/25/20 05:43: POC Glucose 181 H Micro: Microbiology 12/21/20 13:13 Sputum, Induced/Lukens Gram Stain - Final 12/21/20 13:13 Sputum, Induced/Lukens Respiratory Culture - Final Streptococcus pneumoniae Haemophilus influenzae 12/21/20 14:00 Urine Catheter - Goldsmith Urine Culture - Final Culture exhibits no growth. 12/20/20 16:55 Blood Culture (Wb) - Anticubital Right Blood Culture - Pr eliminary No growth in 48 hours. 12/20/20 15:25 Blood Culture (Wb) - Anticubital Left Blood Culture - Preliminary No growth in 48 hours. 12/21/20 14:00 Urine, Clean Catch Legionella Antigen - Final 12/21/20 14:00 Urine, Clean Catch Streptococcus pneumoniae Antigen (M - Final 12/20/20 17:29 Mucosa - Nose Respiratory Panel (PCR) - Final Physical Exam Const General Appearance: intubated and patient mechanically ventilated HEENT normocephalic and moist oral mucous membranes Eyes PERRL and conjunctivae normal Neck supple and no JVD Resp normal respiratory effort, no retractions and no use of accessory muscles Auscultation: diminished lung sounds; Negative for crackles, rales, rhonchi or wheezes Cardio regular rate, regular rhythm, S1 normal heart sound, S2 normal heart sound and no murmurs GI soft to palpation and non-distended; Negative for hepatosplenomegaly Extremity no clubbing, cyanosis or edema Skin no rashes or lesions noted Neuro Sensorium / Orientation: sedated on vent Psych Appearance: intubated Assessment & Plan Assessment/Plan (1) Acute hypoxemic respiratory failure: (2) COVID-19: (3) TIFFANI (acute kidney injury): (4) Bacterial pneumonia: PLAN: 1. Acute hypoxic respiratory failure and septic shock secondary to COVID-19 pneumonia/TIFFANI/thrombocytopenia/bacterial pneumonia with strep pneumonia and Haemophilus influenza -Intubated 12/21/2020 -Appreciate communication signals intelligence assistance -Continue with Decadron, baricitinib, he was given 2 doses of remdesivir and then his renal function deteriorated to the point where we could not use it -Appreciate ID assistance, continue with Zosyn and Rocephin, sputum culture with strep pneumonia and Haemophilus influenza -Thrombocytopenia resolved -Septic shock resolved, no longer on Levophed -Consult to nephrology to decide on dialysis secondary to worsening renal function -CT of the chest was negative for PE 2. HTN/HLD/morbid obesity -Was on Levophed but has been off for the last several days -Continue with hydralazine as needed, and will continue to hold his Norvasc -Once extubated and alert, will discuss weight loss strategies given his BMI of 39.3 3. GERD -Stable -Continue PPI 4. Chronic migraine -Stable -Continue with Topamax and Lyrica 5. Anxiety/depression -Stable -Continue with Effexor 6. COPD/KRISSY -Continue with steroids -Currently on inhalers at home and once extubated will resume BiPAP at night DVT: Lovenox Charges/Coding Visit Charges Inpatient E&M: 90072 [facility] Hosp L2
[2020-12-25] MEDS: Ascorbic Acid 500 MG Tablet 1000 MG GT ×2 (08:49→16:37)
[2020-12-25] MEDS: Pregabalin 50 MG Capsule 200 MG PO ×2 (08:54→21:51)
[2020-12-25] MEDS: 0.9% Saline Lock 10 ML Syringe IV ×2 (08:55→21:49)
[2020-12-25] MEDS: dexAMETHasone 4 MG/ML Vial 6 MG IV (08:55)
[2020-12-25] MEDS: Venlafaxine HCl 75 MG Tablet 37.5 MG GT ×2 (08:57→21:51)
[2020-12-25] MEDS: NYSTATIN 500,000 UNIT/5 ML UDC 500000 UNIT PO ×4 (08:58→21:50)
[2020-12-25] MEDS: Chlorhexidine 15 ML PO ×2 (08:59→21:54)
[2020-12-25] MEDS: Enoxaparin 30 MG/0.3 ML Syringe SC ×2 (08:59→21:49)
[2020-12-25] MEDS: Propofol 10MG/Ml 1,000 MG/100 ML Bottle 32.2 MG CONT INF (09:11)
[2020-12-25] MEDS: Dexmedetomidine 1,000 mcg in 0.9% NS 240 mL 44.7 MCG CONT INF ×2 (10:00→15:55)
[2020-12-25] MEDS: Senna/Docusate Sodium 1 Tablet 2 TABLET GT ×2 (10:27→21:51)
[2020-12-25] MEDS: Polyethylene Glycol 3350 17 GM PACKET GT ×2 (10:27→21:50)
[2020-12-25 12:11] LABS: Bedside Glucose 230 mg/dL (70-110)
--- NOTE | 2020-12-25 13:05 | CASEMGMT ---
RN CM OBSTETRICS SCRUB NURSE CM placed call to pt's , Debbie, for support. She states it has been very difficult, stating it was a very emotional day for her yesterday after hearing about how ill her is, but she has been reaching out to her mother and pt's sister, Annie, for support. She says her sabianist audio visual collections coordinator has also been in contact w/her since pt admitted and pt was placed on the prayer list. She states they [place] and their neighbors are looking out after her during this time. Pt has 6 children. states she and pt have been together for 14 years but just got 8 months ago. They have 2 children together, ages 13 & 9, who live w/them and pt's oldest son ([id number]) also lives with them. states pt was mostly independent prior to recent illness. manages his medications and appts. Pt has not done a LW or HPOA. She states she has informed pt's children how serious pt's condition is. She states she plans to come visit pt tomorrow. Pt had COVID testing completed 12/13 @ [facility]. COVID testing completed @ [facility] 12/13.
[2020-12-25 13:28] LABS: Pathologist Review Reviewed
--- NOTE | 2020-12-25 13:56 | PN.RENAL_ITS ---
Subjective Subjective d/w ICU nurse remains intubated and sedated FIO2 90% off pressors Objective Data Objective Data Vital Signs: Vital Signs Temp Pulse Resp BP Pulse Ox 97.4 F L 89 14 141/94 H 94 12/25/20 12:00 12/25/20 13:25 12/25/20 13:25 12/25/20 12:00 12/25/20 13:25 Oxygen Flow Rate (L/min) 90 Oxygen Delivery Method Mechanical Ventilator Weight: 119.1 kg Body Mass Index (BMI) 38.7 Intake & Output: Intake and Output for Last 24 Hours 12/23/20 12/24/20 12/25/20 23:59 23:59 23:59 Intake Total 1809.86 / 1975.42 4109.03 / 4667.54 2872.91 / 2872.91 Output Total 1000 / 1000 825 / 825 350 / 350 Balance 809.86 / 975.42 3284.03 / 3842.54 2522.91 / 2522.91 Lab / Micro Data Result Diagrams: 12/25/20 04:30 12/25/20 04:30 Labs: Laboratory Results - last 24 hr 12/24/20 18:07: POC Glucose 256 H 12/24/20 21:28: Phosphorus 5.5 H, Magnesium 2.7 H 12/25/20 00:08: POC Glucose 222 H 12/25/20 04:30: WBC 9.7, RBC 3.39 L, Hgb 10.8 L, Hct 30.6 L, MCV 90.3, MCH 31.9, MCHC 35.3 D, RDW Std Deviation 55.0 H, RDW Coeff of Jose 16.7 H, Plt Count 151, MPV 12.3 H, Neut % (Auto) Not Reportable, Absolute Neuts (auto) 8.5 H, Absolute Lymphs (auto) 0.29 L, Total Counted 100, Neutrophils % (Manual) 85 H, Band Neutrophils % 3, Lymphocytes % (Manual) 3 L, Monocytes % (Manual) 3, Basophils % (Manual) 1, Metamyelocytes % 1, Myelocytes % 3 H, Promyelocytes % 1 H, Diff Path Review Reviewed, Platelet Estimate ADEQUATE, RBC Morphology NORM C+C 12/25/20 04:30: Sodium 132 L, Potassium 4.4, Chloride 100, Carbon Dioxide 18.0 L , Anion Gap 14, BUN 83 H, Creatinine 4.90 H, Estim Creat Clear Calc 15.32, Est GFR (MDRD) Af Amer 16 L, Est GFR (MDRD) Non-Af 13 L, BUN/Creatinine Ratio 16.9, Glucose 179 H, Calcium 6.3 L*, Total Bilirubin 0.80, AST 36, ALT 29, Alkaline Phosphatase 74, Total Protein 5.8 L, Albumin 1.6 L, Globulin 4.2, Albumin/Globulin Ratio 0.4 L 12/25/20 05:43: POC Glucose 181 H 12/25/20 11:59: POC Glucose 230 H Micro: Microbiology 12/21/20 13:13 Sputum, Induced/Lukens Gram Stain - Final 12/21/20 13:13 Sputum, Induced/Lukens Respiratory Culture - Final Streptococcus pneumoniae Haemophilus influenzae 12/21/20 14:00 Urine Catheter - Goldsmith Urine Culture - Final Culture exhibits no growth. 12/20/20 16:55 Blood Culture (Wb) - Anticubital Right Blood Culture - Preliminary No growth in 48 hours. 12/20/20 15:25 Blood Culture (Wb) - Anticubital Left Blood Culture - Preliminary No growth in 48 hours. 12/21/20 14:00 Urine, Clean Catch Legionella Antigen - Final 12/21/20 14:00 Urine, Clean Catch Streptococcus pneumoniae Antigen (M - Final 12/20/20 17:29 Mucosa - Nose Respiratory Panel (PCR) - Final Physical Exam Narrative seen from outside ICU room. Intubated, sedated Goldsmith catheter indwelling. No direct physical exam was done due to active COVID-19 infection and to preserve PPE Assessment & Plan Assessment/Plan (1) TIFFANI (acute kidney injury): PLAN: Acute renal failure. Baseline creatinine is normal. Admitted with a creatinine of 1.5 and has been worsening since then. Last CTA on admission. Urine analysis looks fairly benign. Goldsmith indwelling. TIFFANI is likely ATN.Non oliguric. SCr continue to rise as BUN No need for CIVIL PREPAREDNESS TRAINING OFFICER Ok to diurese if needed Might need CIVIL PREPAREDNESS TRAINING OFFICER if kidney function continues to worsen Keep MAP > 65 Check RFP in am Hyperkalemia. resolved COVID-19 pneumonia and ARF on vent support. management as per ICU Call if any question
[2020-12-25] MEDS: Propofol 10MG/Ml 1,000 MG/100 ML Bottle 10.7 MG CONT INF (14:03)
[2020-12-25 17:20] LABS: Bedside Glucose 229 mg/dL (70-110)
[2020-12-25] MEDS: Topiramate 50 MG Tablet PO (21:50)
[2020-12-25] MEDS: Dexmedetomidine 1,000 mcg in 0.9% NS 240 mL 29.8 MCG CONT INF (22:01)
[2020-12-26] VITALS (36 sets, daily range): BP systolic 129–187; BP diastolic 81–113; PULSE 83–120; RESP 14–34; TEMP 35.6–37.2; O2SAT 84–98
[2020-12-26] MEDS: Insulin Lispro 100 UNIT/ML INSULN.PEN SC ×4 (00:16→18:02)
[2020-12-26] MEDS: hydrALAZINE 20 MG/ML Vial 10 MG IV ×2 (00:17→04:17)
[2020-12-26 00:36] LABS: Bedside Glucose 190 mg/dL (70-110)
[2020-12-26] MEDS: Dexmedetomidine 1,000 mcg in 0.9% NS 240 mL 45.9 MCG CONT INF ×4 (04:26→21:27)
[2020-12-26 04:43] LABS: Hematocrit 35.4 % (40-54); Hemoglobin 11.4 g/dL (13.0-16.5); Mean Corp Hgb Conc 32.2 g/dL (32-36); Mean Corpuscular Hgb 28.6 pg (27.0-32.0); Mean Corpuscular Volume 88.7 fL (80-94); Mean Platelet Vol. 11.6 fl (6.2-12.0); POSITIVE COUNT YES; POSITIVE DIFFERENTIAL YES; POSITIVE MORPHOLOGY YES; Platelet Count 206 K/mm3 (150-450); RBC Distribution Width CV 16.9 % (11.6-14.6); RBC Distribution Width SD 54.7 fl (35.1-43.9); Red Blood Count 3.99 M/mm3 (4.6-6.2); White Blood Count 12.9 K/mm3 (4.4-11.0)
[2020-12-26 04:59] LABS: Differential Indicated MANUAL DIFF
[2020-12-26] MEDS: CHLORHEXIDINE GLUC 2% CLOTH 1 EACH TOWELETTE TOPICAL (05:00)
[2020-12-26 05:07] LABS: ALB/GLOB Ratio 0.4 RATIO (0.9-2.4); AST(SGOT) 37 U/L (15-37); Alanine Aminotransfer ALT/SGPT 35 U/L (16-61); Albumin, Serum 1.7 g/dL (3.2-5.0); Alkaline Phosphatase 85 U/L (45-117); Anion Gap 15 (5-15); BUN 109 mg/dL (7-18); BUN/Creat Ratio 17.2 RATIO (10-20); Calcium,Total 7.2 mg/dL (8.5-10.1); Chloride 106 mmol/L (98-107); Creatinine, Serum 6.32 mg/dL (0.70-1.30); EST Glomerular Filtration Rate 10 mL/min (>60); Est Glom Filt Rate - Afr Amer 12 mL/min (>60); Estimated Creatinine Clearance 11.88 ml/min; Globulin 4.6 g/dL (2.2-4.2); Glucose 236 mg/dL (74-106); Potassium 4.1 mmol/L (3.5-5.1); Protein, Total 6.3 g/dL (6.4-8.2); Sodium Level 139 mmol/L (136-145)
[2020-12-26] MEDS: TITRATION PARAMETER CHANGE 1 EACH IV (05:17)
[2020-12-26 05:36] LABS: Bedside Glucose 249 mg/dL (70-110)
[2020-12-26 05:55] LABS: Allen Test Positive; Base Excess -9 mmol/L (-2 to +2); Bicarbonate 18.4 mmol/L (22-26); Blood Gas Specimen Type ART; FI02 65; Mode BiLevel; O2 Delivery Device Adult Vent; PO2 54 mmHG (75-100); RR 12; SITE L Radial; SO2 82 % (95-99); Total Carbon Dioxide 20 mmol/L; pCO2 42.4 mmHg (35-45); pH 7.25 (7.35-7.45)
[2020-12-26 06:25] LABS: Neutrophil-Segmented 83 % (47-70); Total Cells Counted 100 (MANUAL DIFF)
[2020-12-26 06:26] LABS: Lymphocyte 3 % (19-41); Metamyelocyte 3 % (0-1); Monocyte 5 % (0-10); Myelocyte 4 % (0-0); Neutrophil-Band 2 % (0-5); Platelet Estimate ADEQUATE (ADEQ)
[2020-12-26 06:27] LABS: Red Cell Morphology NORM C+C NORMAL (NORM C&C)
[2020-12-26 06:29] LABS: Absolute Lymphocyte Count 0.39 X10^3/uL (0.83-4.51); Lymphocyte # 0.39 X10^3/ul (0.83-4.51); Neutrophil # 10.97 X10^3/uL (2.7-7.7)
--- NOTE | 2020-12-26 08:13 | PN.CC_ITS ---
Assessment & Plan Assessment/Plan (1) Acute hypoxemic respiratory failure: (2) COVID-19: PLAN: RECOMMENDATIONS: 1. Continue APRV mode of mechanical ventilation and wean FiO2/P high for sa turations greater than 90%. 2. Continue antimicrobials given sputum culture results. 3. Dose adjust baricitinib based upon renal function. Potential discontinuation secondary to renal 4. Attempt to decrease RASS goals to -1 to -[address] hemodialysis access 6. Await nephrology decision on dialysis 7. Continue Decadron and prophylactic Lovenox. 8. Continue appropriate GI prophylaxis. IMPRESSIONS: 1. Acute hypoxemic respiratory failure secondary to ARDS secondary to COVID- 19, pneumococcus and H. influenzae pneumonias The patient initially tested positive for coronavirus on December 13 and has had progressive symptoms and worsening oxygenation. Although initially being maintained on noninvasive positive pressure ventilatory support, the patient continued to decompensate from a respiratory perspective and was ultimately intubated on December 21. The patient is being maintained on remdesivir, Decadron, prophylactic Lovenox and baricitinib. CTA was negative for PE. The patient is unable to be diuresed due to underlying renal insufficiency. The patient will be continued on assist control mode of mech anical ventilation. Patient appears to be doing better from a respiratory standpoint on APRV. We will continue to wean P high as tolerated. Will attempt to decrease sedation goals. 2. Acute kidney injury Likely prerenal in etiology. Continue to monitor urine output. Await nephrology recommendations. Nephrology is stating the patient will need dialysis. Will have line placed today. Patient would benefit from volume removal as tolerated. 3. Obesity/COPD/history of KRISSY/hypertension/thrombocytopenia/GERD Complicates care, management, recovery and prognosis. Continue scheduled bronchodilators. TIME: 36 minutes of critical care time, independent of procedures, was spent addressing the patient's acute hypoxemic respiratory failure secondary to COVID- 19 pneumonia, acute kidney injury, review of all data and collaboration with the care team. (7 AM to 8 AM) Subjective Subjective Patient did okay overnight. Patient did have significant hypertension following the bowel movement that has persisted. Patient's oxygen status has slightly improved compared to previous. Patient has been tolerating tube feeds and urine output is slightly improved compared to previous. Discussed with nephrology this morning and there are plans to proceed with dialysis. Access has been requested. Objective Data Objective Data Vital Signs: Vital Signs Temp Pulse Resp BP Pulse Ox 36.7 C 119 H 20 H 174/107 H 90 12/26/20 04:00 12/26/20 07:00 12/26/20 07:00 12/26/20 07:00 12/26/20 07:00 Oxygen Flow Rate (L/min) 90 Oxygen Delivery Method Mechanical Ventilator Weight: 122.4 kg Body Mass Index (BMI) 38.7 Intake & Output: Intake and Output for Last 24 Hours 12/24/20 12/25/20 12/26/20 23:59 23:59 23:59 Intake Total 4109.03 / 4667.54 5316.14 / 5955.94 1732.77 / 1732.77 Output Total 825 / 825 625 / 775 350 / 350 Balance 3284.03 / 3842.54 4691.14 / 5180.94 1382.77 / 1382.77 Lab / Micro Data Result Diagrams: 12/26/20 04:20 12/26/20 04:20 Labs: Laboratory Results - last 24 hr 12/25/20 04:30: Diff Path Review Reviewed 12/25/20 11:59: POC Glucose 230 H 12/25/20 16:31: POC Glucose 229 H 12/26/20 00:14: POC Glucose 190 H 12/26/20 04:20: WBC 12.9 H, RBC 3.99 L, Hgb 11.4 L, Hct 35.4 L, MCV 88.7, MCH 28.6, MCHC 32.2 D, RDW Std Deviation 54.7 H, RDW Coeff of Jose 16.9 H, Plt Count 206, MPV 11.6, Neut % (Auto) Not Reportable, Absolute Neuts (auto) 11.0 H, Absolute Lymphs (auto) 0.39 L, Total Counted 100, Neutrophils % (Manual) 83 H, Band Neutrophils % 2, Lymphocytes % (Manual) 3 L, Monocytes % (Manual) 5, Metamyelocytes % 3 H, Myelocytes % 4 H, Diff Path Review May , Platelet Estimate ADEQUATE, RBC Morphology NORM C+C 12/26/20 04:20: Sodium 139, Potassium 4.1, Chloride 106, Carbon Dioxide 18.0 L, Anion Gap 15, BUN 109 H*, Creatinine 6.32 H, Estim Creat Clear Calc 11.88, Est GFR (MDRD) Af Amer 12 L, Est GFR (MDRD) Non-Af 10 L, BUN/Creatinine Ratio 17.2, Glucose 236 H, Calcium 7.2 L, Total Bilirubin 0.60, AST 37, ALT 35, Alkaline Phosphatase 85, Total Protein 6.3 L, Albumin 1.7 L, Globulin 4.6 H, Albumin/Globulin Ratio 0.4 L 12/26/20 05:12: POC Glucose 249 H Micro: Microbiology 12/20/20 16:55 Blood Culture (Wb) - Anticubital Right Blood Culture - Final No growth in 5 days. 12/20/20 15:25 Blood Culture (Wb) - Anticubital Left Blood Culture - Final No growth in 5 days. 12/21/20 13:13 Sputum, Induced/Lukens Gram Stain - Final 12/21/20 13:13 Sputum, Induced/Lukens Respiratory Culture - Final Streptococcus pneumoniae Haemophilus influenzae 12/21/20 14:00 Urine Catheter - Goldsmith Urine Culture - Final Culture exhibits no growth. 12/21/20 14:00 Urine, Clean Catch Legionella Antigen - Final 12/21/20 14:00 Urine, Clean Catch Streptococcus pneumoniae Antigen (M - Final 12/20/20 17:29 Mucosa - Nose Respiratory Panel (PCR) - Final ABG Data ABG results: ABG 12/26/20 05:47 Specimen Type ART Sample Site L Radial pH 7.25 L Bicarbonate Actual 18.4 L Total CO2 20 Base Excess -9 L O2 Saturation 82 L O2 % 65 ABG pCO2 42.4 ABG pO2 54 L Elie Test Positive Respiration Rate 12 O2 Delivery Device Adult Vent Vent Mode BiLevel Clinical Comments Physical Exam Const no apparent distress Constitutional Narrative: RASS -1. Good vent synchrony. General Appearance: ill appearing, intubated and patient mechanically ventilated Nutritional Appearance: morbidly obese HEENT normocephalic and head/scalp atraumatic Mouth: endotracheal tube in place and OG tube in place Eyes PERRL and conjunctivae normal Neck supple General: trachea midline Chest inspection of chest normal Chest: symmetrical chest wall rise; Negative for crepitus Resp Auscultation: diminished lung sounds; Negative for rales, rhonchi or wheezes Cardio regular rate and regular rhythm GI normal to inspection, nondistended, normoactive bowel sounds Extremity no clubbing, cyanosis or edema Skin no rashes or lesions noted Neuro Sensorium / Orientation: sedated on vent Charges/Coding Procedures Hospitalists Procedures: 43308 Critial Care 1st Hr
--- NOTE | 2020-12-26 08:43 | PN.HOSP_ITS ---
Subjective Subjective Remained stable, no new issues overnight Objective Data Objective Data Vital Signs: Vital Signs Temp Pulse Resp BP Pulse Ox 98.0 F 119 H 20 H 174/107 H 90 12/26/20 04:00 12/26/20 07:00 12/26/20 07:00 12/26/20 07:00 12/26/20 07:00 Oxygen Flow Rate (L/min) 90 Oxygen Delivery Method Mechanical Ventilator Weight: 269 lb 13.533 oz Body Mass Index (BMI) 38.7 Intake & Output: Intake and Output for Last 24 Hours 12/25/20 12/26/20 12/27/20 03:59 03:59 03:59 Intake Total 4655.47 / 5184.58 5231.81 / 5816.51 942.05 / 942.05 Output Total 825 / 825 775 / 975 200 / 200 Balance 3830.47 / 4359.58 4456.81 / 4841.51 742.05 / 742.05 Lab / Micro Data Result Diagrams: 12/26/20 04:20 12/26/20 04:20 Labs: Laboratory Results - last 24 hr 12/25/20 04:30: Diff Path Review Reviewed 12/25/20 11:59: POC Glucose 230 H 12/25/20 16:31: POC Glucose 229 H 12/26/20 00:14: POC Glucose 190 H 12/26/20 04:20: WBC 12.9 H, RBC 3.99 L, Hgb 11.4 L, Hct 35.4 L, MCV 88.7, MCH 28.6, MCHC 32.2 D, RDW Std Deviation 54.7 H, RDW Coeff of Jose 16.9 H, Plt Count 206, MPV 11.6, Neut % (Auto) Not Reportable, Absolute Neuts (auto) 11.0 H, Absolute Lymphs (auto) 0.39 L, Total Counted 100, Neutrophils % (Manual) 83 H, Band Neutrophils % 2, Lymphocytes % (Manual) 3 L, Monocytes % (Manual) 5, Metamyelocytes % 3 H, Myelocytes % 4 H, Diff Path Review May , Platelet Estimate ADEQUATE, RBC Morphology NORM C+C 12/26/20 04:20: Sodium 139, Potassium 4.1, Chloride 106, Carbon Dioxide 18.0 L, Anion Gap 15, BUN 109 H*, Creatinine 6.32 H, Estim Creat Clear Calc 11.88, Est GFR (MDRD) Af Amer 12 L, Est GFR (MDRD) Non-Af 10 L, BUN/Creatinine Ratio 17.2, Glucose 236 H, Calcium 7.2 L, Total Bilirubin 0.60, AST 37, ALT 35, Alkaline Phosphatase 85, Total Protein 6.3 L, Albumin 1.7 L, Globulin 4.6 H, Albumin/Globulin Ratio 0.4 L 12/26/20 05:12: POC Glucose 249 H Micro: Microbiology 12/20/20 16:55 Blood Culture (Wb) - Anticubital Right Blood Culture - Final No growth in 5 days. 12/20/20 15:25 Blood Culture (Wb) - Anticubital Left Blood Culture - Final No growth in 5 days. 12/21/20 13:13 Sputum, Induced/Lukens Gram Stain - Final 12/21/20 13:13 Sputum, Induced/Lukens Respiratory Culture - Final Streptococcus pneumoniae Haemophilus influenzae 12/21/20 14:00 Urine Catheter - Goldsmith Urine Culture - Final Culture exhibits no growth. 12/21/20 14:00 Urine, Clean Catch Legionella Antigen - Final 12/21/20 14:00 Urine, Clean Catch Streptococcus pneumoniae Antigen (M - Final 12/20/20 17:29 Mucosa - Nose Respiratory Panel (PCR) - Final ABG Data ABG results: ABG 12/26/20 05:47 Specimen Type ART Sample Site L Radial pH 7.25 L Bicarbonate Actual 18.4 L Total CO2 20 Base Excess -9 L O2 Saturation 82 L O2 % 65 ABG pCO2 42.4 ABG pO2 54 L Elie Test Positive Respiration Rate 12 O2 Delivery Device Adult Vent Vent Mode BiLevel Clinical Comments Physical Exam Const General Appearance: intubated and patient mechanically ventilated HEENT normocephalic and moist oral mucous membranes Eyes PERRL and conjunctivae normal Neck supple and no JVD Resp normal respiratory effort, no retractions and no use of accessory muscles Auscultation: diminished lung sounds; Negative for crackles, rales, rhonchi or wheezes Cardio regular rate, regular rhythm, S1 normal heart sound, S2 normal heart sound and no murmurs GI soft to palpation and non-distended; Negative for hepatosplenomegaly Extremity no clubbing, cyanosis or edema Skin no rashes or lesions noted Neuro Sensorium / Orientation: sedated on vent Psych Appearance: intubated Assessment & Plan Assessment/Plan (1) Acute hypoxemic respiratory failure: (2) COVID-19: (3) TIFFANI (acute kidney injury): (4) Bacterial pneumonia: PLAN: 1. Acute hypoxic respiratory failure and septic shock secondary to COVID-19 pneumonia/TIFFANI/thrombocytopenia/bacterial pneumonia with strep pneumonia and Haemophilus influenza -Intubated 12/21/2020 -Appreciate concrete pile driver operator assistance -Continue with Decadron, baricitinib, he was given 2 doses of remdesivir and then his renal function deteriorated to the point where we could not use it -Appreciate ID assistance, continue with Zosyn and Rocephin, sputum culture with strep pneumonia and Haemophilus influenza -Thrombocytopenia resolved -Septic shock resolved, no longer on Levophed -We will place dialysis catheter today to initiate dialysis per nephrology -CT of the chest was negative for PE 2. HTN/HLD/morbid obesity -Continue with hydralazine as needed, and will continue to hold his Norvasc -Once extubated and alert, will discuss weight loss strategies given his BMI of 39.3 3. GERD -Stable -Continue PPI 4. Chronic migraine -Stable -Continue with Topamax and Lyrica 5. Anxiety/depression -Stable -Continue with Effexor 6. COPD/KRISSY -Continue with steroids -Currently on inhalers at home and once extubated will resume BiPAP at night DVT: Lovenox Charges/Coding Visit Charges Inpatient E&M: 38683 [facility] Hosp L2
[2020-12-26] MEDS: Ascorbic Acid 500 MG Tablet 1000 MG GT ×2 (08:51→18:02)
[2020-12-26] MEDS: Venlafaxine HCl 75 MG Tablet 37.5 MG GT ×2 (08:51→21:06)
[2020-12-26] MEDS: Senna/Docusate Sodium 1 Tablet 2 TABLET GT ×2 (08:52→21:07)
[2020-12-26] MEDS: Pregabalin 50 MG Capsule 200 MG PO ×2 (08:52→21:06)
[2020-12-26] MEDS: Polyethylene Glycol 3350 17 GM PACKET GT ×2 (08:52→21:07)
[2020-12-26] MEDS: NYSTATIN 500,000 UNIT/5 ML UDC 500000 UNIT PO ×4 (08:52→21:06)
[2020-12-26] MEDS: dexAMETHasone 4 MG/ML Vial 6 MG IV (09:55)
--- NOTE | 2020-12-26 11:06 | CASEMGMT ---
SW participated in ICU rounds. SW spoke w/ in the waiting area prior to her going to see the pt. SW offered support. She and pt have been for 8 months but have been together for 14 years. They have two children together, ages 13 and 9. She states spoke w/RN Thursday and was told pt is not doing well. She states she knows pt may not be home for a while. She also states was told pt may not make it and when she heard that she broke down. SW will continue to be available for support to family. QUENTIN Rivera
[2020-12-26] MEDS: Chlorhexidine 15 ML PO ×2 (11:22→20:57)
[2020-12-26 12:11] LABS: Bedside Glucose 289 mg/dL (70-110)
--- NOTE | 2020-12-26 13:47 | PN.RENAL_ITS ---
Subjective Subjective No acute events remains intubated Objective Data Objective Data Vital Signs: Vital Signs Temp Pulse Resp BP Pulse Ox 97.1 F L 114 H 20 H 169/99 H 90 12/26/20 08:00 12/26/20 10:00 12/26/20 10:00 12/26/20 10:00 12/26/20 10:00 Oxygen Flow Rate (L/min) 90 Oxygen Delivery Method Mechanical Ventilator Weight: 122.4 kg Body Mass Index (BMI) 38.7 Intake & Output: Intake and Output for Last 24 Hours 12/24/20 12/25/20 12/26/20 23:59 23:59 23:59 Intake Total 4109.03 / 4667.54 5316.14 / 5955.94 3240.29 / 3240.29 Output Total 825 / 825 625 / 775 700 / 700 Balance 3284.03 / 3842.54 4691.14 / 5180.94 2540.29 / 2540.29 Lab / Micro Data Result Diagrams: 12/26/20 04:20 12/26/20 04:20 Labs: Laboratory Results - last 24 hr 12/25/20 16:31: POC Glucose 229 H 12/26/20 00:14: POC Glucose 190 H 12/26/20 04:20: WBC 12.9 H, RBC 3.99 L, Hgb 11.4 L, Hct 35.4 L, MCV 88.7, MCH 28.6, MCHC 32.2 D, RDW Std Deviation 54.7 H, RDW Coeff of Jose 16.9 H, Plt Count 206, MPV 11.6, Neut % (Auto) Not Reportable, Absolute Neuts (auto) 11.0 H, A bsolute Lymphs (auto) 0.39 L, Total Counted 100, Neutrophils % (Manual) 83 H, Band Neutrophils % 2, Lymphocytes % (Manual) 3 L, Monocytes % (Manual) 5, Metamyelocytes % 3 H, Myelocytes % 4 H, Diff Path Review July, Platelet Estimate ADEQUATE, RBC Morphology NORM C+C 12/26/20 04:20: Sodium 139, Potassium 4.1, Chloride 106, Carbon Dioxide 18.0 L, Anion Gap 15, BUN 109 H*, Creatinine 6.32 H, Estim Creat Clear Calc 11.88, Est GFR (MDRD) Af Amer 12 L, Est GFR (MDRD) Non-Af 10 L, BUN/Creatinine Ratio 17.2, Glucose 236 H, Calcium 7.2 L, Total Bilirubin 0.60, AST 37, ALT 35, Alkaline Phosphatase 85, Total Protein 6.3 L, Albumin 1.7 L, Globulin 4.6 H, Albumin/Globulin Ratio 0.4 L 12/26/20 05:12: POC Glucose 249 H 12/26/20 11:28: POC Glucose 289 H Micro: Microbiology 12/20/20 16:55 Blood Culture (Wb) - Anticubital Right Blood Culture - Final No growth in 5 days. 12/20/20 15:25 Blood Culture (Wb) - Anticubital Left Blood Culture - Final No growth in 5 days. 12/21/20 13:13 Sputum, Induced/Lukens Gram Stain - Final 12/21/20 13:13 Sputum, Induced/Lukens Respiratory Culture - Final Streptococcus pneumoniae Haemophilus influenzae 12/21/20 14:00 Urine Catheter - Goldsmith Urine Culture - Final Culture exhibits no growth. 12/21/20 14:00 Urine, Clean Catch Legionella Antigen - Final 12/21/20 14:00 Urine, Clean Catch Streptococcus pneumoniae Antigen (M - Final 12/20/20 17:29 Mucosa - Nose Respiratory Panel (PCR) - Final ABG Data ABG results: ABG 12/26/20 05:47 Specimen Type ART Sample Site L Radial pH 7.25 L Bicarbonate Actual 18.4 L Total CO2 20 Base Excess -9 L O2 Saturation 82 L O2 % 65 ABG pCO2 42.4 ABG pO2 54 L Elie Test Positive Respiration Rate 12 O2 Delivery Device Adult Vent Vent Mode BiLevel Clinical Comments Physical Exam Narrative seen from outside ICU room. Intubated, sedated Goldsmith catheter indwelling. No direct physical exam was done due to active COVID-19 infection and to preserve PPE Assessment & Plan Assessment/Plan (1) TIFFANI (acute kidney injury): PLAN: Acute renal failure. Baseline creatinine is normal. TIFFANI is likely ATN.Non oliguric. SCr continue to rise as BUN,UOP decreased recruiting coordinator is indiced HD session today with UF goal 2 L Will monitor for kidney function recovery Keep MAP > 65 Check RFP in am Hyperkalemia. resolved COVID-19 pneumonia and ARF on vent support. management as per ICU Call if any question
[2020-12-26] MEDS: Ipratropium/Albuterol Sulfate 3 ML AMPUL.NEB INHALATION ×2 (14:59→19:29)
--- NOTE | 2020-12-26 15:41 | RAD_ITS ---
STUDY: X-RAY CHEST REASON FOR EXAM: Male, 60 years old. temp dialysis cath placement TECHNIQUE: Single AP portable view of the chest. COMPARISON: 12/23/2020 FINDINGS: Interval placement of right internal jugular tunneled hemodialysis catheter tip of the catheter overlying the distal superior vena cava and no pneumothorax. Endotracheal tube, nasogastric tube, right upper extremity PICC all of which are unchanged. No change in the alveolar opacities throughout both lungs consistent with bilateral pneumonia, pulmonary edema, or ARDS. There is no demonstrated pleural abnormality. There is moderate cardiac enlargement. Normal mediastinum and brock. Normal visualized pulmonary arteries. Normal visualized aortic arch and descending thoracic aorta. Normal visualized thoracic spine. Normal visualized ribs, clavicles, and shoulders. There is no demonstrated abnormality of the visualized soft tissue structures of the upper abdomen. RAD/CXR for Line Placement IMPRESSION: 1. Interval placement of right internal jugular tunneled hemodialysis catheter with tip catheter overlying the distal superior vena cava and no pneumothorax. 2. Endotracheal tube, nasogastric tube, right upper extremity PICC all of which are unchanged. 3. No change in bilateral pneumonia, pulmonary edema, or ARDS. Electronically Signed: Talib Garcia MD at 16:43 EDT Tel , Service support ,
[2020-12-26] MEDS: Heparin 10,000 UNITS/10 ML Vial IV (15:43)
--- NOTE | 2020-12-26 15:46 | PCM.OP.BLANK ---
Operative Report Date of Procedure: 12/26/20 Temporary hemodialysis catheter line placement procedure note Indication: Hemodialysis Procedure: A time-out was completed to verify correct patient, indication, medication allergies, procedure, coagulation studies, informed consent signed, and equipment needed. The patient was placed in the supine position for a central line placement to the rt IJ vein. The patients rt neck was prepped using chlorhexidine and a full body sterile drape was applied. 1% lidocaine was used to anesthetize the surrounding skin. A 12fr 16 cm temporary hemodialysis catheter introduced into the internal jugular vein using the modified Seldinger technique with the assistance of ultrasound. The site was dilated up twice in a stepwise fashion. The catheter was threaded smoothly over the guidewire, the guidewire was removed easily, nonpulsatile blood returned. All ports were aspirated of air and flushed with sterile saline, and locked with you 1000 heparin 1.3 cc to each port. The catheter was sutured in place and covered with an occlusive dressing impregnated with chlorhexidine. Post-procedure: The patient tolerated the procedure well. Vital signs remained stable. EBL 10cc. No complications. Chest X Ray ordered to confirm tip placement and the absence of pneumothorax. Procedures Hospitalists Procedures: [id number] Insert Non-tunnel CV Cath
[2020-12-26] MEDS: Vital AF 1.2 Cal Liquid 1,000 ML 70 ML GT (16:08)
--- NOTE | 2020-12-26 16:33 | NURSING ---
Calista Boswell placed temp dialysis catheter at bedside in the [facility]. Patient tolerated well. VSS. Dialysis nurse notified that dialysis like is ok to use.
[2020-12-26 18:20] LABS: Bedside Glucose 271 mg/dL (70-110)
[2020-12-26] MEDS: Enoxaparin 30 MG/0.3 ML Syringe SC (21:06)
[2020-12-26] MEDS: Topiramate 50 MG Tablet PO (21:07)
--- NOTE | 2020-12-26 23:48 | DIALYSIS ---
Hemodialysis x2 hours completed at 2230 on a 3K bath, 1st treatment, tolerated well, UF 2000mL, accessed via new right neck temporary dialysis catheter, worked fair, arterial pressure increased with each breath causing intermittent high arterial pressure alarms, next treatment per nephrology
[2020-12-27] VITALS (35 sets, daily range): BP systolic 90–188; BP diastolic 72–148; PULSE 103–176; RESP 19–40; TEMP 36.4–37.7; O2SAT 88–99
[2020-12-27] MEDS: Insulin Lispro 100 UNIT/ML INSULN.PEN SC ×4 (01:48→17:54)
--- NOTE | 2020-12-27 02:13 | CT_ITS ---
STUDY: CT HEAD STROKE PROTOCOL W/O CONTRAST INJECTION REASON FOR EXAM: Male, 60 years old. Possible stroke RADIATION DOSAGE (If Supplied By Facility): CTDIvol = ( ) mGy, DLP = ( ) mGycm TECHNIQUE: Transaxial CT imaging of the brain was performed without administration of intravenous contrast material. Individualized dose optimization techniques were used for this CT. COMPARISON: Head CT dated 08/11/2019 FINDINGS: Normal soft tissue structures. Normal calvarium. There is mild cerebral atrophy with widening of the extra-axial spaces and ventricular dilatation. There are areas of decreased attenuation within the white matter tracts of the supratentorial brain, consistent with microvascular disease changes. Normal basal ganglia and thalami. Normal brainstem. There is mild cerebellar atrophy. There is no intracranial hemorrhage. There are no findings of an acute ischemic infarction. There is mucoperiosteal inflammatory disease of the paranasal sinuses consistent with mild chronic sinusitis. Fluid in the bilateral mastoid air cells. CT/STROKE Brain/Head without Cont IMPRESSION: Chronic involutional changes of the brain. Recommend MRI brain to further evaluate if clinically indicated N.B. : The above Results were Read Back by Esvin Barton DO to Dr.Joseph Jagruti MD, and understanding confirmed on 12/27/2020 02:38:20 (ET). Electronically Signed: Esvin Barton DO at 2:39 EDT Tel , Service support ,
--- NOTE | 2020-12-27 02:33 | PCM.PN.BLA ---
Progress Note Progress Note Responded to stroke alert: Nurse reported the patient is not withdrawing to pain from all extremities plus patient's pupils are sluggish to light. Additionally nurse reported patient has been having some jerky movements of his upper extremities. Patient was examined at the bedside. Patient noted not to be withdrawing from pain. Tachycardia, lungs with rales. Abdomen obese nontender. Extremities without edema. Impression Acute encephalopathy. Cancel stroke alert CT head ordered. Keppra 1000 mg IV ordered. SOC consults.
--- NOTE | 2020-12-27 02:39 | TELEMED_ITS ---
SOC Telemed has confirmed receipt of a request for visit. This document confirms receipt of the order initiating the consult. To find the results of the consultation, please view the patient's reports for the scanned Telemed Consult.
--- NOTE | 2020-12-27 03:32 | CT_ITS ---
We are attempting to reach an attending provider to discuss findings. An addendum with communication details will be sent when the communication is complete. STUDY: CTA HEAD AND NECK WITH CONTRAST REASON FOR EXAM: Male, 60 years old. Possible CVA RADIATION DOSAGE (If Supplied By Facility): CTDIvol = ( 31.07 ) mGy, DLP = ( 748.79 ) mGycm TECHNIQUE: CT angiography was performed with a multi-detector CT scanner. Data acquisition was obtained from the skull base through the vertex following intravenous administration of IV 100mL Isovue-370. MIP images were reconstructed from the axial data set. Post-processing of the angiographic images was performed, with multiplanar reformation and 3D reconstruction. Individualized dose optimization techniques were used for this CT. COMPARISON: No relevant priors. FINDINGS: Normal bilateral petrous carotid arteries. There is calcified plaque formation of the right cavernous carotid artery, without a cross-sectional luminal stenosis. There is calcified plaque formation of the left cavernous carotid artery, with a mild stenosis (less than 50%). Normal right A1 segments of the anterior cerebral artery. Normal left A1 segments of the anterior cerebral artery. Normal intact anterior communicating artery (ACOM). Normal bilateral A2 segments of the anterior cerebral arteries. Normal right M1 and M2 segments of the middle cerebral arteries, with a normal M1 bifurcation. Normal left M1 and M2 segments of the middle cerebral arteries, with a normal M1 bifurcation. Normal right posterior communicating artery (PCOM). Normal left posterior communicating artery (PCOM). Normal bilateral vertebral arteries. Normal basilar artery with a normal basilar bifurcation. The visualized bilateral superior cerebellar (SCA) arteries are normal. Normal bilateral P1, P2 and visualized P3 segments of the posterior cerebral arteries. There is no demonstrated aneurysm of the [place]. There is no demonstrated abnormality of the visualized brain. AORTIC ARCH: Normal visualized aortic arch. Normal origins of the brachiocephalic, left common carotid, and left subclavian arteries. RIGHT CAROTID ARTERIES: Normal right common carotid artery (CCA). Normal right common carotid bulb. Normal origin of the right internal carotid (ICA) artery without a hemodynamically significant stenosis. Normal visualized cervical portion of the right internal carotid artery. Normal origin of the right external carotid artery (ECA). LEFT CAROTID ARTERIES: Normal left common carotid artery (CCA). Normal left common carotid bulb. Normal origin of the left internal carotid (ICA) artery without a hemodynamically significant stenosis. Normal visualized cervical portion of the left internal carotid artery. Normal origin of the left external carotid artery (ECA). VERTEBRAL ARTERIES: Normal bilateral vertebral arteries. Partially visualized ET tube and enteric tube. Patchy airspace disease in the upper lobes CT/STROKE CTA Head AND Neck W/Con IMPRESSION: Normal CTA Head and neck with contrast. Patchy airspace disease in the upper lobes. Electronically Signed: Esvin Barton DO at 5:42 EDT Tel , Service support ,
--- NOTE | 2020-12-27 03:40 | PCM.PN.BLA ---
Progress Note Envision radiologist called and said that there is no acute stroke. SOC neurologist called and said that it might be a swelling at the right side of patient's brain. SOC neurologist is concerned about possible thrombosis of the MCA. SOC stroke acknowledged that even if there is a thrombus no intervention can be done at this time. Recommended CTA head and neck and possible dialysis after CTA. CTA head and neck ordered. SOC neurologist recommended EEG for twitches. EEG ordered. Okay to continue Keppra per SOC neurologist as Keppra can help with twitches even if there is no seizure. With multiple gadgets and ventilator SOC neurologist does not think patient will be candidate for MRI and wants repeat head CT to be considered in 24 hours. Nursing communication to inform nephrology for possible dialysis after patient has received contrast for CTA head and neck
[2020-12-27 05:01] LABS: Allen Test Positive; Base Excess -5 mmol/L (-2 to +2); Bicarbonate 22.4 mmol/L (22-26); Blood Gas Specimen Type ART; FI02 60; Mode BiLevel; O2 Delivery Device Adult Vent; PO2 64 mmHG (75-100); RR 12; SITE L Radial; SO2 87 % (95-99); Total Carbon Dioxide 24 mmol/L; pCO2 53.9 mmHg (35-45); pH 7.23 (7.35-7.45)
[2020-12-27 05:02] LABS: Hematocrit 38.7 % (40-54); Hemoglobin 12.5 g/dL (13.0-16.5); Mean Corp Hgb Conc 32.3 g/dL (32-36); Mean Corpuscular Hgb 28.7 pg (27.0-32.0); POSITIVE COUNT YES; POSITIVE MORPHOLOGY YES; Platelet Count 288 K/mm3 (150-450); RBC Distribution Width CV 17.3 % (11.6-14.6); RBC Distribution Width SD 55.8 fl (35.1-43.9); Red Blood Count 4.35 M/mm3 (4.6-6.2); White Blood Count 18.3 K/mm3 (4.4-11.0)
[2020-12-27 05:10] LABS: Differential Indicated MANUAL DIFF
[2020-12-27 05:40] LABS: Bedside Glucose 226 mg/dL (70-110)
[2020-12-27 05:48] LABS: ALB/GLOB Ratio 0.3 RATIO (0.9-2.4); AST(SGOT) 43 U/L (15-37); Alanine Aminotransfer ALT/SGPT 60 U/L (16-61); Albumin, Serum 1.9 g/dL (3.2-5.0); Alkaline Phosphatase 107 U/L (45-117); Anion Gap 14 (5-15); BUN 115 mg/dL (7-18); BUN/Creat Ratio 17.3 RATIO (10-20); Calcium,Total 8.6 mg/dL (8.5-10.1); Chloride 99 mmol/L (98-107); Creatinine, Serum 6.66 mg/dL (0.70-1.30); EST Glomerular Filtration Rate 9 mL/min (>60); Est Glom Filt Rate - Afr Amer 11 mL/min (>60); Estimated Creatinine Clearance 11.27 ml/min; Globulin 5.6 g/dL (2.2-4.2); Glucose 245 mg/dL (74-106); Magnesium 3.3 mg/dL (1.6-2.6); Phosphorus 8.8 mg/dL (2.5-4.9); Potassium 5.3 mmol/L (3.5-5.1); Protein, Total 7.5 g/dL (6.4-8.2); Sodium Level 136 mmol/L (136-145)
[2020-12-27 06:08] LABS: Total Cells Counted 100 (MANUAL DIFF)
[2020-12-27 06:09] LABS: Lymphocyte 1 % (19-41); Metamyelocyte 2 % (0-1); Monocyte 3 % (0-10); Myelocyte 5 % (0-0); Neutrophil-Band 2 % (0-5); Neutrophil-Segmented 86 % (47-70); Promyelocyte 1 % (0-0)
[2020-12-27 06:10] LABS: Absolute Lymphocyte Count 0.18 X10^3/uL (0.83-4.51); Absolute Neutrophil Count 16.1 X10^3/uL (2.0-7.7); Lymphocyte # 0.18 X10^3/ul (0.83-4.51); Neutrophil # 16.08 X10^3/uL (2.7-7.7); Platelet Estimate ADEQUATE (ADEQ); Red Cell Morphology NORM C+C NORMAL (NORM C&C)
[2020-12-27] MEDS: Ipratropium/Albuterol Sulfate 3 ML AMPUL.NEB INHALATION ×2 (06:47→14:24)
[2020-12-27 06:56] LABS: Bedside Glucose 241 mg/dL (70-110)
--- NOTE | 2020-12-27 07:25 | PN.CC_ITS ---
Assessment & Plan Assessment/Plan (1) Acute hypoxemic respiratory failure: (2) COVID-19: PLAN: RECOMMENDATIONS: 1. Continue APRV mode of mechanical ventilation and wean FiO2/P high for sa turations greater than 90%. 2. Continue antimicrobials given sputum culture results. 3. Baricitinib discontinued secondary to renal function 4. Attempt to decrease RASS goals to -1 to -2 given APRV 5. Anticipate hemodialysis later today with volume removal if possible 6. Obtain EEG 7. Continue Decadron and prophylactic Lovenox. 8. Continue appropriate GI prophylaxis. IMPRESSIONS: 1. Acute hypoxemic respiratory failure secondary to ARDS secondary to COVID- 19, pneumococcus and H. influenzae pneumonias The patient initially tested positive for coronavirus on December 13 and has had progressive symptoms and worsening oxygenation. Although initially being maintained on noninvasive positive pressure ventilatory support, the patient continued to decompensate from a respiratory perspective and was ultimately intubated on December 21. Many options for treatment of COVID-19 had to be discontinued secondary to renal dysfunction. Patient does remain on Decadron. CTA was negative for PE. The patient is unable to be diuresed due to underlying renal insufficiency. The patient will be continued on assist control mode of mechanical ventilation. Patient appears to be doing better from a respiratory standpoint on APRV. We will continue to wean P high as tolerated. Will attempt to decrease sedation goals. Morning ABG shows significant acidosis from both respiratory and metabolic sources. Patient is overbreathing the vent at this time. 2. Acute kidney injury Likely prerenal in etiology. Nephrology is following for hemodialysis. Patient would benefit from volume removal as tolerated. 3. Obesity/COPD/history of KRISSY/hypertension/thrombocytopenia/GERD Complicates care, management, recovery and prognosis. Continue scheduled bronchodilators. 4. Decreased responsiveness Unclear etiology. Work-up for stroke has been unremarkable. Patient does have elevated BUN, so uremia would be a concern. Seizure is another possi bility. EEG has been ordered. Keppra has been ordered. Retention of metabolites would also be a concern. TIME: 38 minutes of critical care time, independent of procedures, was spent addressing the patient's acute hypoxemic respiratory failure secondary to COVID- 19 pneumonia, acute kidney injury, review of all data and collaboration with the care team. (5:45 AM to 6:45 AM) Subjective Subjective Patient was able to tolerate hemodialysis yesterday with 2 L removed. Nursing reported that hypertension was much improved following dialysis, but progressively got worse overnight. Patient has tolerated this tube feeds. Overnight, patient was found to be less responsive and has been off of all sedation and fentanyl since 1 AM. Patient did have an extensive work-up including 2 CTs and a teleneurology visit. CT and CTA of the head showed no occlusion. Patient has had increased tachycardia and blood pressure since cessation of the medications, but is not following commands or opening eyes to voice. Objective Data Objective Data Vital Signs: Vital Signs Temp Pulse Resp BP Pulse Ox 37.1 C 128 H 40 H 188/106 H 92 12/27/20 04:00 12/27/20 06:48 12/27/20 06:48 12/27/20 05:00 12/27/20 06:48 Oxygen Flow Rate (L/min) 90 Oxygen Delivery Method Mechanical Ventilator Weight: 121.5 kg Body Mass Index (BMI) 38.7 Intake & Output: Intake and Output for Last 24 Hours 12/25/20 12/26/20 12/27/20 23:59 23:59 23:59 Intake Total 5316.14 / 5955.94 4865.61 / 5296.51 888.2 / 888.2 Output Total 625 / 775 3050 / 3050 Balance 4691.14 / 5180.94 1815.61 / 2246.51 888.2 / 888.2 Lab / Micro Data Result Diagrams: 12/27/20 04:45 12/27/20 04:45 Labs: Laboratory Results - last 24 hr 12/26/20 11:28: POC Glucose 289 H 12/26/20 18:01: POC Glucose 271 H 12/27/20 01:47: POC Glucose 226 H 12/27/20 04:45: WBC 18.3 H, RBC 4.35 L, Hgb 12.5 L, Hct 38.7 L, MCV 89.0, MCH 28.7, MCHC 32.3, RDW Std Deviation 55.8 H, RDW Coeff of Jose 17.3 H, Plt Count 288, MPV 12.0, Neut % (Auto) Not Reportable, Absolute Neuts (auto) 16.1 H, Absolute Lymphs (auto) 0.18 L, Total Counted 100, Neutrophils % (Manual) 86 H, Band Neutrophils % 2, Lymphocytes % (Manual) 1 L, Monocytes % (Manual) 3, Metamyelocytes % 2 H, Myelocytes % 5 H, Promyelocytes % 1 H, Diff Path Review July, Platelet Estimate ADEQUATE, RBC Morphology NORM C+C 12/27/20 04:45: Sodium 136, Potassium 5.3 H, Chloride 99, Carbon Dioxide 23.0, Anion Gap 14, BUN 115 H*, Creatinine 6.66 H, Estim Creat Clear Calc 11.27, Est GFR (MDRD) Af Amer 11 L, Est GFR (MDRD) Non-Af 9 L, BUN/Creatinine Ratio 17.3, Glucose 245 H, Calcium 8.6, Phosphorus 8.8 H, Magnesium 3.3 H, Total Bilirubin 0.60, AST 43 H, ALT 60, Alkaline Phosphatase 107, Total Protein 7.5, Albumin 1.9 L, Globulin 5.6 H, Albumin/Globulin Ratio 0.3 L 12/27/20 05:39: POC Glucose 241 H Micro: Microbiology 12/20/20 16:55 Blood Culture (Wb) - Anticubital Right Blood Culture - Final No growth in 5 days. 12/20/20 15:25 Blood Culture (Wb) - Anticubital Left Blood Culture - Final No growth in 5 days. 12/21/20 13:13 Sputum, Induced/Lukens Gram Stain - Final 12/21/20 13:13 Sputum, Induced/Lukens Respiratory Culture - Final Streptococcus pneumoniae Haemophilus influenzae 12/21/20 14:00 Urine Catheter - Goldsmith Urine Culture - Final Culture exhibits no growth. 12/21/20 14:00 Urine, Clean Catch Legionella Antigen - Final 12/21/20 14:00 Urine, Clean Catch Streptococcus pneumoniae Antigen (M - Final 12/20/20 17:29 Mucosa - Nose Respiratory Panel (PCR) - Final ABG Data ABG results: ABG 12/27/20 04:54 Specimen Type ART Sample Site L Radial pH 7.23 L Bicarbonate Actual 22.4 Total CO2 24 Base Excess -5 L O2 Saturation 87 L O2 % 60 ABG pCO2 53.9 H ABG pO2 64 L Elie Test Positive Respiration Rate 12 O2 Delivery Device Adult Vent Vent Mode BiLevel Clinical Comments Radiography Diagnostic Testing: Radiology Impression Chest X-Ray 12/26/20 15:41 IMPRESSION: 1. Interval placement of right internal jugular tunneled hemodialysis catheter with tip catheter overlying the distal superior vena cava and no pneumothorax. 2. Endotracheal tube, nasogastric tube, right upper extremity PICC all of which are unchanged. 3. No change in bilateral pneumonia, pulmonary edema, or ARDS. Electronically Signed: Talib Garcia MD at 16:43 EDT Tel , Service support , Brain CT 12/27/20 02:13 IMPRESSION: Chronic involutional changes of the brain. Recommend MRI brain to further evaluate if clinically indicated N.B. : The above Results were Read Back by Esvin Barton DO to Dr.Joseph Jagruti MD, and understanding confirmed on 12/27/2020 02:38:20 (ET). Electronically Signed: Esvin Barton DO at 2:39 EDT Tel , Service support , Head/Neck CTA 12/27/20 03:32 IMPRESSION: Normal CTA Head and neck with contrast. Patchy airspace disease in the upper lobes. Electronically Signed: Esvin Barton DO at 5:42 EDT Tel , Service support , ADDENDUM: 12/27/20 0555 IMPRESSION: Normal CTA Head and neck with contrast. Patchy airspace disease in the upper lobes. N.B. : The above Results were Read Back by Esvin Barton DO to Marquez Chand MD, and understanding confirmed on 12/27/2020 05:48:44 (ET). Electronically Signed: Esvin Barton DO at 5:42 EDT Tel , Service support , Physical Exam Const no apparent distress Constitutional Narrative: RASS -3. Good vent synchrony. General Appearance: ill appearing, intubated and patient mechanically ventilated Nutritional Appearance: morbidly obese HEENT normocephalic and head/scalp atraumatic HEENT Narrative: Right IJ hemodialysis line Mouth: endotracheal tube in place and OG tube in place Eyes PERRL and conjunctivae normal Neck supple General: trachea midline Chest inspection of chest normal Chest: symmetrical chest wall rise; Negative for crepitus Resp Auscultation: diminished lung sounds; Negative for rales, rhonchi or wheezes Cardio regular rate and regular rhythm GI normal to inspection, nondistended, normoactive bowel sounds Extremity General Extremity: edema; Negative for clubbing or cyanosis Skin no rashes or lesions noted Neuro Sensorium / Orientation: sedated on vent Charges/Coding Procedures Hospitalists Procedures: 71105 Critial Care 1st Hr
--- NOTE | 2020-12-27 07:44 | NURSING ---
0130- Sedation was paused due to lack of response to voice and pain. 0200- Stroke Alert was called. When assessing patient there was no movement to painful stimuli on all 4 extremities, weak cough and gag, pupils 3mm round and sluggish. 0210- Dr. Chand is at bedside assessing patient. He stated to cancel the stroke alert but continue to STAT Head CT. He stated no Head CTA due to patient's kidney function. 0215- Patient taken down to Head CT. 0230- Returned to patient's room and set up SOC Neurotele consult to speak with Neurologist and assess patient's neuro status. 0430- Patient taken back to CT to get Head CTA after speaking with Neurologist and Dr. Chand. An EEG was also ordered for today to rule out possible seizure like activity. Will continue to monitor patient.
--- NOTE | 2020-12-27 07:50 | NURSING ---
Spoke to , Debbie and updated on patient's current status. Patient does not have a gag or cough reflex, does not withdraw to pain, sedation was turned off at 0130, low grade fevers, head ct showed nothing acute, and current vitals. Plan is to do dialysis and EEG today. Discussed code status and verified that the patient is to remain a full code at this time. upset and tearful, requested that his sister, Annie be updated as well. Updated Annie of the same.
--- NOTE | 2020-12-27 09:17 | PCM.PN.REN ---
Subjective Subjective remains intubate and sedated Objective Data Objective Data Vital Signs: Vital Signs Temp Pulse Resp BP Pulse Ox 98.7 F 128 H 24 H 177/112 H 95 12/27/20 04:00 12/27/20 07:00 12/27/20 07:00 12/27/20 07:00 12/27/20 07:00 Oxygen Flow Rate (L/min) 90 Oxygen Delivery Method Mechanical Ventilator Weight: 121.5 kg Body Mass Index (BMI) 38.7 Intake & Output: Intake and Output for Last 24 Hours 12/25/20 12/26/20 12/27/20 23:59 23:59 23:59 Intake Total 5316.14 / 5955.94 4865.61 / 5296.51 1013.2 / 1013.2 Output Total 625 / 775 3050 / 3050 450 / 450 Balance 4691.14 / 5180.94 1815.61 / 2246.51 563.2 / 563.2 Lab / Micro Data Result Diagrams: 12/27/20 04:45 12/27/20 04:45 Labs: Laboratory Results - last 24 hr 12/26/20 11:28: POC Glucose 289 H 12/26/20 18:01: POC Glucose 271 H 12/27/20 01:47: POC Glucose 226 H 12/27/20 04:45: WBC 18.3 H, RBC 4.35 L, Hgb 12.5 L, Hct 38.7 L, MCV 89.0, MCH 28.7, MCHC 32.3, RDW Std Deviation 55.8 H, RDW Coeff of Jose 17.3 H, Plt Count 288, MPV 12.0, Neut % (Auto) Not Reportable, Absolute Neuts (auto) 16.1 H, Absolute Lymphs (auto) 0.18 L, Total Counted 100, Neutrophils % (Manual) 86 H, Band Neutrophils % 2, Lymphocytes % (Manual) 1 L, Monocytes % (Manual) 3, Metamyelocytes % 2 H, Myelocytes % 5 H, Promyelocytes % 1 H, Diff Path Review May , Platelet Estimate ADEQUATE, RBC Morphology NORM C+C 12/27/20 04:45: Sodium 136, Potassium 5.3 H, Chloride 99, Carbon Dioxide 23.0, Anion Gap 14, BUN 115 H*, Creatinine 6.66 H, Estim Creat Clear Calc 11.27, Est GFR (MDRD) Af Amer 11 L, Est GFR (MDRD) Non-Af 9 L, BUN/Creatinine Ratio 17.3, Glucose 245 H, Calcium 8.6, Phosphorus 8.8 H, Magnesium 3.3 H, Total Bilirubin 0.60, AST 43 H, ALT 60, Alkaline Phosphatase 107, Total Protein 7.5, Albumin 1.9 L, Globulin 5.6 H, Albumin/Globulin Ratio 0.3 L 12/27/20 05:39: POC Glucose 241 H Micro: Microbiology 12/20/20 16:55 Blood Culture (Wb) - Anticubital Right Blood Culture - Final No growth in 5 days. 12/20/20 15:25 Blood Culture (Wb) - Anticubital Left Blood Culture - Final No growth in 5 days. 12/21/20 13:13 Sputum, Induced/Lukens Gram Stain - Final 12/21/20 13:13 Sputum, Induced/Lukens Respiratory Culture - Final Streptococcus pneumoniae Haemophilus influenzae 12/21/20 14:00 Urine Catheter - Goldsmith Urine Culture - Final Culture exhibits no growth. 12/21/20 14:00 Urine, Clean Catch Legionella Antigen - Final 12/21/20 14:00 Urine, Clean Catch Streptococcus pneumoniae Antigen (M - Final 12/20/20 17:29 Mucosa - Nose Respiratory Panel (PCR) - Final ABG Data ABG results: ABG 12/27/20 04:54 Specimen Type ART Sample Site L Radial pH 7.23 L Bicarbonate Actual 22.4 Total CO2 24 Base Excess -5 L O2 Saturation 87 L O2 % 60 ABG pCO2 53.9 H ABG pO2 64 L Elie Test Positive Respiration Rate 12 O2 Delivery Device Adult Vent Vent Mode BiLevel Clinical Comments Radiography Diagnostic Testing: Radiology Impression Chest X-Ray 12/26/20 15:41 IMPRESSION: 1. Interval placement of right internal jugular tunneled hemodialysis catheter with tip catheter overlying the distal superior vena cava and no pneumothorax. 2. Endotracheal tube, nasogastric tube, right upper extremity PICC all of which are unchanged. 3. No change in bilateral pneumonia, pulmonary edema, or ARDS. Electronically Signed: Talib Garcia MD at 16:43 EDT Tel , Service support , Brain CT 12/27/20 02:13 IMPRESSION: Chronic involutional changes of the brain. Recommend MRI brain to further evaluate if clinically indicated N.B. : The above Results were Read Back by Esvin Barton DO to Dr.Joseph Jagruti MD, and understanding confirmed on 12/27/2020 02:38:20 (ET). Electronically Signed: Esvin Barton DO at 2:39 EDT Tel , Service support , Head/Neck CTA 12/27/20 03:32 IMPRESSION: Normal CTA Head and neck with contrast. Patchy airspace disease in the upper lobes. Electronically Signed: Esvin Barton DO at 5:42 EDT Tel , Service support , ADDENDUM: 12/27/20 0555 IMPRESSION: Normal CTA Head and neck with contrast. Patchy airspace disease in the upper lobes. N.B. : The above Results were Read Back by Esvin Barton DO to Marquez Chand MD, and understanding confirmed on 12/27/2020 05:48:44 (ET). Electronically Signed: Esvin Barton DO at 5:42 EDT Tel , Service support , Physical Exam Narrative seen from outside ICU room. Intubated, sedated Goldsmith catheter indwelling. No direct physical exam was done due to active COVID-19 infection and to preserve PPE Assessment & Plan Assessment/Plan (1) TIFFANI (acute kidney injury): PLAN: Acute renal failure. Baseline creatinine is normal. TIFFANI is likely ATN.Non oliguric. HD started 12/26. 2nd HD session today Will monitor for kidney function recovery Keep MAP > 65 Check RFP in am Hyperkalemia.should corrected with HD COVID-19 pneumonia and ARF on vent support. management as per ICU Call if any question
[2020-12-27 10:09] LABS: Hepatitis B Surface Antigen Non-Reactive (Nonreactive)
[2020-12-27] MEDS: Vital AF 1.2 Cal Liquid 1,000 ML 70 ML GT (10:20)
[2020-12-27] MEDS: Pregabalin 50 MG Capsule 200 MG PO ×2 (10:21→21:30)
[2020-12-27] MEDS: Chlorhexidine 15 ML PO ×2 (10:21→21:31)
[2020-12-27] MEDS: Venlafaxine HCl 75 MG Tablet 37.5 MG GT ×2 (10:27→21:31)
[2020-12-27] MEDS: Senna/Docusate Sodium 1 Tablet 2 TABLET GT ×2 (10:27→21:30)
[2020-12-27] MEDS: Ascorbic Acid 500 MG Tablet 1000 MG GT ×2 (10:28→17:40)
[2020-12-27] MEDS: Enoxaparin 30 MG/0.3 ML Syringe SC ×2 (10:28→21:30)
[2020-12-27] MEDS: NYSTATIN 500,000 UNIT/5 ML UDC 500000 UNIT PO ×4 (10:28→21:30)
[2020-12-27] MEDS: dexAMETHasone 4 MG/ML Vial 6 MG IV (10:29)
[2020-12-27] MEDS: Polyethylene Glycol 3350 17 GM PACKET GT ×2 (10:29→21:30)
[2020-12-27] MEDS: CHLORHEXIDINE GLUC 2% CLOTH 1 EACH TOWELETTE TOPICAL (10:29)
--- NOTE | 2020-12-27 10:49 | PCM.PN.ID ---
Physical Exam Narrative On vent, in icu, no fever Const no apparent distress Resp clear to auscultation bilaterally Auscultation: diminished lung sounds Cardio Rate: tachycardic GI normal to inspection, nondistended, normoactive bowel sounds Skin no rashes or lesions noted ID ID: Route of nutrition/ use of supplements: [] Nutritional Intake: [] IV Site: [] Goldsmith Catheter: [] Assessment & Plan Assessment/Plan (1) COVID-19: PLAN: Sx started around 12/11. Unvaccinated. On dex, ceftriaxone. Remdesivir and baricitinib stopped due to TIFFANI. Remains intubated. Isolate for 20 days from 12/11. CT neg for PE. Off pressors. Sputum with strep pneumo and h. flu. O2 improved. Will follow (2) Acute hypoxemic respiratory failure:
--- NOTE | 2020-12-27 11:20 | PN.HOSP_ITS ---
Subjective Subjective Over night had an episode of being unresponsive had a stroke alert called, CT of the head as well as CTA of the head were unremarkable. Teleneurology was consulted and recommended an EEG which will be obtained today. Sedation has been completely discontinued yet he is not following commands or opening his eyes to voice. Objective Data Objective Data Vital Signs: Vital Signs Temp Pulse Resp BP Pulse Ox 98.7 F 132 H 34 H 177/112 H 90 12/27/20 04:00 12/27/20 10:54 12/27/20 10:54 12/27/20 07:00 12/27/20 10:54 Oxygen Flow Rate (L/min) 90 Oxygen Delivery Method Mechanical Ventilator Weight: 267 lb 13.786 oz Body Mass Index (BMI) 38.7 Intake & Output: Intake and Output for Last 24 Hours 12/26/20 12/27/20 12/28/20 03:59 03:59 03:59 Intake Total 5231.81 / 5816.51 4588.09 / 4713.09 500 / 500 Output Total 775 / 975 2900 / 2900 450 / 450 Balance 4456.81 / 4841.51 1688.09 / 1813.09 50 / 50 Lab / Micro Data Result Diagrams: 12/27/20 04:45 12/27/20 04:45 Labs: Laboratory Results - last 24 hr 12/26/20 11:28: POC Glucose 289 H 12/26/20 18:01: POC Glucose 271 H 12/26/20 20:30: Hep Bs Antigen Non-Reactive 12/27/20 01:47: POC Glucose 226 H 12/27/20 04:45: WBC 18.3 H, RBC 4.35 L, Hgb 12.5 L, Hct 38.7 L, MCV 89.0, MCH 28.7, MCHC 32.3, RDW Std Deviation 55.8 H, RDW Coeff of Jose 17.3 H, Plt Count 288, MPV 12.0, Neut % (Auto) Not Reportable, Absolute Neuts (auto) 16.1 H, Absolute Lymphs (auto) 0.18 L, Total Counted 100, Neutrophils % (Manual) 86 H, Band Neutrophils % 2, Lymphocytes % (Manual) 1 L, Monocytes % (Manual) 3, Metamyelocytes % 2 H, Myelocytes % 5 H, Promyelocytes % 1 H, Diff Path Review July, Platelet Estimate ADEQUATE, RBC Morphology NORM C+C 12/27/20 04:45: Sodium 136, Potassium 5.3 H, Chloride 99, Carbon Dioxide 23.0, Anion Gap 14, BUN 115 H*, Creatinine 6.66 H, Estim Creat Clear Calc 11.27, Est GFR (MDRD) Af Amer 11 L, Est GFR (MDRD) Non-Af 9 L, BUN/Creatinine Ratio 17.3, Glucose 245 H, Calcium 8.6, Phosphorus 8.8 H, Magnesium 3.3 H, Total Bilirubin 0.60, AST 43 H, ALT 60, Alkaline Phosphatase 107, Total Protein 7.5, Albumin 1.9 L, Globulin 5.6 H, Albumin/Globulin Ratio 0.3 L 12/27/20 05:39: POC Glucose 241 H Micro: Microbiology 12/20/20 16:55 Blood Culture (Wb) - Anticubital Right Blood Culture - Final No growth in 5 days. 12/20/20 15:25 Blood Culture (Wb) - Anticubital Left Blood Culture - Final No growth in 5 days. 12/21/20 13:13 Sputum, Induced/Lukens Gram Stain - Final 12/21/20 13:13 Sputum, Induced/Lukens Respiratory Culture - Final Streptococcus pneumoniae Haemophilus influenzae 12/21/20 14:00 Urine Catheter - Goldsmith Urine Culture - Final Culture exhibits no growth. 12/21/20 14:00 Urine, Clean Catch Legionella Antigen - Final 12/21/20 14:00 Urine, Clean Catch Streptococcus pneumoniae Antigen (M - Final 12/20/20 17:29 Mucosa - Nose Respiratory Panel (PCR) - Final ABG Data ABG results: ABG 12/27/20 04:54 Specimen Type ART Sample Site L Radial pH 7.23 L Bicarbonate Actual 22.4 Total CO2 24 Base Excess -5 L O2 Saturation 87 L O2 % 60 ABG pCO2 53.9 H ABG pO2 64 L Elie Test Positive Respiration Rate 12 O2 Delivery Device Adult Vent Vent Mode BiLevel Clinical Comments Radiography Diagnostic Testing: Radiology Impression Chest X-Ray 12/26/20 15:41 IMPRESSION: 1. Interval placement of right internal jugular tunneled hemodialysis catheter with tip catheter overlying the distal superior vena cava and no pneumothorax. 2. Endotracheal tube, nasogastric tube, right upper extremity PICC all of which are unchanged. 3. No change in bilateral pneumonia, pulmonary edema, or ARDS. Electronically Signed: Talib Garcia MD at 16:43 EDT Tel , Service support , Brain CT 12/27/20 02:13 IMPRESSION: Chronic involutional changes of the brain. Recommend MRI brain to further evaluate if clinically indicated N.B. : The above Results were Read Back by Esvin Barton DO to Dr.Joseph Jagruti MD, and understanding confirmed on 12/27/2020 02:38:20 (ET). Electronically Signed: Esvin Barton DO at 2:39 EDT Tel , Service support , Head/Neck CTA 12/27/20 03:32 IMPRESSION: Normal CTA Head and neck with contrast. Patchy airspace disease in the upper lobes. Electronically Signed: Esvin Barton DO at 5:42 EDT Tel , Service support , ADDENDUM: 12/27/20 0555 IMPRESSION: Normal CTA Head and neck with contrast. Patchy airspace disease in the upper lobes. N.B. : The above Results were Read Back by Esvin Barton DO to Marquez Chand MD, and understanding confirmed on 12/27/2020 05:48:44 (ET). Electronically Signed: Esvin Barton DO at 5:42 EDT Tel , Service support , Physical Exam Const General Appearance: intubated and patient mechanically ventilated HEENT normocephalic and moist oral mucous membranes Eyes PERRL and conjunctivae normal Neck supple and no JVD Resp normal respiratory effort, no retractions and no use of accessory muscles Auscultation: diminished lung sounds; Negative for crackles, rales, rhonchi or w heezes Cardio regular rate, regular rhythm, S1 normal heart sound, S2 normal heart sound and no murmurs GI soft to palpation and non-distended; Negative for hepatosplenomegaly Extremity no clubbing, cyanosis or edema Skin no rashes or lesions noted Neuro Neuro Narrative: Sedation is off and he is unresponsive Psych Appearance: intubated Assessment & Plan Assessment/Plan (1) Acute hypoxemic respiratory failure: (2) COVID-19: (3) TIFFANI (acute kidney injury): (4) Bacterial pneumonia: PLAN: 1. Acute hypoxic respiratory failure and septic shock secondary to COVID-19 p neumonia/TIFFANI/thrombocytopenia/bacterial pneumonia with strep pneumonia and Haemophilus influenza -Intubated 12/21/2020 -Appreciate body care manager assistance -Continue with Decadron, baricitinib, he was given 2 doses of remdesivir and then his renal function deteriorated to the point where we could not use it -Appreciate ID assistance, continue with Zosyn and Rocephin, sputum culture with strep pneumonia and Haemophilus influenza -Thrombocytopenia resolved -Septic shock resolved, no longer on Levophed -Underwent dialysis yesterday and anticipate further dialysis today -CT of the chest was negative for PE -CT of the brain was negative CT of the head and neck were negative, EEG is pending. Continue with Keppra for possible seizure disorder, remain off sedation 2. HTN/HLD/morbid obesity -Continue with hydralazine as needed, and will continue to hold his Norvasc -Once extubated and alert, will discuss weight loss strategies given his BMI of 39.3 3. GERD -Stable -Continue PPI 4. Chronic migraine -Stable -Continue with Topamax and Lyrica 5. Anxiety/depression -Stable -Continue with Effexor 6. COPD/KRISSY -Continue with steroids -Currently on inhalers at home and once extubated will resume BiPAP at night DVT: Lovenox Charges/Coding Visit Charges Inpatient E&M: 09594 Subs Hosp L2
--- NOTE | 2020-12-27 12:00 | CASEMGMT ---
SW called patient's to offer support. She was very tearful. She was in her car waiting on her mom to come out of her doctor's appointment. Patient and his have 2 children, 9yo and 13 yo. The kids are in school. She said the nurses have been very good with keeping her updated. Staff is also updating patient's sister as she said she cannot remember everything and it is too hard to talk to her about it. KENJI listened as she spoke and provided emotional support. Miroslava Cardoza MSW YESI
[2020-12-27 13:25] LABS: Bedside Glucose 303 mg/dL (70-110)
--- NOTE | 2020-12-27 17:12 | EKG12_ITS ---
Test Reason : TACHY Blood Pressure : / mmHG Vent. Rate : 181 BPM Atrial Rate : 234 BPM P-R Int : 000 ms QRS Dur : 072 ms QT Int : 224 ms P-R-T Axes : 000 067 090 degrees QTc Int : 389 ms Atrial fibrillation with premature ventricular or aberrantly conducted complexes Nonspecific ST abnormality , probably digitalis effect Abnormal ECG When compared with ECG of 20-DEC-2020 15:11, Atrial fibrillation has replaced Sinus rhythm Vent. rate has increased BY 92 BPM Questionable change in QRS axis ST now depressed in Lateral leads Confirmed by SHERYL MILLS, BAYRON ([id number]), editor & co founder ASHWINI KOHLER ([id number]) on 01/02/2021 10:01:52 AM Referred By: REYNOLD Confirmed By:BAYRON SAUCEDO MD
--- NOTE | 2020-12-27 17:28 | DIALYSIS ---
hemodialysis completed x 2hrs 15 min. TX stopped 45 min early due to pt went into A Fib RVR. Net UF 500ml. Dr. Reyes notified. See HD flowsheet in chart.
[2020-12-27] MEDS: Adenosine 6 MG/2 ML Syringe IV (17:36)
[2020-12-27] MEDS: Adenosine 6 MG/2 ML Syringe 12 MG IV (17:43)
[2020-12-27] MEDS: Heparin 10,000 UNITS/10 ML Vial IV (17:48)
--- NOTE | 2020-12-27 19:50 | NURSING ---
pt bilat eyes cont move from side to side while checking pupils, does not tract and is not twitching, dr garrison notified, ativan 2 mg given. recheck 25 min later and eyes are still moving side to side, but maybe not as fast, will monitor
[2020-12-27] MEDS: Topiramate 50 MG Tablet PO (21:31)
[2020-12-27 21:51] LABS: Bedside Glucose 224 mg/dL (70-110)
[2020-12-27] MEDS: 0.9% Saline Lock 10 ML Syringe IV (22:03)
[2020-12-27] MEDS: LORazepam 2 MG/ML Syringe IV (22:25)
[2020-12-28] VITALS (9 sets, daily range): BP systolic 64–108; BP diastolic 37–76; PULSE 42–161; RESP 18–32; TEMP 37.9–38.5; O2SAT 81–91
[2020-12-28] MEDS: Insulin Lispro 100 UNIT/ML INSULN.PEN SC (00:10)
[2020-12-28 00:46] LABS: Bedside Glucose 237 mg/dL (70-110)
[2020-12-28] MEDS: Sodium Bicarbonate 8.4% 50 ML Syringe 50 MEQ IV (01:32)
[2020-12-28] MEDS: Vital AF 1.2 Cal Liquid 1,000 ML 70 ML GT (02:43)
--- NOTE | 2020-12-28 04:29 | NURSING ---
0429 DR HART AT BEDSIDE. WEAK PULSE PALPABLE AND PRESENT W/DOPPLER. HR 108 ST. SPO2 66%. 0431 BP 80/45. HR 69 SPO2 79 0433 BP 62/33 HR 69 1MG EPI GIVEN 0434 PT NOTED TO BE SEIZING 0435 EPI GTT STARTED @ 15MCG/MIN 0437 2MG IV ATIVAN GIVEN FOR SEIZURE ACTIVITY. HR 118. BP 113/75 SPO2 60 RESPS 15 ON MECHANICAL VENT 0440 HR 59 BP 58/26 SPO2 72. LEVOPHED INCREASED TO 30MCG/MIN 0442 HR 47 BP 76/34. 1MG EPI GIVEN. 0443 2MG IV ATIVAN GIVEN. 0443 NO PULSE. CPR RESUMED. SEE CODE BLUE DOCUMENTATION.
--- NOTE | 2020-12-28 04:40 | RAD_ITS ---
STUDY: X-RAY CHEST REASON FOR EXAM: Male, 60 years old. CHANGE IN OXYGENATION TECHNIQUE: Single AP portable view of the chest. COMPARISON: December 23, 2020, December 26, 2020 FINDINGS: The endotracheal tube is present 6.0 cm above the amy. There is a right-sided internal jugular venous line tip is in the superior vena cava. There is a right-sided PICC line tip is in superior vena cava. There is a pattern of groundglass opacity in the left greater than right lung there is focal opacity in the right lower lobe. Normal size heart. Normal mediastinum and brock. Normal visualized pulmonary arteries. Normal visualized aortic arch and descending thoracic aorta. Normal visualized thoracic spine. Normal visualized ribs, clavicles, and shoulders. There is no demonstrated abnormality of the visualized soft tissue structures of the upper abdomen. RAD/Chest 1 View (Portable) IMPRESSION: Lines as detailed above. Endotracheal tube is slightly high and could be advanced 2 cm. Bilateral pulmonary infiltrates. Likely superimposed on underlying chronic lung disease. Electronically Signed: Lyndsay Casper MD at 5:55 EDT Tel , Service support ,
--- NOTE | 2020-12-28 04:48 | NURSING ---
0448 HR 104. SPO2 44%. RESPS 16 ON BVM W/ET. BP 185/134 0451 HR 70. BP 121/33. RSPRS 12. PRESENT IN ROOM. 0454 HR 51. BP 105/62/ 0455. NO PALPABLE PULSE CPR RESUMED.
--- NOTE | 2020-12-28 05:12 | NURSING ---
DR HART CALLED TODeb @ [phone]
--- NOTE | 2020-12-28 05:30 | CB_ITS ---
Code Blue Report Code Blue Summary Code Blue Summary: Multiple rounds of CPR was done. Patient was mostly in PE A. Patient received epinephrine IV pushes. Patient was on ventilator. Patient was on levophed drip. Patient previously was on amiodarone drip and that was stopped. Patient received bicarbonate. came to see patient at bedside. At one point chest compression was resumed after patient lost his pulse again. left the room. With grim prognosis it was discussed with that ACLS should be stopped. Patient lost his pulse and . Patient was pronounced on 12/28/2020 at 0511.
[2020-12-28 09:34] LABS: Pathologist Review Reviewed
--- NOTE | 2020-12-28 09:41 | NURSING ---
Black wedding band found and sent with , Debbie Curtis.
[2020-12-28 09:50] LABS: Pathologist Review Reviewed
--- NOTE | 2020-12-28 17:03 | PCM.DEATH ---
Preliminary Cause of Preliminary Cause of Preliminary Cause of : Acute hypoxic respiratory failure and septic shock secondary to COVID-19 pneumonia complicated with thrombocytopenia and bacterial pneumonia with streptococcal pneumonia and Haemophilus influenza as well as a stroke Date of Admission: 12/20/20 Principle Diagnosis Problem List: Active and Suspected Problems (Updated 12/25/20 @ 07:[address] Adolph Solis MD) Bacterial pneumonia (Acute) TIFFANI (acute kidney injury) (Acute) COVID-19 (Acute) Acute hypoxemic respiratory failure (Acute) Thrombocytopenia associated with COVID-19 (Acute) Hospital Course Mr. Curtis is a 60-year-old male who presented to the hospital on 12/15/2020 with worsening headache as well as a nonproductive cough. At that time he was not hypoxic, he was discharged home and then represented again at 12/20/2020 with worsening dyspnea as well as ongoing diarrhea and decreased oral intake, on his readmission on 12/20/2020 he required BiPAP and was 93% on 100% FiO2 which did improve a little bit initially. Unfortunately at the time of his admission he was unvaccinated. He was started on Decadron as well as remdesivir. His respiratory status continued to deteriorate and he was intubated in the ICU on 12/21/2020. He had his remdesivir discontinued secondary to a deterioration in his renal function and he was continued on Decadron and baricitinib. He did have sputum cultures come back positive with streptococcal pneumonia as well as Haemophilus influenza was started on Zosyn and Rocephin per infectious disease. He also need to be placed on Levophed secondary to septic shock from his bacterial pneumonia complicated by his COVID-19 pneumonia. He had a dialysis catheter placed and was initiated on dialysis as well secondary to his edema and worsening renal function. His course was complicated by a possible stroke, he was noted on the morning of 12/27/2020 to be unresponsive when sedation was reversed and he was not withdrawing to pain so a stroke alert was called and he was taken down for CT scan and a CTA of his head and neck both of which were unremarkable. The morning of 12/28/2020 he was found to have a diminishing pulse, it appears that Levophed was restarted and nursing has also noted some seizure-like activity. He did eventually code and undergo CPR however ultimately decided to withdraw care and he on 12/28/2020 at 0511. Assessment & Plan Assessment/Plan (1) Acute hypoxemic respiratory failure: (2) COVID-19: (3) TIFFANI (acute kidney injury): (4) Bacterial pneumonia:
== END 2020-12-28 09:54 | DRG 870 ==
LOC: ED 15:15 → ICU 18:14
PROVIDERS: Internal Medicine; Internal Medicine Critical Care Medicine; Internal Medicine Nephrology; Nurse Practitioner Family; Admitting Provider Family Medicine; Emergency Provider Emergency Medicine; PCP Family Medicine; Visit Provider Family Medicine
DX: A41.89 Other specified sepsis (principal); U07.1 COVID-19; J12.82 Pneumonia due to coronavirus disease 2019; J96.01 Acute respiratory failure with hypoxia; J15.4 Pneumonia due to other streptococci; J14 Pneumonia due to Hemophilus influenzae; R65.21 Severe sepsis with septic shock; J44.0 Chronic obstructive pulmonary disease with (acute) lower respiratory infection; B37.0 Candidal stomatitis; N17.9 Acute kidney failure, unspecified; I47.1 Supraventricular tachycardia; E87.4 Mixed disorder of acid-base balance; E87.5 Hyperkalemia; R19.7 Diarrhea, unspecified; I10 Essential (primary) hypertension; E78.5 Hyperlipidemia, unspecified; M79.7 Fibromyalgia; G89.29 Other chronic pain; N40.0 Benign prostatic hyperplasia without lower urinary tract symptoms; K21.9 Gastro-esophageal reflux disease without esophagitis; G47.33 Obstructive sleep apnea (adult) (pediatric); F32.A Depression, unspecified; F41.9 Anxiety disorder, unspecified; E66.01 Morbid (severe) obesity due to excess calories; Z68.38 Body mass index [BMI] 38.0-38.9, adult; Z79.899 Other long term (current) drug therapy; Z87.891 Personal history of nicotine dependence
CPT/HCPCS: 31500; 31720; 36569; 36600; 70450; 70496; 70498; 71045; 71275; 80048; 80053; 82550; 82728; 82803; 82962; 83605; 83615; 83735; 83880; 84100; 84145; 84478; 84484; 85025; 85379; 85384; 85610; 85730; 86140; 87040; 87070; 87077; 87086; 87186; 87205; 87340; 87449; 87633; 87641; 90937; 92950; 93005; 94002; 94003; 94640; 95819; 97802; 99251; 99285; J7030; J7050; Q9967; A4216; C1752; G0257; G0463; J0153; J0696; J2405; J3010